=== PATIENT | male | born 1935 | race Caucasian/White ===

== ENCOUNTER 2020-10-03 19:34 | Inpatient (IN) | payer MEDICARE, SELFPAY ==
[2020-10-03 23:25] LABS: Bedside Glucose 139 mg/dL (70-110)
[2020-10-03 23:49] VITALS: BP 97/67; PULSE 88; RESP 16; TEMP 36.5; O2SAT 95
[2020-10-04] MEDS: Jevity 1.5 1,000 ML 60 ML GT ×2 (00:53→14:11)
--- NOTE | 2020-10-04 05:40 | PCS.PANDOC ---
PANDEMIC DOCUMENTATION INITIATED: Date: 09/23/2020 Time: 220
[2020-10-04 06:17] LABS: International Normalized Ratio 1.2; Prothrombin Time (Protime)PT. 14.2 SECONDS (11.7-14.9)
[2020-10-04 06:30] LABS: Bedside Glucose 256 mg/dL (70-110)
[2020-10-04] MEDS: Furosemide 40 MG Tablet PO (09:05)
[2020-10-04] MEDS: Cyanocobalamin 500 MCG Tablet 1000 MCG PO (09:05)
[2020-10-04] MEDS: Empagliflozin 10 MG Tablet PO (09:05)
[2020-10-04 09:06] VITALS: PULSE 97
[2020-10-04] MEDS: metFORMIN HCl 500 MG Tablet PO (09:06)
[2020-10-04] MEDS: Cilostazol 50 MG Tablet 100 MG PO ×2 (09:06→16:46)
[2020-10-04] MEDS: Clopidogrel Bisulfate 75 MG Tablet PO (09:06)
[2020-10-04] MEDS: Gabapentin 300 MG Capsule PO ×3 (09:06→16:46)
[2020-10-04] MEDS: Metoprolol Tartrate 25 MG Tablet 75 MG PO ×2 (09:06→23:50)
[2020-10-04] MEDS: amLODIPine 5 MG Tablet PO ×2 (09:06→23:49)
[2020-10-04] MEDS: Enoxaparin 100 MG/ML Syringe SC (09:07)
[2020-10-04] MEDS: Lidocaine 5% Patch 1 PATCH TOPICAL (09:07)
[2020-10-04] MEDS: Allopurinol 300 MG Tablet PO (09:07)
[2020-10-04 10:00] VITALS: BP 133/74; PULSE 97; RESP 16; TEMP 36.6; O2SAT 97
--- NOTE | 2020-10-04 10:07 | CASEMGMT ---
Social Work Discussed patient's code status. Pt wishes to be full code. Nursing notified. Completed PHQ-9: score 11/13. Denies wanting meds to help with sleep. 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
[2020-10-04 11:51] LABS: Bedside Glucose 229 mg/dL (70-110)
--- NOTE | 2020-10-04 13:47 | PCM.RU.PYE ---
Admission Information Primary Diagnosis:: Physical debility due to Status Changes from Prescreening?: No changes Identified Actual Problem List:: Falls, Skin Intergrity, Alteration in Nutrition, Mobility Impaired, Self Care Deficit, Diabetes, Hyperglycemia, BP, Hypertension, Fluid Change-Dehydration, Alteration-Leisure Activ. Potential Problem List:: DVT, Bleeding, Infection, UTI, Aspiration, Falls, Skin Integrity, Depression Risk of Complications DVT: ANAIS Brennansalma, - - Lovenox 100 mg daily until INR is greater than 2 Bleeding: Monitor Lab Values, Nursing to Teach Precautions for anti-coagulation therapy., Wound, if applicable, to be assessed every shift., Stroke patients assessed for lethargy or change in status. Infection: Clinical Staff to Monitor for S/S of infection:, S/S of infection include fever, redness, warmth, etc. Urinary Tract Infection: Monitor for frequency, burning, discomfort, or incontinence., Nursing will obtain urine sample for urinalysis and C&S when ordered. Aspiration: Clinical staff will monitor for coughing, drooling, congestion., Speech will evaluate swallowing and dsyphasia., Nursing will monitor patient swallowing during meals. Falls: Patient will be evaluated for Fall Precautions, Patient will be placed on Fall Precautions as indicated per protocol. Skin Breakdown: Nursing will assess skin daily using assessment tool., Nursing will place on Skin Breakdown Precautions as indicated. Pain: Clinical staff will assess patient's pain level per protocol., Medications will be given, if needed, and the pain level reassessed., Other methods: Massage, distraction, decrease stimulus, etc. used PRN. Plan of Care Patient requires physician specializing in physical medicine and rehab oversight to provide close medical supervision of rehab issues including: Pain Management, Sleep Problems, Bowel and Bladder, Medical and co-morbidity Management, DVT prophylaxis, Rehabilitation Leadership, Coordination of treatment team Patient needs Physical Therapy: For a minimum of 1 hour, At least 5 out of 7 days Patient needs Physical Therapy to improve:: Mobility, Mobility, Mobility, Strengthening, Transfers, Stretching, ROM, Endurance, Stairs, Gait, Balance Patient needs Occupational Therapy: For a minimum of 1 hour, At least 5 out of 7 days Patient needs Occupational Therapy to improve ADL's incl.: Eating, Grooming, Bathing, Dressing, Toileting, Toilet transfers, Community Reintegration, Higher functioning activities, Household tasks, Adaptive Equipment, Splinting, Other activities as determined Patient requires speech therapy: For a minimum of 1 hour, At least 5 out of 7 days Patient requires speech therapy for: Swallowing, Cognition, Language Skills, Compensatory Strategies Patient requires 24/ Rehabilitation Nursing for: Pain Issues, Identifying and preventing risk factors, Monitoring and reporting current medical conditions, Assisting with ambulation, transfer, and all ADL's, Teaching patients about disease process and medications, Family teaching, Providing safe environment, Bowel and Bladder Issues, Skin integrity, Medication Management Patient needs Community Service Specialist/ Case Management for: Discharge Planning, Arranging Home Equipment or Services, Family Interventions Patient needs Dietary and Nutrition Services for: Adequate Nutrition, Nutritional Supplements, Nutritional Education Goals Patient will remain: free from falls, or injury at time of discharge. Patient will perform bed mobility at: MOD I level of assist. Patient will complete transfers from bed to chair at: MOD I level of assist. Patient will ambulate: with MOD I assist, with LRD, - - 300 feet Patient will complete upper body dressing at: MOD I level of assist. Patient will complete lower body dressing at: MOD I level of assist. Patient will complete toileting at: MOD I level of assist. Patient will perform bathing at: MOD I level of assist. Patient will complete grooming at: MOD I level of assist. Patient will complete home management skills at: MOD I level of assist. Patient will achieve: at MOD I assist, - - 1 curb step Patient will have pain level of: of 3 or less Patient's skin will: remain intact, free from infection. Patient will receive: adequate nutrition. Discharge Planning Pt Prognosis for Sig. Practical Improv. w/in Reasonable Time: Good Estimated Length of stay (days): 28 Anticipated D/C Destination: Home with Outpt Therapy Was Preadmission Assessment Accurate?: Yes
--- NOTE | 2020-10-04 13:57 | PCM.HP.STD ---
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...admitted to [facility] (2) Dysphagia Status: Acute Qualifiers: Dysphagia type: oropharyngeal phase Qualified Code(s): R13.12 - Dysphagia, oropharyngeal phase Comment: NPO with PEG at presentation (3) S/P percutaneous endoscopic gastrostomy (PEG) tube placement Status: Acute (4) Dysarthria Status: Acute (5) Chronic low back pain Status: Chronic (6) Atrial fibrillation Status: Chronic (7) Hypertension Status: Chronic (8) HLD (hyperlipidemia) Status: Chronic (9) CAD (coronary artery disease) Status: Chronic (10) Diabetes mellitus type 2 in nonobese Status: Chronic (11) Malnutrition Status: Acute Comment: pt reports a 20 lb weight loss since admission to [facility] on 09/27/2020 BUT he weighed 169 pounds and 12.1 ounces at presentation to [facility] and today at our institution he weighs 169 pounds and 5.04 ounces. ? Malnutrition? 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 Mr. Hassan is a 84 year old M with a past medical history of hypertension, hyperlipidemia, coronary artery disease, CABG, diabetes mellitus type 2, paroxysmal atrial fibrillation, chronic anticoagulation with warfarin, hyperuricemia and chronic low back pain who presented to [facility] ED on 09/26/2020 with slurred speech, right facial droop and dizziness for the preceding few hours. The initial CT brain without IV contrast done 09/26/2020 showed acute brain attack. He was at admitted to the hospital for acute right inferior medullary ischemic CVA. Because he had a therapeutic INR and the brain CT already showed changes consistent with ischemic CVA TPA was not ordered. CTA of the head showed no acute large vessel occlusion or hemorrhage. There was multifocal smaller vessel intracranial stenoses. Lab at admission to [facility] revealed a creatinine clearance of 34 which is consistent with stage IIIb chronic renal failure. Since I have no prior labs on this gentleman I cannot say if this is acute or chronic. He was seen at [facility] by PT/OT/ST. PEG tube was placed due to severe dysphagia and he was transferred to [facility] acute inpatient rehab on 10/04/2020 for greater than 3 hours of therapy daily to restore him at or near his prior level of function. Prior to the stroke he was independent with all ADLs and driving. All paperwork from [facility] was reviewed. He has never been a patient at [facility] in the past. Past Medical History Past Medical History (Chronic Problems): Chronic Problems Chronic low back pain (Chronic) Atrial fibrillation (Chronic) Hypertension (Chronic) HLD (hyperlipidemia) (Chronic) CAD (coronary artery disease) (Chronic) Diabetes mellitus type 2 in nonobese (Chronic) Chronic anticoagulation (Chronic) With warfarin Small vessel disease, cerebrovascular (Chronic) Age-related macular degeneration (Chronic) Allergies No Known Allergies Allergy (Verified 10/03/20 22:45) Home Medications: Ambulatory Orders Medication Instructions Recorded Allopurinol [Zyloprim] 300 mg PO Q48H 10/03/20 Amlodipine [Norvasc] 5 mg PO BID 10/03/20 Atorvastatin Calcium [Lipitor] 40 mg PO QHS 10/03/20 Cilostazol [Pletal] 100 mg PO BIDAC 10/03/20 Clopidogrel Bisulfate [Plavix] 75 mg PO DAILY 10/03/20 Cyanocobalamin [Vitamin B12] 1,000 mcg PO DAILY@0800 10/03/20 Empagliflozin [Jardiance] 10 mg PO DAILY 10/03/20 Enoxaparin Sodium [Lovenox] 100 mg SQ DAILY 10/03/20 Furosemide [Lasix] 40 mg PO DAILY 10/03/20 Gabapentin [Neurontin] 300 mg PO TIDCM 10/03/20 Glyburide,Micronized [Glyburide 6 mg PO BID 10/03/20 Micronized] Lidocaine 1 ea TP DAILY 10/03/20 Metformin HCl [Glucophage] 500 mg PO BID 10/03/20 Metoprolol Tartrate [Lopressor 25 mg PO BID 10/03/20 (Beta [place])] Warfarin [Coumadin ([facility]KC)] 4 mg PO DAILY 10/03/20 Surgical History: coronary bypass surgery Lives: Spouse/ Significant Other Smoking Status: Never smoker Tobacco Use: Non-smoker Alcohol: None Drugs: None - *Family History Paternal History Items: High Cholesterol, Heart Disease, Hypertension Review of Systems Constitutional: Denies: Chills, Fever, Malaise, Weight Change Eyes: Reports: Blurred vision - he does not have his glasses on and he has age related Macular degeneration HEENT: Reports: Difficulty Swallowing. Denies: Eye Pain, Head Aches, Nasal Congestion, Sinus Congestion, Sinus Drainage, Sore Throat Cardiovascular: Reports: Light Headedness - when he stands up. Denies: Chest Pain, Edema, Palpitations, Syncope Respiratory: Reports: Cough - occasional - he states productive but, he does not look at it. Denies: Shortness of Breath, Shortness of breath at rest, Sputum production Gastrointestinal: Denies: Abdominal Pain, Diarrhea, Nausea, Vomiting Genitourinary: Denies: Dysuria Musculoskeletal: Reports: Back Pain - low back pain - chronic since he was 19 YOA. Denies any radicular pain, Neck Pain - his neck is stiff. Denies: Joint Pain, Joint swelling, Joint Tenderness Skin: Reports: Dryness. Denies: Jaundice, Pruritis, Rash, Wounds Neurological: Reports: Balance problems, Blurred vision, Change in Speech, Slurred speech. 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 ? Malnutrition? Decubitus ulcer of coccygeal region, stage 1 (Acute) Renal failure (Acute) - Physical Exam Vitals/I&O's: Vital Signs Temp Pulse Resp BP Pulse Ox 97.8 F 97 16 133/74 H 97 10/04/20 10:00 10/04/20 10:00 10/04/20 10:00 10/04/20 10:00 10/04/20 10:00 Oxygen Delivery Method Room Air Weight: 169 lb 5.04 oz Intake and Output for Last 24 Hours 10/02/20 10/03/20 10/04/20 23:59 23:59 23:59 Intake Total 635 / 635 Output Total 950 / 950 Balance -315 / -315 General: Alert, Oriented x3, Cooperative, No apparent distress, Well developed, Well nourished HEENT: Atraumatic, EOMI, Normocephalic, - - Pupils are equal round and reactive to light. He has some ptosis in the right eye. Oral: Dry Mucosa Neck: Supple, No JVD, Negative Carotid Bruits, No Nodes, Trachea Midline, - - his neck is stiff and he has decreased ROM in all planes.....denies neck pain Lungs: Clear to auscultation, No rhonchi, No wheeze, No rales, - - Lying flat in bed with no tachypnea and no conversational dyspnea Cardiovascular: Regular rate, Regular Rhythm, Normal S1, Normal S2, No murmurs, No Ectopic Activity, No rub noted, No Gallop, - - he has distant heart sounds Abdomen: Bowel Sounds Present, Soft, Non Tender, Non-Distended, - - No guarding with palpation Extremities: No clubbing, No cyanosis, No edema, Capillary Refill Less than 3 Seconds, No Calf Tenderness, Diminished Peripheral Pulses, - - Feet are warm to touch Skin: No rashes, No breakdown, Ulcer/ Wound - reportedly with a stage I decubitus on the coccygeal area Musculoskeletal: No Tenderness to Palpation of Joints or Extremities, Arthritic Changes Neurological: Facial Droop - on the right, - - see NIH under the assessment and plan section Psych/Mental Status: Normal Affect, Appropriate, - - very pleasant Laboratory Results 10/03/20 23:21: POC Glucose 139 H 10/04/20 06:00: PT 14.2, INR 1.2 10/04/20 06:17: POC Glucose 256 H 10/04/20 11:25: POC Glucose 229 H Current Medications Allopurinol (Allopurinol 300 Mg Tablet) 300 mg PO Q48 [facility] Last Admin: 10/04/20 09:07 Dose: 300 mg Documented by: Amlodipine Besylate (Amlodipine 5 Mg Tablet) 5 mg PO BID [facility] Last Admin: 10/04/20 09:06 Dose: 5 mg Documented by: Atorvastatin Calcium (Atorvastatin Calcium 40 Mg Tablet) 40 mg PO QHS [facility] Last Admin: 10/04/20 00:54 Dose: Not Given Documented by: Bisacodyl (Bisacodyl 10 Mg Suppository) 10 mg RECTAL .PRN X 1 PRN PRN Reason: Constipation Cilostazol (Cilostazol 50 Mg Tablet) 100 mg PO BIDAC [facility] Last Admin: 10/04/20 09:06 Dose: 100 mg Documented by: Clopidogrel Bisulfate (Clopidogrel Bisulfate 75 Mg Tablet) 75 mg PO DAILY [facility] Last Admin: 10/04/20 09:06 Dose: 75 mg Documented by: Cyanocobalamin (Cyanocobalamin 500 Mcg Tablet) 1,000 mcg PO DAILY@0800 [facility] Last Admin: 10/04/20 09:05 Dose: 1,000 mcg Documented by: Empagliflozin (Empagliflozin 10 Mg Tablet) 10 mg PO DAILY [facility] Last Admin: 10/04/20 09:05 Dose: 10 mg Documented by: Enoxaparin Sodium (Enoxaparin 100 Mg/Ml Syringe) 100 mg SC DAILY [facility] Stop: 10/06/20 10:01 Last Admin: 10/04/20 09:07 Dose: 100 mg Documented by: Furosemide (Furosemide 40 Mg Tablet) 40 mg PO DAILY [facility] Last Admin: 10/04/20 09:05 Dose: 40 mg Documented by: Gabapentin (Gabapentin 300 Mg Capsule) 300 mg PO TIDCM [facility] Last Admin: 10/04/20 12:33 Dose: 300 mg Documented by: Glyburide ([facility]buride Micronized 3 Mg Tablet) [facility] Last Admin: 10/04/20 09:06 Dose: 6 mg Documented by: Enteral Nutritional Formula (Jevity 1.5) 1,000 mls @ 60 mls/hr GT .[id number] [facility] Last Admin: 10/04/20 00:53 Dose: 60 mls/hr Documented by: Lidocaine (Lidocaine 5% Patch) 1 patch TOPICAL DAILY [facility] Stop: 10/08/20 10:01 Last Admin: 10/04/20 09:07 Dose: 1 patch Documented by: Magnesium Hydroxide (Magnesium Hydroxide 30 Ml Udc) 30 ml PO .PRN X 1 PRN PRN Reason: Constipation Metformin HCl (Metformin Hcl 500 Mg Tablet) [facility] Last Admin: 10/04/20 09:06 Dose: 500 mg Documented by: Metoprolol Tartrate (Metoprolol Tartrate 25 Mg Tablet) 75 mg PO BID [facility] Last Admin: 10/04/20 09:06 Dose: 75 mg Documented by: Warfarin Sodium (Warfarin 4 Mg Tablet) 4 mg PO DAILY@1700 [facility] Assessment/Plan All Active Problems CVA (cerebral vascular accident) (Acute) Dysphagia (Acute) S/P percutaneous endoscopic gastrostomy (PEG) tube placement (Acute) Dysarthria (Acute) Malnutrition (Acute) Decubitus ulcer of coccygeal region, stage 1 (Acute) Renal failure (Acute) Impressions 1. 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 Severe dysphagia 3. Status post PEG insertion on 10/01/2020 4. Dysarthria 5. Cognitive dysfunction - resolved 6. Paroxysmal atrial fibrillation 7. Chronic anticoagulation with warfarin 8. Hypertension 9. Hyperlipidemia 10. Coronary artery disease 11. Hyperuricemia 12. Chronic renal failure stage IIIb 13. History of CABG 14. suspected PVD - denies claudication PLAN PT for gait stability OT for ADL's ST for evaluation Analgesics as needed Bowel protocol Fall precautions Assess for Anxiety/Depression GI prophylaxis with not necessary at this time. Patient denies any epigastric pain, nausea or vomiting. He denies any history of peptic ulcer disease. He is on continuous tube feed. Patient is on enoxaparin 100 mg daily to bridge with warfarin until the INR is greater than 2. Follow up with PCP and neurology following DC from Rehab AM lab including CMP, CBC, Mag, hemoglobin A1c and Phos DC Metformin-patient is now on tube feed and the combination of tube feed with Metformin generally leads to severe diarrhea/fluid loss. Patient had stage IIIb renal failure and Metformin is generally not used secondary to potential for causing lactic acidosis. Continue enoxaparin 100 mg subcu daily until the INR is greater than 2. Daily PT/INR Monitor accurate I&O If he tolerates the continuous tube feed with no residuals will discuss bolus feedings with the dietitian. Sliding scale insulin every 6 hours
--- NOTE | 2020-10-04 14:08 | PCM.NTREPORT ---
Nutrition Therapy Report - History Nutrition Services has been consulted to:: Manage enteral nutrition Current diet / nutrition support order:: NPO - Anthropometric Measurements Height:: 5 ft 9 in Weight:: 76.8 kg Body Mass Index (BMI):: 25.0 - Assessment Food / Nutrition-Related History:: Pt states Regular diet and good po intake prior to CVA. Now w/ new PEG (10/02) and receiving Jevity 1.5 at goal rate of 60 ml/hr to provide ~ 2160 dunia / 91 gm pro / 1094 ml free water/day. Pt tolerating it well per nsg w/ flat/soft/nontender abd. POC bld glu 10/04 = 256, 229 - noted pt with meds to help w/ glycemic control. Pt reports UBW: 81.8 kg indicating 6.2% wt loss x ~ 3 wks. [ End ] - Nutrition Diagnosis Problem / Etiology / Signs & Symptoms (PES):: Pt with suboptimal po intake and chewing/swallowing issues r/t CVA aeb need for PEG placement/enteral nutrition support and 6.2% wt loss x 3 wks. [ End ] Evidence of Malnutrition Exists:: No - Nutrition Intervention Nutrition Prescription:: [id number] dunia / 75-85 gm pro / day - Food / Nutrient Delivery Interventions Summary of nutrition intervention:: Will continue tf as ordered - Will add free water flush of 175 ml every 4 hours to provide total of 2144 ml/day. [ End ] Nutrition support ordered as / adjusted to:: Ordered free water flush of 175 ml every 4 hours to provide total of 2144 ml/day. Nutrition education provided?: No - MNT Monitoring Further MNT monitoring and evaluation required?: Yes MNT Follow-up in:: 3-5 days - Please call RD/LD if questions x [phone]
[2020-10-04 14:12] VITALS: BMI 25.0
[2020-10-04] MEDS: Insulin Lispro 100 UNIT/ML INSULN.PEN SC ×2 (16:57→23:48)
[2020-10-04 17:55] LABS: Bacteria 0 SEEN /hpf (None Seen); Mucous, Urine 0 SEEN /hpf (<or=2+); Red Blood Cells-Urine 0 SEEN /hpf (0-5)
[2020-10-04 18:04] LABS: Color, Urine Yellow (Yellow); Glucose, Dipstick 1000 mg/dl (Normal); Ketone-Dipstick Negative (Negative); Leukocyte Esterase-Dipstick Negative /ul (Negative); Nitrite-Dipstick Negative (Negative); Occult Blood-Urine Negative /ul (Negative); Protein-Dipstick 100 mg/dl (Negative); Urine Bilirubin Dipstick Negative (Negative); Urine Clarity Sl. Cloudy (Clear); Urine Urobilinogen 1 mg/dl (Normal)
[2020-10-04 18:10] LABS: Squamous Epithelial Cells - UA 0-5 SEEN /hpf (0-5); White Blood Cells 0-5 SEEN /hpf (0-5)
[2020-10-04 18:15] LABS: Bedside Glucose 174 mg/dL (70-110)
[2020-10-04] MEDS: Tamsulosin HCl 0.4 MG Capsule PO (18:15)
[2020-10-04 19:44] VITALS: BP 146/69; PULSE 81; RESP 18; TEMP 36.9; O2SAT 95
[2020-10-04] MEDS: Atorvastatin Calcium 40 MG Tablet PO (23:49)
[2020-10-04 23:50] VITALS: BP 146/69; PULSE 81
[2020-10-05 00:05] LABS: Bedside Glucose 250 mg/dL (70-110)
[2020-10-05] MEDS: Acetaminophen 650 MG/20 ML UDC GT ×2 (01:46→17:52)
[2020-10-05 04:32] VITALS: BP 136/64; BP 86/42; BP 98/50; PULSE 72; PULSE 77; PULSE 83
[2020-10-05] MEDS: Insulin Lispro 100 UNIT/ML INSULN.PEN SC ×5 (06:27→22:25)
[2020-10-05] MEDS: Cilostazol 50 MG Tablet 100 MG PO ×2 (06:28→17:42)
[2020-10-05 06:56] LABS: Bedside Glucose 245 mg/dL (70-110)
[2020-10-05 07:58] LABS: Hematocrit 49.2 % (40-54); Hemoglobin 15.8 g/dL (13.0-16.5); Mean Corp Hgb Conc 32.1 g/dL (32-36); Mean Corpuscular Volume 96.7 fL (80-94); Mean Platelet Vol. 11.2 fl (6.2-12.0); Platelet Count 245 K/mm3 (150-450); RBC Distribution Width CV 15.9 % (11.6-14.6); Red Blood Count 5.09 M/mm3 (4.6-6.2); White Blood Count 8.1 K/mm3 (4.4-11.0)
[2020-10-05 08:13] LABS: ALB/GLOB Ratio 0.8 RATIO (0.9-2.4); AST(SGOT) 32 U/L (15-37); Alanine Aminotransfer ALT/SGPT 49 U/L (16-61); Albumin, Serum 3.5 g/dL (3.2-5.0); Alkaline Phosphatase 202 U/L (45-117); Anion Gap 4 (5-15); BUN 34 mg/dL (7-18); Calcium,Total 9.5 mg/dL (8.5-10.1); Chloride 105 mmol/L (98-107); EST Glomerular Filtration Rate 41 mL/min (>60); Est Glom Filt Rate - Afr Amer 49 mL/min (>60); Estimated Creatinine Clearance 31.77 ml/min; Globulin 4.5 g/dL (2.2-4.2); Glucose 234 mg/dL (74-106); Magnesium 2.5 mg/dL (1.6-2.6); Phosphorus 3.5 mg/dL (2.5-4.9); Potassium 3.9 mmol/L (3.5-5.1); Sodium Level 140 mmol/L (136-145)
[2020-10-05 08:25] LABS: International Normalized Ratio 1.2; Prothrombin Time (Protime)PT. 14.3 SECONDS (11.7-14.9)
[2020-10-05 09:09] LABS: Hemoglobin A1c 6.3 % (3.8-5.6)
[2020-10-05 09:32] VITALS: BP 136/64; PULSE 77; RESP 16; TEMP 36.8; O2SAT 94
--- NOTE | 2020-10-05 10:17 | PN_ITS ---
Progress Note Afebrile Orthostatics were positive today. The blood pressure dropped from 136/64 lying down to 86/42 standing up. The heart rate did not increase with change in positions. He is on metoprolol 75 mg p.o. twice daily which likely blunts the increase in heart rate with orthostatic hypotension. Maintaining appropriate oxygen saturation on RA He is n.p.o. Discussed with nursing - no problems that need addressed Reviewed the PT/OT/ST notes Medication list reviewed. Fluid balance yesterday was +430. He had 1600 urine output. Post void residuals were 347, 465 and 545. Blood sugars are not adequately controlled. He is on continuous tube feed. Blood sugar this a.m. was 245 and at at bedtime it was 250. Nursing is checking the BS's AC and HS.....will change to Q 4H until we get the BS's controlled...... All lab was personally reviewed. The white blood cell count is 8.1 and the platelets are normal at 245,000. Hemoglobin is 15.8 the BUN is increased at 34 and the creatinine is increased at 1.7. Potassium is 3.9 and the sodium is 140. Magnesium is 2.5 and phosphorus is 3.5. The hemoglobin A1c is 6.3%. LFTs are unremarkable with the exception of a mild increase in alkaline phosphatase to 202. UA yesterday has proteinuria, 0 RBCs and 0-5 WBCs. There was no bacteria seen. It was nitrite negative. Mucous membranes are dry Lungs-clear to auscultation Heart-regular rate and rhythm with an occasional early beat, no rub, no gallop Abdomen-soft, nontender, nondistended, PEG site is clean and free of discharge or erythema. No peripheral edema No calf tenderness No large bruising and denies bleeding from his nose, gums or anus Impressions 1. Post stroke debility 2. Uncontrolled diabetes mellitus type 2 secondary to continuous tube feed 3. Chronic renal failure stage IIIb 4. Coronary artery disease with history of CABG 5. Chronic atrial fibrillation 6. Chronic anticoagulation with warfarin 7. Dysarthria 8. Dysphagia-severe requiring PEG tube placement 9. Urine retention 10. Orthostatic hypotension-suspect this has a lot to do with dehydration due to polyuria. 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 Will recheck following hydration Continue therapy. will foreign exchange position clerk to bolus feedings if there are no residuals with the continuous TF. DC AMaryl and Januvia and use Lantus Q 12H and SSI for now until BS's are controlled. The increase in the BUN and creat is likely due to dehydration due to polyuria from uncontrolled BS's. urinary tract obstruction also likely has some effect also. Because of the orthostasis can not increase Flomax and in fact we will DC and restart after he is adequately hydrated. Continue enoxaparin until the INR is greater than 2. Will likely need a Krause, can not increase the Flomax due to orthostatic hypotension. May eventually need a urology consult. STROKE Vital Signs/Narrative: Vital Signs Temp Pulse Resp BP Pulse Ox 10/05/20 09:32 98.3 F 77 16 136/64 H 94 Inpatient E&M: [id number] Subs Hosp L2
[2020-10-05] MEDS: Lidocaine 5% Patch 1 PATCH TOPICAL (10:36)
[2020-10-05 10:38] VITALS: PULSE 78
[2020-10-05] MEDS: Metoprolol Tartrate 25 MG Tablet 75 MG PO (10:38)
[2020-10-05] MEDS: Clopidogrel Bisulfate 75 MG Tablet PO (10:38)
[2020-10-05] MEDS: Gabapentin 300 MG Capsule PO ×3 (10:38→17:58)
[2020-10-05] MEDS: Furosemide 40 MG Tablet PO (10:38)
[2020-10-05] MEDS: Cyanocobalamin 500 MCG Tablet 1000 MCG PO (10:39)
[2020-10-05] MEDS: amLODIPine 5 MG Tablet PO (10:39)
[2020-10-05] MEDS: Jevity 1.5 1,000 ML 60 ML GT ×2 (10:40→22:47)
[2020-10-05] MEDS: Enoxaparin 100 MG/ML Syringe SC (10:41)
[2020-10-05 11:10] LABS: Bedside Glucose 276 mg/dL (70-110)
[2020-10-05 16:01] LABS: Bedside Glucose 265 mg/dL (70-110)
[2020-10-05 17:55] LABS: Bedside Glucose 223 mg/dL (70-110)
[2020-10-05 19:46] VITALS: BP 133/62; PULSE 80; RESP 18; TEMP 37.2; O2SAT 94
[2020-10-05 22:00] VITALS: PULSE 80; RESP 16
[2020-10-05] MEDS: Docusate Sodium 100 MG/10 ML UDC GT (22:26)
[2020-10-05 22:28] VITALS: PULSE 84
[2020-10-05] MEDS: Metoprolol Tartrate 25 MG Tablet 75 MG GT (22:28)
[2020-10-05] MEDS: Atorvastatin Calcium 40 MG Tablet GT (22:28)
[2020-10-05] MEDS: amLODIPine 5 MG Tablet GT (22:29)
[2020-10-05 22:35] LABS: Bedside Glucose 231 mg/dL (70-110)
[2020-10-06] MEDS: Insulin Lispro 100 UNIT/ML INSULN.PEN SC ×6 (02:08→22:14)
[2020-10-06] MEDS: Jevity 1.5 1,000 ML 60 ML GT (04:02)
[2020-10-06 04:32] VITALS: BP 111/53; BP 115/53; BP 81/35; PULSE 70; PULSE 75; PULSE 78
[2020-10-06 05:06] LABS: Bedside Glucose 266 mg/dL (70-110)
[2020-10-06 06:22] LABS: International Normalized Ratio 1.2; Prothrombin Time (Protime)PT. 14.9 SECONDS (11.7-14.9)
[2020-10-06 06:56] LABS: Bedside Glucose 248 mg/dL (70-110)
[2020-10-06 08:33] VITALS: BP 136/70; PULSE 78; RESP 16; TEMP 36.8; O2SAT 93
[2020-10-06] MEDS: Cyanocobalamin 500 MCG Tablet 1000 MCG GT (08:51)
[2020-10-06 08:52] VITALS: PULSE 78
[2020-10-06] MEDS: Metoprolol Tartrate 25 MG Tablet 75 MG GT ×2 (08:52→22:14)
[2020-10-06] MEDS: Cilostazol 50 MG Tablet 100 MG GT ×2 (08:52→16:37)
[2020-10-06] MEDS: amLODIPine 5 MG Tablet GT ×2 (08:52→22:14)
[2020-10-06] MEDS: Clopidogrel Bisulfate 75 MG Tablet GT (08:53)
[2020-10-06] MEDS: Docusate Sodium 100 MG/10 ML UDC GT (08:54)
[2020-10-06] MEDS: Lidocaine 5% Patch 1 PATCH TOPICAL (08:54)
[2020-10-06] MEDS: Gabapentin 300 MG Capsule GT ×3 (08:56→16:37)
[2020-10-06] MEDS: Furosemide 40 MG Tablet GT (08:57)
[2020-10-06] MEDS: Enoxaparin 100 MG/ML Syringe SC (09:00)
[2020-10-06] MEDS: Allopurinol 300 MG Tablet GT (09:01)
[2020-10-06] MEDS: Acetaminophen 650 MG/20 ML UDC GT ×2 (09:01→16:38)
[2020-10-06 09:21] LABS: Bedside Glucose 297 mg/dL (70-110)
[2020-10-06 13:46] LABS: Bedside Glucose 293 mg/dL (70-110)
[2020-10-06 17:51] LABS: Bedside Glucose 277 mg/dL (70-110)
[2020-10-06 18:58] VITALS: BP 126/70; PULSE 78; RESP 18; TEMP 36.5; O2SAT 93
[2020-10-06 22:00] VITALS: PULSE 78; RESP 16
[2020-10-06 22:14] VITALS: PULSE 72
[2020-10-06] MEDS: Atorvastatin Calcium 40 MG Tablet GT (22:16)
[2020-10-06 22:36] LABS: Bedside Glucose 224 mg/dL (70-110)
[2020-10-07] MEDS: Insulin Lispro 100 UNIT/ML INSULN.PEN SC ×6 (01:54→21:09)
[2020-10-07 02:31] LABS: Bedside Glucose 249 mg/dL (70-110)
[2020-10-07 05:54] LABS: International Normalized Ratio 1.5; Prothrombin Time (Protime)PT. 17.9 SECONDS (11.7-14.9)
[2020-10-07 06:45] LABS: Bedside Glucose 256 mg/dL (70-110)
[2020-10-07 07:48] VITALS: PULSE 84
[2020-10-07] MEDS: Metoprolol Tartrate 25 MG Tablet 75 MG GT ×2 (07:48→21:01)
[2020-10-07] MEDS: amLODIPine 5 MG Tablet GT ×2 (07:48→21:02)
[2020-10-07] MEDS: Furosemide 40 MG Tablet GT (07:48)
[2020-10-07] MEDS: Cilostazol 50 MG Tablet 100 MG GT ×2 (07:48→17:19)
[2020-10-07] MEDS: Gabapentin 300 MG Capsule GT ×3 (07:48→17:20)
[2020-10-07] MEDS: Cyanocobalamin 500 MCG Tablet 1000 MCG GT (07:48)
[2020-10-07] MEDS: Clopidogrel Bisulfate 75 MG Tablet GT (07:48)
[2020-10-07] MEDS: Lidocaine 5% Patch 1 PATCH TOPICAL (07:49)
[2020-10-07] MEDS: Acetaminophen 650 MG/20 ML UDC GT ×2 (07:50→17:29)
[2020-10-07 08:25] VITALS: BP 134/74; PULSE 84; RESP 18; TEMP 36.7; O2SAT 94
[2020-10-07 10:36] LABS: Bedside Glucose 330 mg/dL (70-110)
[2020-10-07] MEDS: Jevity 1.5 1,000 ML 60 ML GT (13:52)
[2020-10-07 14:01] LABS: Bedside Glucose 337 mg/dL (70-110)
--- NOTE | 2020-10-07 14:48 | PCM.NTREPORT ---
Nutrition Therapy Report - History Nutrition Services has been consulted to:: Manage enteral nutrition Current diet / nutrition support order:: NPO/PEG TF - Anthropometric Measurements Height:: 5 ft 9 in Weight:: 77.2 kg Body Mass Index (BMI):: 25.1 - Relevant Labs Relevant Labs:: MCV 96.7 fL (80-94) H 10/05/20 07:26 RDW Std Deviation 56.0 fl (35.1-43.9) H 10/05/20 07:26 RDW Coeff of Norman 15.9 % (11.6-14.6) H 10/05/20 07:26 PT 17.9 SECONDS (11.7-14.9) H 10/07/20 05:40 Anion Gap 4 (5-15) L 10/05/20 07:26 BUN 34 mg/dL (7-18) H 10/05/20 07:26 Creatinine 1.70 mg/dL (0.70-1.30) H 10/05/20 07:26 Est GFR (MDRD) Af Amer 49 mL/min (>60) L 10/05/20 07:26 Est GFR (MDRD) Non-Af 41 mL/min (>60) L 10/05/20 07:26 Glucose 234 mg/dL (74-106) H 10/05/20 07:26 Hemoglobin A1c 6.3 % (3.8-5.6) H 10/05/20 07:26 Alkaline Phosphatase 202 U/L (45-117) H 10/05/20 07:26 Globulin 4.5 g/dL (2.2-4.2) H 10/05/20 07:26 Albumin/Globulin Ratio 0.8 RATIO (0.9-2.4) L 10/05/20 07:26 - Assessment Food / Nutrition-Related History:: Pt with silent aspiration and NPO/PEG TF for nutrition. Pt appears to be tolerating continuous TF well with no residuals noted. Dr. Redd is requesting bolus TF support instead of continuous TF's. Blood glucose elevated but, HgbA1C 6.3% indicates overall good glycemic control. Wt overall stable since admit with ~.4 Kg wt increase noted. Re-estimated nutrition needs~0950-5485 kcal and~70-80 gm protein/day. Pt with pressure injury reddened coccyx. - Nutrition Diagnosis Problem / Etiology / Signs & Symptoms (PES):: Difficulty chewing and swallowing related to neuroligical deficit/CVA as evidenced by need for PEG TF for nutrition. Evidence of Malnutrition Exists:: No - Nutrition Intervention Nutrition Prescription:: Estimated Nutrition Needs~6182-9133 kcal and ~70-80 gm protein/day - Food / Nutrient Delivery Interventions Summary of nutrition intervention:: 1.) Will change TF order from continuous Jevity 1.5 Hernan @ 60 ml/hr to Jevity 1.5 Hernan 240 ml bolus 5 times per day with 90 ml free water flush before and after each bolus to provide 1800 kcal, 77 gm protein and 1812 ml total free water daily. 2.) Continue NPO unless pt deemed safe for PO nutrition. TF will meet~100% of pt estimated nutrition needs for maintenance. Nutrition support ordered as / adjusted to:: Jevity 1.5 Hernan 240 ml bolus 5 times per day with 90 ml free water flush before and after each bolus to provide 1800 kcal, 77 gm protein and 1812 ml total free water daily. Nutrition education provided?: No - MNT Monitoring Further MNT monitoring and evaluation required?: Yes MNT Follow-up in:: 3-5 days
[2020-10-07 14:49] VITALS: BMI 25.1
--- NOTE | 2020-10-07 14:54 | PN_ITS ---
Progress Note Afebrile VSS Maintaining appropriate oxygen saturation on RA Remains n.p.o. with continuous tube feed. Weight has increased approximately 1 pound since admission. Discussed with nursing - no problems that need addressed Reviewed the PT/OT/ST notes Medication list reviewed. He is tolerating the continuous tube feed feeding with no large residuals and no significant diarrhea. I reviewed the dietitians note and asked her to change to bolus feedings for ease of therapy. He has been changed to 240 cc of Jevity 1.55 times daily with 90 cc of free water flush before and after each bolus. Urine culture had no growth. Blood sugar record was reviewed. He got 6 of Lantus every 12 hours yesterday and had a total of 20 units of regular insulin and the blood sugars are all high. INR today is 1.5..... He had 10 mg of Coumadin yesterday. Alert, oriented x3, cooperative, positive dysarthria Lungs-clear to auscultation, not tachypneic, no conversational dyspnea Heart-regular rate and rhythm, no murmur, no gallop, distant heart sounds Abdomen-soft, nontender, PEG site is free of erythema or increased warmth. No peripheral edema No rashes and no skin breakdown Pleasant and appropriate, very upbeat, sleeping well Impressions 1. 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 2. Status post PEG insertion on 10/01/2020 3. PAF 4. Chronic anticoagulation with warfarin -INR is subtherapeutic today and he was only recently restarted on warfarin. He is also on enoxaparin 100 mg subcu once daily until the INR is therapeutic. 5. Hyperuricemia 6. Diabetes mellitus type 2-good control as an outpatient with a hemoglobin A1C of 6.3% however blood sugars on continuous tube feed are very uncontrolled. 7. dehydration due to polyuria 8. Chronic renal failure stage IIIb 9. 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 Increase Lantus to 12 units in the a.m. and 8 units at night. Continue Accu- Cheks 5 times daily prior to all tube feeds and use SSI coverage. Hold Lasix in the a.m. Due to polyuria he is getting dehydrated. BMP in the a.m. With the TF (1200 cc daily) and free water flushes he will be getting 2100 cc fluid daily and this is too much for this pt. Will limit the fluid intake to 1500 cc daily. PT/INR in the AM Inpatient E&M: 35991 Subs Hosp L2
[2020-10-07] MEDS: Jevity 1.5. 1,000 ML Bottle 240 ML GT ×2 (17:26→21:02)
[2020-10-07 18:16] LABS: Bedside Glucose 230 mg/dL (70-110)
[2020-10-07 19:55] VITALS: BP 129/80; PULSE 80; RESP 17; TEMP 36.6; O2SAT 93
[2020-10-07 21:00] VITALS: PULSE 80; RESP 17; O2SAT 93; BMI 25.1
[2020-10-07 21:01] VITALS: BP 129/80; PULSE 80
[2020-10-07] MEDS: Docusate Sodium 100 MG/10 ML UDC GT (21:01)
[2020-10-07] MEDS: Atorvastatin Calcium 40 MG Tablet GT (21:02)
[2020-10-07 21:10] LABS: Bedside Glucose 240 mg/dL (70-110)
--- NOTE | 2020-10-08 02:52 | NURSING ---
Reviewed and agreed with CLIENT PORTFOLIO MANAGER documentation and charting.
[2020-10-08] MEDS: Acetaminophen 650 MG/20 ML UDC GT ×2 (05:05→21:13)
[2020-10-08] MEDS: Insulin Lispro 100 UNIT/ML INSULN.PEN SC ×5 (05:05→21:15)
[2020-10-08 05:35] LABS: International Normalized Ratio 1.8
[2020-10-08] MEDS: Menthol/Lanolin/Calamine/Znox 113 GM Tube 1 APPLIC TOPICAL ×3 (05:39→21:16)
[2020-10-08] MEDS: Jevity 1.5. 1,000 ML Bottle 240 ML GT ×5 (05:39→21:15)
[2020-10-08 05:41] LABS: Anion Gap 7 (5-15); BUN 48 mg/dL (7-18); BUN/Creat Ratio 26.8 RATIO (10-20); Calcium,Total 8.8 mg/dL (8.5-10.1); Chloride 97 mmol/L (98-107); Creatinine, Serum 1.79 mg/dL (0.70-1.30); EST Glomerular Filtration Rate 39 mL/min (>60); Est Glom Filt Rate - Afr Amer 47 mL/min (>60); Estimated Creatinine Clearance 29.62 ml/min; Glucose 213 mg/dL (74-106); Potassium 4.5 mmol/L (3.5-5.1); Sodium Level 134 mmol/L (136-145)
[2020-10-08 06:31] LABS: Bedside Glucose 246 mg/dL (70-110)
[2020-10-08 08:16] VITALS: BP 140/62; PULSE 75; RESP 16; TEMP 36.8; O2SAT 91
[2020-10-08] MEDS: Gabapentin 300 MG Capsule GT ×3 (08:49→17:43)
[2020-10-08] MEDS: Cyanocobalamin 500 MCG Tablet 1000 MCG GT (08:49)
[2020-10-08] MEDS: Cilostazol 50 MG Tablet 100 MG GT ×2 (08:50→17:42)
[2020-10-08 10:26] VITALS: PULSE 76
[2020-10-08] MEDS: amLODIPine 5 MG Tablet GT ×2 (10:26→21:14)
[2020-10-08] MEDS: Clopidogrel Bisulfate 75 MG Tablet GT (10:26)
[2020-10-08] MEDS: Allopurinol 300 MG Tablet GT (10:26)
[2020-10-08] MEDS: Metoprolol Tartrate 25 MG Tablet 75 MG GT ×2 (10:26→21:14)
[2020-10-08] MEDS: Lidocaine 5% Patch 1 PATCH TOPICAL (10:28)
--- NOTE | 2020-10-08 10:29 | CASEMGMT ---
Social Work IDT met with patient and via conference call for Team meeting. Discussed patient's progress in therapy. Pt is min-CGA tx, 50 ft with FWW and working on mechanics and safety. Pt is modA for sponge baths, set up while seated for grooming and UE dressing, max for LE dressing. ST working on swallowing exercises, remains NPO with feeding tube but on FFWP and fluid restriction DC'd. Explained [employer] NRD 10/07 and continued stay is not guaranteed. Will ReTeam next week. Will continue to follow. Mary Hector, INTRUSION ANALYST CHILD CARE
[2020-10-08 11:16] LABS: Bedside Glucose 271 mg/dL (70-110)
[2020-10-08 11:25] LABS: Bacteria 0 SEEN /hpf (None Seen); Mucous, Urine 0 SEEN /hpf (<or=2+); Squamous Epithelial Cells - UA 0 SEEN /hpf (0-5)
[2020-10-08 11:35] LABS: Color, Urine Yellow (Yellow); Glucose, Dipstick 250 mg/dl (Normal); Ketone-Dipstick 5 mg/dl (Negative); Leukocyte Esterase-Dipstick 500 /ul (Negative); Nitrite-Dipstick Negative (Negative); Occult Blood-Urine 250 /ul (Negative); Protein-Dipstick 100 mg/dl (Negative); Specific Gravity, Urine 1.015 (1.002-1.030); Urine Bilirubin Dipstick Negative (Negative); Urine Clarity Cloudy (Clear); Urine Urobilinogen 4 mg/dl (Normal)
[2020-10-08 11:41] LABS: Red Blood Cells-Urine > 100 SEEN /hpf (0-5); White Blood Cells >100 SEEN /hpf (0-5)
[2020-10-08] MEDS: Enoxaparin 100 MG/ML Syringe SC (12:49)
[2020-10-08 13:16] VITALS: BMI 25.1
[2020-10-08 14:31] LABS: Bedside Glucose 312 mg/dL (70-110)
[2020-10-08 19:21] LABS: Bedside Glucose 317 mg/dL (70-110)
[2020-10-08 21:00] VITALS: BP 131/73; PULSE 77; RESP 17; TEMP 37.1; O2SAT 96; BMI 25.1
[2020-10-08 21:00] LABS: Bedside Glucose 316 mg/dL (70-110)
[2020-10-08 21:14] VITALS: BP 131/73; PULSE 77
[2020-10-08] MEDS: Atorvastatin Calcium 40 MG Tablet GT (21:14)
[2020-10-08] MEDS: Docusate Sodium 100 MG/10 ML UDC GT (21:14)
--- NOTE | 2020-10-09 01:50 | NURSING ---
REVIEWED AND AGREE WITH RN LABOR DELIVERY'S HANDOFF AND FUNCTIONAL ASSESSMENT CHARTING.
[2020-10-09] MEDS: Insulin Lispro 100 UNIT/ML INSULN.PEN SC ×4 (05:45→16:44)
[2020-10-09 06:00] VITALS: BP 117/64; BP 123/59; BP 99/49; PULSE 69; PULSE 72; PULSE 77
[2020-10-09 06:38] LABS: International Normalized Ratio 2.1; Prothrombin Time (Protime)PT. 22.7 SECONDS (11.7-14.9)
[2020-10-09 06:40] LABS: Bedside Glucose 198 mg/dL (70-110)
[2020-10-09 07:30] VITALS: PULSE 73; RESP 17; TEMP 37.2; O2SAT 94
[2020-10-09] MEDS: Menthol/Lanolin/Calamine/Znox 113 GM Tube 1 APPLIC TOPICAL ×3 (07:40→22:57)
[2020-10-09] MEDS: Jevity 1.5. 1,000 ML Bottle 240 ML GT ×2 (07:41→09:57)
[2020-10-09] MEDS: Docusate Sodium 100 MG/10 ML UDC GT ×2 (08:22→22:57)
[2020-10-09 08:23] VITALS: PULSE 73
[2020-10-09] MEDS: Cyanocobalamin 500 MCG Tablet 1000 MCG GT (08:23)
[2020-10-09] MEDS: Clopidogrel Bisulfate 75 MG Tablet GT (08:23)
[2020-10-09] MEDS: amLODIPine 5 MG Tablet GT (08:23)
[2020-10-09] MEDS: Metoprolol Tartrate 25 MG Tablet 75 MG GT (08:23)
[2020-10-09] MEDS: Cilostazol 50 MG Tablet 100 MG GT ×2 (08:23→16:42)
[2020-10-09] MEDS: Gabapentin 300 MG Capsule GT ×3 (08:24→16:42)
--- NOTE | 2020-10-09 10:21 | PN_ITS ---
Progress Note Afebrile VSS - he is tilt negative today with the blood pressure dropping from 117/64 lying down to 99/49 standing up. Heart rate increased from 72-77 however the chronotropic response is blunted secondary to beta-[place]. Flomax is currently on hold due to orthostatic hypotension. Maintaining appropriate oxygen saturation on RA Oral intake is limited to Arce Freewater protocol Fluid balance is positive every day. Urine output is good. His weight has increased 4-1/2 pounds since admission. Discussed with nursing - no problems that need addressed Reviewed the PT/OT/ST notes Medication list reviewed. INR is 2.1 today. UA yesterday showed greater than 100 RBCs and greater than 100 WBCs per high-power field with 0 bacteria and 0 squamous epithelial cells. Had a small amount of urine ketones and there was proteinuria present. Urine culture is pending. John denies chest pain, palpitations, nausea/vomiting/abdominal pain, li ghtheadedness. He is complaining of low back pain which is chronic. It increases with movement. Urine in the Krause bag is bloody but not grossly bloody. He did pull on the Krause catheter. He also has a urinary tract infection. Lungs-bibasilar Rales, no conversational dyspnea, no accessory muscle use, not tachypneic lying in bed. Mild JVD Mucous membranes are dry Heart-regular with ectopic beats. Heart sounds are distant. The radial pulses regular. No murmur or gallop appreciated. No peripheral edema, no edema in the flanks and no pitting edema in the posterior thighs. Denies calf pain No skin breakdown and no rashes Impressions 1. 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 Severe dysphagia-currently n.p.o. 3. Dysarthria-improving 4. Paroxysmal atrial fibrillation on chronic anticoagulation with warfarin. INR is therapeutic today so will discontinue enoxaparin 5. Orthostatic hypotension-Flomax was discontinued and metoprolol has been decreased to 50 mg twice daily. 6. Urinary tract infection 7. Urine retention 8. Hyperlipidemia 9. Diabetes mellitus type 2-uncontrolled secondary to tube feeds 10. Chronic renal failure stage IIIb 11. Rales in both bases. I observed him doing the I-S and he does it appropriately and gets the float up to 750 consistently. Fluid balance is positive and the rales could be secondary to pulmonary edema or atelectasis or pneumonia. Continue to adjust insulin keep all blood sugars less than 180. DC enoxaparin Decrease metoprolol to 50 mg twice daily. Decrease amlodipine to 2.5 mg twice daily Adjust insulin. Increase the Lantus to 20 units in the AM at 0600 and 15 units at 1800. 4 units of insulin with feeding at 0600, 1000, 1400 and 1800 and no scheduled insulin with the 2200 feeding. Continue to check accucheck BS's prior to each feeding. BMP in the AM Obtain a copy of his last ECHO Start Augmentin susp 400 mg Q8H Portable chest x-ray today STROKE Vital Signs/Narrative: Vital Signs Temp Pulse Resp Pulse Ox 10/09/20 08:23 73 10/09/20 07:30 98.9 F 73 17 94 Inpatient E&M: 12563 Subs Hosp L2
[2020-10-09 10:36] LABS: Bedside Glucose 312 mg/dL (70-110)
[2020-10-09] MEDS: Acetaminophen 650 MG/20 ML UDC GT ×2 (11:11→16:42)
[2020-10-09] MEDS: Amox/Clav 400mg/5ml Susp 400 MG PO ×2 (11:55→18:49)
--- NOTE | 2020-10-09 12:00 | PCM.NTREPORT ---
Nutrition Therapy Report - History Nutrition Services has been consulted to:: Manage enteral nutrition Current diet / nutrition support order:: NPO; Jevity 1.5 via PEG- 240mL 5x/day w/ 90mL H2O flush before and after to provide 1800 calories, 77 g protein, and 1812mL fluid/day. - Anthropometric Measurements Height:: 5 ft 9 in Weight:: 78.8 kg Body Mass Index (BMI):: 25.6 - Relevant Labs Relevant Labs:: MCV 96.7 fL (80-94) H 10/05/20 07:26 RDW Std Deviation 56.0 fl (35.1-43.9) H 10/05/20 07:26 RDW Coeff of Norman 15.9 % (11.6-14.6) H 10/05/20 07:26 PT 22.7 SECONDS (11.7-14.9) H 10/09/20 05:17 Sodium 134 mmol/L (136-145) L 10/08/20 05:15 Chloride 97 mmol/L (98-107) L 10/08/20 05:15 Anion Gap 4 (5-15) L 10/05/20 07:26 BUN 48 mg/dL (7-18) H 10/08/20 05:15 Creatinine 1.79 mg/dL (0.70-1.30) H 10/08/20 05:15 Est GFR (MDRD) Af Amer 47 mL/min (>60) L 10/08/20 05:15 Est GFR (MDRD) Non-Af 39 mL/min (>60) L 10/08/20 05:15 BUN/Creatinine Ratio 26.8 RATIO (10-20) H 10/08/20 05:15 Glucose 213 mg/dL (74-106) H 10/08/20 05:15 Hemoglobin A1c 6.3 % (3.8-5.6) H 10/05/20 07:26 Alkaline Phosphatase 202 U/L (45-117) H 10/05/20 07:26 Globulin 4.5 g/dL (2.2-4.2) H 10/05/20 07:26 Albumin/Globulin Ratio 0.8 RATIO (0.9-2.4) L 10/05/20 07:26 - Assessment Food / Nutrition-Related History:: Continues w/ significant hyperglycemia. As currently ordered, each bolus provides 51 g CHO. Noted administration times of TF yesterday was ~530, 1030, 1400, and 1945 which is not consistent w/ sliding scale insulin order. Noted wt increase of 1.6kg since last review. - Food / Nutrient Delivery Interventions Summary of nutrition intervention:: Will adjust enteral nutrition boluses to be provided at time sliding scale insulin is ordered- 0600, 1000, 1400, and 1800. See below. Nutrition support ordered as / adjusted to:: Via PEG- 300mL Jevity 1.5 4x/day (0600, 1000, 1400, and 1800) to provide 1800 calories, 77 g protein. 125mL H2O flush before and after each bolus to provide a total of 1912mL fluid/day. Each bolus provides approx 65 g CHO per bolus. - MNT Monitoring Further MNT monitoring and evaluation required?: Yes MNT Follow-up in:: 3-5 days - will monitor tolerance; may need to adjust flushes pending fluid status.
[2020-10-09 12:03] VITALS: BMI 25.6
[2020-10-09 12:56] LABS: Bedside Glucose 360 mg/dL (70-110)
[2020-10-09 13:26] VITALS: BMI 25.6
[2020-10-09] MEDS: Jevity 1.5. 1,000 ML Bottle 300 ML GT ×2 (16:36→22:58)
[2020-10-09 17:36] LABS: Bedside Glucose 219 mg/dL (70-110)
--- NOTE | 2020-10-09 18:22 | RAD_ITS ---
STUDY: X-RAY CHEST REASON FOR EXAM: Male, 85 years old. Rales in both bases. TECHNIQUE: Single frontal view of the chest. COMPARISON: None. FINDINGS: Sternotomy wires are present. Mild edema or interstitial infiltrates. There is no demonstrated pleural abnormality. Normal size heart. Normal mediastinum and jaida. Normal visualized pulmonary arteries. Normal visualized aortic arch and descending thoracic aorta. Normal visualized thoracic spine. Normal visualized ribs, clavicles, and shoulders. There is no demonstrated abnormality of the visualized soft tissue structures of the upper abdomen. Possible PEG tube. Clinical correlation required. RAD/Chest 1 View (Portable) IMPRESSION: Mild edema or pneumonitis. Electronically Signed: Jorge L Veloz MD at 23:24 EST , Service support ,
[2020-10-09 20:14] VITALS: BP 131/74; PULSE 74; RESP 18; TEMP 36.6; O2SAT 94
[2020-10-09] MEDS: amLODIPine 2.5 MG Tablet GT (22:57)
[2020-10-09] MEDS: Atorvastatin Calcium 40 MG Tablet GT (22:57)
[2020-10-09 23:01] VITALS: BP 131/74; PULSE 74
[2020-10-09] MEDS: Metoprolol Tartrate 50 MG Tablet GT (23:01)
[2020-10-09 23:26] LABS: Bedside Glucose 238 mg/dL (70-110)
[2020-10-10] MEDS: Amox/Clav 400mg/5ml Susp 400 MG PO ×3 (02:58→21:15)
[2020-10-10 05:18] LABS: Hematocrit 38.5 % (40-54); Hemoglobin 12.3 g/dL (13.0-16.5); Mean Corp Hgb Conc 31.9 g/dL (32-36); Mean Corpuscular Hgb 29.9 pg (27.0-32.0); Mean Corpuscular Volume 93.7 fL (80-94); Mean Platelet Vol. 11.3 fl (6.2-12.0); Platelet Count 184 K/mm3 (150-450); RBC Distribution Width CV 15.1 % (11.6-14.6); RBC Distribution Width SD 52.5 fl (35.1-43.9); Red Blood Count 4.11 M/mm3 (4.6-6.2); White Blood Count 6.8 K/mm3 (4.4-11.0)
[2020-10-10 05:34] LABS: Anion Gap 5 (5-15); BUN 41 mg/dL (7-18); BUN/Creat Ratio 27.2 RATIO (10-20); Calcium,Total 8.5 mg/dL (8.5-10.1); Chloride 94 mmol/L (98-107); Creatinine, Serum 1.51 mg/dL (0.70-1.30); EST Glomerular Filtration Rate 47 mL/min (>60); Est Glom Filt Rate - Afr Amer 57 mL/min (>60); Estimated Creatinine Clearance 35.12 ml/min; Glucose 261 mg/dL (74-106); Potassium 4.6 mmol/L (3.5-5.1); Sodium Level 130 mmol/L (136-145)
[2020-10-10] MEDS: Acetaminophen 650 MG/20 ML UDC GT ×2 (05:49→22:13)
[2020-10-10] MEDS: Insulin Lispro 100 UNIT/ML INSULN.PEN SC ×6 (05:53→17:14)
[2020-10-10] MEDS: Jevity 1.5. 1,000 ML Bottle 300 ML GT ×4 (05:54→22:17)
[2020-10-10] MEDS: Menthol/Lanolin/Calamine/Znox 113 GM Tube 1 APPLIC TOPICAL ×3 (05:54→22:16)
[2020-10-10 07:10] LABS: Bedside Glucose 224 mg/dL (70-110)
[2020-10-10 08:07] LABS: BNP,B-Type NATRIURETIC PEPTIDE 185.4 pg/mL (0-100)
[2020-10-10] MEDS: Cilostazol 50 MG Tablet 100 MG GT ×2 (08:44→17:16)
[2020-10-10] MEDS: Clopidogrel Bisulfate 75 MG Tablet GT (08:44)
[2020-10-10] MEDS: Allopurinol 300 MG Tablet GT (08:44)
[2020-10-10] MEDS: Cyanocobalamin 500 MCG Tablet 1000 MCG GT (08:45)
[2020-10-10] MEDS: Docusate Sodium 100 MG/10 ML UDC GT ×2 (08:45→22:12)
[2020-10-10] MEDS: Gabapentin 300 MG Capsule GT ×3 (08:45→17:16)
[2020-10-10] MEDS: amLODIPine 2.5 MG Tablet GT ×2 (08:45→22:18)
[2020-10-10] MEDS: Furosemide 40 MG Tablet GT (08:45)
[2020-10-10 08:46] VITALS: BP 135/66; PULSE 77
[2020-10-10] MEDS: Metoprolol Tartrate 50 MG Tablet GT ×2 (08:46→22:17)
[2020-10-10 08:47] VITALS: BP 135/66; PULSE 77; RESP 18; TEMP 36.8; O2SAT 92
[2020-10-10 09:32] VITALS: BMI 25.6
[2020-10-10 13:25] LABS: Bedside Glucose 250 mg/dL (70-110)
[2020-10-10] MEDS: Sodium Chloride 1 GM Tablet PO ×2 (15:04→22:19)
[2020-10-10 17:21] LABS: Bedside Glucose 263 mg/dL (70-110)
[2020-10-10 19:37] VITALS: BP 130/73; PULSE 80; RESP 16; TEMP 36.8; O2SAT 93
[2020-10-10 22:00] VITALS: PULSE 66; RESP 17
[2020-10-10 22:10] VITALS: BMI 25.6
[2020-10-10] MEDS: Atorvastatin Calcium 40 MG Tablet GT (22:15)
[2020-10-10 22:17] VITALS: PULSE 80
[2020-10-11 00:51] LABS: Bedside Glucose 331 mg/dL (70-110)
[2020-10-11] MEDS: Amox/Clav 400mg/5ml Susp 400 MG PO (03:04)
[2020-10-11 05:27] LABS: Anion Gap 4 (5-15); BUN 39 mg/dL (7-18); BUN/Creat Ratio 26.5 RATIO (10-20); Calcium,Total 8.5 mg/dL (8.5-10.1); Chloride 96 mmol/L (98-107); Creatinine, Serum 1.47 mg/dL (0.70-1.30); EST Glomerular Filtration Rate 48 mL/min (>60); Est Glom Filt Rate - Afr Amer 58 mL/min (>60); Estimated Creatinine Clearance 36.07 ml/min; Glucose 225 mg/dL (74-106); Potassium 4.4 mmol/L (3.5-5.1); Sodium Level 132 mmol/L (136-145)
[2020-10-11] MEDS: Menthol/Lanolin/Calamine/Znox 113 GM Tube 1 APPLIC TOPICAL ×3 (05:31→21:58)
[2020-10-11] MEDS: Insulin Lispro 100 UNIT/ML INSULN.PEN SC ×4 (05:34→16:59)
[2020-10-11] MEDS: Jevity 1.5. 1,000 ML Bottle 300 ML GT ×4 (05:39→21:56)
[2020-10-11 05:49] LABS: International Normalized Ratio 2.4; Prothrombin Time (Protime)PT. 26.1 SECONDS (11.7-14.9)
[2020-10-11 06:55] LABS: Bedside Glucose 210 mg/dL (70-110)
--- NOTE | 2020-10-11 08:28 | PN_ITS ---
Progress Note Afebrile VSS Maintaining appropriate oxygen saturation on RA Remains n.p.o. and on tube feedings via PEG Discussed with nursing - no problems that need addressed Reviewed the PT/OT/ST notes Medication list reviewed. Fluid balance yesterday was +625. He had 2100 cc of urine yesterday. His weight has decreased from 176 pounds and 9 ounces on 10/10/2022 124 pounds and 9 ounces today........Lasix was restarted Blood sugar record was reviewed. Blood sugars are coming down. SSI was not given per the protocol yesterday. Adjustments were made to the insulin regimen. Hemoglobin today is 11.6 and stable. He was started on salt tabs BID yesterday for a low sodium. Sodium today is up to 132 from 130 yesterday. Urine culture is growing Klebsiella pneumoniae which is resistant to ampicillin, ampicillin/sulbactam. It is intermediately sensitive to nitrofurantoin and Zosyn. He is currently on amoxicillin/clavulanic acid. Alert, no apparent distress Lying nearly flat in bed with no shortness of breath, lungs are clear anterior and lateral Heart-irregular with controlled ventricular response, no gallop Abdomen-PEG site is clean without discharge Normal bowel sounds heard No peripheral edema No calf tenderness Impressions 1. Post stroke debility 2. Urine retention 3. gross hematuria when the Chun was in since he is on anti coagulation.......as long as the PVR's are less than 400 will leave the chun out and 4. Complicated UTI - related to the Chun 5. Diabetes mellitus type 2 6. Atrial fibrillation 7. Chronic anticoagulation with warfarin DC the Augmentin and start Omnicef susp 300 mg BID per the PEG Continue therapy Inpatient E&M: [id number] Subs Hosp L2
[2020-10-11] MEDS: Cilostazol 50 MG Tablet 100 MG GT ×2 (08:41→16:57)
[2020-10-11] MEDS: Cyanocobalamin 500 MCG Tablet 1000 MCG GT (08:41)
[2020-10-11] MEDS: Clopidogrel Bisulfate 75 MG Tablet GT (08:41)
[2020-10-11] MEDS: amLODIPine 2.5 MG Tablet GT ×2 (08:41→21:46)
[2020-10-11 08:42] VITALS: PULSE 78
[2020-10-11] MEDS: Gabapentin 300 MG Capsule GT ×3 (08:42→16:57)
[2020-10-11] MEDS: Metoprolol Tartrate 50 MG Tablet GT ×2 (08:42→21:46)
[2020-10-11] MEDS: Acetaminophen 650 MG/20 ML UDC GT (08:43)
[2020-10-11] MEDS: Docusate Sodium 100 MG/10 ML UDC GT ×2 (08:45→21:42)
[2020-10-11] MEDS: Sodium Chloride 1 GM Tablet PO ×2 (08:46→21:50)
[2020-10-11] MEDS: Furosemide 40 MG Tablet GT (08:46)
[2020-10-11 09:16] VITALS: BP 137/70; PULSE 80; RESP 18; TEMP 36.6; O2SAT 93
--- NOTE | 2020-10-11 09:30 | NURSING ---
Refused to get OOB due to back pain and tylenol has been given. Will monitor. Patient has been repositioned. Currently being treated for UTI.
[2020-10-11] MEDS: Cefdinir Susp 125 MG/5 ML PO.SYRINGE 300 MG GT ×2 (11:06→21:52)
[2020-10-11] MEDS: Insulin Lispro 100 UNIT/ML INSULN.PEN 6 UNIT SC ×2 (11:13→16:59)
[2020-10-11 11:26] LABS: Bedside Glucose 285 mg/dL (70-110)
[2020-10-11 15:00] VITALS: BP 130/68
[2020-10-11 15:39] VITALS: BMI 25.6
[2020-10-11 17:26] LABS: Bedside Glucose 155 mg/dL (70-110)
[2020-10-11 21:16] LABS: Bedside Glucose 223 mg/dL (70-110)
[2020-10-11 21:46] VITALS: BP 126/62; PULSE 77
[2020-10-11] MEDS: Atorvastatin Calcium 40 MG Tablet GT (21:47)
[2020-10-11 22:00] VITALS: BP 126/62; PULSE 77; RESP 16; TEMP 36.4; O2SAT 97
[2020-10-12] MEDS: Cilostazol 50 MG Tablet 100 MG GT ×2 (06:14→16:57)
[2020-10-12 06:30] LABS: Bedside Glucose 175 mg/dL (70-110)
[2020-10-12] MEDS: Insulin Lispro 100 UNIT/ML INSULN.PEN 6 UNIT SC ×3 (06:30→16:57)
[2020-10-12] MEDS: Insulin Lispro 100 UNIT/ML INSULN.PEN SC ×3 (06:31→16:58)
[2020-10-12] MEDS: Menthol/Lanolin/Calamine/Znox 113 GM Tube 1 APPLIC TOPICAL ×3 (06:32→21:34)
[2020-10-12] MEDS: Jevity 1.5. 1,000 ML Bottle 300 ML GT ×4 (06:37→21:35)
[2020-10-12 08:49] VITALS: BP 122/60; PULSE 73; RESP 16; TEMP 37.2; O2SAT 93
[2020-10-12] MEDS: Acetaminophen 650 MG/20 ML UDC GT ×2 (09:24→15:21)
[2020-10-12 09:25] VITALS: PULSE 70
[2020-10-12] MEDS: Cyanocobalamin 500 MCG Tablet 1000 MCG GT (09:25)
[2020-10-12] MEDS: Gabapentin 300 MG Capsule GT ×3 (09:25→16:57)
[2020-10-12] MEDS: Metoprolol Tartrate 50 MG Tablet GT ×2 (09:25→21:33)
[2020-10-12] MEDS: Furosemide 40 MG Tablet GT (09:25)
[2020-10-12] MEDS: Clopidogrel Bisulfate 75 MG Tablet GT (09:25)
[2020-10-12] MEDS: amLODIPine 2.5 MG Tablet GT ×2 (09:25→21:34)
[2020-10-12] MEDS: Sodium Chloride 1 GM Tablet PO ×2 (09:26→21:33)
[2020-10-12] MEDS: Cefdinir Susp 125 MG/5 ML PO.SYRINGE 300 MG GT ×2 (09:27→21:33)
[2020-10-12] MEDS: Allopurinol 300 MG Tablet GT (09:28)
[2020-10-12 11:31] LABS: Hemoglobin 12.7 g/dL (13.0-16.5)
[2020-10-12 12:10] LABS: Bedside Glucose 313 mg/dL (70-110)
--- NOTE | 2020-10-12 12:30 | NURSING ---
Sat up in recliner after therapy session. Patient is a x1 assist with walker for nursing at min assist level.
[2020-10-12 14:16] VITALS: BMI 25.6
[2020-10-12 15:36] LABS: Bedside Glucose 204 mg/dL (70-110)
--- NOTE | 2020-10-12 18:00 | NURSING ---
Krause cath noted to have hematuria and patient reported that it had been pulled in therapy this morning. Patient denies any complaints. will monitor. Stat lock on upper thigh adjusted to different area on skin.
[2020-10-12 19:32] VITALS: BP 131/97; PULSE 85; RESP 16; TEMP 36.5; O2SAT 97
[2020-10-12 21:25] LABS: Bedside Glucose 201 mg/dL (70-110)
[2020-10-12 21:33] VITALS: PULSE 83
[2020-10-12] MEDS: Atorvastatin Calcium 40 MG Tablet GT (21:34)
[2020-10-12 22:58] VITALS: BMI 25.6
[2020-10-13] MEDS: Insulin Lispro 100 UNIT/ML INSULN.PEN 6 UNIT SC ×3 (06:23→16:15)
[2020-10-13] MEDS: Menthol/Lanolin/Calamine/Znox 113 GM Tube 1 APPLIC TOPICAL ×3 (06:23→22:05)
[2020-10-13] MEDS: Insulin Lispro 100 UNIT/ML INSULN.PEN SC ×3 (06:24→16:14)
[2020-10-13] MEDS: Jevity 1.5. 1,000 ML Bottle 300 ML GT ×4 (06:24→22:05)
[2020-10-13] MEDS: Cilostazol 50 MG Tablet 100 MG GT ×2 (06:25→16:11)
[2020-10-13 07:05] LABS: Bedside Glucose 171 mg/dL (70-110)
[2020-10-13 07:29] LABS: BUN 36 mg/dL (7-18); BUN/Creat Ratio 25.5 RATIO (10-20); Calcium,Total 8.8 mg/dL (8.5-10.1); Chloride 99 mmol/L (98-107); Creatinine, Serum 1.41 mg/dL (0.70-1.30); EST Glomerular Filtration Rate 51 mL/min (>60); Est Glom Filt Rate - Afr Amer 61 mL/min (>60); Estimated Creatinine Clearance 37.61 ml/min; Glucose 180 mg/dL (74-106); Potassium 4.2 mmol/L (3.5-5.1); Sodium Level 134 mmol/L (136-145)
[2020-10-13 07:30] LABS: Anion Gap 5 (5-15); International Normalized Ratio 2.5; Prothrombin Time (Protime)PT. 26.5 SECONDS (11.7-14.9)
[2020-10-13 07:42] VITALS: BP 116/64; PULSE 74; RESP 20; TEMP 37.1; O2SAT 93
[2020-10-13] MEDS: Acetaminophen 650 MG/20 ML UDC GT ×3 (08:24→21:56)
[2020-10-13 08:25] VITALS: PULSE 78
[2020-10-13] MEDS: Metoprolol Tartrate 50 MG Tablet GT ×2 (08:25→22:04)
[2020-10-13] MEDS: Cefdinir Susp 125 MG/5 ML PO.SYRINGE 300 MG GT ×2 (08:25→21:57)
[2020-10-13] MEDS: Sodium Chloride 1 GM Tablet PO ×2 (08:25→21:59)
[2020-10-13] MEDS: Gabapentin 300 MG Capsule GT ×3 (08:25→16:11)
[2020-10-13] MEDS: Cyanocobalamin 500 MCG Tablet 1000 MCG GT (08:25)
[2020-10-13] MEDS: amLODIPine 2.5 MG Tablet GT ×2 (08:25→21:57)
[2020-10-13] MEDS: Furosemide 40 MG Tablet GT (08:25)
--- NOTE | 2020-10-13 09:00 | NURSING ---
Dr. Redd aware that catheter had been pulled and he had hematuria that turned into gross hematuria overnight. NNO's. Patient denies any burning or discomfort at this time.
[2020-10-13] MEDS: Clopidogrel Bisulfate 75 MG Tablet GT (10:09)
[2020-10-13 10:46] LABS: Bedside Glucose 307 mg/dL (70-110)
[2020-10-13 14:16] VITALS: BMI 25.6
--- NOTE | 2020-10-13 14:35 | PCM.PN.BLA ---
Progress Note Afebrile VSS Maintaining appropriate oxygen saturation on RA TF's per PEG Discussed with nursing - no problems that need addressed Reviewed the PT/OT/ST notes Medication list reviewed. no complaints. urine is pink tinged today Lungs -clear to auscultation Heart-regular with no ectopy. He alternates between atrial fibrillation with controlled ventricular response and sinus rhythm. Abdomen-soft, nontender, nondistended, normal bowel sounds, the PEG site is clean, without discharge and without erythema. Very mild edema of the right ankle no edema on the left No rashes and no skin breakdown no change in the facial drop He is pleasant and making jokes and outgoing. Makes good eye contact Impressions 1. post stroke debility 2. dysphagia 3. Diabetes mellitus type 2 4. Chronic anticoagulation with warfarin 5. Chronic renal failure stage IIIb 6. Atrial fibrillation 7. urine retention - necessitating a Krause Continue therapy adjust insulin to keep all the blood sugars less than 180 with no hypoglycemia Keep an eye on the hematuria Inpatient E&M: 53549 Subs Hosp L2
[2020-10-13 16:26] LABS: Bedside Glucose 191 mg/dL (70-110)
--- NOTE | 2020-10-13 17:07 | NURSING ---
pt refused to get OOB despite staff encouragement. states causes more pain sitting in recliner chair, medicated with PRN Tylenol.
[2020-10-13 19:26] VITALS: BP 109/56; PULSE 75; RESP 16; TEMP 36.6; O2SAT 94
[2020-10-13 20:55] LABS: Bedside Glucose 195 mg/dL (70-110)
[2020-10-13] MEDS: Atorvastatin Calcium 40 MG Tablet GT (21:57)
[2020-10-13 22:04] VITALS: BP 127/58; PULSE 78
[2020-10-13 23:15] VITALS: BMI 25.6
[2020-10-14] MEDS: Cilostazol 50 MG Tablet 100 MG GT ×2 (05:32→17:50)
[2020-10-14] MEDS: Jevity 1.5. 1,000 ML Bottle 300 ML GT ×4 (06:15→21:15)
[2020-10-14] MEDS: Menthol/Lanolin/Calamine/Znox 113 GM Tube 1 APPLIC TOPICAL ×3 (06:16→22:16)
[2020-10-14] MEDS: Insulin Lispro 100 UNIT/ML INSULN.PEN SC ×2 (06:16→10:21)
[2020-10-14] MEDS: Insulin Lispro 100 UNIT/ML INSULN.PEN 9 UNIT SC (06:16)
[2020-10-14 07:01] LABS: Bedside Glucose 166 mg/dL (70-110)
[2020-10-14] MEDS: Gabapentin 300 MG Capsule GT ×3 (08:40→16:51)
[2020-10-14 10:00] VITALS: BP 128/57; PULSE 69; RESP 18; TEMP 36.8; O2SAT 96
[2020-10-14] MEDS: Cyanocobalamin 500 MCG Tablet 1000 MCG GT (10:17)
[2020-10-14 10:18] VITALS: BP 128/57; PULSE 69
[2020-10-14] MEDS: amLODIPine 2.5 MG Tablet GT ×2 (10:18→22:17)
[2020-10-14] MEDS: Furosemide 40 MG Tablet GT (10:18)
[2020-10-14] MEDS: Metoprolol Tartrate 50 MG Tablet GT ×2 (10:18→22:17)
[2020-10-14] MEDS: Cefdinir Susp 125 MG/5 ML PO.SYRINGE 300 MG GT ×2 (10:19→22:32)
[2020-10-14] MEDS: Allopurinol 300 MG Tablet GT (10:19)
[2020-10-14] MEDS: Sodium Chloride 1 GM Tablet PO ×2 (10:19→22:18)
[2020-10-14] MEDS: Insulin Lispro 100 UNIT/ML INSULN.PEN 6 UNIT SC ×2 (10:22→17:49)
[2020-10-14] MEDS: Acetaminophen 650 MG/20 ML UDC GT (10:25)
[2020-10-14] MEDS: Clopidogrel Bisulfate 75 MG Tablet GT (10:45)
[2020-10-14 10:46] LABS: Bedside Glucose 207 mg/dL (70-110)
--- NOTE | 2020-10-14 10:46 | PCM.PN.BLA ---
Progress Note Day #5 antibiotics for Klebsiella pneumoniae UTI Afebrile VSS-blood pressure is well controlled and the heart rate is within normal limits. Maintaining appropriate oxygen saturation on RA Remains n.p.o. He is receiving PEG tube feedings 4 times daily The last bowel movement was 10/12/2020. Fluid balance on 10/13/2020 was -110. Discussed with nursing - Urine is grossly bloody in the tubing and the Krause bag. He is on Warfarin for AF with recent embolic stroke. INR yesterday was 2.5. Reviewed the PT/OT/ST notes Medication list reviewed. Blood sugar record was reviewed. The fasting today was 166 and the 1020 blood sugar was 207 (better with adjustments to the insulin regimen yesterday). The blood sugar last night was 195. John denies abd pain, flank pain, N/V, SOB, Cough lightheadedness. He is doing well with therapy. He is tolerating the TF's without residuals. He is alert and oriented X 3. He is pleasant and appropriate and appears in NAD. MM are dry with no mucosal lesions and he denies sore mouth Lungs - CTA, diminished H - irreg with controlled VR, no MM and no gallop abd - soft and NT, the bladder is not distended. Normal BS's, no guarding with palpation no peripheral edema and no calf tenderness No rashes and no skin breakdown. Urine is wine colored Still with facial droop Impressions 1. Hematuria in a male pt with urine retention, Krause catheter and fully anticoagulated. Will hold the Warfarin but not reverse so as not to risk increased coagulability in light of recent embolic CVA. Insert a [address] catheter and irrigate. Continue the Cefdinir for UTI. Daily PT/INR.....HGB was 12.7 and stable yesterday. Will check a HGB now and repeat Q 12H x 4. 2. DM II - blood sugars are better but not good enough yet. Adjust insulin......increase the Lantus in the afternoon to 17 units BMP in the AM Continue therapy Continue clopidogrel restart Flomax and check orthostatics in the AM for the next 2 days. Voiding trial later this week. STROKE Vital Signs/Narrative: Vital Signs Pulse BP 10/14/20 10:18 69 128/57 H Inpatient E&M: [id number] Subs Hosp L2
[2020-10-14 15:40] VITALS: BMI 25.6
[2020-10-14] MEDS: Tamsulosin HCl 0.4 MG Capsule PO (16:51)
[2020-10-14 18:06] LABS: Bedside Glucose 107 mg/dL (70-110)
[2020-10-14 18:38] LABS: Hemoglobin 11.6 g/dL (13.0-16.5)
[2020-10-14 19:41] VITALS: BP 115/57; PULSE 60; RESP 18; TEMP 36.7; O2SAT 96
[2020-10-14 21:36] LABS: Bedside Glucose 168 mg/dL (70-110)
[2020-10-14 22:00] VITALS: RESP 16; BMI 25.6
[2020-10-14 22:17] VITALS: PULSE 62
[2020-10-14] MEDS: Atorvastatin Calcium 40 MG Tablet GT (22:17)
[2020-10-14] MEDS: Docusate Sodium 100 MG/10 ML UDC GT (22:17)
[2020-10-15 05:47] LABS: Hemoglobin 10.5 g/dL (13.0-16.5)
[2020-10-15 05:53] LABS: Prothrombin Time (Protime)PT. 21.9 SECONDS (11.7-14.9)
[2020-10-15 06:00] VITALS: BP 113/57; BP 114/56; BP 127/47; PULSE 57; PULSE 71; PULSE 79
[2020-10-15 06:07] LABS: Anion Gap 4 (5-15); BUN 37 mg/dL (7-18); BUN/Creat Ratio 26.6 RATIO (10-20); Calcium,Total 8.4 mg/dL (8.5-10.1); Chloride 98 mmol/L (98-107); Creatinine, Serum 1.39 mg/dL (0.70-1.30); EST Glomerular Filtration Rate 52 mL/min (>60); Est Glom Filt Rate - Afr Amer 62 mL/min (>60); Estimated Creatinine Clearance 38.15 ml/min; Glucose 178 mg/dL (74-106); Potassium 4.1 mmol/L (3.5-5.1); Sodium Level 134 mmol/L (136-145)
[2020-10-15 06:11] LABS: Bedside Glucose 166 mg/dL (70-110)
[2020-10-15] MEDS: Menthol/Lanolin/Calamine/Znox 113 GM Tube 1 APPLIC TOPICAL ×3 (06:11→21:02)
[2020-10-15] MEDS: Insulin Lispro 100 UNIT/ML INSULN.PEN SC ×2 (06:11→11:24)
[2020-10-15] MEDS: Insulin Lispro 100 UNIT/ML INSULN.PEN 9 UNIT SC (06:12)
[2020-10-15] MEDS: Cyanocobalamin 500 MCG Tablet 1000 MCG GT (07:59)
[2020-10-15] MEDS: Clopidogrel Bisulfate 75 MG Tablet GT (07:59)
[2020-10-15] MEDS: Furosemide 40 MG Tablet GT (07:59)
[2020-10-15 08:00] VITALS: BP 119/66; PULSE 60
[2020-10-15] MEDS: Cefdinir Susp 125 MG/5 ML PO.SYRINGE 300 MG GT ×2 (08:00→21:02)
[2020-10-15] MEDS: Gabapentin 300 MG Capsule GT ×3 (08:00→15:56)
[2020-10-15] MEDS: Metoprolol Tartrate 50 MG Tablet GT ×2 (08:00→21:04)
[2020-10-15] MEDS: amLODIPine 2.5 MG Tablet GT ×2 (08:00→21:04)
[2020-10-15] MEDS: Cilostazol 50 MG Tablet 100 MG GT ×2 (08:00→15:56)
[2020-10-15] MEDS: Sodium Chloride 1 GM Tablet PO ×2 (08:00→21:03)
[2020-10-15] MEDS: Jevity 1.5. 1,000 ML Bottle 300 ML GT ×3 (08:06→21:01)
[2020-10-15 08:21] VITALS: BP 119/66; PULSE 60; RESP 16; TEMP 36.7; O2SAT 93
--- NOTE | 2020-10-15 10:21 | CASEMGMT ---
Social Work IDT met with patient and dtr via conference call for Team meeting. Discussed patient's progress in therapy. Pt is SBA -CGA for tx, ambulating 80 ft with FWW at CGA, min for bathing, set up for grooming and UE ADLs, min for LE. ST working on swallowing exercises, remains NPO with peg tube, and FFWP. ST to repeat MBS. Pain varies. Pt having some light headedness, hematuria in urine cath. Explained [employer] NRD 10/21 and continued stay is not guaranteed. Will continue to follow. Mary Hector, MATERIALS ANALYST AIR DUCT MECHANIC
[2020-10-15 11:02] VITALS: BMI 25.6
[2020-10-15] MEDS: Insulin Lispro 100 UNIT/ML INSULN.PEN 6 UNIT SC ×2 (11:25→15:55)
[2020-10-15 12:51] LABS: Bedside Glucose 260 mg/dL (70-110)
[2020-10-15] MEDS: Tamsulosin HCl 0.4 MG Capsule PO (15:56)
[2020-10-15] MEDS: Acetaminophen 650 MG/20 ML UDC GT ×2 (15:58→21:04)
[2020-10-15 16:56] LABS: Bedside Glucose 145 mg/dL (70-110)
[2020-10-15 18:43] LABS: Hemoglobin 11.2 g/dL (13.0-16.5)
--- NOTE | 2020-10-15 19:12 | PN_ITS ---
Progress Note Day #6 antibiotics for Klebsiella pneumonia UTI John was seen on team rounds today and his participated by phone. Afebrile VSS Maintaining appropriate oxygen saturation on RA He is still n.p.o. and receiving feedings via PEG. [] Discussed with nursing - no problems that need addressed Reviewed the PT/OT/ST notes Medication list reviewed. Hemoglobin today is 11.2. Blood sugar record was reviewed. The fasting was 166 today and the blood sugar prior to the 11:00 feeding was 260 despite the increase in scheduled Humalog in the AM. The urine is a pale pink today, even after the irrigation was slowed. John denies chest pain, shortness of breath, calf tenderness, nausea/vomiting/abdominal pain, dysuria. Alert, oriented x3, lying in bed in no apparent distress Lungs-diminished with coarse crackles in the bases laterally, no conversational dyspnea, not tachypneic Heart-irregular irregular with controlled ventricular response, no rub, no gallop Abdomen-soft, nontender, nondistended, PEG site is free of discharge or erythema, normal bowel sounds Minimal swelling of the right ankle, no ANAIS hose and no Kevin wraps. There is no swelling of the left lower extremity. No rashes, no skin breakdown Still with facial droop and dysarthria but much improved Impressions 1. 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 Diabetes mellitus type 2 3. Urinary tract infection secondary to Klebsiella pneumoniae 4. Urine retention 5. Gross hematuria -better after bladder irrigation and discontinuation of anticoagulation. 6. Orthostatic hypotension earlier in the admission precluding use of Flomax 7. Hypertension 8. Paroxysmal atrial fibrillation -not currently on anticoagulation secondary to gross hematuria. Consider restarting when the urine is clear. Continue therapy Finish a 7-day course of antibiotics for Klebsiella pneumonia UTI Continue to monitor blood sugars and adjust insulin as needed to keep blood sugars all less than 180 with no blood sugars less than 100 and this 85-year-old patient. Inpatient E&M: [id number] [facility] Hosp L2
[2020-10-15 19:13] VITALS: BP 143/73; PULSE 66; RESP 17; TEMP 36.4; O2SAT 96
[2020-10-15 20:30] VITALS: PULSE 66; RESP 16; O2SAT 96; BMI 25.6
[2020-10-15] MEDS: Docusate Sodium 100 MG/10 ML UDC GT (21:02)
[2020-10-15] MEDS: Atorvastatin Calcium 40 MG Tablet GT (21:02)
[2020-10-15 21:04] VITALS: BP 147/73; PULSE 66
[2020-10-15 21:35] LABS: Bedside Glucose 189 mg/dL (70-110)
--- NOTE | 2020-10-16 05:02 | NURSING ---
Reviewed and agree with MILIEU THERAPIST documentation and charting.
[2020-10-16 06:00] VITALS: BP 127/62; BP 129/63; BP 82/45; PULSE 60; PULSE 71; PULSE 81
[2020-10-16 06:11] LABS: Bedside Glucose 133 mg/dL (70-110)
[2020-10-16 06:11] LABS: International Normalized Ratio 1.6; Prothrombin Time (Protime)PT. 18.2 SECONDS (11.7-14.9)
[2020-10-16] MEDS: Menthol/Lanolin/Calamine/Znox 113 GM Tube 1 APPLIC TOPICAL ×3 (06:32→20:51)
[2020-10-16] MEDS: Jevity 1.5. 1,000 ML Bottle 300 ML GT ×4 (06:33→20:52)
[2020-10-16] MEDS: Insulin Lispro 100 UNIT/ML INSULN.PEN 9 UNIT SC (06:33)
[2020-10-16] MEDS: Acetaminophen 650 MG/20 ML UDC GT ×4 (06:35→20:48)
[2020-10-16] MEDS: amLODIPine 2.5 MG Tablet GT ×2 (07:50→20:50)
[2020-10-16] MEDS: Cyanocobalamin 500 MCG Tablet 1000 MCG GT (07:50)
[2020-10-16] MEDS: Gabapentin 300 MG Capsule GT ×3 (07:50→16:15)
[2020-10-16] MEDS: Allopurinol 300 MG Tablet GT (07:50)
[2020-10-16] MEDS: Furosemide 40 MG Tablet GT (07:50)
[2020-10-16] MEDS: Cilostazol 50 MG Tablet 100 MG GT ×2 (07:50→16:14)
[2020-10-16] MEDS: Docusate Sodium 100 MG/10 ML UDC GT ×2 (07:50→20:49)
[2020-10-16 07:51] VITALS: PULSE 65
[2020-10-16] MEDS: Clopidogrel Bisulfate 75 MG Tablet GT (07:51)
[2020-10-16] MEDS: Metoprolol Tartrate 50 MG Tablet GT ×2 (07:51→20:51)
[2020-10-16] MEDS: Sodium Chloride 1 GM Tablet PO ×2 (07:51→20:50)
[2020-10-16] MEDS: Cefdinir Susp 125 MG/5 ML PO.SYRINGE 300 MG GT ×2 (07:51→20:49)
[2020-10-16 10:00] VITALS: BP 129/63; PULSE 60; RESP 18; TEMP 36.9; O2SAT 92
[2020-10-16] MEDS: Insulin Lispro 100 UNIT/ML INSULN.PEN SC ×2 (10:59→16:17)
[2020-10-16] MEDS: Insulin Lispro 100 UNIT/ML INSULN.PEN 6 UNIT SC ×2 (10:59→16:18)
[2020-10-16 11:15] LABS: Bedside Glucose 207 mg/dL (70-110)
--- NOTE | 2020-10-16 13:40 | ST.MBS ---
Modified Barium Swallow - Patient Information Study Date: 10/16/20 Study Time: 13:00 Direct Billable Minutes: 75 Total Minutes procedure & reportin Diagnosis: Dysphagia (R13.12) Referring Physician: Clair Redd Reason for Referral: The patient is an 85 year old male referred for a modified barium swallow (MBS) study to objectively assess the patients oropharyngeal swallow function under fluoroscopy status post 09/27/2020 right inferior medullary ischemic lacunar infarct. 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) with resulting debility, dysarthria, and dysphagia necessitating percutaneous endoscopic gastrostomy (PEG) tube placement; coronary artery disease, status post coronary artery bypass graft, hypertension, atrial fibrillation, small vessel disease, chronic anticoagulation (managed with Warfarin), hyperlipidemia, age related macular degeneration, type II diabetes mellitus, chronic lower back pain - Penetration-Aspiration Scale Score Thin liquid - 5 mL tsp.: Result: 8= enters airway/below vocal folds/no effort [place] thickened liquids via cup (trial- 1): Result: 5= enters airways/contacts vocal folds/not ejected [place] thickened liquids via straw (trial- 1): Result: 2= enter airway/above vocal folds/ejected [place] thickened liquids via straw (trial- 2): Result: 2= enter airway/above vocal folds/ejected [place] thickened liquids via straw (trial- 3): Result: 1= does not enter airway [place] thickened liquids via straw (trial- 4): Result: 1= does not enter airway [place] via spoon (trial -1): Result: 1= does not enter airway Solid textures Comment: unable to complete [place] via spoon (trial -2): Result: 1= does not enter airway [place] thickened liquids via straw (trial- 5): Result: 2= enter airway/above vocal folds/ejected - Oral Phase Labial Seal: Interlabial escape, no progression to anterior lip Tongue Control During Bolus Hold: Posterior escape of greater than half of bolus Bolus Preparation/Mastication: Minimal chewing/mashing with majority of bolus unchewed Bolus Transport/Lingual Motion: Repetitive/disorganized tongue motion Oral Residue: Residue collection on oral structures - Pharyngeal Phase Initiation of Pharyngeal Swallow: Bolus head at posterior laryngeal surgace of epiglottis Soft Palate Elevation: Trace column of contrast/air between soft palate and pharyngeal wall Laryngeal Elevation: Min superior movement thyroid cart/min apprx aryte cart-epig petiole Anterior Hyoid Excursion: Partial anterior movement Epiglottic Movement: Partial inversion Laryngeal Vestibule Closure at Height of Swallow: Incomplete; narrow column of air/contrast in laryngeal vestibule Pharyngeal Stripping Wave: Present - diminished Pharyngoesophageal Segment Opening: Complete distension and complete duration; no obstruction of flow Tongue Base Retraction: Narrow column of contrast between tongue base & post. pharyngeal wall Pharyngeal Residue: Collection of residue within or on pharyngeal structures - Diagnosis/Impression Diagnosis: Dysphagia (R13.12) Impression: The patient presents with moderate to severe oropharyngeal dysphagia (DSRS: 5; BRS: 2) with grade IV SILENT aspiration of thin liquids secondary to a recent right inferior medullary ischemic lacunar infarct His swallow profile was marked by premature posterior bolus loss directly contributing to pre-prandial aspiration of thin liquids. Otherwise the oral transition phase is somewhat delayed, though functional. There was no response to tracheobronchial aspiration (atussia). There is an inconsistent pharyngeal phase delay / dyssynchrony contributing to pre-prandial and prandial penetration during liquid trials with variations in bolus dwell time (1-3 seconds). He demonstrates poor hyolaryngeal excursion and duration with inconsistent laryngeal vestibule pressure generated to expel penetrated material. He demonstrates overall adequate pharyngeal motility in comparison to his more significant pharyngeal phase deficits. Trials of solid textures abandoned (unable to effectively break down bolus). He does occasionally demonstrate mild right sided anterior bolus loss. He was noted to benefit from reductions in bolus volume with thickened liquids and was able to manage this well with ingestion via straw vs. cup. His profile does not present in a similar fashion to Wallenberg syndrome (typically associated with lateral medullary infarctions). He remains at a higher risk of post stroke aspiration related pneumonia when considering his impairment of cough reflex (dystussia / atussia) with an elevated A2DS2 score (8; 23.5% risk) and given the location of infarction it will be reasonable to assume he will endure a protracted resolution to his dysphagia. I would recommend re-assessment under fluoroscopy in 4-6 weeks pending clinical appropriateness. - Recommendations Comment: DIET TEXTURE RECOMMENDATIONS: pureed textured (IDDSI: 4), nectar thickened liquid (IDDSI: 2) diet * advancement pending bedside observation of appropriate strategy execution. RECOMMENDED COMPENSATORY STRATEGIES: direct supervision, reduced bolus volume / rate of ingestion, liquid chaser at reasonable intervals, consider straws with all liquids, seated upright at 90 degrees during PO intake, remain upright for 30-60 minutes post meal (GERD precaution), medications crushed in purees; continued enteral supplementation as clinically indicated during advancement to PO diet Recommend Repeat Modified Barium Swallow: Yes Need for Skilled Speech Therapy Services: Yes Education Completed: 1. Described result of evaluation., 7. Pt requires further education on strategies & risks. - Status Active ST Patient: Active
--- NOTE | 2020-10-16 14:14 | ST ---
SAMSON completed this date, with results as follows: RESULTS OF THE EVALUATION: The patient presents with moderate to severe oropharyngeal dysphagia (DSRS: 5; BRS: 2) with grade IV SILENT aspiration of thin liquids secondary to a recent right inferior medullary ischemic lacunar infarct His swallow profile was marked by premature posterior bolus loss directly contributing to pre-prandial aspiration of thin liquids. Otherwise the oral transition phase is somewhat delayed, though functional. There was no response to tracheobronchial aspiration (atussia). There is an inconsistent pharyngeal phase delay / dyssynchrony contributing to pre-prandial and prandial penetration during liquid trials with variations in bolus dwell time (1-3 seconds). He demonstrates poor hyolaryngeal excursion and duration with inconsistent laryngeal vestibule pressure generated to expel penetrated material. He demonstrates overall adequate pharyngeal motility in comparison to his more significant pharyngeal phase deficits. Trials of solid textures abandoned (unable to effectively break down bolus). He does occasionally demonstrate mild right sided anterior bolus loss. He was noted to benefit from reductions in bolus volume with thickened liquids and was able to manage this well with ingestion via straw vs. cup. His profile does not present in a similar fashion to Wallenberg syndrome (typically associated with lateral medullary infarctions). He remains at a higher risk of post stroke aspiration related pneumonia when considering his impairment of cough reflex (dystussia / atussia) with an elevated A2DS2 score (8; 23.5% risk), and given the location of infarction it will be reasonable to assume he will endure a protracted resolution to his dysphagia. I would recommend re-assessment under fluoroscopy in 4-6 weeks pending clinical appropriateness. DIET TEXTURE RECOMMENDATIONS: pureed textured (IDDSI: 4), nectar thickened liquid (IDDSI: 2) diet * advancement pending bedside observation of appropriate strategy execution. RECOMMENDED COMPENSATORY STRATEGIES: direct supervision, reduced bolus volume / rate of ingestion, liquid chaser at reasonable intervals, consider straws with all liquids, seated upright at 90 degrees during PO intake, remain upright for 30-60 minutes post meal (GERD precaution), medications crushed in purees; continued enteral supplementation as clinically indicated during advancement to PO diet Johny Trinidad M.A., CLARA-TOWEL ROLLING MACHINE OPERATOR, CBIS MBSImP Certified, LSVT Certified [facility] Speech-Language Pathology Department Email: [email or web address]
[2020-10-16 14:28] VITALS: BMI 25.6
[2020-10-16] MEDS: Tamsulosin HCl 0.4 MG Capsule PO (16:15)
[2020-10-16 17:06] LABS: Bedside Glucose 151 mg/dL (70-110)
[2020-10-16 19:44] VITALS: BP 124/80; PULSE 89; RESP 18; TEMP 36.7; O2SAT 97
[2020-10-16 20:45] VITALS: BP 133/65; PULSE 91
[2020-10-16 20:51] VITALS: BP 133/65; PULSE 91
[2020-10-16] MEDS: Atorvastatin Calcium 40 MG Tablet GT (20:51)
[2020-10-16 21:25] LABS: Bedside Glucose 203 mg/dL (70-110)
[2020-10-17 01:33] VITALS: BMI 25.6
[2020-10-17 05:40] LABS: International Normalized Ratio 1.4; Prothrombin Time (Protime)PT. 16.3 SECONDS (11.7-14.9)
[2020-10-17] MEDS: Insulin Lispro 100 UNIT/ML INSULN.PEN 9 UNIT SC (05:55)
[2020-10-17] MEDS: Jevity 1.5. 1,000 ML Bottle 300 ML GT (05:56)
[2020-10-17] MEDS: Menthol/Lanolin/Calamine/Znox 113 GM Tube 1 APPLIC TOPICAL ×3 (05:56→22:23)
[2020-10-17] MEDS: Acetaminophen 650 MG/20 ML UDC GT ×3 (05:59→22:26)
[2020-10-17 06:33] VITALS: BP 102/48; BP 122/61; BP 135/61; PULSE 61; PULSE 62; PULSE 64
[2020-10-17 07:06] LABS: Bedside Glucose 111 mg/dL (70-110)
[2020-10-17 08:13] LABS: Hematocrit 36.9 % (40-54); Hemoglobin 11.7 g/dL (13.0-16.5)
[2020-10-17] MEDS: Gabapentin 300 MG Capsule GT ×3 (08:56→17:27)
[2020-10-17] MEDS: Sodium Chloride 1 GM Tablet PO ×2 (08:56→22:23)
[2020-10-17] MEDS: Cyanocobalamin 500 MCG Tablet 1000 MCG GT (08:56)
[2020-10-17] MEDS: Docusate Sodium 100 MG/10 ML UDC GT (08:56)
[2020-10-17] MEDS: Cilostazol 50 MG Tablet 100 MG GT ×2 (08:56→17:26)
[2020-10-17 08:57] VITALS: BP 123/58; PULSE 61
[2020-10-17] MEDS: Furosemide 40 MG Tablet GT (08:57)
[2020-10-17] MEDS: amLODIPine 2.5 MG Tablet GT ×2 (08:57→22:23)
[2020-10-17] MEDS: Clopidogrel Bisulfate 75 MG Tablet GT (08:57)
[2020-10-17] MEDS: Metoprolol Tartrate 50 MG Tablet GT ×2 (08:57→22:23)
[2020-10-17 09:34] VITALS: BP 123/58; PULSE 61; RESP 18; TEMP 36.8; O2SAT 95
[2020-10-17 10:53] VITALS: BMI 25.6
[2020-10-17 11:25] LABS: Bedside Glucose 96 mg/dL (70-110)
[2020-10-17] MEDS: Insulin Lispro 100 UNIT/ML INSULN.PEN 6 UNIT SC ×2 (12:53→17:28)
[2020-10-17 16:50] LABS: Bedside Glucose 192 mg/dL (70-110)
[2020-10-17] MEDS: Tamsulosin HCl 0.4 MG Capsule PO (17:26)
[2020-10-17] MEDS: Insulin Lispro 100 UNIT/ML INSULN.PEN SC (17:27)
[2020-10-17 19:30] VITALS: BP 140/69; PULSE 79; RESP 16; TEMP 36.6; O2SAT 95
[2020-10-17 22:20] LABS: Bedside Glucose 71 mg/dL (70-110)
[2020-10-17 22:23] VITALS: BP 140/69; PULSE 79
[2020-10-17] MEDS: Atorvastatin Calcium 40 MG Tablet GT (22:23)
[2020-10-18 02:01] LABS: Bedside Glucose 158 mg/dL (70-110)
[2020-10-18] MEDS: Menthol/Lanolin/Calamine/Znox 113 GM Tube 1 APPLIC TOPICAL ×3 (06:48→21:02)
[2020-10-18 07:01] LABS: Bedside Glucose 76 mg/dL (70-110)
[2020-10-18 07:55] VITALS: PULSE 75
[2020-10-18] MEDS: Sodium Chloride 1 GM Tablet PO ×2 (07:55→21:05)
[2020-10-18] MEDS: Metoprolol Tartrate 50 MG Tablet GT ×2 (07:55→21:08)
[2020-10-18] MEDS: Clopidogrel Bisulfate 75 MG Tablet GT (07:55)
[2020-10-18] MEDS: Cilostazol 50 MG Tablet 100 MG GT ×2 (07:55→17:19)
[2020-10-18] MEDS: Cyanocobalamin 500 MCG Tablet 1000 MCG GT (07:55)
[2020-10-18] MEDS: Gabapentin 300 MG Capsule GT ×3 (07:55→17:19)
[2020-10-18] MEDS: Furosemide 40 MG Tablet GT (07:56)
[2020-10-18] MEDS: Insulin Lispro 100 UNIT/ML INSULN.PEN 9 UNIT SC (07:57)
[2020-10-18] MEDS: amLODIPine 2.5 MG Tablet GT ×2 (07:58→21:06)
[2020-10-18] MEDS: Allopurinol 300 MG Tablet GT (07:58)
[2020-10-18] MEDS: Acetaminophen 650 MG/20 ML UDC GT (08:02)
[2020-10-18 08:03] VITALS: BP 120/63; PULSE 75; RESP 16; TEMP 37.2; O2SAT 92
[2020-10-18 08:36] LABS: International Normalized Ratio 1.5; Prothrombin Time (Protime)PT. 17.8 SECONDS (11.7-14.9)
--- NOTE | 2020-10-18 09:11 | NT.THERAPY_ITS ---
Nutrition Therapy Report - History Nutrition Services has been consulted to:: Manage nutrient details of diet order, Manage enteral nutrition Current diet / nutrition support order:: regular-puree/nectar thick; 300mL Jevity 1.5 bolus 3x/day (0700, 1200, 1600) if PO intake at meals <50% - Anthropometric Measurements Height:: 5 ft 9 in Weight:: 81.7 kg Body Mass Index (BMI):: 26.6 - Relevant Labs Relevant Labs:: RBC 4.11 M/mm3 (4.6-6.2) L 10/10/20 05:10 Hgb 11.7 g/dL (13.0-16.5) L 10/17/20 08:00 Hct 36.9 % (40-54) L 10/17/20 08:00 MCV 96.7 fL (80-94) H 10/05/20 07:26 MCHC 31.9 g/dL (32-36) L 10/10/20 05:10 RDW Std Deviation 52.5 fl (35.1-43.9) H 10/10/20 05:10 RDW Coeff of [place] 15.1 % (11.6-14.6) H 10/10/20 05:10 PT 17.8 SECONDS (11.7-14.9) H 10/18/20 07:35 Sodium 134 mmol/L (136-145) L 10/15/20 05:31 Chloride 96 mmol/L (98-107) L 10/11/20 05:03 Anion Gap 4 (5-15) L 10/15/20 05:31 BUN 37 mg/dL (7-18) H 10/15/20 05:31 Creatinine 1.39 mg/dL (0.70-1.30) H 10/15/20 05:31 Est GFR (MDRD) Af Amer 58 mL/min (>60) L 10/11/20 05:03 Est GFR (MDRD) Non-Af 52 mL/min (>60) L 10/15/20 05:31 BUN/Creatinine Ratio 26.6 RATIO (10-20) H 10/15/20 05:31 Glucose 178 mg/dL (74-106) H 10/15/20 05:31 Hemoglobin A1c 6.3 % (3.8-5.6) H 10/05/20 07:26 Calcium 8.4 mg/dL (8.5-10.1) L 10/15/20 05:31 Alkaline Phosphatase 202 U/L (45-117) H 10/05/20 07:26 B-Natriuretic Peptide 185.4 pg/mL (0-100) H 10/10/20 05:10 Globulin 4.5 g/dL (2.2-4.2) H 10/05/20 07:26 Albumin/Globulin Ratio 0.8 RATIO (0.9-2.4) L 10/05/20 07:26 - Assessment Food / Nutrition-Related History:: PO diet advanced to puree/nectar thick. Good PO intake at breakfast this AM per nursing staff. Blood glucose appears to be continuing to improve. Has been <200mg/dL over last 24 hours. Nursing staff reports diarrhea yesterday. Wt increase of 0.5 kg noted. Noted given 150mL bolus of Jevity 1.5 yesterday evening d/t blood glucose of 71. - Food / Nutrient Delivery Interventions Summary of nutrition intervention:: If able to consume >50% of meal, bolus feed via PEG not indicated. Current bolus times set as 0700, 1200, 1600, which are not meal times. Will change bolus feeds to reflect mealtimes (0800, 1300, 1800). Blood glucose will be more difficult to control if pt consuming food PO and receiving enteral nutrition via PEG. Hopefully, pt will be able to tolerate adequate PO intake and bolus feeds will not be necessary. Will adjust PO diet to consistent CHO to help w/ glycemic control. For nighttime hypoglycemia, recommend 8 oz Glucerna ONS PO (providing 26 g CHO) or 150mL bolus of Jevity 1.5 via PEG (providing 32 g CHO). Nutrition support ordered as / adjusted to:: 1) Will change diet to consistent carbohydrate- consistency per ANIMAL NUTRITION CONSULTANT. 2) If pt consumes <50% of meal, recommend bolus feed via PEG- 300mL Jevity 1.5 w/ 175mL H2O flush w/ each bolus. Each bolus will provide 450 calories, 19 g protien, and 65 g CHO. 3) For nighttime hypoglycemia, recommend 8 oz Glucerna ONS PO (providing 26 g CHO) or 150mL bolus of Jevity 1.5 w/75mL H2O flush via PEG (providing 32 g CHO). 4) Continue daily wts. - MNT Monitoring Further MNT monitoring and evaluation required?: Yes MNT Follow-up in:: 3-5 days
[2020-10-18 09:15] VITALS: BMI 26.6
[2020-10-18 11:56] LABS: Bedside Glucose 158 mg/dL (70-110)
[2020-10-18] MEDS: Insulin Lispro 100 UNIT/ML INSULN.PEN 6 UNIT SC ×2 (12:45→17:22)
[2020-10-18] MEDS: Insulin Lispro 100 UNIT/ML INSULN.PEN SC (12:45)
[2020-10-18 14:26] VITALS: BMI 26.6
[2020-10-18] MEDS: Tamsulosin HCl 0.4 MG Capsule PO (17:19)
[2020-10-18 17:21] LABS: Bedside Glucose 98 mg/dL (70-110)
[2020-10-18 20:21] VITALS: BP 129/62; PULSE 71; RESP 18; TEMP 36.5; O2SAT 94
[2020-10-18] MEDS: Atorvastatin Calcium 40 MG Tablet GT (21:04)
[2020-10-18 21:08] VITALS: BP 129/62; PULSE 71
[2020-10-18 21:11] LABS: Bedside Glucose 135 mg/dL (70-110)
--- NOTE | 2020-10-19 02:30 | NURSING ---
PT INC OF LARGE AMT OF URINE, CALLED TO SAY HE WAS, DIAPER CHANGED AND JEN CARE GIVEN, BLADDER SCANNED AFTER FOR [id number]
[2020-10-19 04:12] VITALS: BMI 26.6
[2020-10-19] MEDS: Menthol/Lanolin/Calamine/Znox 113 GM Tube 1 APPLIC TOPICAL ×3 (05:37→22:08)
[2020-10-19 07:10] LABS: Bedside Glucose 65 mg/dL (70-110)
[2020-10-19 07:45] LABS: Bedside Glucose 70 mg/dL (70-110)
[2020-10-19 08:00] VITALS: BP 136/73; PULSE 83; RESP 18; TEMP 37.1; O2SAT 94
[2020-10-19] MEDS: Cyanocobalamin 500 MCG Tablet 1000 MCG GT (08:18)
[2020-10-19] MEDS: Furosemide 40 MG Tablet GT (08:18)
[2020-10-19] MEDS: Sodium Chloride 1 GM Tablet PO ×2 (08:18→22:07)
[2020-10-19] MEDS: Cilostazol 50 MG Tablet 100 MG GT ×2 (08:18→16:54)
[2020-10-19] MEDS: Gabapentin 300 MG Capsule GT ×3 (08:18→16:54)
[2020-10-19] MEDS: Clopidogrel Bisulfate 75 MG Tablet GT (08:18)
[2020-10-19 08:19] VITALS: PULSE 83
[2020-10-19] MEDS: amLODIPine 2.5 MG Tablet GT ×2 (08:19→22:07)
[2020-10-19] MEDS: Metoprolol Tartrate 50 MG Tablet GT ×2 (08:19→22:07)
[2020-10-19] MEDS: Acetaminophen 650 MG/20 ML UDC GT (08:19)
[2020-10-19 08:20] LABS: Bedside Glucose 108 mg/dL (70-110)
[2020-10-19] MEDS: Insulin Lispro 100 UNIT/ML INSULN.PEN 9 UNIT SC (08:30)
[2020-10-19] MEDS: Insulin Lispro 100 UNIT/ML INSULN.PEN 6 UNIT SC ×2 (12:11→16:57)
[2020-10-19] MEDS: Insulin Lispro 100 UNIT/ML INSULN.PEN SC (12:11)
[2020-10-19 12:16] LABS: Bedside Glucose 169 mg/dL (70-110)
[2020-10-19 13:03] VITALS: BMI 26.6
--- NOTE | 2020-10-19 16:00 | NURSING ---
Patient gets up with staff x 1 assist. Eating well and lungs remain clear. Very pleasant and cooperative.
[2020-10-19] MEDS: Tamsulosin HCl 0.4 MG Capsule PO (16:54)
[2020-10-19 17:05] LABS: Bedside Glucose 125 mg/dL (70-110)
[2020-10-19 19:46] VITALS: BP 122/66; PULSE 62; RESP 16; TEMP 36.9; O2SAT 94
[2020-10-19 22:07] VITALS: BP 122/66; PULSE 62
[2020-10-19] MEDS: Atorvastatin Calcium 40 MG Tablet GT (22:08)
[2020-10-19 23:10] LABS: Bedside Glucose 137 mg/dL (70-110)
[2020-10-20 06:26] LABS: Bedside Glucose 58 mg/dL (70-110)
--- NOTE | 2020-10-20 06:27 | NURSING ---
PT'S BLOOD SUGAR IS 58 MG/DL. PT DENIES AKERS AND IS ALERT AND ORIENTED. SKIN IS WARM AND DRY. PT DRINKS 4 OZ THICKENED ORANGE JUICE WITH 1 SUGAR PACKET.
[2020-10-20 06:50] LABS: Bedside Glucose 75 mg/dL (70-110)
[2020-10-20] MEDS: Menthol/Lanolin/Calamine/Znox 113 GM Tube 1 APPLIC TOPICAL ×3 (06:56→21:26)
[2020-10-20] MEDS: Cilostazol 50 MG Tablet 100 MG GT (08:00)
[2020-10-20] MEDS: Furosemide 40 MG Tablet GT (08:01)
[2020-10-20] MEDS: Allopurinol 300 MG Tablet GT (08:01)
[2020-10-20] MEDS: amLODIPine 2.5 MG Tablet GT (08:01)
[2020-10-20] MEDS: Cyanocobalamin 500 MCG Tablet 1000 MCG GT (08:02)
[2020-10-20] MEDS: Sodium Chloride 1 GM Tablet PO ×2 (08:02→21:25)
[2020-10-20] MEDS: Clopidogrel Bisulfate 75 MG Tablet GT (08:02)
[2020-10-20] MEDS: Insulin Lispro 100 UNIT/ML INSULN.PEN 9 UNIT SC (08:04)
[2020-10-20 08:06] VITALS: PULSE 84
[2020-10-20] MEDS: Metoprolol Tartrate 50 MG Tablet GT (08:06)
[2020-10-20] MEDS: Gabapentin 300 MG Capsule GT ×2 (08:06→12:32)
[2020-10-20 08:16] LABS: Bedside Glucose 164 mg/dL (70-110)
[2020-10-20 08:37] VITALS: BP 116/53; PULSE 84; RESP 18; TEMP 36.6; O2SAT 93
--- NOTE | 2020-10-20 10:00 | NURSING ---
Dr. Almanza aware of blood sugar low this am and new order to change patient to regular diet and not carb control.
[2020-10-20 11:31] LABS: Bedside Glucose 108 mg/dL (70-110)
[2020-10-20] MEDS: Insulin Lispro 100 UNIT/ML INSULN.PEN 6 UNIT SC ×2 (12:15→17:20)
[2020-10-20 15:50] VITALS: BMI 26.6
[2020-10-20] MEDS: Cilostazol 50 MG Tablet 100 MG PO (16:34)
[2020-10-20] MEDS: Tamsulosin HCl 0.4 MG Capsule PO (16:34)
[2020-10-20 16:56] LABS: Bedside Glucose 113 mg/dL (70-110)
[2020-10-20] MEDS: Gabapentin 300 MG Capsule PO (17:17)
[2020-10-20 19:33] VITALS: BP 138/81; PULSE 84; RESP 18; TEMP 36.4; O2SAT 97
[2020-10-20] MEDS: Acetaminophen 650 MG/20 ML UDC PO (21:24)
[2020-10-20 21:25] VITALS: BP 138/81; PULSE 84
[2020-10-20] MEDS: amLODIPine 2.5 MG Tablet PO (21:25)
[2020-10-20] MEDS: Metoprolol Tartrate 50 MG Tablet PO (21:25)
[2020-10-20] MEDS: Atorvastatin Calcium 40 MG Tablet PO (21:26)
[2020-10-20 22:46] LABS: Bedside Glucose 203 mg/dL (70-110)
[2020-10-21] MEDS: Menthol/Lanolin/Calamine/Znox 113 GM Tube 1 APPLIC TOPICAL ×3 (07:08→21:55)
[2020-10-21 07:16] LABS: Bedside Glucose 72 mg/dL (70-110)
[2020-10-21] MEDS: Cilostazol 50 MG Tablet 100 MG PO ×2 (07:35→16:35)
[2020-10-21 07:36] VITALS: PULSE 62
[2020-10-21] MEDS: Furosemide 40 MG Tablet PO (07:36)
[2020-10-21] MEDS: Sodium Chloride 1 GM Tablet PO ×2 (07:36→21:54)
[2020-10-21] MEDS: Metoprolol Tartrate 50 MG Tablet PO ×2 (07:36→21:54)
[2020-10-21] MEDS: Cyanocobalamin 500 MCG Tablet 1000 MCG PO (07:36)
[2020-10-21] MEDS: amLODIPine 2.5 MG Tablet PO ×2 (07:36→21:54)
[2020-10-21] MEDS: Gabapentin 300 MG Capsule PO ×3 (07:36→16:36)
[2020-10-21] MEDS: Clopidogrel Bisulfate 75 MG Tablet GT (07:36)
[2020-10-21 07:50] LABS: Bedside Glucose 74 mg/dL (70-110)
[2020-10-21 08:21] LABS: Bedside Glucose 105 mg/dL (70-110)
[2020-10-21] MEDS: Insulin Lispro 100 UNIT/ML INSULN.PEN 9 UNIT SC (08:30)
[2020-10-21 08:33] VITALS: BP 136/59; PULSE 62; RESP 18; TEMP 36.6; O2SAT 93
[2020-10-21 10:36] VITALS: BMI 26.6
[2020-10-21 11:21] LABS: Bedside Glucose 109 mg/dL (70-110)
[2020-10-21] MEDS: Insulin Lispro 100 UNIT/ML INSULN.PEN 6 UNIT SC (12:27)
--- NOTE | 2020-10-21 12:46 | PCM.PN.BLA ---
Progress Note Afebrile VSS-blood pressure is controlled. Maintaining appropriate oxygen saturation on RA Oral intake is good. Intake on 10/20/2020 was 1560 mL. Still incontinent of urine and stool. He knows when he has to have a Krause was removed and the post void residuals are ranging from 364-602 over the past 4 days. Discussed with nursing - no problems that need addressed Reviewed the PT/OT/ST notes Medication list reviewed. Warfarin was just restarted on 10/20/19. Blood sugar record was reviewed and the blood sugars are on the low side with no definite hypoglycemia. The fasting blood sugar this morning was 72 and the at bedtime blood sugar was 203. He has an occasional non-productive cough. He denies shortness of breath. He denies chest pain, sore throat, nasal congestion, dysuria. Denies calf pain. He does have urinary urgency and if the nurses do not come fast enough he is incontinent. He also knows when he has to have a bowel movement, but is still sometimes incontinent. MM are moist He is oriented to person, place, month, year. He knows why he is here. Lungs-few coarse crackles in the bases with diminished air exchange but no tachypnea, no conversational dyspnea and no accessory muscle use. Heart-regular today with rare ectopic beat. Abdomen-soft, nontender, nondistended, bowel sounds present. There is redness around the PEG tube site with a small amount of purulent drainage. He denies any pain with palpation and I did not feel any significant increase in the warmth of the skin around the PEG. No rashes. He has no calf pain. there is some pitting edema of the ankle on the R LE. He tells me he had phlebitis in the past and the R ankle always swells. Impressions 1. Physical debility secondary to right medullary ischemic CVA 2. Severe dysphagia-has improved and he is currently on pur?ed foods with nectar thick liquids. 3. Urinary tract infection secondary to Klebsiella pneumoniae-treated with appropriate antibiotics. 4. Hematuria secondary to UTI, urine retention, anticoagulation, BPH. He was initially orthostatic when he came to rehab and we are only able to use 0.4 mg of Flomax to date. He seems to be tolerating this. 5. Urine retention 6. Chronic anticoagulation with warfarin for AF - May be safer with a novel anticoagulant than with Warfarin......... 7. Chronic renal failure stage IIIb 8. Paroxysmal atrial fibrillation 9. Hyperuricemia on allopurinol 10. Coronary artery disease with history of CABG 11. Hypertension 12. Hyperlipidemia 13. Suspected PVD 14. Normochromic normocytic anemia 15. Hyponatremia - he is on Lasix 40 mg daily......he tells me this is to keep the urine flowing? 16.. suspected cellulitis around the PEG Change the insulin regimen to Humalog 75/25 20 in the AM and 10 in the PM. COntinue the SSI and DC the scheduled R at mealtimes.....to simplify administration post discharge. check orthostatics and if he is not orthostatic in the AM will increase the Flomax dose Change Accu-Cheks before every meal and at bedtime. AM lab including BMP, mag, phosphorus, CBC with differential, PT/INR. DC Jevity 1.5 Will need follow-up with urology post discharge. If the PVR's continue to be Less than 400 will not reinsert the Krause due to the gross hematuria in this pt on chronic anticoagulation with Warfarin for AF. Check a UA today to make sure the Klebsiella pneumoniae UTI has resolved with antibiotics. Send a swab for a culture of the purulent DC around the PEG site.....with a MRSA discharge. Inpatient E&M: 21725 Subs Hosp L2
[2020-10-21 14:00] VITALS: BP 127/65; BP 129/68; BP 131/55; PULSE 62; PULSE 70; PULSE 75
[2020-10-21] MEDS: Insulin Human 75/25 Kwickpen 10 UNIT SC (16:34)
[2020-10-21 16:35] LABS: Bedside Glucose 141 mg/dL (70-110)
[2020-10-21] MEDS: Acetaminophen 650 MG/20 ML UDC PO (16:35)
[2020-10-21] MEDS: Tamsulosin HCl 0.4 MG Capsule PO ×2 (16:36→18:02)
[2020-10-21 18:04] LABS: M R Staph aureus DNA By PCR Negative (Negative); Probe Check PASS; Specimen Processing Control PASS; Staph aureus DNA By PCR NEGATIVE (Negative)
[2020-10-21 19:40] VITALS: BP 132/60; PULSE 70; RESP 16; TEMP 36.9; O2SAT 97
[2020-10-21 21:54] VITALS: PULSE 76
[2020-10-21] MEDS: Atorvastatin Calcium 40 MG Tablet PO (21:54)
[2020-10-21 22:00] VITALS: PULSE 70; RESP 16; O2SAT 94
[2020-10-21 22:01] VITALS: BMI 26.6
[2020-10-21 22:10] LABS: Bedside Glucose 146 mg/dL (70-110)
[2020-10-22 02:36] LABS: Bedside Glucose 113 mg/dL (70-110)
[2020-10-22] MEDS: Menthol/Lanolin/Calamine/Znox 113 GM Tube 1 APPLIC TOPICAL ×3 (05:31→21:34)
[2020-10-22 05:39] LABS: Absolute Lymphocyte Count 1.57 X10^3/uL (0.83-4.51); Absolute Neutrophil Count 3.7 X10^3/uL (2.0-7.7); Basophil# 0.02 X10^3/uL; Basophil% 0.3 % (0-1); Eosinophil# 0.17 X10^3/uL; Eosinophils% 2.8 % (0-5); Hematocrit 32.1 % (40-54); Hemoglobin 10.1 g/dL (13.0-16.5); Lymphocyte # 1.57 X10^3/ul (4.0); Mean Corp Hgb Conc 31.5 g/dL (32-36); Mean Corpuscular Volume 95.3 fL (80-94); Mean Platelet Vol. 8.9 fl (6.2-12.0); Monocyte# 0.56 X10^3/uL; Monocyte% 9.3 % (0-10); NRBC Flagged by Analyzer 0 % (0-5); Neutrophil # 3.71 X10^3/uL (2.7-7.7); Neutrophil % 61.3 % (47-70); Platelet Count 249 K/mm3 (150-450); RBC Distribution Width CV 15.2 % (11.6-14.6); RBC Distribution Width SD 52.9 fl (35.1-43.9); Red Blood Count 3.37 M/mm3 (4.6-6.2); White Blood Count 6.1 K/mm3 (4.4-11.0)
[2020-10-22 05:48] LABS: Prothrombin Time (Protime)PT. 38.9 SECONDS (11.7-14.9)
[2020-10-22 05:54] LABS: Anion Gap 5 (5-15); BUN 31 mg/dL (7-18); BUN/Creat Ratio 19.5 RATIO (10-20); Calcium,Total 8.4 mg/dL (8.5-10.1); Chloride 101 mmol/L (98-107); Creatinine, Serum 1.59 mg/dL (0.70-1.30); EST Glomerular Filtration Rate 44 mL/min (>60); Est Glom Filt Rate - Afr Amer 53 mL/min (>60); Estimated Creatinine Clearance 33.35 ml/min; Glucose 112 mg/dL (74-106); Phosphorus 3.6 mg/dL (2.5-4.9); Potassium 4.1 mmol/L (3.5-5.1); Sodium Level 135 mmol/L (136-145)
[2020-10-22 07:06] LABS: Bedside Glucose 111 mg/dL (70-110)
[2020-10-22] MEDS: Cilostazol 50 MG Tablet 100 MG PO ×2 (09:11→17:34)
[2020-10-22] MEDS: Gabapentin 300 MG Capsule PO ×3 (09:12→17:34)
[2020-10-22] MEDS: Furosemide 40 MG Tablet PO (09:12)
[2020-10-22] MEDS: Allopurinol 300 MG Tablet PO (09:12)
[2020-10-22] MEDS: Cyanocobalamin 500 MCG Tablet 1000 MCG PO (09:12)
[2020-10-22 09:13] VITALS: PULSE 85
[2020-10-22] MEDS: Insulin Human 75/25 Kwickpen 20 UNIT SC (09:13)
[2020-10-22] MEDS: Sodium Chloride 1 GM Tablet PO ×2 (09:13→21:36)
[2020-10-22] MEDS: Clopidogrel Bisulfate 75 MG Tablet GT (09:13)
[2020-10-22] MEDS: Metoprolol Tartrate 50 MG Tablet PO ×2 (09:13→21:35)
[2020-10-22] MEDS: amLODIPine 2.5 MG Tablet PO ×2 (09:13→21:35)
[2020-10-22 10:00] VITALS: BP 132/60; PULSE 85; RESP 18; TEMP 37.1; O2SAT 94
[2020-10-22 12:15] LABS: Bedside Glucose 210 mg/dL (70-110)
[2020-10-22] MEDS: Insulin Lispro 100 UNIT/ML INSULN.PEN SC ×2 (12:54→21:34)
--- NOTE | 2020-10-22 13:10 | PCM.PN.BLA ---
Progress Note Afebrile VSS Maintaining appropriate oxygen saturation on RA Oral intake is good Discussed with nursing - no problems that need addressed Reviewed the PT/OT/ST notes Medication list reviewed. Blood sugar record was reviewed All lab was personally reviewed. Hemoglobin today is 10.1 but the patient is better hydrated. BUN is down to 31 today and the creatinine is 1.59 which is within his baseline. Magnesium and phosphorus are within normal limits. INR is 4.0 today John denies chest pain, shortness of breath, cough, nausea, vomiting, abdominal pain, diarrhea, constipation, dysuria. Gram stain of the swab taken from the pus around the PEG tube yesterday is showing 2+ gram-positive cocci with no bacteria seen. Alert, pleasant, no apparent distress Mucous membranes are moist Lungs-diminished but clear to auscultation Heart-irregular irregular with controlled ventricular response Abdomen-still with some erythema around the PEG tube site but less than yesterday since it was cleaned again. Nontender to palpation and no increased warmth to touch. Could not express any pus today. Not fluctuant Impressions 1. ? cellulitis aorund the PEG site.....better today with no tx and there were no bacteria on the GM stain. The white blood cell count and differential are normal. No tx at this time. 2. DM II -blood sugars are better today with adjustments in the insulin. No hypoglycemia since 10/21/2020 fasting. 3. Hypertension-adequately controlled 4. Chronic anticoagulation with warfarin-supratherapeutic INR today Hold warfarin and recheck PT/INR daily. Either consider a novel oral anticoagulant or decrease the dose of Warfarin daily.....I am in favor of a novel anticoagulant. Will check with insurance to see how much his co-pay would be. Continue to monitor the PEG site.....no antibiotics at this time. STROKE Vital Signs/Narrative: Vital Signs Temp Pulse Resp BP Pulse Ox 10/22/20 10:00 98.8 F 85 18 132/60 H 94 10/22/20 09:13 85 Inpatient E&M: 53311 Subs Hosp L2
[2020-10-22 16:33] VITALS: BMI 26.6
[2020-10-22 17:30] LABS: Bedside Glucose 122 mg/dL (70-110)
[2020-10-22] MEDS: Tamsulosin HCl 0.4 MG Capsule 0.8 MG PO (17:34)
[2020-10-22] MEDS: Insulin Human 75/25 Kwickpen 10 UNIT SC (17:35)
[2020-10-22 20:16] VITALS: BP 139/70; PULSE 85; RESP 16; TEMP 36.9; O2SAT 93
[2020-10-22 21:10] VITALS: BMI 26.6
[2020-10-22 21:35] VITALS: PULSE 83
[2020-10-22] MEDS: Atorvastatin Calcium 40 MG Tablet PO (21:35)
[2020-10-22 22:00] VITALS: PULSE 85; RESP 16; O2SAT 93
[2020-10-22 22:00] LABS: Bedside Glucose 172 mg/dL (70-110)
[2020-10-23 02:41] LABS: Bedside Glucose 79 mg/dL (70-110)
[2020-10-23] MEDS: Menthol/Lanolin/Calamine/Znox 113 GM Tube 1 APPLIC TOPICAL ×3 (05:24→22:04)
[2020-10-23 05:44] LABS: Prothrombin Time (Protime)PT. 34.9 SECONDS (11.7-14.9)
[2020-10-23 05:48] LABS: International Normalized Ratio 3.5
[2020-10-23 06:35] LABS: Bedside Glucose 103 mg/dL (70-110)
[2020-10-23] MEDS: Cilostazol 50 MG Tablet 100 MG PO ×2 (08:03→16:24)
[2020-10-23] MEDS: Cyanocobalamin 500 MCG Tablet 1000 MCG PO (08:03)
[2020-10-23] MEDS: Gabapentin 300 MG Capsule PO ×3 (08:03→16:25)
[2020-10-23] MEDS: Insulin Human 75/25 Kwickpen 20 UNIT SC (08:03)
[2020-10-23 08:04] VITALS: PULSE 83
[2020-10-23] MEDS: Metoprolol Tartrate 50 MG Tablet PO ×2 (08:04→22:05)
[2020-10-23] MEDS: Clopidogrel Bisulfate 75 MG Tablet GT (08:04)
[2020-10-23] MEDS: Furosemide 40 MG Tablet PO (08:04)
[2020-10-23] MEDS: amLODIPine 2.5 MG Tablet PO ×2 (08:04→22:05)
[2020-10-23] MEDS: Sodium Chloride 1 GM Tablet PO ×2 (08:05→22:05)
[2020-10-23 08:09] VITALS: BP 137/68; PULSE 83; RESP 16; TEMP 36.9; O2SAT 93
[2020-10-23] MEDS: Acetaminophen 325 MG Tablet 650 MG PO (12:01)
[2020-10-23 12:10] LABS: Bedside Glucose 146 mg/dL (70-110)
[2020-10-23 13:49] VITALS: BMI 26.6
[2020-10-23] MEDS: Tamsulosin HCl 0.4 MG Capsule 0.8 MG PO (16:25)
[2020-10-23] MEDS: Insulin Lispro 100 UNIT/ML INSULN.PEN SC (16:29)
[2020-10-23] MEDS: Insulin Human 75/25 Kwickpen 10 UNIT SC (16:30)
[2020-10-23 16:55] LABS: Bedside Glucose 159 mg/dL (70-110)
[2020-10-23 21:20] LABS: Bedside Glucose 142 mg/dL (70-110)
[2020-10-23 22:00] VITALS: BP 146/70; PULSE 85; RESP 18; TEMP 36.6; O2SAT 94
[2020-10-23 22:05] VITALS: BP 146/70; PULSE 85
[2020-10-23] MEDS: Atorvastatin Calcium 40 MG Tablet PO (22:06)
[2020-10-24 04:56] VITALS: BMI 26.6
[2020-10-24] MEDS: Menthol/Lanolin/Calamine/Znox 113 GM Tube 1 APPLIC TOPICAL ×3 (05:51→21:14)
[2020-10-24 07:00] LABS: International Normalized Ratio 2.4; Prothrombin Time (Protime)PT. 25.5 SECONDS (11.7-14.9)
[2020-10-24 07:30] LABS: Bedside Glucose 119 mg/dL (70-110)
[2020-10-24] MEDS: Insulin Human 75/25 Kwickpen 20 UNIT SC (08:17)
[2020-10-24] MEDS: Cilostazol 50 MG Tablet 100 MG PO ×2 (08:17→16:01)
[2020-10-24] MEDS: Gabapentin 300 MG Capsule PO ×3 (08:17→16:02)
[2020-10-24 08:18] VITALS: PULSE 94
[2020-10-24] MEDS: Allopurinol 300 MG Tablet PO (08:18)
[2020-10-24] MEDS: Cyanocobalamin 500 MCG Tablet 1000 MCG PO (08:18)
[2020-10-24] MEDS: Furosemide 40 MG Tablet PO (08:18)
[2020-10-24] MEDS: Metoprolol Tartrate 50 MG Tablet PO ×2 (08:18→21:13)
[2020-10-24] MEDS: amLODIPine 2.5 MG Tablet PO ×2 (08:19→21:12)
[2020-10-24] MEDS: Sodium Chloride 1 GM Tablet PO ×2 (08:19→21:12)
[2020-10-24] MEDS: Clopidogrel Bisulfate 75 MG Tablet GT (08:19)
[2020-10-24 09:12] VITALS: BP 146/75; PULSE 94; RESP 18; TEMP 36.6; O2SAT 96
--- NOTE | 2020-10-24 10:43 | CASEMGMT ---
Social Work IDT met with patient and via conference call for Team meeting. Discussed patient's progress in therapy. Pt is SBA-CGA for tx, using cane and FWW but more stable with FWW, ambulating 175ft SBA, completed 5 steps with 2HR SBA. Pt is set up for dressing, SBA for toilet tasks, SBA for bathing. ST has pt on puree/mildly thick diet, FFWP, 1:1 supervised for meals, cues for bites/sips. agreeable to come in 10/28 for therapy training. Explained [employer] NRD 10/30 and requesting DC plan. IDT agreeable to pt DC home 10/30. Pt requesting [facility] - referral made for PT/OT/DT/SN. No DME needs. Plan: DC home with 10/30 with [facility] PT/OT/ST/SN Mary Hector, BI[employer] PLANT SUPERINTENDENT AUTOMATIC CORN GRINDER OPERATOR
[2020-10-24 11:56] LABS: Bedside Glucose 223 mg/dL (70-110)
[2020-10-24] MEDS: Insulin Lispro 100 UNIT/ML INSULN.PEN SC (12:04)
--- NOTE | 2020-10-24 12:46 | PCM.PN.BLA ---
Progress Note John was seen on team rounds today. His Coral participated by phone. Afebrile since admission. VSS-systolic is occasionally mildly elevated in the mid 140s but the diastolic is well within normal limits. Maintaining appropriate oxygen saturation on RA Oral intake is good Discussed with nursing - no problems that need addressed Reviewed the PT/OT/ST notes Medication list reviewed. Sugar record was reviewed All lab was personally reviewed. INR is 2.4 today so will restart for him. Prior to his stroke he was taking 4 mg of warfarin daily. John is c/o R hip pain that kept him awake last night. He denies N/V/abd pain, cough, SOB, CP, cephalgia and dysuria. Alert, appropriate, no apparent distress Lungs-diminished throughout, especially in the bases, coarse crackles in the left base posteriorly....chronic? Not tachypneic, denies shortness of breath, no conversational dyspnea, no wheezing Heart-irregular irregular with controlled ventricular response, no gallop Mild edema of the right ankle which is chronic, no edema of the left ankle No calf tenderness No rashes and no skin breakdown Impressions 1. Diabetes mellitus type 2 2. Dysphagia-improved, patient is on a diet now 3. Urine retention-as long as the retention is less than 400 cc will not reinsert Krause. He will need to follow-up with urology post discharge 4. Hypertension-controlled 5. Right hip pain secondary to osteoarthritis 6. Stage IIIb chronic renal failure Increase the a.m. 75/25 insulin to 24 units daily Discontinue sliding scale insulin Missy will be coming in Wednesday at 12:30 for family training. Will need follow up with urology. Try a Lidocaine patch over the R hip at Will need to teach Blade how to administer insulin. [facility] can continue teaching post GA. He would like to go with [facility]. Check an HH and a [facility] on Wednesday STROKE Vital Signs/Narrative: Vital Signs Temp Pulse Resp BP Pulse Ox 10/24/20 09:12 97.8 F 94 18 146/75 H 96 Inpatient E&M: [id number] Subs Hosp L2
[2020-10-24 15:43] VITALS: BMI 26.6
[2020-10-24] MEDS: Acetaminophen 325 MG Tablet 650 MG PO (16:01)
[2020-10-24] MEDS: Tamsulosin HCl 0.4 MG Capsule 0.8 MG PO (16:02)
[2020-10-24] MEDS: Insulin Human 75/25 Kwickpen 10 UNIT SC (16:06)
[2020-10-24 16:56] LABS: Bedside Glucose 193 mg/dL (70-110)
[2020-10-24 20:22] VITALS: BP 150/78; PULSE 86; RESP 16; TEMP 36.6; O2SAT 94
[2020-10-24] MEDS: Atorvastatin Calcium 40 MG Tablet PO (21:12)
[2020-10-24 21:13] VITALS: BP 121/60; PULSE 67
[2020-10-24 21:15] LABS: Bedside Glucose 88 mg/dL (70-110)
[2020-10-25] MEDS: Menthol/Lanolin/Calamine/Znox 113 GM Tube 1 APPLIC TOPICAL ×3 (05:36→20:58)
[2020-10-25 05:53] LABS: Anion Gap 4 (5-15); BUN 31 mg/dL (7-18); BUN/Creat Ratio 18.9 RATIO (10-20); Calcium,Total 8.6 mg/dL (8.5-10.1); Chloride 107 mmol/L (98-107); Creatinine, Serum 1.64 mg/dL (0.70-1.30); EST Glomerular Filtration Rate 43 mL/min (>60); Est Glom Filt Rate - Afr Amer 52 mL/min (>60); Estimated Creatinine Clearance 32.33 ml/min; Glucose 121 mg/dL (74-106); Potassium 4.2 mmol/L (3.5-5.1); Sodium Level 140 mmol/L (136-145)
[2020-10-25 06:00] LABS: International Normalized Ratio 2.1; Prothrombin Time (Protime)PT. 23.3 SECONDS (11.7-14.9)
[2020-10-25] MEDS: Acetaminophen 325 MG Tablet 650 MG PO (06:20)
[2020-10-25] MEDS: Cilostazol 50 MG Tablet 100 MG PO ×2 (06:20→16:40)
--- NOTE | 2020-10-25 06:24 | NURSING ---
pt refuses to be turned pt said the doctor told me if i am comfortable i dont have to turn. Told pt he needs to move to prevent bed sore. Pt said i already have one and it doesnt hurt. Encourage pt to move and we will pull him up in bed. Pt refused. tylenol given for hip pain. Pt pulse ox 86% on . 02 at 2lnc appilied. pt then came up to 92%. Pt agrumentive this am.
[2020-10-25 08:33] LABS: Bedside Glucose 113 mg/dL (70-110)
[2020-10-25] MEDS: Insulin Human 75/25 Kwickpen 24 UNIT SC (08:46)
[2020-10-25 08:50] VITALS: BP 119/65; PULSE 101
[2020-10-25] MEDS: Clopidogrel Bisulfate 75 MG Tablet GT (08:50)
[2020-10-25] MEDS: Cyanocobalamin 500 MCG Tablet 1000 MCG PO (08:50)
[2020-10-25] MEDS: Metoprolol Tartrate 50 MG Tablet PO ×2 (08:50→20:54)
[2020-10-25] MEDS: Sodium Chloride 1 GM Tablet PO ×2 (08:50→20:54)
[2020-10-25] MEDS: Furosemide 40 MG Tablet PO (08:51)
[2020-10-25] MEDS: Gabapentin 300 MG Capsule PO ×3 (08:51→16:40)
[2020-10-25] MEDS: amLODIPine 2.5 MG Tablet PO ×2 (08:51→20:54)
[2020-10-25 09:03] VITALS: BP 119/65; PULSE 101; RESP 18; TEMP 37.2; O2SAT 92
--- NOTE | 2020-10-25 11:14 | PCM.PN.BLA ---
Progress Note Afebrile VSS Maintaining appropriate oxygen saturation on RA Oral intake is fair to good Discussed with nursing - no problems that need addressed Reviewed the PT/OT/ST notes Medication list reviewed. John has no complaints today. Alert, oriented x3, appropriate, pleasant, no apparent distress Lungs-rhonchi in the right mid lung posteriorly that completely cleared after cough. Lungs are otherwise clear to auscultation but very diminished, especially in the bases. Heart-regular rate and rhythm today, no gallop No peripheral edema, no calf tenderness No skin breakdown Impressions 1. ? cellulitis around the PEG site.....better today with no tx and there were no bacteria on the GM stain. The white blood cell count and differential are normal. No tx at this time. 2. DM II -blood sugars are better today with adjustments in the insulin. No hypoglycemia since 10/21/2020 fasting. 3. Hypertension-adequately controlled 4. Chronic anticoagulation with warfarin-Warfarin was on hold due to increased INR of 3.5.....INR today in 2.1 and the Warfarin has been restarted. Continue therapy Possible DC next Wed. Missy is coming in on Wednesday for family training STROKE Vital Signs/Narrative: Vital Signs Temp Pulse Resp BP Pulse Ox 10/25/20 09:03 98.9 F 101 H 18 119/65 92 10/25/20 08:50 101 H 119/65 Inpatient E&M: [id number] Subs Hosp L1
[2020-10-25 11:50] LABS: Bedside Glucose 229 mg/dL (70-110)
[2020-10-25 14:57] VITALS: BMI 26.6
[2020-10-25 16:25] LABS: Bedside Glucose 198 mg/dL (70-110)
[2020-10-25] MEDS: Tamsulosin HCl 0.4 MG Capsule 0.8 MG PO (16:39)
[2020-10-25] MEDS: Insulin Human 75/25 Kwickpen 10 UNIT SC (16:42)
[2020-10-25 19:34] VITALS: BP 139/67; PULSE 88; RESP 18; TEMP 36.3; O2SAT 91
[2020-10-25 20:54] VITALS: BP 139/67; PULSE 88
[2020-10-25] MEDS: Lidocaine 5% Patch 1 PATCH TOPICAL (20:55)
[2020-10-25] MEDS: Docusate Sodium 100 MG/10 ML UDC PO (20:55)
[2020-10-25] MEDS: Atorvastatin Calcium 40 MG Tablet PO (21:10)
[2020-10-25 22:01] LABS: Bedside Glucose 139 mg/dL (70-110)
[2020-10-26] VITALS (8 sets, daily range): BP systolic 125–135; BP diastolic 68; PULSE 68–86; RESP 16–18; TEMP 36.7–38.1; O2SAT 80–94; BMI 26.6
[2020-10-26 06:30] LABS: Bedside Glucose 101 mg/dL (70-110)
[2020-10-26 07:20] LABS: International Normalized Ratio 2.2; Prothrombin Time (Protime)PT. 24.3 SECONDS (11.7-14.9)
[2020-10-26] MEDS: Allopurinol 300 MG Tablet PO (08:23)
[2020-10-26] MEDS: Sodium Chloride 1 GM Tablet PO ×2 (08:23→20:29)
[2020-10-26] MEDS: amLODIPine 2.5 MG Tablet PO ×2 (08:23→20:31)
[2020-10-26] MEDS: Cyanocobalamin 500 MCG Tablet 1000 MCG PO (08:23)
[2020-10-26] MEDS: Furosemide 40 MG Tablet PO (08:23)
[2020-10-26] MEDS: Metoprolol Tartrate 50 MG Tablet PO ×2 (08:23→20:30)
[2020-10-26] MEDS: Cilostazol 50 MG Tablet 100 MG PO ×2 (08:23→17:39)
[2020-10-26] MEDS: Clopidogrel Bisulfate 75 MG Tablet GT (08:23)
[2020-10-26] MEDS: Docusate Sodium 100 MG/10 ML UDC PO (08:24)
[2020-10-26] MEDS: Gabapentin 300 MG Capsule PO ×3 (08:24→17:41)
[2020-10-26] MEDS: Insulin Human 75/25 Kwickpen 24 UNIT SC (08:30)
--- NOTE | 2020-10-26 09:30 | RAD_ITS ---
STUDY: X-RAY CHEST REASON FOR EXAM: Male, 85 years old. sob TECHNIQUE: PA and lateral views of the chest. COMPARISON: 10/09/2020 FINDINGS: Status post median sternotomy. The lungs are clear and expanded. Moderate bilateral pleural effusions with bibasilar atelectasis. There is moderate cardiac enlargement. Normal mediastinum and jaida. There is prominence of the pulmonary hilar arteries and peripheral pulmonary arteries, consistent with congestive heart failure (CHF). Normal visualized aortic arch and descending thoracic aorta. Normal visualized thoracic spine. Normal visualized ribs, clavicles, and shoulders. There is no demonstrated abnormality of the visualized soft tissue structures of the upper abdomen. RAD/Chest PA and Lateral IMPRESSION: Mild congestive heart failure with moderate bilateral pleural effusions with bibasilar atelectasis. Electronically Signed: Jesus Brar MD at 12:51 EST Tel , Service support ,
--- NOTE | 2020-10-26 09:30 | NURSING ---
Dr. Redd aware of patients pulse ox dropping into the 80's early this morning and is currently on 4 L oxygen. SOB with speech and coarse crackles to posterior gray.
[2020-10-26 10:57] LABS: Absolute Neutrophil Count 4.5 X10^3/uL (2.0-7.7); Basophil# 0.03 X10^3/uL; Basophil% 0.5 % (0-1); Eosinophil# 0.06 X10^3/uL; Hematocrit 32.8 % (40-54); Hemoglobin 10.1 g/dL (13.0-16.5); Lymphocyte % 17.7 % (19-41); Mean Corp Hgb Conc 30.8 g/dL (32-36); Mean Corpuscular Hgb 30.2 pg (27.0-32.0); Mean Corpuscular Volume 98.2 fL (80-94); Mean Platelet Vol. 8.9 fl (6.2-12.0); Monocyte# 0.52 X10^3/uL; Monocyte% 8.4 % (0-10); NRBC Flagged by Analyzer 0 % (0-5); Neutrophil % 72.2 % (47-70); Platelet Count 227 K/mm3 (150-450); RBC Distribution Width CV 15.1 % (11.6-14.6); RBC Distribution Width SD 55.3 fl (35.1-43.9); Red Blood Count 3.34 M/mm3 (4.6-6.2); White Blood Count 6.2 K/mm3 (4.4-11.0)
[2020-10-26 11:08] LABS: ALB/GLOB Ratio 0.7 RATIO (0.9-2.4); AST(SGOT) 17 U/L (15-37); Alanine Aminotransfer ALT/SGPT 23 U/L (16-61); Albumin, Serum 2.8 g/dL (3.2-5.0); Alkaline Phosphatase 148 U/L (45-117); Anion Gap 0 (5-15); BUN 30 mg/dL (7-18); BUN/Creat Ratio 17.6 RATIO (10-20); Calcium,Total 8.9 mg/dL (8.5-10.1); Chloride 105 mmol/L (98-107); EST Glomerular Filtration Rate 41 mL/min (>60); Est Glom Filt Rate - Afr Amer 49 mL/min (>60); Estimated Creatinine Clearance 31.19 ml/min; Globulin 3.9 g/dL (2.2-4.2); Glucose 171 mg/dL (74-106); Potassium 4.5 mmol/L (3.5-5.1); Protein, Total 6.7 g/dL (6.4-8.2); Sodium Level 138 mmol/L (136-145)
[2020-10-26 12:00] LABS: Bedside Glucose 163 mg/dL (70-110)
[2020-10-26] MEDS: 0.9% Saline Lock 10 ML Syringe IV ×3 (13:27→18:43)
[2020-10-26] MEDS: Menthol/Lanolin/Calamine/Znox 113 GM Tube 1 APPLIC TOPICAL ×2 (13:29→20:28)
--- NOTE | 2020-10-26 13:38 | PCM.PN.BLA ---
Progress Note Called by nursing to say Pt is hypoxic this AM and has crackles. He is afebrile. He had no cough yesterday and he had no rales but had diminished BS's throughout........donya in the bases. Poor urine OP yesterday. No CP, no palpitations I reviewed the Xray and the findings are consistent with CHF with BL pleural effusions. All lab was personally reviewed. The WBC is normal and the diff is unremarkable. Serum bicarb is up and a little and he is likely retaining some CO2. K is 4.5. CREAT is stable at 1.7. Impressions 1. acute respiratory failure with hypoxia - due to CHF with BL pleural effusions 2. CHF - acute 3. CRF stage 3 4. metabolic alkalosis -likely due to CO2 retention 5. COPD exacerbation doubtful - Nursing states he is not wheezing. DC the Zosyn hold the PO Lasix and start Lasix 60 mg IV BID. Daily weights DC the duoneb and use Albuterol Q 2H PRN wheezing recheck a BMP and a PT/INR in the AM Inpatient E&M: 34747 Subs Hosp L2
--- NOTE | 2020-10-26 14:00 | NURSING ---
given update on patient's condition.
[2020-10-26] MEDS: Furosemide 100 MG/10 ML Vial 60 MG IV ×2 (14:19→18:43)
[2020-10-26 16:11] LABS: Bedside Glucose 150 mg/dL (70-110)
[2020-10-26] MEDS: Acetaminophen 325 MG Tablet 650 MG PO (17:39)
[2020-10-26] MEDS: Insulin Human 75/25 Kwickpen 10 UNIT SC (17:40)
[2020-10-26] MEDS: Tamsulosin HCl 0.4 MG Capsule 0.8 MG PO (17:43)
[2020-10-26] MEDS: Lidocaine 5% Patch 1 PATCH TOPICAL (20:23)
[2020-10-26 20:26] LABS: Bedside Glucose 173 mg/dL (70-110)
[2020-10-26] MEDS: Atorvastatin Calcium 40 MG Tablet PO (20:30)
[2020-10-27 02:16] LABS: Bedside Glucose 111 mg/dL (70-110)
[2020-10-27] MEDS: Menthol/Lanolin/Calamine/Znox 113 GM Tube 1 APPLIC TOPICAL ×3 (05:03→20:16)
[2020-10-27 06:40] LABS: Bedside Glucose 140 mg/dL (70-110)
[2020-10-27 07:15] LABS: International Normalized Ratio 2.4; Prothrombin Time (Protime)PT. 25.5 SECONDS (11.7-14.9)
[2020-10-27 07:31] LABS: Anion Gap 6 (5-15); BUN 30 mg/dL (7-18); BUN/Creat Ratio 16.7 RATIO (10-20); Calcium,Total 8.6 mg/dL (8.5-10.1); Chloride 101 mmol/L (98-107); EST Glomerular Filtration Rate 38 mL/min (>60); Est Glom Filt Rate - Afr Amer 46 mL/min (>60); Estimated Creatinine Clearance 29.46 ml/min; Glucose 127 mg/dL (74-106); Potassium 4.1 mmol/L (3.5-5.1); Sodium Level 138 mmol/L (136-145)
[2020-10-27 07:45] VITALS: BP 135/68; PULSE 100; RESP 18; TEMP 36.4; O2SAT 93
[2020-10-27 08:18] VITALS: PULSE 74
[2020-10-27] MEDS: Metoprolol Tartrate 50 MG Tablet PO ×2 (08:18→20:17)
[2020-10-27] MEDS: Acetaminophen 325 MG Tablet 650 MG PO (08:18)
[2020-10-27] MEDS: Cilostazol 50 MG Tablet 100 MG PO ×2 (08:19→17:25)
[2020-10-27] MEDS: Cyanocobalamin 500 MCG Tablet 1000 MCG PO (08:19)
[2020-10-27] MEDS: amLODIPine 2.5 MG Tablet PO ×2 (08:19→20:18)
[2020-10-27] MEDS: Gabapentin 300 MG Capsule PO ×3 (08:20→17:25)
[2020-10-27] MEDS: Sodium Chloride 1 GM Tablet PO ×2 (08:20→20:17)
[2020-10-27] MEDS: Clopidogrel Bisulfate 75 MG Tablet GT (08:22)
[2020-10-27] MEDS: Insulin Human 75/25 Kwickpen 24 UNIT SC (08:29)
[2020-10-27] MEDS: 0.9% Saline Lock 10 ML Syringe IV ×2 (08:30→17:27)
[2020-10-27] MEDS: Furosemide 100 MG/10 ML Vial 60 MG IV (08:32)
--- NOTE | 2020-10-27 09:30 | NURSING ---
updated on patients condition. Patient currently sitting up in recliner. Forgetful and needs cues at times. x2 assist used for transfer due to weakness and is sob with exertion and on 4 L oxygen and oxygen sats are 93%. Denies CP or sob at rest.
[2020-10-27 12:11] LABS: Bedside Glucose 235 mg/dL (70-110)
[2020-10-27 14:26] VITALS: BMI 26.6
[2020-10-27 16:40] LABS: Bedside Glucose 176 mg/dL (70-110)
[2020-10-27] MEDS: Tamsulosin HCl 0.4 MG Capsule 0.8 MG PO (17:25)
[2020-10-27] MEDS: Insulin Human 75/25 Kwickpen 10 UNIT SC (17:26)
[2020-10-27] MEDS: Furosemide 100 MG/10 ML Vial 80 MG IV (17:27)
[2020-10-27 19:21] VITALS: BP 133/78; PULSE 78; RESP 18; TEMP 36.8; O2SAT 92
[2020-10-27 19:49] VITALS: BMI 26.6
[2020-10-27] MEDS: Lidocaine 5% Patch 1 PATCH TOPICAL (20:12)
[2020-10-27 20:17] VITALS: PULSE 76
[2020-10-27] MEDS: Atorvastatin Calcium 40 MG Tablet PO (20:18)
[2020-10-27 21:11] LABS: Bedside Glucose 144 mg/dL (70-110)
[2020-10-27 22:00] VITALS: PULSE 78; RESP 17
[2020-10-28 02:06] LABS: Bedside Glucose 147 mg/dL (70-110)
[2020-10-28] MEDS: Menthol/Lanolin/Calamine/Znox 113 GM Tube 1 APPLIC TOPICAL (05:18)
[2020-10-28] MEDS: 0.9% Saline Lock 10 ML Syringe IV ×2 (05:19→12:28)
[2020-10-28 05:52] LABS: Hemoglobin 9.9 g/dL (13.0-16.5)
[2020-10-28 06:45] LABS: Bedside Glucose 181 mg/dL (70-110)
[2020-10-28 06:56] VITALS: O2SAT 92
--- NOTE | 2020-10-28 07:35 | NURSING ---
Pt lethargic this a.m. and low O2 as pt is a mouth breather. O2 levels raised to 94% with staff and pt talking, but weakly. Therapy attempted ADLs but pt very fatigued. Pt answers appropriately and states he guesses he should eat some breakfast, his is coming today.
[2020-10-28] MEDS: Cilostazol 50 MG Tablet 100 MG PO (08:25)
[2020-10-28] MEDS: Insulin Human 75/25 Kwickpen 24 UNIT SC (08:25)
[2020-10-28] MEDS: Gabapentin 300 MG Capsule PO ×2 (08:26→12:00)
[2020-10-28 08:27] VITALS: PULSE 96
[2020-10-28] MEDS: Allopurinol 300 MG Tablet PO (08:27)
[2020-10-28] MEDS: Metoprolol Tartrate 50 MG Tablet PO (08:27)
[2020-10-28] MEDS: Cyanocobalamin 500 MCG Tablet 1000 MCG PO (08:27)
[2020-10-28] MEDS: Clopidogrel Bisulfate 75 MG Tablet GT (08:28)
[2020-10-28] MEDS: amLODIPine 2.5 MG Tablet PO (08:28)
[2020-10-28] MEDS: Sodium Chloride 1 GM Tablet PO (08:28)
[2020-10-28 09:16] VITALS: BP 115/57; PULSE 97; RESP 20; TEMP 36.2; O2SAT 94
--- NOTE | 2020-10-28 10:32 | CASEMGMT ---
Social Work Patient had decline over the weekend. Pt is now x2 assist, on 4L of O2, on IV lasix, had chun placed. running tests and will determine treatment plan. Spoke with and cancelled therapy training this date. Explained will update insurance with new information and postponing discharge date. Will continue to follow. Will Team . ROSE DrakeW
--- NOTE | 2020-10-28 11:10 | PCM.PROGNOTE ---
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 ? Malnutrition? Decubitus ulcer of coccygeal region, stage 1 (Acute) Renal failure (Acute) Subjective: He spiked a temp to 100.5 on 10/26/20 but is currently afebrile. VSS - pulse rate has picked up a little and is in the 90's at rest. He is now requiring 4 LPM of nasal O2 to keep him saturated > 90%. Oral intake is fair Urine output has been good with IV Lasix - started for BL pleural effusions and hypoxemia. WBC and diff were normal and he was afebrile. Chest x-ray done on 10/26/2020 was reported as congestive heart failure with moderate bilateral pleural effusions and bibasilar atelectasis. Discussed with nursing - He is less interactive and they say his speech is different. He is coughing. He denies SOB. Krause was reinserted for retention > 400 cc's after urination. Reviewed the PT/OT/ST notes Medication list reviewed. BS record was reviewed and there was only 1 BS > 200 yesterday and no hypoglycemia All lab was personally reviewed. Hemoglobin is 9.9 today. INR was 2.4 yesterday. CREAT yesterday was up to 1.8. BUN was 30. The sputum culture from 10/26 is growing Kleibsiella Pneumoniae He denies SOB,CP,palpitations, lightheadedness, N/V. He does have a cough.......the PT stated it was juicy this morning but, he swallowed it and could not expectorate. - Physical Exam Vitals/I&O's: Vital Signs Temp Pulse Resp BP Pulse Ox 97.1 F L 97 20 H 115/57 L 94 10/28/20 09:16 10/28/20 09:16 10/28/20 09:16 10/28/20 09:16 10/28/20 09:16 Oxygen Flow Rate (L/min) 4 Oxygen Delivery Method Nasal Cannula Weight: 185 lb 10.067 oz Body Mass Index (BMI) 26.6 Orthostatic Vital Signs Start: 10/05/20 04:32 Freq: Status: Active Protocol: Activity Type Activity Date Activity User E-Sign Co-Sign Detail Recorded Client Recorded Date Recorded By Document 10/21/20 14:00 BL [id number] 10/21/20 15:50 BL 10/21/20 14:00 Orthostatic Vitals Standing -Blood Pressure (90/60-120/80 mm Hg) 129/68 H -Extremity Use Right Arm -Pulse Rate (60-100 beats/min) 75 Sitting -Blood Pressure (90/60-120/80 mm Hg) 127/65 H -Extremity Use Right Arm -Pulse Rate (60-100 beats/min) 70 Lying -Blood Pressure (90/60-120/80 mm Hg) 131/55 H -Extremity Use Right Arm -Pulse Rate (60-100 beats/min) 62 Intake and Output for Last 24 Hours 10/26/20 10/27/20 10/28/20 23:59 23:59 23:59 Intake Total 1401.38 / 1501.38 1540 / 1925 843.12 / 843.12 Output Total 1900 / 2200 2200 / 2700 1600 / 1600 Balance -498.62 / -698.62 -660 / -775 -756.88 / -756.88 General: Alert, Cooperative, - - He is more pale today and he is less jovial and interactive. He is staring. He is also coughing but not expectoraiting. He is able to follow commands. HEENT: Atraumatic, PERRLA, EOMI, - - no change in the facial droop. Oral: No Gingival or Mucosal Lesions/ Ulcerations, Dry Mucosa Neck: Trachea Midline Lungs: Diminished - Diminished throughout. Rhonchi in the R base. I did not appreciate any crackles today. He does not have conversational dyspnea. He has no accessory muscle use. He is not tachypneic at rest with the O2 on. Cardiovascular: Normal S1, Normal S2, Irregular Rate, No rub noted, No Gallop, Tachycardic Abdomen: Bowel Sounds Present, Soft, Non Tender, Non-Distended Extremities: Edema - He has chronic edema of the R ankle and this may be a little worse. He has no edema on the left. Neurological: Facial Droop - unchanged, Muscle tone normal, - - he has good strength on both sides in the extremities........mildy decreased in the LUE but no significant drift. Able to follow commands. No neglect, intact sensation. Essentially no change in the neuro exam. Psych/Mental Status: Flat Affect Microbiology Past 72 Hours 10/26/20 13:00 Sputum, Expectorated/Coughed Gram Stain - Final 10/26/20 13:00 Sputum, Expectorated/Coughed Respiratory Culture - Final Klebsiella pneumoniae sp pneum Laboratory Results 10/27/20 12:01: POC Glucose 235 H 10/27/20 16:29: POC Glucose 176 H 10/27/20 21:08: POC Glucose 144 H 10/28/20 02:02: POC Glucose 147 H 10/28/20 05:45: Hgb 9.9 L, Hct 33.0 L 10/28/20 06:43: POC Glucose 181 H Current Medications Acetaminophen (Acetaminophen 325 Mg Tablet) 650 mg PO Q4H PRN PRN PRN Reason: Pain Score 1-10 Last Admin: 10/27/20 08:18 Dose: 650 mg Documented by: Albuterol/Ipratropium (Ipratropium/Albuterol Sulfate 3 Ml Ampul.Neb) 3 ml INHALATION Q4HWA.RT PRN PRN Reason: WHEEZING Allopurinol (Allopurinol 300 Mg Tablet) 300 mg PO Q48@0800 [facility] Last Admin: 10/28/20 08:27 Dose: 300 mg Documented by: Amlodipine Besylate (Amlodipine 2.5 Mg Tablet) 2.5 mg PO BID [facility] Last Admin: 10/28/20 08:28 Dose: 2.5 mg Documented by: Atorvastatin Calcium (Atorvastatin Calcium 40 Mg Tablet) 40 mg PO QHS [facility] Last Admin: 10/27/20 20:18 Dose: 40 mg Documented by: Bisacodyl (Bisacodyl 10 Mg Suppository) 10 mg RECTAL .PRN X 1 PRN PRN Reason: Constipation Calamine/Phenol (Menthol/Lanolin/Calamine/Znox 113 Gm Tube) 1 applic TOPICAL TID [facility]; Protocol Last Admin: 10/28/20 05:18 Dose: 1 applicatio Documented by: Cilostazol (Cilostazol 50 Mg Tablet) 100 mg PO BIDAC [facility] Last Admin: 10/28/20 08:25 Dose: 100 mg Documented by: Clopidogrel Bisulfate (Clopidogrel Bisulfate 75 Mg Tablet) 75 mg GT DAILY [facility] Last Admin: 10/28/20 08:28 Dose: 75 mg Documented by: Cyanocobalamin (Cyanocobalamin 500 Mcg Tablet) 1,000 mcg PO DAILY@0800 [facility] Last Admin: 10/28/20 08:27 Dose: 1,000 mcg Documented by: Dextrose (Dextrose 50%-Water 25 Gm/50 Ml Disp.Syrin) 0 gm IV X1 PRN; Protocol PRN Reason: Hypoglycemia Docusate Sodium (Docusate Sodium 100 Mg/10 Ml Udc) 100 mg PO BID [facility] Last Admin: 10/28/20 08:17 Dose: Not Given Documented by: Emollient Ointment (Emollient Combination No.72 500 Ml Lotion) 1 applic TOPICAL 4X/DAY PRN PRN; Protocol PRN Reason: DRY SKIN Furosemide (Furosemide 100 Mg/10 Ml Vial) 80 mg IV BID@1000,1800 [facility] Last Admin: 10/27/20 17:27 Dose: 80 mg Documented by: Gabapentin (Gabapentin 300 Mg Capsule) 300 mg PO TIDCM [facility] Last Admin: 10/28/20 08:26 Dose: 300 mg Documented by: Glucagon (Glucagon 1 Mg/Ml Syringe) 1 mg IM .X1 PRN PRN Reason: Hypoglycemia Sodium Chloride () 250 mls @ 15 mls/hr IV .[id number] PRN PRN Reason: Saline Flush Last Infusion: 10/26/20 14:25 Dose: 0 mls/hr Documented by: Sodium Chloride () 250 mls @ 15 mls/hr IV .[id number] PRN PRN Reason: Additional IVPB Infusion Insulin Lispro Protam/Lispro Human (Insulin Human 75/25 [place]) 10 unit SC DINNER [facility] Last Admin: 10/27/20 17:26 Dose: 10 u Documented by: Insulin Lispro Protam/Lispro Human (Insulin Human 75/25 [place]) 24 unit SC BREAKFAST [facility] Last Admin: 10/28/20 08:25 Dose: 24 u Documented by: Lidocaine (Lidocaine 5% Patch) 1 patch TOPICAL DAILY@1999 [facility]; Protocol Last Admin: 10/27/20 20:12 Dose: 1 patch Documented by: Magnesium Hydroxide (Magnesium Hydroxide 30 Ml Udc) 30 ml PO .PRN X 1 PRN PRN Reason: Constipation Metoprolol Tartrate (Metoprolol Tartrate 50 Mg Tablet) 50 mg PO BID [facility] Last Admin: 10/28/20 08:27 Dose: 50 mg Documented by: Sodium Chloride (Sodium Chloride 1 Gm Tablet) 1 gm PO BID [facility] Last Admin: 10/28/20 08:28 Dose: 1 gm Documented by: Sodium Chloride (0.9% Saline Lock 10 Ml Syringe) 10 - 40 ml IV UD PRN PRN Reason: SALINE FLUSH Last Admin: 10/28/20 05:19 Dose: 10 ml Documented by: Tamsulosin HCl (Tamsulosin Hcl 0.4 Mg Capsule) 0.8 mg PO DAILY@1730 [facility] Last Admin: 10/27/20 17:25 Dose: 0.8 mg Documented by: Warfarin Sodium (Warfarin 3 Mg Tablet) 3 mg PO DAILY@1700 [facility] Last Admin: 10/27/20 17:25 Dose: 3 mg Documented by: Medical Necessity - Tobacco Use Smoking Status: Never smoker Tobacco Use: Non-smoker Assessment/Plan All Active Problems CVA (cerebral vascular accident) (Acute) Dysphagia (Acute) S/P percutaneous endoscopic gastrostomy (PEG) tube placement (Acute) Dysarthria (Acute) Malnutrition (Acute) Decubitus ulcer of coccygeal region, stage 1 (Acute) Renal failure (Acute) Impressions 1. 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 Severe dysphagia 3. Status post PEG insertion on 10/01/2020 - no longer being used 4. Dysarthria 5. Cognitive dysfunction - resolved 6. Paroxysmal atrial fibrillation 7. Chronic anticoagulation with warfarin 8. Hypertension 9. Hyperlipidemia 10. Coronary artery disease 11. Hyperuricemia 12. Chronic renal failure stage IIIb 13. History of CABG 14. suspected PVD - denies claudication 15. PNA - more likely than not due to aspiration with K. Pneumoniae. He grew K pneumoniae from the urine on 10/08/20......he may have gotten bacteremic. 16. BL pleural effusions - parapneumonic? or co-exist volume overload. 17. urine retention 18. macrocytic anemia 19. DM II PA and LAT CXR today CBC with diff, CMP, mag, PT/INR, lactic acid DC the Lasix for now. Continue the duoneb Q4H while awake. Albuterol Q2H PRN wheezing Continue IS and add PEP Rocephin 2 GM IV now and then 1 GM IV daily He is not wheezing today so will hold off on steroids. Keep the Krause in for accurate I&O's and for urine retention in excess of 400 cc's. F/U with urology as OP Orthostatics today. Will call his and update her on John's condition. 47 minutes spent caring for this patient today and revieweing lab and Xrays and updating the family Inpatient E&M: [id number] Subs Hosp L3
[2020-10-28 12:10] LABS: Bedside Glucose 215 mg/dL (70-110)
[2020-10-28 12:34] LABS: ALB/GLOB Ratio 0.7 RATIO (0.9-2.4); AST(SGOT) 17 U/L (15-37); Alanine Aminotransfer ALT/SGPT 18 U/L (16-61); Albumin, Serum 2.8 g/dL (3.2-5.0); Alkaline Phosphatase 142 U/L (45-117); Anion Gap 5 (5-15); BUN 34 mg/dL (7-18); BUN/Creat Ratio 16.3 RATIO (10-20); Calcium,Total 8.6 mg/dL (8.5-10.1); Chloride 100 mmol/L (98-107); Creatinine, Serum 2.09 mg/dL (0.70-1.30); EST Glomerular Filtration Rate 32 mL/min (>60); Est Glom Filt Rate - Afr Amer 39 mL/min (>60); Estimated Creatinine Clearance 25.37 ml/min; Glucose 181 mg/dL (74-106); Potassium 4.5 mmol/L (3.5-5.1); Protein, Total 6.8 g/dL (6.4-8.2); Sodium Level 136 mmol/L (136-145)
[2020-10-28 12:38] LABS: Absolute Lymphocyte Count 0.63 X10^3/uL (0.83-4.51); Absolute Neutrophil Count 4.2 X10^3/uL (2.0-7.7); Basophil# 0.01 X10^3/uL; Basophil% 0.2 % (0-1); Hematocrit 33.3 % (40-54); Lymphocyte # 0.63 X10^3/ul (4.0); Lymphocyte % 11.8 % (19-41); Mean Corpuscular Hgb 29.9 pg (27.0-32.0); Mean Corpuscular Volume 99.4 fL (80-94); Mean Platelet Vol. 9.4 fl (6.2-12.0); Monocyte# 0.46 X10^3/uL; Monocyte% 8.6 % (0-10); NRBC Flagged by Analyzer 0 % (0-5); Neutrophil # 4.22 X10^3/uL (2.7-7.7); Platelet Count 210 K/mm3 (150-450); RBC Distribution Width CV 14.9 % (11.6-14.6); RBC Distribution Width SD 54.4 fl (35.1-43.9); Red Blood Count 3.35 M/mm3 (4.6-6.2); White Blood Count 5.3 K/mm3 (4.4-11.0)
[2020-10-28 12:46] LABS: International Normalized Ratio 2.6; Prothrombin Time (Protime)PT. 27.6 SECONDS (11.7-14.9)
[2020-10-28 12:59] LABS: Lactic Acid 2.7 mmol/L (0.4-1.9)
[2020-10-28 13:53] LABS: Mucous, Urine 0 SEEN /hpf (<or=2+)
--- NOTE | 2020-10-28 13:55 | RAD_ITS ---
STUDY: X-RAY CHEST REASON FOR EXAM: Male, 85 years old. Hypoxemia, cough TECHNIQUE: AP and lateral views of the chest. COMPARISON: Comparison is made with prior study dated 10/26/2020. FINDINGS: Since prior study, there has been progressive increase in size of the bilateral pleural effusions with bibasilar atelectasis and/or infiltration. Vascular congestion and mild degree of CHF. Sternal cerclage wires and vascular clips are present from a prior sternotomy and coronary artery bypass graft procedure (CABG). Normal mediastinum and jaida. Normal visualized pulmonary arteries. Normal visualized aortic arch and descending thoracic aorta. There are diffuse degenerative changes of the visualized thoracic spine. Normal visualized ribs, clavicles, and shoulders. A gastrostomy tube is seen within the stomach. RAD/Chest PA and Lateral IMPRESSION: Increasing bilateral pleural effusions with bibasilar atelectasis and/or infiltrates superimposed on CHF. Electronically Signed: Sony Figueroa, at 14:06 EST , Service support ,
[2020-10-28 14:04] LABS: Color, Urine Yellow (Yellow); Glucose, Dipstick Normal (Normal); Ketone-Dipstick Negative (Negative); Leukocyte Esterase-Dipstick 500 /ul (Negative); Nitrite-Dipstick Negative (Negative); Occult Blood-Urine 150 /ul (Negative); Protein-Dipstick 100 mg/dl (Negative); Specific Gravity, Urine 1.025 (1.002-1.030); Urine Bilirubin Dipstick Negative (Negative); Urine Clarity Sl. Cloudy (Clear); Urine Urobilinogen 1 mg/dl (Normal)
[2020-10-28 14:09] LABS: BNP,B-Type NATRIURETIC PEPTIDE 279.3 pg/mL (0-100)
[2020-10-28 14:32] LABS: Bacteria 1+ /hpf (None Seen); Red Blood Cells-Urine 0-5 SEEN /hpf (0-5); Squamous Epithelial Cells - UA 0-5 SEEN /hpf (0-5); White Blood Cells 25-50 SEEN /hpf (0-5)
--- NOTE | 2020-10-28 14:51 | PCM.DC.SUM ---
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 ? Malnutrition? 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...admitted to [facility] Dysphagia (Acute) advanced to pureed and nectar thick liquids after admission to Rehab S/P percutaneous endoscopic gastrostomy (PEG) tube placement (Acute) Dysarthria (Acute) Malnutrition (Acute) - ruled out by the silo tender Decubitus ulcer of coccygeal region, stage 1 (Acute) Macrocytic anemia Urinary tract infection secondary to Klebsiella pneumonia Bilateral pleural effusions Supratherapeutic INR-resolved Orthostatic hypotension due to IV volume depletion -resolved Urine retention Gross hematuria - resolved - Secondary Discharge Diagnosis Chronic Problems: Chronic Problems Chronic low back pain (Chronic) Paroxysmal Atrial fibrillation (Chronic) Hypertension (Chronic) HLD (hyperlipidemia) (Chronic) CAD (coronary artery disease) (Chronic)-with history of CABG 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 John Hassan is a 85 year old M with a past medical history of hypertension, hyperlipidemia, coronary artery disease, CABG, diabetes mellitus type 2, paroxysmal atrial fibrillation, chronic anticoagulation with warfarin, hyperuricemia and chronic low back pain who presented to [facility] ED on 09/26/2020 with slurred speech, right facial droop and dizziness for the preceding few hours. The initial CT brain without IV contrast done 09/26/2020 showed acute brain attack. He was at admitted to the hospital for acute right inferior medullary ischemic CVA. Because he had a therapeutic INR and the brain CT already showed changes consistent with ischemic CVA TPA was not ordered. CTA of the head showed no acute large vessel occlusion or hemorrhage. There was multifocal smaller vessel intracranial stenoses. Lab at admission to [facility] revealed a creatinine clearance of 34 which is consistent with stage IIIb chronic renal failure. Since I have no prior labs on this gentleman I cannot say if this is acute or chronic. He was seen at [facility] by PT/OT/ST. PEG tube was placed due to severe dysphagia and he was transferred to [facility] acute inpatient rehab on 10/04/2020 for greater than 3 hours of therapy daily to restore him at or near his prior level of function. Prior to the stroke he was independent with all ADLs and driving. John had significant urine retention at admission to the rehab unit and we could not increase Flomax due to orthostatic hypotension. A UA on 03/08/2020 showed greater than 100 RBCs and greater than 100 WBCs per high-power field. Urine culture grew Klebsiella pneumoniae and he was treated with 7 days of appropriate antibiotics. He was on Lovenox and Warfarin at admission to the rehab unit and with Krause insertion and UTI he developed gross hematuria. Warfarin was held and he was started on CBI. Hematuria resolved and he was restarted on Warfarin. Initially the post void residuals post Krause removal ranged from 364-602. Flomax was restarted since orthostatic hypotension had resolved with hydration and the post void residuals improved to less than 400 cc. He denied dysuria. John did very well with therapy and he was started on a pureed, nectar thick liquid diet on 10/16/20. On 10/25/2020 he had walked 175 to 330 feet with a wheeled walker at standby assist. He is also walk with a straight cane but his gait is less stable. He had a ascended and descended 5 steps with 2 rails at standby assist in a reciprocal pattern. He was able to dress his upper body and lower body with supervising or touching assistance. He was able to do toilet transfers at minimal assistance at contact-guard assist for balance. On Wednesday10/26/19 he became acutely hypoxic and was requiring 4 L of nasal O2 to maintain an oxygen saturation greater than 90%. A PA and lateral chest x-ray showed congestive heart failure with moderate bilateral pleural effusions and basilar atelectasis. He was afebrile. The white blood cell count was 6.2 with 72.2% neutrophils. I&O had not been accurate due to incontinence at times but, he had decreased urine OP on 10/25/20. The BUN was stable at 30 and the creatinine was 1.7. Serum bicarb was mildly increased at 33 and we suspected this may have been due to mild carbon dioxide retention. A sputum was ordered for GM stain and C&S. He was started on Lasix BID. On 10/27/20 he was still requiring 4 LPM and he was coughing. When I examined him on 10/28/20 he was oriented and appropriate but, he was not himself. He is usually quite gregarious and interacts with the staff but, he is quiet and looks pale. Auscultation of his lungs revealed diminished breath sounds throughout with coarse rhonchi. I did not appreciate any coarse crackles. The heart was irregular with an increased resting heart rate in the high 90s. Chest x-ray showed increasing bilateral pleural effusions with bibasilar atelectasis and/or infiltrate superimposed on CHF. White blood cell count was 5.3 with 79% neutrophils. Hemoglobin is stable at 10 and platelets are within normal limits. Chemistry showed the creatinine had increased to 2.09 with a BUN of 34. Metabolic alkalosis had resolved. Lactic acid was elevated at 2.7 and the BNP was elevated at 279.3 which is not impressive given the fact that his creatinine is 2.09. INR was therapeutic at 2.6. With Acute on CRF, lactic acidosis, acute hypoxemic respiratory insufficiency, BL pleural effusions and PNA with K. Pneumoniae in the sputum I thought it best to transfer him to the acute hospital. He was given 2 GM of IV Rocephin in the morning prior to transfer. I contacted Dr. Pabon for admission and he was transferred to PCU. I called his but she did not answer and there was no VM option. We have no other contact information and I will attempt to reach her again later to inform her of John's transfer. She was informed earlier today of the PNA and the increased weakness. General: Alert, Cooperative, - - He is more pale today and he is less jovial and interactive. He is staring. He is also coughing but not expectoraiting. He is able to follow commands. HEENT: Atraumatic, PERRLA, EOMI, - - no change in the facial droop. Oral: No Gingival or Mucosal Lesions/ Ulcerations, Dry Mucosa Neck: Trachea Midline Lungs: Diminished - Diminished throughout. Rhonchi in the R base. I did not appreciate any crackles today. He does not have conversational dyspnea. He has no accessory muscle use. He is not tachypneic at rest with the O2 on. Cardiovascular: Normal S1, Normal S2, Irregular Rate, No rub noted, No Gallop, Tachycardic Abdomen: Bowel Sounds Present, Soft, Non Tender, Non-Distended Extremities: Edema - He has chronic edema of the R ankle and this may be a little worse. He has no edema on the left. Neurological: Facial Droop - unchanged, Muscle tone normal, - - he has good strength on both sides in the extremities........mildy decreased in the LUE but no significant drift. Able to follow commands. No neglect, intact sensation. Essentially no change in the neuro exam. Psych/Mental Status: Flat Affect This note was generated with [employer] dictation software. It may contain incorrect words, spelling, and punctuation that were not noted in checking the note before signing. 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 ? Malnutrition? Decubitus ulcer of coccygeal region, stage 1 (Acute) Renal failure (Acute) - Physical Exam Vitals/I&O's: Vital Signs Temp Pulse Resp BP Pulse Ox 97.1 F L 97 20 H 115/57 L 94 10/28/20 09:16 10/28/20 09:16 10/28/20 09:16 10/28/20 09:16 10/28/20 09:16 Oxygen Flow Rate (L/min) 4 Oxygen Delivery Method Nasal Cannula Weight: 185 lb 10.067 oz Body Mass Index (BMI) 26.6 Orthostatic Vital Signs Start: 10/05/20 04:32 Freq: Status: Active Protocol: Activity Type Activity Date Activity User E-Sign Co-Sign Detail Recorded Client Recorded Date Recorded By Document 10/21/20 14:00 BL [id number] 10/21/20 15:50 BL 10/21/20 14:00 Orthostatic Vitals Standing -Blood Pressure (90/60-120/80 mm Hg) 129/68 H -Extremity Use Right Arm -Pulse Rate (60-100 beats/min) 75 Sitting -Blood Pressure (90/60-120/80 mm Hg) 127/65 H -Extremity Use Right Arm -Pulse Rate (60-100 beats/min) 70 Lying -Blood Pressure (90/60-120/80 mm Hg) 131/55 H -Extremity Use Right Arm -Pulse Rate (60-100 beats/min) 62 Intake and Output for Last 24 Hours 10/26/20 10/27/20 10/28/20 23:59 23:59 23:59 Intake Total 1401.38 / 1501.38 1540 / 1925 1036.12 / 1036.12 Output Total 1900 / 2200 2200 / 2700 1800 / 1800 Balance -498.62 / -698.62 -660 / -775 -763.88 / -763.88 Microbiology Past 72 Hours 10/26/20 13:00 Sputum, Expectorated/Coughed Gram Stain - Final 10/26/20 13:00 Sputum, Expectorated/Coughed Respiratory Culture - Final Klebsiella pneumoniae sp pneum Laboratory Results 10/27/20 16:29: POC Glucose 176 H 10/27/20 21:08: POC Glucose 144 H 10/28/20 02:02: POC Glucose 147 H 10/28/20 05:45: Hgb 9.9 L, Hct 33.0 L 10/28/20 05:45: Sodium 136, Potassium 4.5, Chloride 100, Carbon Dioxide 31.0, Anion Gap 5, BUN 34 H, Creatinine 2.09 H, Estim Creat Clear Calc 25.37, Est GFR (MDRD) Af Amer 39 L, Est GFR (MDRD) Non-Af 32 L, BUN/Creatinine Ratio 16.3, Glucose 181 H, Calcium 8.6, Magnesium 2.0, Total Bilirubin 0.40, AST 17, ALT 18, Alkaline Phosphatase 142 H, Total Protein 6.8, Albumin 2.8 L, Globulin 4.0, Albumin/Globulin Ratio 0.7 L 10/28/20 06:43: POC Glucose 181 H 10/28/20 11:54: POC Glucose 215 H 10/28/20 12:10: WBC 5.3, RBC 3.35 L, Hgb 10.0 L, Hct 33.3 L, MCV 99.4 H, MCH 29.9, MCHC 30.0 L, RDW Std Deviation 54.4 H, RDW Coeff of Norman 14.9 H, Plt Count 210, MPV 9.4, Immature Gran % (Auto) 0.400, Neut % (Auto) 79.0 H, Lymph % (Auto) 11.8 L, Jenkins % (Auto) 8.6, Eos % (Auto) 0.0, Baso % (Auto) 0.2, Absolute Neuts (auto) 4.2, Absolute Lymphs (auto) 0.63 L, Nucleated RBC % 0 10/28/20 12:10: B-Natriuretic Peptide 279.3 H 10/28/20 12:10: Lactic Acid 2.7 H* 10/28/20 12:10: PT 27.6 H, INR 2.6 10/28/20 13:42: Urine Color Yellow, Urine Clarity Sl. Cloudy, Urine pH 5.0, Ur Specific Ava 1.025, Urine Protein 100 H, Urine Glucose (UA) Normal, Urine Ketones Negative, Urine Occult Blood 150 H, Urine Nitrite Negative, Urine Bilirubin Negative, Urine Urobilinogen 1 H, Ur Leukocyte Esterase 500 H, Urine RBC 0-5 SEEN, Urine WBC 25-50 SEEN, Ur Squamous Epith Cells 0-5 SEEN, Urine Bacteria 1+, Urine Mucus 0 SEEN Current Medications Acetaminophen (Acetaminophen 325 Mg Tablet) 650 mg PO Q4H PRN PRN PRN Reason: Pain Score 1-10 Last Admin: 10/27/20 08:18 Dose: 650 mg Documented by: Albuterol Sulfate (Albuterol 2.5 Mg/3 Ml Vial.Neb.) 2.5 mg INHALATION Q2H PRN PRN PRN Reason: WHEEZING Albuterol/Ipratropium (Ipratropium/Albuterol Sulfate 3 Ml Ampul.Neb) 3 ml INHALATION Q6H.RT [facility] Allopurinol (Allopurinol 300 Mg Tablet) 300 mg PO Q48@0800 [facility] Last Admin: 10/28/20 08:27 Dose: 300 mg Documented by: Amlodipine Besylate (Amlodipine 2.5 Mg Tablet) 2.5 mg PO BID [facility] Last Admin: 10/28/20 08:28 Dose: 2.5 mg Documented by: Atorvastatin Calcium (Atorvastatin Calcium 40 Mg Tablet) 40 mg PO QHS [facility] Last Admin: 10/27/20 20:18 Dose: 40 mg Documented by: Bisacodyl (Bisacodyl 10 Mg Suppository) 10 mg RECTAL .PRN X 1 PRN PRN Reason: Constipation Calamine/Phenol (Menthol/Lanolin/Calamine/Znox 113 Gm Tube) 1 applic TOPICAL TID [facility]; Protocol Last Admin: 10/28/20 05:18 Dose: 1 applicatio Documented by: Cilostazol (Cilostazol 50 Mg Tablet) 100 mg PO BIDAC [facility] Last Admin: 10/28/20 08:25 Dose: 100 mg Documented by: Clopidogrel Bisulfate (Clopidogrel Bisulfate 75 Mg Tablet) 75 mg GT DAILY [facility] Last Admin: 10/28/20 08:28 Dose: 75 mg Documented by: Cyanocobalamin (Cyanocobalamin 500 Mcg Tablet) 1,000 mcg PO DAILY@0800 [facility] Last Admin: 10/28/20 08:27 Dose: 1,000 mcg Documented by: Dextrose (Dextrose 50%-Water 25 Gm/50 Ml Disp.Syrin) 0 gm IV X1 PRN; Protocol PRN Reason: Hypoglycemia Docusate Sodium (Docusate Sodium 100 Mg/10 Ml Udc) 100 mg PO BID [facility] Last Admin: 10/28/20 08:17 Dose: Not Given Documented by: Emollient Ointment (Emollient Combination No.72 500 Ml Lotion) 1 applic TOPICAL 4X/DAY PRN PRN; Protocol PRN Reason: DRY SKIN Gabapentin (Gabapentin 300 Mg Capsule) 300 mg PO TIDCM [facility] Last Admin: 10/28/20 12:00 Dose: 300 mg Documented by: Glucagon (Glucagon 1 Mg/Ml Syringe) 1 mg IM .X1 PRN PRN Reason: Hypoglycemia Sodium Chloride () 250 mls @ 15 mls/hr IV .[id number] PRN PRN Reason: Saline Flush Last Infusion: 10/28/20 13:59 Dose: 0 mls/hr Documented by: Sodium Chloride () 250 mls @ 15 mls/hr IV .[id number] PRN PRN Reason: Additional IVPB Infusion Ceftriaxone Sodium (Rocephin) 1 gm in 50 mls @ 100 mls/hr IV Q24 [facility] Insulin Lispro Protam/Lispro Human (Insulin Human 75/25 [place]) 10 unit SC DINNER [facility] Last Admin: 10/27/20 17:26 Dose: 10 u Documented by: Insulin Lispro Protam/Lispro Human (Insulin Human 75/25 [place]) 24 unit SC BREAKFAST [facility] Last Admin: 10/28/20 08:25 Dose: 24 u Documented by: Lidocaine (Lidocaine 5% Patch) 1 patch TOPICAL DAILY@1999 [facility]; Protocol Last Admin: 10/27/20 20:12 Dose: 1 patch Documented by: Magnesium Hydroxide (Magnesium Hydroxide 30 Ml Udc) 30 ml PO .PRN X 1 PRN PRN Reason: Constipation Metoprolol Tartrate (Metoprolol Tartrate 50 Mg Tablet) 50 mg PO BID [facility] Last Admin: 10/28/20 08:27 Dose: 50 mg Documented by: Sodium Chloride (Sodium Chloride 1 Gm Tablet) 1 gm PO BID [facility] Last Admin: 10/28/20 08:28 Dose: 1 gm Documented by: Sodium Chloride (0.9% Saline Lock 10 Ml Syringe) 10 - 40 ml IV UD PRN PRN Reason: SALINE FLUSH Last Admin: 10/28/20 12:28 Dose: 10 ml Documented by: Tamsulosin HCl (Tamsulosin Hcl 0.4 Mg Capsule) 0.8 mg PO DAILY@1730 [facility] Last Admin: 10/27/20 17:25 Dose: 0.8 mg Documented by: Warfarin Sodium (Warfarin 3 Mg Tablet) 3 mg PO DAILY@1700 [facility] Last Admin: 10/27/20 17:25 Dose: 3 mg Documented by: Home Medications: Medications to take at Discharge Allopurinol [Zyloprim] 300 mg PO Q48H 10/03/20 Amlodipine [Norvasc] 5 mg PO BID 10/03/20 Atorvastatin Calcium [Lipitor] 40 mg PO QHS 10/03/20 Cilostazol [Pletal] 100 mg PO BIDAC 10/03/20 Clopidogrel Bisulfate [Plavix] 75 mg PO DAILY 10/03/20 Cyanocobalamin [Vitamin B12] 1,000 mcg PO DAILY@0800 10/03/20 Empagliflozin [Jardiance] 10 mg PO DAILY 10/03/20 Enoxaparin Sodium [Lovenox] 100 mg SQ DAILY 10/03/20 Furosemide [Lasix] 40 mg PO DAILY 10/03/20 Gabapentin [Neurontin] 300 mg PO TIDCM 10/03/20 Glyburide,Micronized [Glyburide Micronized] 6 mg PO BID 10/03/20 Lidocaine 1 ea TP DAILY 10/03/20 Metformin HCl [Glucophage] 500 mg PO BID 10/03/20 Metoprolol Tartrate [Lopressor (Beta [place])] 25 mg PO BID 10/03/20 Warfarin [Coumadin (PBKC)] 4 mg PO DAILY 10/03/20 Disposition: Acute care Hospital Minutes spent on discharge:: 45 Patient Condition:: Guarded Medical Necessity - Tobacco Use Smoking Status: Never smoker Tobacco Use: Non-smoker Meaningful Use Info Meaningful Use Diagnoses (Choose all that apply): Ischemic CVA - CVA Therapy Assessed for PT,OT and/or ST?: Yes - Ischemic Stroke Antithrombotic order at d/c?: Yes Dx of Atrial fib/flutter?: Yes Anticoagulant at discharge?: Yes Statins at discharge?: Yes Primary Dx Acute Ischemic CVA?: Yes IV tPA ordered during stay?: No Reason IV t-PA not ordered: Treatment not Indicated - we are a rehab unit and TPA was not given for the acute event because he was already therapeutic on Warfarin Inpatient E&M: [id number] Disch Hosp
[2020-10-28 15:25] VITALS: BMI 26.6
[2020-10-28 15:52] LABS: Probe Check PASS; Specimen Processing Control PASS
--- NOTE | 2020-10-28 15:54 | NURSING ---
discharged to PCU. Report called to [facility]
[2020-10-28 15:55] VITALS: BP 115/57; PULSE 90; RESP 20; TEMP 36.5; O2SAT 94
[2020-10-28 16:17] LABS: Reflex Lactate? Y
[2020-10-28 18:10] LABS: Lactic Acid 1.6 mmol/L (0.4-1.9)
== END 2020-10-28 16:01 | disposition short-term general hospital (02) | DRG 57 ==
PROVIDERS: Family Medicine; Admitting Provider Internal Medicine; Visit Provider Internal Medicine
DX: I69.322 Dysarthria following cerebral infarction (principal); I13.0 Hypertensive heart and chronic kidney disease with heart failure and stage 1 through stage 4 chronic kidney disease, or unspecified chronic kidney disease; Z16.11 Resistance to penicillins; N39.0 Urinary tract infection, site not specified; E87.4 Mixed disorder of acid-base balance; N17.9 Acute kidney failure, unspecified; I69.391 Dysphagia following cerebral infarction; I69.392 Facial weakness following cerebral infarction; R13.12 Dysphagia, oropharyngeal phase; Z93.1 Gastrostomy status; I25.10 Atherosclerotic heart disease of native coronary artery without angina pectoris; L89.151 Pressure ulcer of sacral region, stage 1; E78.5 Hyperlipidemia, unspecified; G89.29 Other chronic pain; N18.32 Chronic kidney disease, stage 3b; I50.9 Heart failure, unspecified; I48.0 Paroxysmal atrial fibrillation; E11.22 Type 2 diabetes mellitus with diabetic chronic kidney disease; I69.319 Unspecified symptoms and signs involving cognitive functions following cerebral infarction; Z95.1 Presence of aortocoronary bypass graft; E86.0 Dehydration; I95.1 Orthostatic hypotension; B96.1 Klebsiella pneumoniae [K. pneumoniae] as the cause of diseases classified elsewhere; Z79.01 Long term (current) use of anticoagulants; R31.0 Gross hematuria; M16.11 Unilateral primary osteoarthritis, right hip; D53.9 Nutritional anemia, unspecified
CPT/HCPCS: 36415; 71045; 71046; 74230; 80048; 80053; 81001; 82962; 83036; 83605; 83735; 83880; 84100; 85014; 85018; 85025; 85027; 85610; 87070; 87077; 87086; 87088; 87186; 87205; 87635; 87640; 92507; 92523; 92526; 92610; 92611; 97110; 97112; 97116; 97162; 97166; 97530; 97535; 97802; 97803; 99251; J7050; A4216; G0463; J0696; J1940; U0002

== ENCOUNTER 2020-10-28 16:28 | Inpatient (IN) | payer MEDICARE, SELFPAY ==
[2020-10-28] VITALS (17 sets, daily range): BP systolic 110–161; BP diastolic 43–101; PULSE 85–105; RESP 12–32; TEMP 36.6–37.4; O2SAT 81–98; BMI 26.6; BMI 27.9
--- NOTE | 2020-10-28 16:22 | PCM.HP.STD ---
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...admitted to [facility] (7) Dysphagia Status: Chronic Qualifiers: Dysphagia type: oropharyngeal phase Qualified Code(s): R13.12 - Dysphagia, oropharyngeal phase Comment: NPO with PEG at presentation (8) Dysarthria Status: Chronic (9) Atrial fibrillation Status: Chronic Qualifiers: Atrial fibrillation type: unspecified Qualified Code(s): I48.91 - Unspecified atrial fibrillation (10) Hypertension Status: Chronic Qualifiers: Hypertension type: unspecified Qualified Code(s): I10 - Essential (primary) hypertension (11) HLD (hyperlipidemia) Status: Chronic Qualifiers: Hyperlipidemia type: unspecified Qualified Code(s): E78.5 - Hyperlipidemia, unspecified (12) CAD (coronary artery disease) Status: Chronic Qualifiers: Coronary Disease-Associated Artery/Lesion type: unspecified vessel or lesion type [place] vs. transplanted heart: unspecified whether [place] or transplanted heart Associated angina: angina presence unspecified Qualified Code(s): I25.10 - Atherosclerotic heart disease of [place] coronary artery without angina pectoris (13) Diabetes mellitus type 2 in nonobese Status: Chronic (14) Decubitus ulcer of coccygeal region, stage 1 Status: Chronic (15) Age-related macular degeneration Status: Chronic History of Present Illness Date of Admission: 10/28/20 Chief Complaint: Dyspnea, cough The patient is an 85 y/o M w/ PMHx: Chronic Atrial Fibrillation, HTN, HLD, CAD s/p CABG, Diabetes mellitus type II, Coccygeal stage 1 decub, CKD stage III, Macular degeneration, EtOH Abuse who was recently admitted to the acute rehab facility on 09/24/2020 with hx slurred speech, right facial droop and dizziness on 09/26/20 with evaluation 09/27/2020 with noted right inferior medullary ischemic lacunar infarct with treatment at [facility] with associated oropharyngeal dysphagia with PEG tube at presentation initially with dysarthria who has had a complicated course with recently worsening respiratory status with diagnosis Klebsiella PNA placed on rocephin therapy with remote Klebsiella UTI 10/08/20 with treatment completion at that time with initially urinary retention with chun with d/c chun but now replaced with noted recurrent retention with some concern for volume overload with diuresis attempts starting 10/26/20 given worsened pulmonary status/appearance with increased work of breathing, ongoing 4L NC usage without improvement with worsening renal function concurrently and worsening repeat CXR. He does not increased fatigue and weakness since Wednesday. He reports shortness of breath worse with any exertion. He was noted to be COVID negative upon admission to Acute rehab. He has remained afebrile, denies chills, nausea, emesis, abdominal pain, chest pain. Recent work-up in the Acute Rehab Facility included T 97.1, heart rate 97, BP 115/57, respiratory rate 20, and 4% on 4 L nasal cannula, CBC with WBC 5.3, hemoglobin 10, platelet 210 without significant left shift with noted concurrent mild lymphopenia, coags with PT 27.6, INR 2.6, CMP with BUN/10 and 34/2.09, glucose 181, lactic acid 2.7, magnesium 2.0, alk phos 142, BNP 279.3 (10/10/20 BNP 185.4), urinalysis pending, staph aureus PCR and MRSA negative, 10/21/2020 aerobic and anaerobic swabs from irritation around PEG tube with Enterobacter as well as Staph epidermidis, 10/08/2028 urine culture with Klebsiella pneumonia at that time and recent 10/26/2020 sputum culture with Klebsiella only noted to be insensitive to Zosyn and resistant to ampicillin and Unasyn. Patient currently has 10/28/2020 Chun urine sample repeat with significant findings concerning for recurrent UTI, 10/28/2020 chest x-ray with increasing bilateral pleural effusions with bibasilar atelectasis and/or infiltrate superimposed on CHF. Patient currently being treated with Rocephin therapy. 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...admitted to [facility] Dysphagia (Chronic) NPO with PEG at presentation Dysarthria (Chronic) Chronic low back pain (Chronic) Atrial fibrillation (Chronic) Hypertension (Chronic) HLD (hyperlipidemia) (Chronic) CAD (coronary artery disease) (Chronic) Diabetes mellitus type 2 in nonobese (Chronic) Decubitus ulcer of coccygeal region, stage 1 (Chronic) Chronic anticoagulation (Chronic) With warfarin Small vessel disease, cerebrovascular (Chronic) Age-related macular degeneration (Chronic) Allergies No Known Allergies Allergy (Verified 10/03/20 22:45) Home Medications: Ambulatory Orders Medication Instructions Recorded Allopurinol [Zyloprim] 300 mg PO Q48H 10/03/20 Atorvastatin Calcium [Lipitor] 40 mg PO QHS 10/03/20 Cilostazol [Pletal] 100 mg PO BIDAC 10/03/20 Clopidogrel Bisulfate [Plavix] 75 mg PO DAILY 10/03/20 Cyanocobalamin [Vitamin B12] 1,000 mcg PO DAILY@0800 10/03/20 Gabapentin [Neurontin] 300 mg PO TIDCM 10/03/20 0.9% Normal Saline 500 ml IV X1 10/28/20 Acetaminophen [Tylenol] 650 mg PO Q4H PRN 10/28/20 Albuterol Aerosols [Ventolin 2.5 mg INHALATION Q2H PRN PRN 10/28/20 Aerosols] Amlodipine [Norvasc] 2.5 mg PO BID 10/28/20 Bisacodyl 10 mg RC X1 PRN 10/28/20 Ceftriaxone [Rocephin] 2 gm IV X1 10/28/20 Docusate Sodium [Colace Clear] 100 mg PO BID 10/28/20 Emollient Combination No.72 1 applic TOPICAL 4X/DAY PRN 10/28/20 [Eucerin Intensive Repair] Furosemide 80 mg PO 1000,1800 10/28/20 Glucagon 1 mg IM X1 PRN 10/28/20 Insulin Human 75/25 [Humalog Mix 10 unit SQ DINNER 10/28/20 75-25 Kwikpen (BKC)] Insulin Human 75/25 [Humalog Mix 24 unit SQ BREAKFAST 10/28/20 75-25 Kwikpen (BKC)] Ipratropium/Albuterol Sulfate 3 ml INHALATION Q4H PRN 10/28/20 [Duoneb] Ipratropium/Albuterol Sulfate 3 ml INHALATION Q6H.RT 10/28/20 [Duoneb] Lidocaine [Lidoderm] 1 ea TP 199910/28/20 Magnesium Hydroxide [Milk Of 30 ml PO X1 PRN 10/28/20 Magnesia] Menthol/Lanolin/Calamine/Znox 1 applic TP TID 10/28/20 [Calmoseptine Ointment] Metoprolol Tartrate [Lopressor 50 mg PO BID 10/28/20 (Beta [place])] Sodium Chloride 1 gm PO BID 10/28/20 Tamsulosin HCl [Flomax] 0[place] [address]/28/20 Warfarin Sodium [Jantoven] 3 mg PO 169910/28/20 Surgical History: cholecystectomy, coronary bypass surgery - CABG x 1., - - CABG x1, PEG tube placement, cholecystectomy. Psychiatric History: No pertinent psych hx Lives: - - Previously living with his spouse, recently in acute rehab. Smoking Status: Former smoker - Quit cigarette tobacco usage in 1978 with prior to this 2 pack/day since he been a teenager. Tobacco Use: Non-smoker Alcohol: Heavy - Patient reportedly prior to admission at outside tertiary facility and ongoing through his most recent acute rehab stay 4-6 beers each evening per his report. Drugs: None - *Family History Paternal History Items: High Cholesterol, Heart Disease, Hypertension Maternal History Items: Diabetes Review of Systems Constitutional: Reports: Anorexia, Malaise, Weakness, Fatigue. Denies: Chills, Fever, Weight Change HEENT: Reports: Difficulty Swallowing, - - Increased oral secretions.. Denies: Head Aches, Sinus Congestion, Sinus Drainage Cardiovascular: Denies: Chest Pain, Palpitations Respiratory: Reports: Cough, Shortness of Breath, Shortness of breath at rest, Shortness of breath upon exertion, Sputum production Gastrointestinal: Denies: Abdominal Pain, Nausea, Vomiting Genitourinary: Reports: Retention. Denies: Dysuria Musculoskeletal: Reports: Back Pain, Joint Pain. Denies: Joint Tenderness Skin: Denies: Rash, Wounds Neurological: Denies: Numbness, Tingling, Focal weakness Psychiatric: Denies: Anxiety, Depression, Homicidal Ideations, Suicidal Ideations Hematologic/ Lymphatic: Reports: Anemia, Easy Bruising, Easy Bleeding VTE Information - Inpt Only VTE Present on Admission: No VTE Mechan Device Prophylaxis: SCD's VTE Pharm Prophylaxis ordered?: Yes Patient Problems: Active and Suspected Problems Acute kidney injury superimposed on CKD (Acute) Klebsiella pneumonia (Acute) UTI (urinary tract infection) (Acute) Urinary retention (Acute) Lactic acidosis (Acute) Subjective: Patient seated upright in the rehab facility, fatigued, some difficulty noted with ability for deep coughing, notes feeling tired otherwise no acute complaints. Objective: Physical Examination: General: awake, alert, oriented x [address], year, month and recent events, remains cooperative, seated upright in the acute rehab bed in no apparent distress. Skin: normal color, turgor, no icterus, cyanosis except noted stage I decub and some mild yonny-PEG tube irritation but no significant discharge or significant erythema. HEENT: AT/NC, EOMI, PERRLA, mildly dry MM, mild ongoing residual right facial droop, correct some with smiling, no carotid bruits or JVD noted. Lungs: Diminished, greater bases, mildly decreased effort, some difficulty with upper secretions audibly, despite chest x-ray as noted no obvious rales, ronchi or wheezing. Heart: Irregular, rate controlled; no gallop, rub audible. Abdomen: soft, PEG tube in place, see skin, NTTP, ND, normal BS, no HSM. Extremities: no cyanosis or clubbing, mild chronic bilateral lower extremity right greater than left nonpitting ankle edema. Neurological: patient awake, alert, oriented as noted; cognitive function appears stable intact; pupils equally reactive to light and accomodation; cranial nerves II-XII grossly normal except noted mild residual right-sided facial droop with some correction with smiling, dysarthria present, moving all 4 extremities, strength appropriate in extremities, generally moderately to severely globally decreased secondary to acute recent presentation and acute recent illnesses. Psychiatric: affect appears mildly flat, no acute evidence of depressive or anxiety feelings. - Physical Exam Vitals/I&O's: Body Mass Index (BMI) 26.6 Assessment/Plan All Active Problems S/P percutaneous endoscopic gastrostomy (PEG) tube placement (Acute) Malnutrition (Acute) Renal failure (Acute) Acute kidney injury superimposed on CKD (Acute) Klebsiella pneumonia (Acute) UTI (urinary tract infection) (Acute) Urinary retention (Acute) Lactic acidosis (Acute) The patient is an 85 y/o M w/ PMHx: Chronic Atrial Fibrillation, HTN, HLD, CAD s/p CABG, Diabetes mellitus type II, Coccygeal stage 1 decub, CKD stage III, Macular degeneration, EtOH Abuse who was recently admitted to the acute rehab facility on 09/24/2020 with recent 09/26/20 Acute CVA with 09/27/20 transition/treatment at [facility] w/ complicated course of urinary retention with Klebsiella UTI, completed treatment who now transitions to the [facility] as direct admission on 10/28/20 secondary to worsened pulmonary status with Sputum w/ Klebsiella and likely recurrent UTI, worsening CXR. 1. Klebsiella Pneumonia with Respiratory Insufficiency with developing BL Effusions and concurrent Acute Recurrent Complicated UTI, ? Acute Unclear Type CHF (Lower suspicion, no improvement with diuresis, low BNP) with Lactic Acidosis (possible secondary to #2): Will admit to PCU, maintain on oxygen with wean as tolerated to room air, continue ATC duonebs, PRN albuterol, maintained on IV Rocephin given recent susceptible cultures but may alter pending repeat UCx concurrently, HOB, IS parameters w/ pending sputum cultures, respiratory viral panel and urine antigens, continue Chun catheter with pending repeat U CX as noted. Will obtain Bld Cx to be cautious. Will obtain CT chest without contrast given renal function worsening to futher assess possible thoracentesis needs given BL effusions. Given recurrent infections will also request Infectious disease involvement and if needed may consider pulmonary involvement if significant concerning findings on CT chest. COVID PRC requested. PT/OT/ST/CM consultations. 2. JAIME on Chronic Kidney Disease Stage III: Admission BUN/Cr 34/2.09, baseline renal function noted most recently 1.4-1.5, but increasing recently with diuresis attempts initially given concern for possible CHF for worsening chest x-ray appearance, will temporarily hold nephrotoxic regimen, avoid further aggressive diuresis pending CT chest, add back if necessary, as needed regimen in the interim. If not improving despite as noted UTI tx above and avoidance further diuresis pending CT chest may consider FeNa and renal US/Nephrology involvement. 3. Recent Acute CVA with associated oropharyngeal dysphagia: We will continue aspiration and fall precautions, continue current altered diet purreed diet and nectar thickened liquids (ADA), continue Plavix, Pletal, statin, hypertensive regimen with hold parameters as needed, hold oral diabetic medicine, transition insulin sliding scale with Accu-Cheks in case of further imaging with contrast needs, continue therapy PT/OT/ST evaluations and case management involvement. 4. Diabetes mellitus type II: Hold oral home regimen, allow altered ADA diet with ongoing speech therapy evaluations and changes as needed, accu checks w/ ISS. 5. Hypertension: Continue home regimen including Norvasc, metoprolol, holding Lasix given presentation as noted, add back once appropriate, PRN hydralazine. 6. Hyperlipidemia: Continue home statin regimen. 7. CAD: Status post CABG x1, continue Plavix, metoprolol, statin therapy, not on ALEA inhibitor or ARB. 8. Chronic macrocytic anemia: Admission hemoglobin 10, prior baseline noted 9-11 range, has been stable however noted 10/05/2020 hemoglobin 15.8, continued on supplemental vitamin B12. 9. Chronic AF: Noted intermittent, will continue metoprolol, plavix, coumadin with INR trending 10. BPH with urinary retention likely associate with #1: Continue flomax regimen, recently replaced Chun catheter given urinary retention likely associate with recurrent UTI as noted. 11. Coccygeal stage 1 decub: Ongoing positional changes, barrier cream as needed. 12. Alcohol abuse: Patient with likely history of alcohol abuse per discussion with him noting at least 3-6 beers daily prior to his [facility] admission. Discussed that this was consistent with alcohol abuse. Case management consulted and following but will be high risk for upon return home. 13. Former tobacco use: Encourage continued tobacco cessation. 14. DVT Prophylaxis: SCDs, coumadin with INR trending. 15. CODE status: Patient HCPOA and living will is not set up per his report. His is living and prior to this incident he was living at home with her. Discussed CODE status at length including difference between FULL code, DNR-CCA and DNR-CC status. Following discussions about the differences in these status, requested Full Code status. Advanced Care Planning Face to Face Time: 16 minutes. Inpatient E&M: 72197 Init Hosp L3 Procedures: 17312 Advncd Care Plan 30 Min
--- NOTE | 2020-10-28 16:29 | CT_ITS ---
STUDY: CT CHEST WITHOUT CONTRAST REASON FOR EXAM: Male, 85 years old. HYPOXIA -- SURG-CABG -- HX-CVA,AFIB,CAD,DIAB,HTN,CKD STAGE 3, ETOH ABUSE RADIATION DOSAGE (If Supplied By Facility): CTDIvol = ( 16.85 ) mGy, DLP = ( 1285.58 ) mGycm TECHNIQUE: Transaxial imaging was performed without the administration of intravenous contrast material. Individualized dose optimization techniques were used for this CT. COMPARISON: Chest radiograph 10/28/2020 FINDINGS: There is diffuse interstitial thickening and mild diffuse groundglass opacity consistent with pulmonary edema. There are large bilateral effusions and dense consolidation of the lower lobes with air bronchograms.. Heart is enlarged and is multivessel coronary artery calcification Multiple subcentimeter hilar and mediastinal nodes likely benign. Normal unenhanced pulmonary arteries. Atherosclerotic changes of the aorta without evidence for aneurysm. Status post median sternotomy and CABG. Dorsal spine demonstrates advanced arthritic change PEG tube is noted within the distal stomach. CT/Chest without Contrast IMPRESSION: Mild pulmonary interstitial edema with large bilateral effusions and consolidation of the lower lobes. Cannot exclude coexisting pneumonia Electronically Signed: Hernandez Wesley MD at 17:13 EST , Service support ,
--- NOTE | 2020-10-28 16:59 | PCS.PANDOC ---
Addendum entered by Scot Mora 10/28/20 17:02: Ammend time of Pandemic Documentation to 1623 Original Note: PANDEMIC DOCUMENTATION INITIATED: Date: 10/28/2020 Time: 1610
[2020-10-28 17:04] LABS: Procalcitonin 0.15 ng/mL (0.00-0.09)
--- NOTE | 2020-10-28 17:49 | NURSING ---
Pt only O2 sat 81% on 6L of O2, resp therapy to come and evaluate and give treatment. Pt's primary nurse Fartun notified.
[2020-10-28] MEDS: Ipratropium/Albuterol Sulfate 3 ML AMPUL.NEB INHALATION (17:54)
--- NOTE | 2020-10-28 18:06 | CPS ---
changed pt to HFNC. increased to 10L.
[2020-10-28] MEDS: Furosemide 40 MG/4 ML Vial IV ×2 (18:21→21:02)
[2020-10-28 18:42] LABS: ALB/GLOB Ratio 0.7 RATIO (0.9-2.4); Globulin 4.1 g/dL (2.2-4.2); LDH 177 U/L (87-241); Protein, Total 6.9 g/dL (6.4-8.2)
--- NOTE | 2020-10-28 19:00 | NURSING ---
Pt received from PCU, transferred into ICU bed 3.
[2020-10-28 19:01] LABS: Blood Gas Specimen Type VEN; O2 Delivery Device Cannula; SITE R Radial; VBG BASE EXCESS 6 mmol/L (-1.0-3.5); VBG Bicarbonate 32 mmol/L (22-26); VBG PO2 28 mmHg (25-40); VBG SO2 45 % (50-70); VBG TCO2 34 mmol/L (23-33); VBG pCO2 62.9 mmHg (41-51); VBG pH 7.32 (7.32-7.42)
[2020-10-28 19:05] LABS: Partial Thromboplast Time 37.9 Seconds (24.1-36.2)
--- NOTE | 2020-10-28 19:07 | EKG12_ITS ---
Test Reason : DYSRHYTHMIA Blood Pressure : / mmHG Vent. Rate : 091 BPM Atrial Rate : 197 BPM P-R Int : 000 ms QRS Dur : 094 ms QT Int : 358 ms P-R-T Axes : 000 040 246 degrees QTc Int : 440 ms Somatic / Motion Artifact Atrial Fibrillation ST & T wave abnormality, consider inferolateral ischemia Abnormal ECG Confirmed by TIMOTHY FUENTES, REJI ([id number]), fan mail editor INDY GILBERT ([id number]) on 10/31/2020 11:35:56 AM Referred By: BRENDAN Confirmed By:REJI AGUIRRE MD
[2020-10-28 20:10] LABS: Bedside Glucose 177 mg/dL (70-110)
[2020-10-28] MEDS: 0.9% Saline Lock 10 ML Syringe IV (20:46)
[2020-10-28] MEDS: Atorvastatin Calcium 40 MG Tablet PO (21:02)
[2020-10-28] MEDS: Metoprolol Tartrate 25 MG Tablet PO (21:03)
[2020-10-28] MEDS: Gabapentin 300 MG Capsule PO (21:03)
[2020-10-28] MEDS: amLODIPine 5 MG Tablet PO (21:05)
[2020-10-28 21:31] LABS: Bedside Glucose 122 mg/dL (70-110)
[2020-10-29] VITALS (29 sets, daily range): BP systolic 99–164; BP diastolic 44–88; PULSE 89–133; RESP 12–28; TEMP 36.8–37; O2SAT 84–98
[2020-10-29 03:35] LABS: Absolute Lymphocyte Count 1.07 X10^3/uL (0.83-4.51); Absolute Neutrophil Count 5.5 X10^3/uL (2.0-7.7); Basophil# 0.02 X10^3/uL; Basophil% 0.3 % (0-1); Eosinophil# 0.01 X10^3/uL; Eosinophils% 0.1 % (0-5); Hematocrit 31.3 % (40-54); Hemoglobin 9.8 g/dL (13.0-16.5); Lymphocyte # 1.07 X10^3/ul (4.0); Lymphocyte % 14.9 % (19-41); Mean Corp Hgb Conc 31.3 g/dL (32-36); Mean Corpuscular Hgb 30.4 pg (27.0-32.0); Mean Corpuscular Volume 97.2 fL (80-94); Mean Platelet Vol. 9.1 fl (6.2-12.0); Monocyte# 0.59 X10^3/uL; Monocyte% 8.2 % (0-10); NRBC Flagged by Analyzer 0 % (0-5); Neutrophil # 5.46 X10^3/uL (2.7-7.7); Neutrophil % 75.9 % (47-70); Platelet Count 224 K/mm3 (150-450); RBC Distribution Width CV 14.8 % (11.6-14.6); RBC Distribution Width SD 53.1 fl (35.1-43.9); Red Blood Count 3.22 M/mm3 (4.6-6.2); White Blood Count 7.2 K/mm3 (4.4-11.0)
[2020-10-29 03:44] LABS: International Normalized Ratio 2.2; Prothrombin Time (Protime)PT. 23.9 SECONDS (11.7-14.9)
[2020-10-29 04:22] LABS: ALB/GLOB Ratio 0.7 RATIO (0.9-2.4); AST(SGOT) 15 U/L (15-37); Alanine Aminotransfer ALT/SGPT 16 U/L (16-61); Albumin, Serum 2.7 g/dL (3.2-5.0); Alkaline Phosphatase 135 U/L (45-117); Anion Gap 3 (5-15); BUN 42 mg/dL (7-18); BUN/Creat Ratio 21.3 RATIO (10-20); Calcium,Total 8.6 mg/dL (8.5-10.1); Chloride 101 mmol/L (98-107); Creatinine, Serum 1.97 mg/dL (0.70-1.30); EST Glomerular Filtration Rate 34 mL/min (>60); Est Glom Filt Rate - Afr Amer 42 mL/min (>60); Estimated Creatinine Clearance 26.92 ml/min; Globulin 3.8 g/dL (2.2-4.2); Glucose 113 mg/dL (74-106); Phosphorus 3.2 mg/dL (2.5-4.9); Potassium 4.5 mmol/L (3.5-5.1); Protein, Total 6.5 g/dL (6.4-8.2); Sodium Level 139 mmol/L (136-145)
[2020-10-29] MEDS: Acetaminophen 325 MG Tablet 650 MG PO ×2 (04:52→13:55)
[2020-10-29] MEDS: 0.9% Saline Lock 10 ML Syringe IV ×2 (04:53→13:12)
[2020-10-29] MEDS: guaiFENesin 10 ML UDC (200MG/10ML) 20 ML PO (04:53)
[2020-10-29] MEDS: Furosemide 40 MG/4 ML Vial IV ×2 (05:02→13:07)
--- NOTE | 2020-10-29 05:55 | ECHOCS_ITS ---
Reason For Study: BL Pleural Effusion Procedure This was a 2D Doppler, Color Flow transthoracic echocardiogram. The study was technically difficult. Contrast injection was performed. Exam performed portable in ICU/CCU. Left Ventricle Normal LV size. Based upon the 2D echocardiographic and contrast enhanced images obtained there appears to be grossly normal left ventricular size, wall motion, and systolic function. The estimated ejection fraction is 65 %. Right Ventricle Normal RV size. Normal systolic function. Atria The left atrium is moderately enlarged. The right atrium is mildly enlarged. No doppler evidence for ASD. Mitral Valve There is mild mitral annular calcification. Extension of the mitral annular calcification onto the base of the posterior mitral valve leaflet. The mitral valve chordae are thickened and/or calcified. Mild-Moderate (1-2+) eccentric mitral valve insufficiency. Tricuspid Valve Normal tricuspid valve. Mild (1+) eccentric tricuspid valve insufficiency. Unable to estimate RV systolic pressure/pulmonary artery pressure due to technically difficult study. Aortic Valve Trisinus/trileaflet aortic valve. Mild focal aortic valve calcification. Pulmonic Valve The pulmonic valve is not well visualized. Trivial pulmonic valve insufficiency. Great Vessels The aortic root is not well visualized. Pericardium/Pleural No pericardial effusion. Medication Diluted definity 3ml given slow IV push to enhance endocardial definition. MMode/2D Measurements & Calculations LVIDd: 5.2 cm IVSd: 1.0 cm LA dimension: 4.6 cm LVIDs: 4.0 cm LVPWd: 1.2 cm RVDd: 3.7 cm FS: 21.7 % LAV(MOD-bp): 80.3 ml LA A4 area: 25.5 cm2 RA A4 area: 20.6 cm2 LAV(MOD-bp) Indexed: 39.8 ml/m2 LAV(MOD-sp2): 73.7 ml LAV(MOD-sp4): 84.1 ml Time Measurements MV dec time: 0.17 sec Doppler Measurements & Calculations MV E max juan: 119.9 cm/sec Med Peak E' Juan: 7.4 cm/sec Ao V2 max: 152.1 cm/sec MV A max juan: 41.4 cm/sec E/E' med: 16.3 Ao max P.3 mmHg MV E/A: 2.9 LV V1 max: 113.7 cm/sec PA V2 max: 104.8 cm/sec LV V1 max P.2 mmHg Interpretation Summary The study was technically difficult. Contrast injection was performed. Based upon the 2D echocardiographic and contrast enhanced images obtained there appears to be grossly normal left ventricular size, wall motion, and systolic function. The estimated ejection fraction is 65 %. The left atrium is moderately enlarged. The right atrium is mildly enlarged. There is mild mitral annular calcification. Extension of the mitral annular calcification onto the base of the posterior mitral valve leaflet. The mitral valve chordae are thickened and/or calcified. Mild-Moderate (1-2+) eccentric mitral valve insufficiency. Mild (1+) eccentric tricuspid valve insufficiency. Mild focal aortic valve calcification. Trivial pulmonic valve insufficiency. Unable to estimate RV systolic pressure/pulmonary artery pressure due to technically difficult study. Transmitral diastolic flow velocities suggest diastolic dysfunction (pseudonormal pattern). Ordering Physician: Clair Redd Performed By: Chris Ellison RCS
--- NOTE | 2020-10-29 05:55 | RAD_ITS ---
STUDY: X-RAY CHEST REASON FOR EXAM: Male, 85 years old. SOB TECHNIQUE: Single AP portable view of the chest. COMPARISON: Comparison is made with prior study dated 10/28/2020. FINDINGS: EKG electrodes are seen. Once again, there is evidence of a bibasilar infiltrates and/or atelectasis with small bilateral pleural effusions. This is superimposed on mild degree of CHF. There has been mild degree of progression as compared to prior study. Sternal cerclage wires and vascular clips are present from a prior sternotomy and coronary artery bypass graft procedure (CABG). Normal mediastinum and jaida. Normal visualized pulmonary arteries. There is atherosclerotic calcification of the aortic arch with tortuosity. There are diffuse degenerative changes of the visualized thoracic spine. There is degenerative osteoarthritis of the bilateral shoulders. There is no demonstrated abnormality of the visualized soft tissue structures of the upper abdomen. RAD/Chest 1 View (Portable) IMPRESSION: Mild degree of progression of the CHF with persistent bibasilar atelectasis and/or infiltrates and small bilateral pleural effusions. Electronically Signed: Sony Figueroa, at 9:16 EST , Service support ,
[2020-10-29 05:56] LABS: M R Staph aureus DNA By PCR Negative (Negative); Probe Check PASS; Specimen Processing Control PASS
[2020-10-29] MEDS: Ipratropium/Albuterol Sulfate 3 ML AMPUL.NEB INHALATION ×2 (06:30→18:35)
--- NOTE | 2020-10-29 06:33 | PCM.CON.CC ---
Reason for Consult Date of Consultation: 10/29/20 Reason for Consultation: Acute hypoxemic respiratory failure History of Present Illness: The patient is an 85-year-old male, with a history as outlined below, who presented to to the hospital from the rehab unit with acute hypoxemic respiratory failure. 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 The patient does have a medical history significant for coronary artery disease status post CABG, paroxysmal atrial fibrillation, hypertension and hyperlipidemia. The patient apparently was doing quite well in rehab until October 26 when he became acutely hypoxic and was requiring supplemental oxygen. Chest imaging initially revealed findings concerning for decompensated heart failure. A sputum culture collected on October 26 was positive for Klebsiella pneumonia. Given the patient's tenuous respiratory status, the decision was made to admit him to the hospital for further management. The patient was initially admitted to the progressive care unit, only to later decompensate with further escalation in his supplemental oxygen flow rate. Therefore, the decision was made at that time to transfer the patient to the medical intensive care unit. The patient was initially being maintained on BiPAP to maintain appropriate oxygen saturations. In light of treatment with antibiotics and ongoing diuresis with IV Lasix, the patient was able to be weaned to supplemental oxygen via nasal cannula this morning. He is currently maintaining appropriate oxygen saturations on 10 to 12 L/min high flow. 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) Decubitus ulcer of coccygeal region, stage 1 (Chronic) Chronic anticoagulation (Chronic) With warfarin Small vessel disease, cerebrovascular (Chronic) Age-related macular degeneration (Chronic) Allergies No Known Allergies Allergy (Verified 10/03/20 22:45) Home Medications: Ambulatory Orders Medication Instructions Recorded Allopurinol [Zyloprim] 300 mg PO Q48H 10/03/20 Atorvastatin Calcium [Lipitor] 40 mg PO QHS 10/03/20 Cilostazol [Pletal] 100 mg PO BIDAC 10/03/20 Clopidogrel Bisulfate [Plavix] 75 mg GT DAILY 10/03/20 Cyanocobalamin [Vitamin B12] 1,000 mcg PO DAILY@0800 10/03/20 Gabapentin [Neurontin] 300 mg PO TIDCM 10/03/20 Acetaminophen [Tylenol] 650 mg PO Q4H PRN 10/28/20 Albuterol Aerosols [Ventolin 2.5 mg INHALATION Q2H PRN PRN 10/28/20 Aerosols] Amlodipine [Norvasc] 2.5 mg PO BID 10/28/20 Bisacodyl 10 mg RC X1 PRN 10/28/20 Ceftriaxone [Rocephin] 2 gm IV X1 10/28/20 Docusate Sodium [Colace Clear] 100 mg PO BID 10/28/20 Emollient Combination No.72 1 applic TOPICAL 4X/DAY PRN 10/28/20 [Eucerin Intensive Repair] Furosemide 80 mg IV 1000,1800 10/28/20 Glucagon 1 mg IM X1 PRN 10/28/20 Insulin Human 75/25 [Humalog Mix 10 unit SQ DINNER 10/28/20 75-25 Kwikpen ([facility])] Insulin Human 75/25 [Humalog Mix 24 unit SQ BREAKFAST 10/28/20 75-25 Kwikpen ([facility])] Ipratropium/Albuterol Sulfate 3 ml INHALATION Q4H PRN 10/28/20 [Duoneb] Ipratropium/Albuterol Sulfate 3 ml INHALATION Q6H.RT 10/28/20 [Duoneb] Lidocaine [Lidoderm] 1 ea TP 199910/28/20 Magnesium Hydroxide [Milk Of 30 ml PO X1 PRN 10/28/20 Magnesia] Menthol/Lanolin/Calamine/Znox 1 applic TP TID 10/28/20 [Calmoseptine Ointment] Metoprolol Tartrate [Lopressor 50 mg PO BID 10/28/20 (Beta [place])] Sodium Chloride 1 gm PO BID 10/28/20 Tamsulosin HCl [Flomax] 0.8 mg PO 1730 10/28/20 Warfarin Sodium [Jantoven] 3 mg PO 1700 10/28/20 Surgical History: cholecystectomy, coronary bypass surgery - CABG x 1., - - CABG x1, PEG tube placement, cholecystectomy. Psychiatric History: No pertinent psych hx Lives: - - Previously living with his spouse, recently in acute rehab. Smoking Status: Former smoker - Quit cigarette tobacco usage in 1978 with prior to this 2 pack/day since he been a teenager. Tobacco Use: Non-smoker Alcohol: Heavy - Patient reportedly prior to admission at outside tertiary facility and ongoing through his most recent acute rehab stay 4-6 beers each evening per his report. Drugs: None - *Family History Paternal History Items: High Cholesterol, Heart Disease, Hypertension Maternal History Items: Diabetes Review of Systems Constitutional: Reports: Malaise, Weakness, Fatigue HEENT: Reports: Difficulty Swallowing Cardiovascular: Denies: Chest Pain, Palpitations Respiratory: Reports: Shortness of Breath Gastrointestinal: Denies: Abdominal Pain, Nausea, Vomiting Genitourinary: Reports: Retention Musculoskeletal: Reports: Back Pain Skin: Denies: Rash, Wounds Neurological: Denies: Numbness, Tingling, Focal weakness Psychiatric: Denies: Anxiety, Depression, Homicidal Ideations, Suicidal Ideations Hematologic/ Lymphatic: Reports: Anemia Patient Problems: Active and Suspected Problems Acute kidney injury superimposed on CKD (Acute) Klebsiella pneumonia (Acute) UTI (urinary tract infection) (Acute) Urinary retention (Acute) Lactic acidosis (Acute) Objective: The patient's most recent lab work, culture data and imaging studies have all been personally reviewed. - Physical Exam Vitals/I&O's: Vital Signs Temp Pulse Resp BP Pulse Ox 98.5 F 113 H 24 H 126/76 H 94 10/29/20 04:00 10/29/20 06:00 10/29/20 06:00 10/29/20 06:00 10/29/20 06:00 Oxygen Flow Rate (L/min) 10 Oxygen Delivery Method Nasal Cannula Weight: 187 lb 6.287 oz Body Mass Index (BMI) 27.9 Intake and Output for Last 24 Hours 10/27/20 10/28/20 10/29/20 23:59 23:59 23:59 Intake Total 110.5 / 160.5 150 / 150 Output Total 1000 / 1000 Balance 110.5 / -389.5 -850 / -850 General: Alert, Cooperative, No apparent distress HEENT: Atraumatic, Normocephalic Oral: No Gingival or Mucosal Lesions/ Ulcerations Neck: Supple, No Nodes, Trachea Midline Lungs: No rhonchi, No wheeze, No rales, Diminished Cardiovascular: Normal S1, Normal S2, Irregular Rate Abdomen: Bowel Sounds Present, Soft, Non Tender, - - +PEG Extremities: No clubbing, No cyanosis Skin: No breakdown Musculoskeletal: No Tenderness to Palpation of Joints or Extremities Lymphatic: No Cervical, Supraclavicular, or Inguinal Adenopathy Neurological: Cranial nerves II-XII grossly intact Psych/Mental Status: Normal Affect Labs (Last 48 Hours) 10/28/20 10/28/20 10/28/20 05:45 05:45 12:10 WBC RBC Hgb Hct MCV MCH MCHC RDW Std Deviation RDW Coeff of Norman Plt Count MPV Immature Gran % (Auto) Neut % (Auto) Lymph % (Auto) [place] % (Auto) Eos % (Auto) Baso % (Auto) Absolute Neuts (auto) Absolute Lymphs (auto) Nucleated RBC % PT INR APTT Specimen Type Sample Site VBG pH VBG pO2 VBG HCO3 VBG Total CO2 VBG O2 Sat (Calc) VBG Base Excess POC Mix VBG pCO2 Pt Tmp O2 Delivery Device Liter Flow Sodium Potassium Chloride Carbon Dioxide Anion Gap BUN Creatinine Estim Creat Clear Calc Est GFR (MDRD) Af Amer Est GFR (MDRD) Non-Af BUN/Creatinine Ratio Glucose Calcium Phosphorus Magnesium 2.0 Total Bilirubin AST ALT Alkaline Phosphatase Lactate Dehydrogenase 177 Troponin I Total Protein 6.9 Albumin Globulin 4.1 Albumin/Globulin Ratio 0.7 L Procalcitonin 0.15 H MRSA (PCR) POC Glucose 10/28/20 10/28/20 10/28/20 18:43 18:44 18:52 WBC RBC Hgb Hct MCV MCH MCHC RDW Std Deviation RDW Coeff of Norman Plt Count MPV Immature Gran % (Auto) Neut % (Auto) Lymph % (Auto) [place] % (Auto) Eos % (Auto) Baso % (Auto) Absolute Neuts (auto) Absolute Lymphs (auto) Nucleated RBC % PT INR APTT 37.9 H Specimen Type KAITY Sample Site R Radial VBG pH 7.32 VBG pO2 28 VBG HCO3 32 H VBG Total CO2 34 H VBG O2 Sat (Calc) 45 L VBG Base Excess 6 H POC Mix VBG pCO2 Pt Tmp 62.9 H O2 Delivery Device Cannula Liter Flow 14.0 Sodium Potassium Chloride Carbon Dioxide Anion Gap BUN Creatinine Estim Creat Clear Calc Est GFR (MDRD) Af Amer Est GFR (MDRD) Non-Af BUN/Creatinine Ratio Glucose Calcium Phosphorus Magnesium Total Bilirubin AST ALT Alkaline Phosphatase Lactate Dehydrogenase Troponin I Total Protein Albumin Globulin Albumin/Globulin Ratio Procalcitonin MRSA (PCR) POC Glucose 177 H 10/28/20 10/29/20 10/29/20 21:01 00:00 03:20 WBC 7.2 RBC 3.22 L Hgb 9.8 L Hct 31.3 L MCV 97.2 H MCH 30.4 MCHC 31.3 L RDW Std Deviation 53.1 H RDW Coeff of Norman 14.8 H Plt Count 224 MPV 9.1 Immature Gran % (Auto) 0.600 Neut % (Auto) 75.9 H Lymph % (Auto) 14.9 L [place] % (Auto) 8.2 Eos % (Auto) 0.1 Baso % (Auto) 0.3 Absolute Neuts (auto) 5.5 Absolute Lymphs (auto) 1.07 Nucleated RBC % 0 PT INR APTT Specimen Type Sample Site VBG pH VBG pO2 VBG HCO3 VBG Total CO2 VBG O2 Sat (Calc) VBG Base Excess POC Mix VBG pCO2 Pt Tmp O2 Delivery Device Liter Flow Sodium Potassium Chloride Carbon Dioxide Anion Gap BUN Creatinine Estim Creat Clear Calc Est GFR (MDRD) Af Amer Est GFR (MDRD) Non-Af BUN/Creatinine Ratio Glucose Calcium Phosphorus Magnesium Total Bilirubin AST ALT Alkaline Phosphatase Lactate Dehydrogenase Troponin I 0.177 H Total Protein Albumin Globulin Albumin/Globulin Ratio Procalcitonin MRSA (PCR) POC Glucose 122 H 10/29/20 10/29/20 10/29/20 03:20 03:20 03:20 WBC RBC Hgb Hct MCV MCH MCHC RDW Std Deviation RDW Coeff of Norman Plt Count MPV Immature Gran % (Auto) Neut % (Auto) Lymph % (Auto) [place] % (Auto) Eos % (Auto) Baso % (Auto) Absolute Neuts (auto) Absolute Lymphs (auto) Nucleated RBC % PT 23.9 H INR 2.2 APTT Specimen Type Sample Site VBG pH VBG pO2 VBG HCO3 VBG Total CO2 VBG O2 Sat (Calc) VBG Base Excess POC Mix VBG pCO2 Pt Tmp O2 Delivery Device Liter Flow Sodium 139 Potassium 4.5 Chloride 101 Carbon Dioxide 35.0 H Anion Gap 3 L BUN 42 H Creatinine 1.97 H Estim Creat Clear Calc 26.92 Est GFR (MDRD) Af Amer 42 L Est GFR (MDRD) Non-Af 34 L BUN/Creatinine Ratio 21.3 H Glucose 113 H Calcium 8.6 Phosphorus 3.2 Magnesium Total Bilirubin 0.40 AST 15 ALT 16 Alkaline Phosphatase 135 H Lactate Dehydrogenase Troponin I 0.199 H Total Protein 6.5 Albumin 2.7 L Globulin 3.8 Albumin/Globulin Ratio 0.7 L Procalcitonin MRSA (PCR) POC Glucose 10/29/20 10/29/20 03:20 06:10 WBC RBC Hgb Hct MCV MCH MCHC RDW Std Deviation RDW Coeff of Norman Plt Count MPV Immature Gran % (Auto) Neut % (Auto) Lymph % (Auto) [place] % (Auto) Eos % (Auto) Baso % (Auto) Absolute Neuts (auto) Absolute Lymphs (auto) Nucleated RBC % PT INR APTT Specimen Type Sample Site VBG pH VBG pO2 VBG HCO3 VBG Total CO2 VBG O2 Sat (Calc) VBG Base Excess POC Mix VBG pCO2 Pt Tmp O2 Delivery Device Liter Flow Sodium Potassium Chloride Carbon Dioxide Anion Gap BUN Creatinine Estim Creat Clear Calc Est GFR (MDRD) Af Amer Est GFR (MDRD) Non-Af BUN/Creatinine Ratio Glucose Calcium Phosphorus Magnesium Total Bilirubin AST ALT Alkaline Phosphatase Lactate Dehydrogenase Troponin I 0.181 H Total Protein Albumin Globulin Albumin/Globulin Ratio Procalcitonin MRSA (PCR) Negative POC Glucose Microbiology 10/28/20 17:11 Mucosa - Nasopharyngeal Respiratory Panel (PCR) - Final 10/28/20 Unknown Urine Catheter - Krause Legionella Antigen - Final 10/28/20 Unknown Urine Catheter - Krause Streptococcus pneumoniae Antigen (M - Final Clinical Impression(s) from Imaging Studies Chest CT 10/28/20 16:29 IMPRESSION: Mild pulmonary interstitial edema with large bilateral effusions and consolidation of the lower lobes. Cannot exclude coexisting pneumonia Electronically Signed: Hernandez Wesley MD at 17:13 EST , Service support , Current Medications Acetaminophen (Acetaminophen 325 Mg Tablet) 650 mg PO Q6H PRN PRN PRN Reason: Pain Score 1-10/Temp > 100.7 F Last Admin: 10/29/20 04:52 Dose: 650 mg Documented by: Albuterol Sulfate (Albuterol 2.5 Mg/3 Ml Vial.Neb.) 2.5 mg INHALATION Q2H PRN PRN PRN Reason: Dyspnea, wheezing Albuterol/Ipratropium (Ipratropium/Albuterol Sulfate 3 Ml Ampul.Neb) 3 ml INHALATION Q6HWA.RT [facility] Last Admin: 10/29/20 06:30 Dose: 3 ml Documented by: Allopurinol (Allopurinol 300 Mg Tablet) 300 mg PO Q48@0800 [facility] Amlodipine Besylate (Amlodipine 5 Mg Tablet) 5 mg PO BID [facility] Last Admin: 10/28/20 21:05 Dose: 5 mg Documented by: Atorvastatin Calcium (Atorvastatin Calcium 40 Mg Tablet) 40 mg PO QHS [facility] Last Admin: 10/28/20 21:02 Dose: 40 mg Documented by: Cyanocobalamin (Cyanocobalamin 500 Mcg Tablet) 1,000 mcg PO DAILY@0800 [facility] Furosemide (Furosemide 40 Mg/4 Ml Vial) 40 mg IV Q8 [facility] Last Admin: 10/29/20 05:02 Dose: 40 mg Documented by: Gabapentin (Gabapentin 300 Mg Capsule) 300 mg PO TIDCM [facility] Last Admin: 10/28/20 21:03 Dose: 300 mg Documented by: Guaifenesin (Guaifenesin 10 Ml Udc (200mg/10ml)) 20 ml PO Q4H PRN PRN PRN Reason: COUGH Last Admin: 10/29/20 04:53 Dose: 20 ml Documented by: Hydralazine HCl (Hydralazine 20 Mg/Ml Vial) 10 mg IV Q4H PRN PRN PRN Reason: SBP > 160 Ceftriaxone Sodium 2 gm/ (Sodium Chloride) 50 mls @ 100 mls/hr IV Q24 [facility] Last Infusion: 10/28/20 21:35 Dose: Infused Documented by: Insulin Human Lispro (Insulin Lispro 100 Unit/Ml Insuln.Pen) 0 unit [facility]; Protocol Last Admin: 10/29/20 05:07 Dose: Not Given Documented by: Magnesium Hydroxide (Magnesium Hydroxide 30 Ml Udc) 30 ml PO DAILY PRN PRN PRN Reason: Constipation Metoprolol Tartrate (Metoprolol Tartrate 25 Mg Tablet) 25 mg PO BID [facility] Last Admin: 10/28/20 21:03 Dose: 25 mg Documented by: Nitroglycerin (Nitroglycerin (Inpatient Use) 0.4 Mg Tab.Subl) 0.4 mg SUBLINGUAL Q5M PRN PRN Reason: CARDIAC/CHEST PAIN Ondansetron HCl (Ondansetron 4 Mg/2 Ml Vial) 4 mg IV Q8H PRN PRN PRN Reason: NAUSEA/VOMITING Prochlorperazine Edisylate (Prochlorperazine 10 Mg/2 Ml Vial) 5 mg IV Q4H PRN PRN PRN Reason: Breakthrough Nausea/Vomiting Psyllium Hydrophilic Mucilloid (Psyllium 1 Packet) 1 packet PO DAILY PRN PRN PRN Reason: Constipation Senna/Docusate Sodium (Senna/Docusate Sodium 1 Tablet) 2 tablet PO BID PRN PRN PRN Reason: Constipation Sodium Chloride (0.9% Saline Lock 10 Ml Syringe) 10 - 40 ml IV UD PRN PRN Reason: SALINE FLUSH Last Admin: 10/29/20 04:53 Dose: 10 ml Documented by: Throat Lozenges (Benzocaine/Menthol 1 Lozenge) 1 lozenge MUCOUS MEM Q2H PRN PRN PRN Reason: SORE THROAT Assessment/Plan Active and Suspected Problems Acute kidney injury superimposed on CKD (Acute) Klebsiella pneumonia (Acute) UTI (urinary tract infection) (Acute) Urinary retention (Acute) Lactic acidosis (Acute) RECOMMENDATIONS: 1. Continue antimicrobials per ID recommendations 2. Continue IV diuretic therapy as tolerated by hemodynamics and renal function. 3. Wean supplemental oxygen to maintain saturations at or above 90%. 4. Encourage incentive spirometer use and mobilize patient as tolerated. 5. Given improvement in respiratory status, I do not see an indication for thoracentesis at this time. 6. Okay to resume Plavix from my perspective. 7. The patient is medically stable for transfer out of the intensive care unit. IMPRESSIONS: 1. Acute hypoxemic respiratory failure Likely multifactorial in etiology with underlying heart failure and pneumonia contributing. The patient was previously identified as having Klebsiella on sputum culture from October 26. Therefore, the patient will be continued on antimicrobials. He will be continued on scheduled IV diuretic therapy as tolerated by hemodynamics and renal function. Although the patient did at 1 point require noninvasive positive pressure ventilatory support, he has been weaned to supplemental oxygen via nasal cannula this morning. I do suspect that given his rapid turnaround in clinical state with BiPAP and diuretic therapy, that a large component of his respiratory decompensation was secondary to volume status. At this time, given his improvement in respiratory status, I do not think it is imperative that a thoracentesis be completed. 2. Recent CVA with dysphagia and dysarthria Recommend formal speech therapy evaluation prior to advancing diet. 3. Diabetes mellitus/hypertension/hyperlipidemia/coronary artery disease/chronic atrial fibrillation/BPH Complicates care, management, recovery and prognosis. Continue home medications as indicated. Continue sliding scale insulin coverage. This note was generated with [employer] dictation software. It may contain incorrect words, spelling, and punctuation that were not noted in checking the note before signing. Inpatient E&M: 13582 Init Hosp L3
[2020-10-29] MEDS: Metoprolol Tartrate 25 MG Tablet PO ×3 (09:06→22:45)
[2020-10-29] MEDS: Gabapentin 300 MG Capsule PO ×3 (09:06→17:20)
[2020-10-29] MEDS: Cyanocobalamin 500 MCG Tablet 1000 MCG PO (09:06)
[2020-10-29] MEDS: amLODIPine 5 MG Tablet PO ×2 (09:07→22:44)
--- NOTE | 2020-10-29 10:45 | PCM.HP.ID ---
Problem List (1) Klebsiella pneumonia Status: Acute Qualifiers: Laterality: unspecified laterality Lung location: unspecified part of lung Qualified Code(s): J15.0 - Pneumonia due to Klebsiella pneumoniae Reason for Consult: pneumonia Consulted by: Dr. Pabon History of Present Illness: The patient is a 85 year old M was in rehab unit for past 4 weeks after stroke, developed hypoxia 10/26, cx sent, found to have klebs in sputum, transferred to icu yesterday, on ceftriaxone. CT chest done. Feeling better this AM, no fever, some dyspnea and sputum. No aches, no n/v/d. Full ROS performed and neg except as noted above. 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...ad[facility] Dysphagia (Chronic) NPO with PEG at presentation Dysarthria (Chronic) Chronic low back pain (Chronic) Atrial fibrillation (Chronic) Hypertension (Chronic) HLD (hyperlipidemia) (Chronic) CAD (coronary artery disease) (Chronic) Diabetes mellitus type 2 in nonobese (Chronic) Decubitus ulcer of coccygeal region, stage 1 (Chronic) Chronic anticoagulation (Chronic) With warfarin Small vessel disease, cerebrovascular (Chronic) Age-related macular degeneration (Chronic) Allergies/Adverse Reactions: Allergies No Known Allergies Allergy (Verified 10/03/20 22:45) Home Medications: Ambulatory Orders Medication Instructions Recorded Allopurinol [Zyloprim] 300 mg PO Q48H 10/03/20 Atorvastatin Calcium [Lipitor] 40 mg PO QHS 10/03/20 Cilostazol [Pletal] 100 mg PO BIDAC 10/03/20 Clopidogrel Bisulfate [Plavix] 75 mg GT DAILY 10/03/20 Cyanocobalamin [Vitamin B12] 1,000 mcg PO DAILY@0800 10/03/20 Gabapentin [Neurontin] 300 mg PO TIDCM 10/03/20 Acetaminophen [Tylenol] 650 mg PO Q4H PRN 10/28/20 Albuterol Aerosols [Ventolin 2.5 mg INHALATION Q2H PRN PRN 10/28/20 Aerosols] Amlodipine [Norvasc] 2.5 mg PO BID 10/28/20 Bisacodyl 10 mg RC X1 PRN 10/28/20 Ceftriaxone [Rocephin] 2 gm IV X1 10/28/20 Docusate Sodium [Colace Clear] 100 mg PO BID 10/28/20 Emollient Combination No.72 1 applic TOPICAL 4X/DAY PRN 10/28/20 [Eucerin Intensive Repair] Furosemide 80 mg IV 1000,1800 10/28/20 Glucagon 1 mg IM X1 PRN 10/28/20 Insulin Human 75/25 [Humalog Mix 10 unit SQ DINNER 10/28/20 75-25 Kwikpen ([facility])] Insulin Human 75/25 [Humalog Mix 24 unit SQ BREAKFAST 10/28/20 75-25 Kwikpen ([facility])] Ipratropium/Albuterol Sulfate 3 ml INHALATION Q4H PRN 10/28/20 [Duoneb] Ipratropium/Albuterol Sulfate 3 ml INHALATION Q6H.RT 10/28/20 [Duoneb] Lidocaine [Lidoderm] 1 ea TP 2000 10/28/20 Magnesium Hydroxide [Milk Of 30 ml PO X1 PRN 10/28/20 Magnesia] Menthol/Lanolin/Calamine/Znox 1 applic TP TID 10/28/20 [Calmoseptine Ointment] Metoprolol Tartrate [Lopressor 50 mg PO BID 10/28/20 (Beta [place])] Sodium Chloride 1 gm PO BID 10/28/20 Tamsulosin HCl [Flomax] 0.8 mg PO 1730 10/28/20 Warfarin Sodium [Jantoven] 3 mg PO 1700 10/28/20 - Social History SMOKING STATUS:: Former smoker Vital Signs Temp Pulse Resp BP Pulse Ox 98.2 F 133 H 22 H 156/84 H 97 10/29/20 08:00 10/29/20 09:06 10/29/20 09:00 10/29/20 09:06 10/29/20 09:00 Oxygen Flow Rate (L/min) 8 Oxygen Delivery Method Nasal Cannula Weight: 85 kg Body Mass Index (BMI) 27.9 Microbiology Past 72 Hours 10/28/20 19:08 Gram Stain - Final Sputum, Induced/Lukens 10/28/20 17:11 Respiratory Panel (PCR) - Final Mucosa - Nasopharyngeal 10/28/20 Unknown Legionella Antigen - Final Urine Catheter - Krause Streptococcus pneumoniae Antigen (M - Final Laboratory Tests Past 24 Hrs 01/09/0710/28/20 10/28/20 05:45 05:45 12:10 WBC RBC Hgb Hct MCV MCH MCHC RDW Std Deviation RDW Coeff of Norman Plt Count MPV Immature Gran % (Auto) Neut % (Auto) Lymph % (Auto) [place] % (Auto) Eos % (Auto) Baso % (Auto) Absolute Neuts (auto) Absolute Lymphs (auto) Nucleated RBC % PT INR APTT Specimen Type Sample Site VBG pH VBG pO2 VBG HCO3 VBG Total CO2 VBG O2 Sat (Calc) VBG Base Excess POC Mix VBG pCO2 Pt Tmp O2 Delivery Device Liter Flow Sodium Potassium Chloride Carbon Dioxide Anion Gap BUN Creatinine Estim Creat Clear Calc Est GFR (MDRD) Af Amer Est GFR (MDRD) Non-Af BUN/Creatinine Ratio Glucose Calcium Phosphorus Magnesium 2.0 Total Bilirubin AST ALT Alkaline Phosphatase Lactate Dehydrogenase 177 Troponin I Total Protein 6.9 Albumin Globulin 4.1 Albumin/Globulin Ratio 0.7 L Procalcitonin 0.15 H MRSA (PCR) 10/28/20 10/28/20 10/29/20 18:44 18:52 00:00 WBC RBC Hgb Hct MCV MCH MCHC RDW Std Deviation RDW Coeff of Norman Plt Count MPV Immature Gran % (Auto) Neut % (Auto) Lymph % (Auto) [place] % (Auto) Eos % (Auto) Baso % (Auto) Absolute Neuts (auto) Absolute Lymphs (auto) Nucleated RBC % PT INR APTT 37.9 H Specimen Type KAITY Sample Site R Radial VBG pH 7.32 VBG pO2 28 VBG HCO3 32 H VBG Total CO2 34 H VBG O2 Sat (Calc) 45 L VBG Base Excess 6 H POC Mix VBG pCO2 Pt Tmp 62.9 H O2 Delivery Device Cannula Liter Flow 14.0 Sodium Potassium Chloride Carbon Dioxide Anion Gap BUN Creatinine Estim Creat Clear Calc Est GFR (MDRD) Af Amer Est GFR (MDRD) Non-Af BUN/Creatinine Ratio Glucose Calcium Phosphorus Magnesium Total Bilirubin AST ALT Alkaline Phosphatase Lactate Dehydrogenase Troponin I 0.177 H Total Protein Albumin Globulin Albumin/Globulin Ratio Procalcitonin MRSA (PCR) 10/29/20 10/29/20 10/29/20 03:20 03:20 03:20 WBC 7.2 RBC 3.22 L Hgb 9.8 L Hct 31.3 L MCV 97.2 H MCH 30.4 MCHC 31.3 L RDW Std Deviation 53.1 H RDW Coeff of Norman 14.8 H Plt Count 224 MPV 9.1 Immature Gran % (Auto) 0.600 Neut % (Auto) 75.9 H Lymph % (Auto) 14.9 L [place] % (Auto) 8.2 Eos % (Auto) 0.1 Baso % (Auto) 0.3 Absolute Neuts (auto) 5.5 Absolute Lymphs (auto) 1.07 Nucleated RBC % 0 PT 23.9 H INR 2.2 APTT Specimen Type Sample Site VBG pH VBG pO2 VBG HCO3 VBG Total CO2 VBG O2 Sat (Calc) VBG Base Excess POC Mix VBG pCO2 Pt Tmp O2 Delivery Device Liter Flow Sodium 139 Potassium 4.5 Chloride 101 Carbon Dioxide 35.0 H Anion Gap 3 L BUN 42 H Creatinine 1.97 H Estim Creat Clear Calc 26.92 Est GFR (MDRD) Af Amer 42 L Est GFR (MDRD) Non-Af 34 L BUN/Creatinine Ratio 21.3 H Glucose 113 H Calcium 8.6 Phosphorus 3.2 Magnesium Total Bilirubin 0.40 AST 15 ALT 16 Alkaline Phosphatase 135 H Lactate Dehydrogenase Troponin I Total Protein 6.5 Albumin 2.7 L Globulin 3.8 Albumin/Globulin Ratio 0.7 L Procalcitonin MRSA (PCR) 10/29/20 10/29/20 10/29/20 03:20 03:20 06:10 WBC RBC Hgb Hct MCV MCH MCHC RDW Std Deviation RDW Coeff of Norman Plt Count MPV Immature Gran % (Auto) Neut % (Auto) Lymph % (Auto) [place] % (Auto) Eos % (Auto) Baso % (Auto) Absolute Neuts (auto) Absolute Lymphs (auto) Nucleated RBC % PT INR APTT Specimen Type Sample Site VBG pH VBG pO2 VBG HCO3 VBG Total CO2 VBG O2 Sat (Calc) VBG Base Excess POC Mix VBG pCO2 Pt Tmp O2 Delivery Device Liter Flow Sodium Potassium Chloride Carbon Dioxide Anion Gap BUN Creatinine Estim Creat Clear Calc Est GFR (MDRD) Af Amer Est GFR (MDRD) Non-Af BUN/Creatinine Ratio Glucose Calcium Phosphorus Magnesium Total Bilirubin AST ALT Alkaline Phosphatase Lactate Dehydrogenase Troponin I 0.199 H 0.181 H Total Protein Albumin Globulin Albumin/Globulin Ratio Procalcitonin MRSA (PCR) Negative - Other Studies Radiology: [] reviewed Other Studies: [] Route of nutrition/ use of supplements: [] Nutritional Intake: [] IV Site: [] Krause Catheter: [] - Physical Exam General: Alert, Cooperative, No apparent distress HEENT: Atraumatic, PERRLA, EOMI Neck: Supple, No Nodes Lungs: Diminished Cardiovascular: Regular rate, Regular Rhythm Abdomen: Soft, Non Tender, Non-Distended Extremities: No edema Skin: No rashes IV Site: Peripheral, without redness Musculoskeletal: No Tenderness to Palpation of Joints or Extremities Neurological: Cranial nerves II-XII grossly intact - Assessment/Plan Antibiotics: [] Assessment/Plan: [] Active and Suspected Problems Acute kidney injury superimposed on CKD (Acute) Klebsiella pneumonia (Acute) UTI (urinary tract infection) (Acute) Urinary retention (Acute) Lactic acidosis (Acute) klebsiella pneumonia - on ceftriaxone, improving. PCT normal. BNP mildly elevated. CT showed bilateral effusions. Pulm following. Thank you, will follow
--- NOTE | 2020-10-29 11:27 | CASEMGMT ---
SW spoke w/pt in room, confirmed he would like to return to rehab for a short time prior to returning home. Dr. Redd has already confirmed will also take pt back into rehab when pt is ready. He will need a new precert, as he was set to leave rehab on 10/30/20 with [facility]. MAGGY spoke w/Blanche on referral line for rehab, she was aware plan will be for pt to return when ready to rehab, and will start precert when appropriate. MAGGY will continue to follow for return to rehab. ELLI Adams
[2020-10-29] MEDS: Clopidogrel Bisulfate 75 MG Tablet PO (13:08)
[2020-10-29] MEDS: Insulin Lispro 100 UNIT/ML INSULN.PEN SC ×3 (13:12→22:44)
[2020-10-29 13:20] LABS: Bedside Glucose 190 mg/dL (70-110)
--- NOTE | 2020-10-29 13:23 | CHAPLAIN ---
Type of Pastoral Visit _x__ Initial Visit ___ Follow-up Visit ___ On-call Visit ___ General Patient Visit ___ Spiritual Assessment ___ Family Conference ___ Bereavement ___ Rapid Response ___ Code Blue ___ Other (describe below) Pastoral Care Referral From _x__ Patient ___ Family ___ Nurse ___ Physician ___ Head Of Biology ___ Residential Roofer ___ Other (describe below) Sacrament/Intervention _x__ Active listening ___ Anointing ___ Buddhism ___ Bereavement ___ Communion ___ Anahy exploration ___ ___ Life review _x__ Prayer ___ Reconciliation ___ Sacrament of Sick _x__ Supportive presence ___ Wedding ___ Other (describe below) Pastoral Comments
[2020-10-29] MEDS: Glucerna Shake 120 ML LIQUID PO ×3 (13:43→22:45)
--- NOTE | 2020-10-29 14:24 | CASEMGMT ---
BARRETT CM Readmission Note Index Admission: dc'd from [facility] Diagnosis: CVA DC Disposition: [facility] Inpt Rehab current Admission: pneumonia Patient presented to ICU from Inpt Rehab with hypoxia, increased oxygen use and CXR showing increasing bilateral infiltrates superimposed on CHF. Required Bipap on admission to ICU. IV antibiotics, duonebs, Lasix 40 mg IV Q 8 hrs. DC PLAN: to return to Inpt Rehab on discharge. Kirk ROBERTSON RN ACM
--- NOTE | 2020-10-29 15:44 | PN_ITS ---
Patient Problems: Active and Suspected Problems Acute kidney injury superimposed on CKD (Acute) Klebsiella pneumonia (Acute) UTI (urinary tract infection) (Acute) Urinary retention (Acute) Lactic acidosis (Acute) Reason for Visit: Patient is lying in bed appears comfortable oxygen is being weaned. Per discussion with nursing he is yelling to go back to [place] all morning. Agitated on and off. Vitals/I&O's: Vital Signs Temp Pulse Resp BP Pulse Ox 98.3 F 102 H 17 138/73 H 90 10/29/20 12:00 10/29/20 15:00 10/29/20 12:00 10/29/20 12:00 10/29/20 12:37 Oxygen Flow Rate (L/min) 2 Oxygen Delivery Method Nasal Cannula Weight: 85 kg Body Mass Index (BMI) 27.9 Intake and Output for Last 24 Hours 10/27/20 10/28/20 10/29/20 23:59 23:59 23:59 Intake Total 110.5 / 160.5 750 / 750 Output Total 1999 Balance 110.5 / -389.5 -1250 / -1250 General: Alert, Cooperative, No apparent distress, Well developed, Well nourished, - - Elderly white male lying in bed on supplemental O2, no respiratory distress, appears comfortable, nontoxic HEENT: Atraumatic, PERRLA, EOMI, Normocephalic, EAC Clear Oral: Moist Mucosa, Ulcerations Present - Left lateral tongue appears to be healing, - - Dentulous Neck: Supple, Trachea Midline, Thyroid Normal Size and Texture Lungs: No rhonchi, No wheeze, No rales, Diminished - ASIS bilaterally Cardiovascular: Regular rate, Normal S1, Normal S2, Murmur, No rub noted, No Gallop, - - Irregularly irregular rhythm Abdomen: Bowel Sounds Present, Soft, Non Tender, Non-Distended, No hernias noted, - - PEG tube left upper quadrant, no drainage no significant erythema or signs of cellulitis at insertion site Extremities: No clubbing, No cyanosis, No edema, Capillary Refill Less than 3 Seconds, Peripheral Pulses Normal Skin: No rashes, No breakdown Musculoskeletal: Arthritic Changes, Muscle Wasting Lymphatic: No Cervical, Supraclavicular, or Inguinal Adenopathy Neurological: - - Right facial droop, moves all 6 extremities symmetrically except for his right lower extremity which she complains of hip pain Psych/Mental Status: - - Confused, intermittent agitation Microbiology Past 72 Hours 10/28/20 19:08 Sputum, Induced/Lukens Gram Stain - Final 10/28/20 19:08 Sputum, Induced/Lukens Respiratory Culture - Preliminary Appears to be normal respiratory vale. Further studies to follow. 10/28/20 17:11 Mucosa - Nasopharyngeal Respiratory Panel (PCR) - Final 10/28/20 Unknown Urine Catheter - Krause Legionella Antigen - Final 10/28/20 Unknown Urine Catheter - Krause Streptococcus pneumoniae Antigen (M - Final Laboratory Results 10/28/20 05:45: Magnesium 2.0 10/28/20 05:45: Lactate Dehydrogenase 177, Total Protein 6.9, Globulin 4.1, Albumin/Globulin Ratio 0.7 L 10/28/20 12:10: Procalcitonin 0.15 H 10/28/20 18:43: POC Glucose 177 H 10/28/20 18:44: APTT 37.9 H 10/28/20 18:52: Specimen Type KAITY, Sample Site R Radial, VBG pH 7.32, VBG pO2 28, VBG HCO3 32 H, VBG Total CO2 34 H, VBG O2 Sat (Calc) 45 L, VBG Base Excess 6 H, POC Mix VBG pCO2 Pt Tmp 62.9 H, O2 Delivery Device Cannula, Liter Flow 14.0 10/28/20 21:01: POC Glucose 122 H 10/29/20 00:00: Troponin I 0.177 H 10/29/20 03:20: WBC 7.2, RBC 3.22 L, Hgb 9.8 L, Hct 31.3 L, MCV 97.2 H, MCH 30.4, MCHC 31.3 L, RDW Std Deviation 53.1 H, RDW Coeff of Norman 14.8 H, Plt Count 224, MPV 9.1, Immature Gran % (Auto) 0.600, Neut % (Auto) 75.9 H, Lymph % (Auto) 14.9 L, [place] % (Auto) 8.2, Eos % (Auto) 0.1, Baso % (Auto) 0.3, Absolute Neuts (auto) 5.5, Absolute Lymphs (auto) 1.07, Nucleated RBC % 0 10/29/20 03:20: PT 23.9 H, INR 2.2 10/29/20 03:20: Sodium 139, Potassium 4.5, Chloride 101, Carbon Dioxide 35.0 H, Anion Gap 3 L, BUN 42 H, Creatinine 1.97 H, Estim Creat Clear Calc 26.92, Est GFR (MDRD) Af Amer 42 L, Est GFR (MDRD) Non-Af 34 L, BUN/Creatinine Ratio 21.3 H , Glucose 113 H, Calcium 8.6, Phosphorus 3.2, Total Bilirubin 0.40, AST 15, ALT 16, Alkaline Phosphatase 135 H, Total Protein 6.5, Albumin 2.7 L, Globulin 3.8, Albumin/Globulin Ratio 0.7 L 10/29/20 03:20: Troponin I 0.199 H 10/29/20 03:20: MRSA (PCR) Negative 10/29/20 06:10: Troponin I 0.181 H 10/29/20 13:04: POC Glucose 190 H Current Medications Acetaminophen (Acetaminophen 325 Mg Tablet) 650 mg PO Q6H PRN PRN PRN Reason: Pain Score 1-10/Temp > 100.7 F Last Admin: 10/29/20 13:55 Dose: 650 mg Documented by: Albuterol Sulfate (Albuterol 2.5 Mg/3 Ml Vial.Neb.) 2.5 mg INHALATION Q2H PRN PRN PRN Reason: Dyspnea, wheezing Albuterol/Ipratropium (Ipratropium/Albuterol Sulfate 3 Ml Ampul.Neb) 3 ml INHALATION Q6HWA.RT [facility] Last Admin: 10/29/20 06:30 Dose: 3 ml Documented by: Allopurinol (Allopurinol 300 Mg Tablet) 300 mg PO Q48@0800 [facility] Amlodipine Besylate (Amlodipine 5 Mg Tablet) 5 mg PO BID [facility] Last Admin: 10/29/20 09:07 Dose: 5 mg Documented by: Atorvastatin Calcium (Atorvastatin Calcium 40 Mg Tablet) 40 mg PO QHS [facility] Last Admin: 10/28/20 21:02 Dose: 40 mg Documented by: Clopidogrel Bisulfate (Clopidogrel Bisulfate 75 Mg Tablet) 75 mg PO DAILY [facility] Last Admin: 10/29/20 13:08 Dose: 75 mg Documented by: Cyanocobalamin (Cyanocobalamin 500 Mcg Tablet) 1,000 mcg PO DAILY@0800 [facility] Last Admin: 10/29/20 09:06 Dose: 1,000 mcg Documented by: Gabapentin (Gabapentin 300 Mg Capsule) 300 mg PO TIDCM [facility] Last Admin: 10/29/20 13:07 Dose: 300 mg Documented by: Guaifenesin (Guaifenesin 10 Ml Udc (200mg/10ml)) 20 ml PO Q4H PRN PRN PRN Reason: COUGH Last Admin: 10/29/20 04:53 Dose: 20 ml Documented by: Hydralazine HCl (Hydralazine 20 Mg/Ml Vial) 10 mg IV Q4H PRN PRN PRN Reason: SBP > 160 Piperacillin Sod/Tazobactam (Sod 3.375 gm/ Sodium Chloride) 50 mls @ 12.5 mls/hr IV Q8 [facility] Last Admin: 10/29/20 13:07 Dose: 12.5 mls/hr Documented by: Insulin Human Lispro (Insulin Lispro 100 Unit/Ml Insuln.Pen) 0 unit SC [facility]; Protocol Last Admin: 10/29/20 13:12 Dose: 2 unit Documented by: Magnesium Hydroxide (Magnesium Hydroxide 30 Ml Udc) 30 ml PO DAILY PRN PRN PRN Reason: Constipation Metoprolol Tartrate (Metoprolol Tartrate 25 Mg Tablet) 25 mg PO BID [facility] Last Admin: 10/29/20 09:06 Dose: 25 mg Documented by: Nitroglycerin (Nitroglycerin (Inpatient Use) 0.4 Mg Tab.Subl) 0.4 mg SUBLINGUAL Q5M PRN PRN Reason: CARDIAC/CHEST PAIN Nutritional Formula (Lactose Free) (Glucerna Shake 120 Ml Liquid) 120 ml PO 4X/DAY [facility] Last Admin: 10/29/20 13:43 Dose: 120 ml Documented by: Ondansetron HCl (Ondansetron 4 Mg/2 Ml Vial) 4 mg IV Q8H PRN PRN PRN Reason: NAUSEA/VOMITING Prochlorperazine Edisylate (Prochlorperazine 10 Mg/2 Ml Vial) 5 mg IV Q4H PRN PRN PRN Reason: Breakthrough Nausea/Vomiting Psyllium Hydrophilic Mucilloid (Psyllium 1 Packet) 1 packet PO DAILY PRN PRN PRN Reason: Constipation Senna/Docusate Sodium (Senna/Docusate Sodium 1 Tablet) 2 tablet PO BID PRN PRN PRN Reason: Constipation Sodium Chloride (0.9% Saline Lock 10 Ml Syringe) 10 - 40 ml IV UD PRN PRN Reason: SALINE FLUSH Last Admin: 10/29/20 13:12 Dose: 10 ml Documented by: Throat Lozenges (Benzocaine/Menthol 1 Lozenge) 1 lozenge MUCOUS MEM Q2H PRN PRN PRN Reason: SORE THROAT STROKE Vital Signs/Narrative: Vital Signs Temp Pulse Resp BP Pulse Ox 10/29/20 15:00 102 H 10/29/20 12:37 90 10/29/20 12:00 98.3 F 92 17 138/73 H 95 Medical Necessity - Tobacco Use Smoking Status: Former smoker - Quit cigarette tobacco usage in 1978 with prior to this 2 pack/day since he been a teenager. Tobacco Use: Non-smoker Assessment/Plan All Active Problems S/P percutaneous endoscopic gastrostomy (PEG) tube placement (Acute) Malnutrition (Acute) Renal failure (Acute) Acute kidney injury superimposed on CKD (Acute) Klebsiella pneumonia (Acute) UTI (urinary tract infection) (Acute) Urinary retention (Acute) Lactic acidosis (Acute) Acute respiratory failure secondary to Klebsiella pneumonia/bilateral pleural effusions-multifactorial -Continue antimicrobials with recent positive sputum culture -Continue IV Lasix -Continue pulmonary toilet -Patient is now on nasal cannula at 2 L with sats 90 to 95% -To new to monitor and wean as able -A.m. chest x-ray -Appreciate critical care medicine\pulmonary input Troponin elevation -Slight troponin elevation -Echocardiogram done on 10/29/2020 EF is 65%, moderate LA enlargement, mild RA enlargement, mild to moderate eccentric mitral valve insufficiency -With no wall motion abnormality we will not pursue cardiac work-up any further at this time -He is chest pain-free at this time Large bilateral pleural effusions -Per discussion with pulmonology thoracentesis canceled improvement in respiratory status -We will continue diuresis with p.o. Lasix 40 mg p.o. twice daily -Repeat chest x-ray in a.m. -Hold on restarting Coumadin until chest x-ray reviewed JAIME on CKD stage III -JAIME resolved -Creatinine back to baseline -Continue to monitor Recent acute stroke -Continue aspiration and fall precautions -Continue Plavix, Pletal, statin -Continue PT/OT/'MINER PICK Dysphagia -Continue modified diet-pur?e nectar thick liquids diabetic diet -P.o. intake not adequate patient has PEG for tube feed -Monitor p.o. intake DM-2 -Patient on oral regimen at baseline -Continue SSI -Continue BGT assessment Hypertension -Continue Norvasc, metoprolol Hyperlipidemia -Continue statin CAD -Remote history of CABG x1 -Continue medical therapy Chronic macrocytic anemia -Hemoglobin is overall stable -Continue to follow Paroxysmal atrial fibrillation -Continue beta-[place] -Restart Coumadin if no plans for thoracentesis after reviewing chest x-ray tomorrow -Daily INRs BPH with urinary retention -Continue Krause secondary to urinary retention -Continue Flomax Coccygeal stage I pressure ulcer -Wound care -Barrier cream as needed History of alcohol abuse -Per documentation drank 3-6 beers prior to admission [facility] for stroke -No intervention needed History of tobacco abuse -Patient has quit -Courage to continued cessation DVT prophylaxis -Continue oral anticoagulation -These CODE STATUS -Full Inpatient E&M: 90320 Subs Hosp L3
[2020-10-29] MEDS: Furosemide 40 MG Tablet PO (17:20)
[2020-10-29 17:31] LABS: Bedside Glucose 224 mg/dL (70-110)
[2020-10-29] MEDS: Atorvastatin Calcium 40 MG Tablet PO (22:44)
[2020-10-29 23:41] LABS: Bedside Glucose 289 mg/dL (70-110)
[2020-10-30] VITALS (17 sets, daily range): BP systolic 130–151; BP diastolic 58–74; PULSE 88–131; RESP 16–26; TEMP 36.4–37.3; O2SAT 91–96
[2020-10-30 05:22] LABS: Absolute Lymphocyte Count 1.11 X10^3/uL (0.83-4.51); Absolute Neutrophil Count 4.1 X10^3/uL (2.0-7.7); Basophil# 0.03 X10^3/uL; Basophil% 0.5 % (0-1); Eosinophil# 0.09 X10^3/uL; Eosinophils% 1.5 % (0-5); Hematocrit 31.8 % (40-54); Hemoglobin 10.2 g/dL (13.0-16.5); Lymphocyte # 1.11 X10^3/ul (4.0); Mean Corp Hgb Conc 32.1 g/dL (32-36); Mean Corpuscular Hgb 30.6 pg (27.0-32.0); Mean Corpuscular Volume 95.5 fL (80-94); Mean Platelet Vol. 9.6 fl (6.2-12.0); Monocyte# 0.53 X10^3/uL; Monocyte% 9.1 % (0-10); NRBC Flagged by Analyzer 0 % (0-5); Neutrophil # 4.06 X10^3/uL (2.7-7.7); Neutrophil % 69.6 % (47-70); Platelet Count 208 K/mm3 (150-450); RBC Distribution Width SD 52.6 fl (35.1-43.9); Red Blood Count 3.33 M/mm3 (4.6-6.2); White Blood Count 5.8 K/mm3 (4.4-11.0)
[2020-10-30 05:37] LABS: International Normalized Ratio 1.5; Prothrombin Time (Protime)PT. 17.2 SECONDS (11.7-14.9)
[2020-10-30 05:38] LABS: Anion Gap 4 (5-15); BUN 43 mg/dL (7-18); BUN/Creat Ratio 24.7 RATIO (10-20); Calcium,Total 8.6 mg/dL (8.5-10.1); Chloride 103 mmol/L (98-107); Creatinine, Serum 1.74 mg/dL (0.70-1.30); EST Glomerular Filtration Rate 40 mL/min (>60); Est Glom Filt Rate - Afr Amer 48 mL/min (>60); Estimated Creatinine Clearance 30.47 ml/min; Glucose 152 mg/dL (74-106); Potassium 3.2 mmol/L (3.5-5.1); Sodium Level 141 mmol/L (136-145)
--- NOTE | 2020-10-30 06:00 | RAD_ITS ---
STUDY: X-RAY CHEST REASON FOR EXAM: Male, 85 years old. Sob TECHNIQUE: Single AP portable view of the chest. COMPARISON: Comparison is made with prior examination dated 10/29/2020. FINDINGS: EKG electrodes are seen. Since prior study, there has been improvement in aeration of both lungs. Residual changes persist worse in the left lower lobe with blunting of the left costophrenic angle. Sternal cerclage wires and vascular clips are present from a prior sternotomy and coronary artery bypass graft procedure (CABG). Normal mediastinum and jaida. Normal visualized pulmonary arteries. Normal visualized aortic arch and descending thoracic aorta. There are diffuse degenerative changes of the visualized thoracic spine. There is degenerative osteoarthritis of the bilateral shoulders. There is no demonstrated abnormality of the visualized soft tissue structures of the upper abdomen. RAD/Chest 1 View (Portable) IMPRESSION: Since prior study, there has been improved aeration of both lungs although residual changes persist. Further follow-up recommended. Electronically Signed: Sony Figueroa, at 9:51 EST , Service support ,
[2020-10-30] MEDS: Metoprolol Tartrate 25 MG Tablet PO ×2 (06:04→13:49)
[2020-10-30] MEDS: Insulin Lispro 100 UNIT/ML INSULN.PEN SC ×4 (06:14→21:51)
[2020-10-30] MEDS: Ipratropium/Albuterol Sulfate 3 ML AMPUL.NEB INHALATION ×3 (06:48→18:50)
[2020-10-30 07:26] LABS: Bedside Glucose 155 mg/dL (70-110)
[2020-10-30] MEDS: Heparin Injection (Vial) 5,000 UNIT/ML VIAL 5000 UNIT SC ×2 (09:02→21:52)
[2020-10-30] MEDS: Glucerna Shake 120 ML LIQUID PO ×4 (09:02→21:52)
[2020-10-30] MEDS: Clopidogrel Bisulfate 75 MG Tablet PO (09:02)
[2020-10-30] MEDS: Acetaminophen 325 MG Tablet 650 MG PO (09:02)
[2020-10-30] MEDS: amLODIPine 5 MG Tablet PO ×2 (09:03→21:54)
[2020-10-30] MEDS: Cyanocobalamin 500 MCG Tablet 1000 MCG PO (09:03)
[2020-10-30] MEDS: Gabapentin 300 MG Capsule PO ×3 (09:03→17:32)
[2020-10-30] MEDS: Allopurinol 300 MG Tablet PO (09:03)
--- NOTE | 2020-10-30 10:36 | CASEMGMT ---
Patient is ready for discharge today. MAGGY called Blanche on [facility] post acute referral line and asked her to star the pre-cert. She did start the pre-cert, but insurance did relay to her that they are experiencing delays due to a computer system change first of the year. Plan: d/c back to [facility] 4th floor Rehab Unit pending insurance approval. Karla MCCAIN MSW
[2020-10-30 11:56] LABS: Bedside Glucose 251 mg/dL (70-110)
--- NOTE | 2020-10-30 13:40 | PCM.PN.PUL ---
Patient Problems: Active and Suspected Problems Acute kidney injury superimposed on CKD (Acute) Klebsiella pneumonia (Acute) UTI (urinary tract infection) (Acute) Urinary retention (Acute) Lactic acidosis (Acute) Subjective: The patient was seen and examined at the bedside this morning. Events from the last 24 hours have been reviewed. The patient is currently afebrile, hemodynamically stable and maintaining appropriate oxygen saturations on 2 L/min via nasal cannula. Creatinine has improved this morning to 1.74. Potassium is low at 3.2. Improvement was noted this morning on the patient's chest x-ray. Objective: The patient's most recent lab work, culture data and imaging studies have all been personally reviewed. - Physical Exam Vitals/I&O's: Vital Signs Temp Pulse Resp BP Pulse Ox 97.8 F 88 16 139/58 H 94 10/30/20 09:01 10/30/20 12:53 10/30/20 12:53 10/30/20 09:01 10/30/20 09:01 Oxygen Flow Rate (L/min) 2 Oxygen Delivery Method Nasal Cannula Weight: 182 lb 4.8 oz Body Mass Index (BMI) 27.9 Intake and Output for Last 24 Hours 10/28/20 10/29/20 10/30/20 23:59 23:59 23:59 Intake Total 110.5 / 160.5 1040 / 1040 748.75 / 748.75 Output Total 2500 / 2925 1075 / 1075 Balance 110.5 / -389.5 -1460 / -1885 -326.25 / -326.25 General: Alert, Cooperative, No apparent distress HEENT: Atraumatic, Normocephalic Oral: No Gingival or Mucosal Lesions/ Ulcerations Neck: Supple, No Nodes, Trachea Midline Lungs: Diminished Cardiovascular: Normal S1, Normal S2, Irregular Rate, Murmur Abdomen: Bowel Sounds Present, Soft, Non Tender Extremities: No clubbing, No cyanosis, No edema Skin: No breakdown Musculoskeletal: Arthritic Changes Lymphatic: No Cervical, Supraclavicular, or Inguinal Adenopathy Neurological: Cranial nerves II-XII grossly intact, - - Residual facial droop Psych/Mental Status: Restless Labs (Last 48 Hours) 10/28/20 10/28/20 10/28/20 05:45 05:45 12:10 WBC RBC Hgb Hct MCV MCH MCHC RDW Std Deviation RDW Coeff of Norman Plt Count MPV Immature Gran % (Auto) Neut % (Auto) Lymph % (Auto) [place] % (Auto) Eos % (Auto) Baso % (Auto) Absolute Neuts (auto) Absolute Lymphs (auto) Nucleated RBC % PT INR APTT Specimen Type Sample Site VBG pH VBG pO2 VBG HCO3 VBG Total CO2 VBG O2 Sat (Calc) VBG Base Excess POC Mix VBG pCO2 Pt Tmp O2 Delivery Device Liter Flow Sodium Potassium Chloride Carbon Dioxide Anion Gap BUN Creatinine Estim Creat Clear Calc Est GFR (MDRD) Af Amer Est GFR (MDRD) Non-Af BUN/Creatinine Ratio Glucose Calcium Phosphorus Magnesium 2.0 Total Bilirubin AST ALT Alkaline Phosphatase Lactate Dehydrogenase 177 Troponin I Total Protein 6.9 Albumin Globulin 4.1 Albumin/Globulin Ratio 0.7 L Procalcitonin 0.15 H MRSA (PCR) POC Glucose 10/28/20 10/28/20 10/28/20 18:43 18:44 18:52 WBC RBC Hgb Hct MCV MCH MCHC RDW Std Deviation RDW Coeff of Norman Plt Count MPV Immature Gran % (Auto) Neut % (Auto) Lymph % (Auto) [place] % (Auto) Eos % (Auto) Baso % (Auto) Absolute Neuts (auto) Absolute Lymphs (auto) Nucleated RBC % PT INR APTT 37.9 H Specimen Type KAITY Sample Site R Radial VBG pH 7.32 VBG pO2 28 VBG HCO3 32 H VBG Total CO2 34 H VBG O2 Sat (Calc) 45 L VBG Base Excess 6 H POC Mix VBG pCO2 Pt Tmp 62.9 H O2 Delivery Device Cannula Liter Flow 14.0 Sodium Potassium Chloride Carbon Dioxide Anion Gap BUN Creatinine Estim Creat Clear Calc Est GFR (MDRD) Af Amer Est GFR (MDRD) Non-Af BUN/Creatinine Ratio Glucose Calcium Phosphorus Magnesium Total Bilirubin AST ALT Alkaline Phosphatase Lactate Dehydrogenase Troponin I Total Protein Albumin Globulin Albumin/Globulin Ratio Procalcitonin MRSA (PCR) POC Glucose 177 H 10/28/20 10/29/20 10/29/20 21:01 00:00 03:20 WBC 7.2 RBC 3.22 L Hgb 9.8 L Hct 31.3 L MCV 97.2 H MCH 30.4 MCHC 31.3 L RDW Std Deviation 53.1 H RDW Coeff of Norman 14.8 H Plt Count 224 MPV 9.1 Immature Gran % (Auto) 0.600 Neut % (Auto) 75.9 H Lymph % (Auto) 14.9 L [place] % (Auto) 8.2 Eos % (Auto) 0.1 Baso % (Auto) 0.3 Absolute Neuts (auto) 5.5 Absolute Lymphs (auto) 1.07 Nucleated RBC % 0 PT INR APTT Specimen Type Sample Site VBG pH VBG pO2 VBG HCO3 VBG Total CO2 VBG O2 Sat (Calc) VBG Base Excess POC Mix VBG pCO2 Pt Tmp O2 Delivery Device Liter Flow Sodium Potassium Chloride Carbon Dioxide Anion Gap BUN Creatinine Estim Creat Clear Calc Est GFR (MDRD) Af Amer Est GFR (MDRD) Non-Af BUN/Creatinine Ratio Glucose Calcium Phosphorus Magnesium Total Bilirubin AST ALT Alkaline Phosphatase Lactate Dehydrogenase Troponin I 0.177 H Total Protein Albumin Globulin Albumin/Globulin Ratio Procalcitonin MRSA (PCR) POC Glucose 122 H 10/29/20 10/29/20 10/29/20 03:20 03:20 03:20 WBC RBC Hgb Hct MCV MCH MCHC RDW Std Deviation RDW Coeff of Norman Plt Count MPV Immature Gran % (Auto) Neut % (Auto) Lymph % (Auto) [place] % (Auto) Eos % (Auto) Baso % (Auto) Absolute Neuts (auto) Absolute Lymphs (auto) Nucleated RBC % PT 23.9 H INR 2.2 APTT Specimen Type Sample Site VBG pH VBG pO2 VBG HCO3 VBG Total CO2 VBG O2 Sat (Calc) VBG Base Excess POC Mix VBG pCO2 Pt Tmp O2 Delivery Device Liter Flow Sodium 139 Potassium 4.5 Chloride 101 Carbon Dioxide 35.0 H Anion Gap 3 L BUN 42 H Creatinine 1.97 H Estim Creat Clear Calc 26.92 Est GFR (MDRD) Af Amer 42 L Est GFR (MDRD) Non-Af 34 L BUN/Creatinine Ratio 21.3 H Glucose 113 H Calcium 8.6 Phosphorus 3.2 Magnesium Total Bilirubin 0.40 AST 15 ALT 16 Alkaline Phosphatase 135 H Lactate Dehydrogenase Troponin I 0.199 H Total Protein 6.5 Albumin 2.7 L Globulin 3.8 Albumin/Globulin Ratio 0.7 L Procalcitonin MRSA (PCR) POC Glucose 10/29/20 10/29/20 10/29/20 03:20 06:10 13:04 WBC RBC Hgb Hct MCV MCH MCHC RDW Std Deviation RDW Coeff of Norman Plt Count MPV Immature Gran % (Auto) Neut % (Auto) Lymph % (Auto) [place] % (Auto) Eos % (Auto) Baso % (Auto) Absolute Neuts (auto) Absolute Lymphs (auto) Nucleated RBC % PT INR APTT Specimen Type Sample Site VBG pH VBG pO2 VBG HCO3 VBG Total CO2 VBG O2 Sat (Calc) VBG Base Excess POC Mix VBG pCO2 Pt Tmp O2 Delivery Device Liter Flow Sodium Potassium Chloride Carbon Dioxide Anion Gap BUN Creatinine Estim Creat Clear Calc Est GFR (MDRD) Af Amer Est GFR (MDRD) Non-Af BUN/Creatinine Ratio Glucose Calcium Phosphorus Magnesium Total Bilirubin AST ALT Alkaline Phosphatase Lactate Dehydrogenase Troponin I 0.181 H Total Protein Albumin Globulin Albumin/Globulin Ratio Procalcitonin MRSA (PCR) Negative POC Glucose 190 H 10/29/20 10/29/20 10/30/20 17:15 22:43 04:50 WBC 5.8 RBC 3.33 L Hgb 10.2 L Hct 31.8 L MCV 95.5 H MCH 30.6 MCHC 32.1 RDW Std Deviation 52.6 H RDW Coeff of Norman 15.0 H Plt Count 208 MPV 9.6 Immature Gran % (Auto) 0.300 Neut % (Auto) 69.6 Lymph % (Auto) 19.0 [place] % (Auto) 9.1 Eos % (Auto) 1.5 Baso % (Auto) 0.5 Absolute Neuts (auto) 4.1 Absolute Lymphs (auto) 1.11 Nucleated RBC % 0 PT INR APTT Specimen Type Sample Site VBG pH VBG pO2 VBG HCO3 VBG Total CO2 VBG O2 Sat (Calc) VBG Base Excess POC Mix VBG pCO2 Pt Tmp O2 Delivery Device Liter Flow Sodium Potassium Chloride Carbon Dioxide Anion Gap BUN Creatinine Estim Creat Clear Calc Est GFR (MDRD) Af Amer Est GFR (MDRD) Non-Af BUN/Creatinine Ratio Glucose Calcium Phosphorus Magnesium Total Bilirubin AST ALT Alkaline Phosphatase Lactate Dehydrogenase Troponin I Total Protein Albumin Globulin Albumin/Globulin Ratio Procalcitonin MRSA (PCR) POC Glucose 224 H 289 H 10/30/20 10/30/20 10/30/20 04:50 04:50 06:00 WBC RBC Hgb Hct MCV MCH MCHC RDW Std Deviation RDW Coeff of Norman Plt Count MPV Immature Gran % (Auto) Neut % (Auto) Lymph % (Auto) [place] % (Auto) Eos % (Auto) Baso % (Auto) Absolute Neuts (auto) Absolute Lymphs (auto) Nucleated RBC % PT 17.2 H INR 1.5 APTT Specimen Type Sample Site VBG pH VBG pO2 VBG HCO3 VBG Total CO2 VBG O2 Sat (Calc) VBG Base Excess POC Mix VBG pCO2 Pt Tmp O2 Delivery Device Liter Flow Sodium 141 Potassium 3.2 L Chloride 103 Carbon Dioxide 34.0 H Anion Gap 4 L BUN 43 H Creatinine 1.74 H Estim Creat Clear Calc 30.47 Est GFR (MDRD) Af Amer 48 L Est GFR (MDRD) Non-Af 40 L BUN/Creatinine Ratio 24.7 H Glucose 152 H Calcium 8.6 Phosphorus Magnesium Total Bilirubin AST ALT Alkaline Phosphatase Lactate Dehydrogenase Troponin I Total Protein Albumin Globulin Albumin/Globulin Ratio Procalcitonin MRSA (PCR) POC Glucose 155 H 10/30/20 11:34 WBC RBC Hgb Hct MCV MCH MCHC RDW Std Deviation RDW Coeff of Norman Plt Count MPV Immature Gran % (Auto) Neut % (Auto) Lymph % (Auto) [place] % (Auto) Eos % (Auto) Baso % (Auto) Absolute Neuts (auto) Absolute Lymphs (auto) Nucleated RBC % PT INR APTT Specimen Type Sample Site VBG pH VBG pO2 VBG HCO3 VBG Total CO2 VBG O2 Sat (Calc) VBG Base Excess POC Mix VBG pCO2 Pt Tmp O2 Delivery Device Liter Flow Sodium Potassium Chloride Carbon Dioxide Anion Gap BUN Creatinine Estim Creat Clear Calc Est GFR (MDRD) Af Amer Est GFR (MDRD) Non-Af BUN/Creatinine Ratio Glucose Calcium Phosphorus Magnesium Total Bilirubin AST ALT Alkaline Phosphatase Lactate Dehydrogenase Troponin I Total Protein Albumin Globulin Albumin/Globulin Ratio Procalcitonin MRSA (PCR) POC Glucose 251 H Microbiology 10/28/20 19:08 Sputum, Induced/Lukens Gram Stain - Final 10/28/20 19:08 Sputum, Induced/Lukens Respiratory Culture - Preliminary GNR lactose chemical dependency counselor 10/28/20 17:11 Mucosa - Nasopharyngeal Respiratory Panel (PCR) - Final 10/28/20 Unknown Urine Catheter - Krause Legionella Antigen - Final 10/28/20 Unknown Urine Catheter - Krause Streptococcus pneumoniae Antigen (M - Final Clinical Impression(s) from Imaging Studies Chest CT 10/28/20 16:29 IMPRESSION: Mild pulmonary interstitial edema with large bilateral effusions and consolidation of the lower lobes. Cannot exclude coexisting pneumonia Electronically Signed: Hernandez Wesley MD at 17:13 EST , Service support , Chest X-Ray 10/29/20 05:55 IMPRESSION: Mild degree of progression of the CHF with persistent bibasilar atelectasis and/or infiltrates and small bilateral pleural effusions. Electronically Signed: Sony Figueroa, at 9:16 EST , Service support , Chest X-Ray 10/30/20 06:00 IMPRESSION: Since prior study, there has been improved aeration of both lungs although residual changes persist. Further follow-up recommended. Electronically Signed: Sony Figueroa, at 9:51 EST , Service support , Current Medications Acetaminophen (Acetaminophen 325 Mg Tablet) 650 mg PO Q6H PRN PRN PRN Reason: Pain Score 1-10/Temp > 100.7 F Last Admin: 10/30/20 09:02 Dose: 650 mg Documented by: Albuterol Sulfate (Albuterol 2.5 Mg/3 Ml Vial.Neb.) 2.5 mg INHALATION Q2H PRN PRN PRN Reason: Dyspnea, wheezing Albuterol/Ipratropium (Ipratropium/Albuterol Sulfate 3 Ml Ampul.Neb) 3 ml INHALATION Q6HWA.RT [facility] Last Admin: 10/30/20 12:53 Dose: 3 ml Documented by: Allopurinol (Allopurinol 300 Mg Tablet) 300 mg PO Q48@0800 [facility] Last Admin: 10/30/20 09:03 Dose: 300 mg Documented by: Amlodipine Besylate (Amlodipine 5 Mg Tablet) 5 mg PO BID [facility] Last Admin: 10/30/20 09:03 Dose: 5 mg Documented by: Atorvastatin Calcium (Atorvastatin Calcium 40 Mg Tablet) 40 mg PO QHS [facility] Last Admin: 10/29/20 22:44 Dose: 40 mg Documented by: Clopidogrel Bisulfate (Clopidogrel Bisulfate 75 Mg Tablet) 75 mg PO DAILY [facility] Last Admin: 10/30/20 09:02 Dose: 75 mg Documented by: Cyanocobalamin (Cyanocobalamin 500 Mcg Tablet) 1,000 mcg PO DAILY@0800 [facility] Last Admin: 10/30/20 09:03 Dose: 1,000 mcg Documented by: Furosemide (Furosemide 40 Mg Tablet) 40 mg PO TID [facility] Gabapentin (Gabapentin 300 Mg Capsule) 300 mg PO TIDCM [facility] Last Admin: 10/30/20 11:37 Dose: 300 mg Documented by: Guaifenesin (Guaifenesin 10 Ml Udc (200mg/10ml)) 20 ml PO Q4H PRN PRN PRN Reason: COUGH Last Admin: 10/29/20 04:53 Dose: 20 ml Documented by: Heparin Sodium (Porcine) (Heparin Injection (Vial) 5,000 Unit/Ml Vial) 5,000 unit SC Q12 [facility] Last Admin: 10/30/20 09:02 Dose: 5,000 unit Documented by: Hydralazine HCl (Hydralazine 20 Mg/Ml Vial) 10 mg IV Q4H PRN PRN PRN Reason: SBP > 160 Piperacillin Sod/Tazobactam (Sod 3.375 gm/ Sodium Chloride) 50 mls @ 12.5 mls/hr IV Q8 [facility] Last Infusion: 10/30/20 10:30 Dose: Infused Documented by: Sodium Chloride () 250 mls @ 15 mls/hr IV .[id number] PRN PRN Reason: Saline Flush Sodium Chloride () 250 mls @ 15 mls/hr IV .[id number] PRN PRN Reason: Additional IVPB Infusion Last Infusion: 10/30/20 06:05 Dose: 0 mls/hr Documented by: Insulin Human Lispro (Insulin Lispro 100 Unit/Ml Insuln.Pen) 0 unit SC ACHS [facility]; Protocol Last Admin: 10/30/20 11:37 Dose: 3 unit Documented by: Magnesium Hydroxide (Magnesium Hydroxide 30 Ml Udc) 30 ml PO DAILY PRN PRN PRN Reason: Constipation Metoprolol Tartrate (Metoprolol Tartrate 25 Mg Tablet) 25 mg PO TID [facility] Last Admin: 10/30/20 06:04 Dose: 25 mg Documented by: Nitroglycerin (Nitroglycerin (Inpatient Use) 0.4 Mg Tab.Subl) 0.4 mg SUBLINGUAL Q5M PRN PRN Reason: CARDIAC/CHEST PAIN Nutritional Formula (Lactose Free) (Glucerna Shake 120 Ml Liquid) 120 ml PO 4X/DAY [facility] Last Admin: 10/30/20 09:02 Dose: 120 ml Documented by: Ondansetron HCl (Ondansetron 4 Mg/2 Ml Vial) 4 mg IV Q8H PRN PRN PRN Reason: NAUSEA/VOMITING Prochlorperazine Edisylate (Prochlorperazine 10 Mg/2 Ml Vial) 5 mg IV Q4H PRN PRN PRN Reason: Breakthrough Nausea/Vomiting Psyllium Hydrophilic Mucilloid (Psyllium 1 Packet) 1 packet PO DAILY PRN PRN PRN Reason: Constipation Senna/Docusate Sodium (Senna/Docusate Sodium 1 Tablet) 2 tablet PO BID PRN PRN PRN Reason: Constipation Sodium Chloride (0.9% Saline Lock 10 Ml Syringe) 10 - 40 ml IV UD PRN PRN Reason: SALINE FLUSH Last Admin: 10/29/20 13:12 Dose: 10 ml Documented by: Throat Lozenges (Benzocaine/Menthol 1 Lozenge) 1 lozenge MUCOUS MEM Q2H PRN PRN PRN Reason: SORE THROAT Warfarin Sodium (Warfarin 3 Mg Tablet) 3 mg PO DAILY@1700 [facility] Medical Necessity - Tobacco Use Smoking Status: Former smoker - Quit cigarette tobacco usage in 1978 with prior to this 2 pack/day since he been a teenager. Tobacco Use: Non-smoker Assessment/Plan All Active Problems S/P percutaneous endoscopic gastrostomy (PEG) tube placement (Acute) Malnutrition (Acute) Renal failure (Acute) Acute kidney injury superimposed on CKD (Acute) Klebsiella pneumonia (Acute) UTI (urinary tract infection) (Acute) Urinary retention (Acute) Lactic acidosis (Acute) RECOMMENDATIONS: 1. Continue antimicrobials per ID recommendations 2. Continue diuretic therapy as tolerated by hemodynamics and renal function. 3. Wean supplemental oxygen to maintain saturations at or above 90%. 4. Encourage incentive spirometer use and mobilize patient as tolerated. 5. Will sign off from a critical care perspective. Please call with any additional questions. IMPRESSIONS: 1. Acute hypoxemic respiratory failure Likely multifactorial in etiology with underlying heart failure and pneumonia contributing. The patient was previously identified as having Klebsiella on sputum culture from October 26. Therefore, the patient will be continued on antimicrobials. He will be continued on scheduled diuretic therapy as tolerated by hemodynamics and renal function. Although the patient did at one point require noninvasive positive pressure ventilatory support, he has been weaned to supplemental oxygen via nasal cannula. I do suspect that given his rapid turnaround in clinical state with BiPAP and diuretic therapy, that a large component of his respiratory decompensation was secondary to volume status. At this time, given his improvement in respiratory status, I do not think it is imperative that a thoracentesis be completed. Plan to complete an antibiotic treatment course and continue diuretic therapy. 2. Recent CVA with dysphagia and dysarthria Continue dietary modification per speech therapy recommendations. 3. Diabetes mellitus/hypertension/hyperlipidemia/coronary artery disease/chronic atrial fibrillation/BPH Complicates care, management, recovery and prognosis. Continue home medications as indicated. Continue sliding scale insulin coverage. This note was generated with [employer]) dictation software. It may contain incorrect words, spelling, and punctuation that were not noted in checking the note before signing. Inpatient E&M: 52625 Subs Hosp L2
[2020-10-30] MEDS: Furosemide 40 MG Tablet PO ×2 (13:50→21:54)
--- NOTE | 2020-10-30 14:16 | PN_ITS ---
Patient Problems: Active and Suspected Problems Acute kidney injury superimposed on CKD (Acute) Klebsiella pneumonia (Acute) UTI (urinary tract infection) (Acute) Urinary retention (Acute) Lactic acidosis (Acute) Subjective: Patient states he is feeling okay. Excited as his is coming to visit today and he has not seen her since prior to his stroke. Anxious to go back to rehab so he can move towards getting home again. Denies shortness of breath. Vitals/I&O's: Vital Signs Temp Pulse Resp BP Pulse Ox 97.6 F L 110 H 18 144/74 H 95 10/30/20 13:47 10/30/20 13:49 10/30/20 13:47 10/30/20 13:47 10/30/20 13:47 Oxygen Flow Rate (L/min) 2 Oxygen Delivery Method Nasal Cannula Weight: 82.69 kg Body Mass Index (BMI) 27.9 Intake and Output for Last 24 Hours 10/28/20 10/29/20 10/30/20 23:59 23:59 23:59 Intake Total 110.5 / 160.5 1040 / 1040 748.75 / 748.75 Output Total 2500 / 2925 1075 / 1075 Balance 110.5 / -389.5 -1460 / -1885 -326.25 / -326.25 General: Alert, Oriented x3, Cooperative, No apparent distress, Well developed, Well nourished, - - Old really white male sitting up in chair next to bedside, appears well, jovial HEENT: Atraumatic, PERRLA, EOMI, Normocephalic, EAC Clear Oral: Moist Mucosa, No Gingival or Mucosal Lesions/ Ulcerations, - - Poor dentition Neck: Supple, Trachea Midline Lungs: No rhonchi, No wheeze, Diminished - Mildly at bilateral bases, Rales - Few at bases bilaterally Cardiovascular: Regular rate, Normal S1, Normal S2, No Ectopic Activity, Murmur, No rub noted, No Gallop, - - Irregularly irregular rhythm Abdomen: Bowel Sounds Present, Soft, Non Tender, Non-Distended, - - PEG tube in place Extremities: No clubbing, No cyanosis, No edema, Capillary Refill Less than 3 Seconds, Peripheral Pulses Normal Skin: No rashes, No breakdown Musculoskeletal: No Tenderness to Palpation of Joints or Extremities, No Muscle Wasting, Arthritic Changes Lymphatic: No Cervical, Supraclavicular, or Inguinal Adenopathy Neurological: - - Right facial droop, moves all extremities symmetrically, generalized weakness noted Psych/Mental Status: Normal Affect, Appropriate, - - Very pleasant Microbiology Past 72 Hours 10/28/20 19:08 Sputum, Induced/Lukens Gram Stain - Final 10/28/20 19:08 Sputum, Induced/Lukens Respiratory Culture - Preliminary GNR lactose pugger helper 10/28/20 17:11 Mucosa - Nasopharyngeal Respiratory Panel (PCR) - Final 10/28/20 Unknown Urine Catheter - Krause Legionella Antigen - Final 10/28/20 Unknown Urine Catheter - Krause Streptococcus pneumoniae Antigen (M - Final Laboratory Results 10/29/20 17:15: POC Glucose 224 H 10/29/20 22:43: POC Glucose 289 H 10/30/20 04:50: WBC 5.8, RBC 3.33 L, Hgb 10.2 L, Hct 31.8 L, MCV 95.5 H, MCH 30.6, MCHC 32.1, RDW Std Deviation 52.6 H, RDW Coeff of Norman 15.0 H, Plt Count 208, MPV 9.6, Immature Gran % (Auto) 0.300, Neut % (Auto) 69.6, Lymph % (Auto) 19.0, Pershing % (Auto) 9.1, Eos % (Auto) 1.5, Baso % (Auto) 0.5, Absolute Neuts (auto) 4.1, Absolute Lymphs (auto) 1.11, Nucleated RBC % 0 10/30/20 04:50: PT 17.2 H, INR 1.5 10/30/20 04:50: Sodium 141, Potassium 3.2 L, Chloride 103, Carbon Dioxide 34.0 H , Anion Gap 4 L, BUN 43 H, Creatinine 1.74 H, Estim Creat Clear Calc 30.47, Est GFR (MDRD) Af Amer 48 L, Est GFR (MDRD) Non-Af 40 L, BUN/Creatinine Ratio 24.7 H , Glucose 152 H, Calcium 8.6 10/30/20 06:00: POC Glucose 155 H 10/30/20 11:34: POC Glucose 251 H Current Medications Acetaminophen (Acetaminophen 325 Mg Tablet) 650 mg PO Q6H PRN PRN PRN Reason: Pain Score 1-10/Temp > 100.7 F Last Admin: 10/30/20 09:02 Dose: 650 mg Documented by: Albuterol Sulfate (Albuterol 2.5 Mg/3 Ml Vial.Neb.) 2.5 mg INHALATION Q2H PRN PRN PRN Reason: Dyspnea, wheezing Albuterol/Ipratropium (Ipratropium/Albuterol Sulfate 3 Ml Ampul.Neb) 3 ml INHALATION Q6HWA.RT [facility] Last Admin: 10/30/20 12:53 Dose: 3 ml Documented by: Allopurinol (Allopurinol 300 Mg Tablet) 300 mg PO Q48@0800 [facility] Last Admin: 10/30/20 09:03 Dose: 300 mg Documented by: Amlodipine Besylate (Amlodipine 5 Mg Tablet) 5 mg PO BID [facility] Last Admin: 10/30/20 09:03 Dose: 5 mg Documented by: Atorvastatin Calcium (Atorvastatin Calcium 40 Mg Tablet) 40 mg PO QHS [facility] Last Admin: 10/29/20 22:44 Dose: 40 mg Documented by: Clopidogrel Bisulfate (Clopidogrel Bisulfate 75 Mg Tablet) 75 mg PO DAILY [facility] Last Admin: 10/30/20 09:02 Dose: 75 mg Documented by: Cyanocobalamin (Cyanocobalamin 500 Mcg Tablet) 1,000 mcg PO DAILY@0800 [facility] Last Admin: 10/30/20 09:03 Dose: 1,000 mcg Documented by: Furosemide (Furosemide 40 Mg Tablet) 40 mg PO TID [facility] Last Admin: 10/30/20 13:50 Dose: 40 mg Documented by: Gabapentin (Gabapentin 300 Mg Capsule) 300 mg PO TIDCM [facility] Last Admin: 10/30/20 11:37 Dose: 300 mg Documented by: Guaifenesin (Guaifenesin 10 Ml Udc (200mg/10ml)) 20 ml PO Q4H PRN PRN PRN Reason: COUGH Last Admin: 10/29/20 04:53 Dose: 20 ml Documented by: Heparin Sodium (Porcine) (Heparin Injection (Vial) 5,000 Unit/Ml Vial) 5,000 unit SC Q12 [facility] Last Admin: 10/30/20 09:02 Dose: 5,000 unit Documented by: Hydralazine HCl (Hydralazine 20 Mg/Ml Vial) 10 mg IV Q4H PRN PRN PRN Reason: SBP > 160 Piperacillin Sod/Tazobactam (Sod 3.375 gm/ Sodium Chloride) 50 mls @ 12.5 mls/hr IV Q8 [facility] Last Admin: 10/30/20 13:50 Dose: 12.5 mls/hr Documented by: Sodium Chloride () 250 mls @ 15 mls/hr IV .[id number] PRN PRN Reason: Saline Flush Sodium Chloride () 250 mls @ 15 mls/hr IV .[id number] PRN PRN Reason: Additional IVPB Infusion Last Infusion: 10/30/20 06:05 Dose: 0 mls/hr Documented by: Insulin Human Lispro (Insulin Lispro 100 Unit/Ml Insuln.Pen) 0 unit SC [facility]; Protocol Last Admin: 10/30/20 11:37 Dose: 3 unit Documented by: Magnesium Hydroxide (Magnesium Hydroxide 30 Ml Udc) 30 ml PO DAILY PRN PRN PRN Reason: Constipation Metoprolol Tartrate (Metoprolol Tartrate 25 Mg Tablet) 25 mg PO TID [facility] Last Admin: 10/30/20 13:49 Dose: 25 mg Documented by: Nitroglycerin (Nitroglycerin (Inpatient Use) 0.4 Mg Tab.Subl) 0.4 mg SUBLINGUAL Q5M PRN PRN Reason: CARDIAC/CHEST PAIN Nutritional Formula (Lactose Free) (Glucerna Shake 120 Ml Liquid) 120 ml PO 4X/DAY [facility] Last Admin: 10/30/20 13:49 Dose: 120 ml Documented by: Ondansetron HCl (Ondansetron 4 Mg/2 Ml Vial) 4 mg IV Q8H PRN PRN PRN Reason: NAUSEA/VOMITING Prochlorperazine Edisylate (Prochlorperazine 10 Mg/2 Ml Vial) 5 mg IV Q4H PRN PRN PRN Reason: Breakthrough Nausea/Vomiting Psyllium Hydrophilic Mucilloid (Psyllium 1 Packet) 1 packet PO DAILY PRN PRN PRN Reason: Constipation Senna/Docusate Sodium (Senna/Docusate Sodium 1 Tablet) 2 tablet PO BID PRN PRN PRN Reason: Constipation Sodium Chloride (0.9% Saline Lock 10 Ml Syringe) 10 - 40 ml IV UD PRN PRN Reason: SALINE FLUSH Last Admin: 10/29/20 13:12 Dose: 10 ml Documented by: Throat Lozenges (Benzocaine/Menthol 1 Lozenge) 1 lozenge MUCOUS MEM Q2H PRN PRN PRN Reason: SORE THROAT Warfarin Sodium (Warfarin 3 Mg Tablet) 3 mg PO DAILY@1700 [facility] STROKE Vital Signs/Narrative: Vital Signs Temp Pulse Resp BP Pulse Ox 10/30/20 13:49 110 H 10/30/20 13:47 97.6 F L 110 H 18 144/74 H 95 10/30/20 12:53 88 16 Medical Necessity - Tobacco Use Smoking Status: Former smoker - Quit cigarette tobacco usage in 1978 with prior to this 2 pack/day since he been a teenager. Tobacco Use: Non-smoker Assessment/Plan All Active Problems S/P percutaneous endoscopic gastrostomy (PEG) tube placement (Acute) Malnutrition (Acute) Renal failure (Acute) Acute kidney injury superimposed on CKD (Acute) Klebsiella pneumonia (Acute) UTI (urinary tract infection) (Acute) Urinary retention (Acute) Lactic acidosis (Acute) Acute respiratory failure secondary to Klebsiella pneumonia/bilateral pleural effusions/question aspiration-multifactorial -Continue antimicrobials with recent positive sputum culture -Continue p.o. Lasix 40 mg 3 times daily and monitor creatinine -Continue pulmonary toilet -Patient ladarius on nasal cannula at 2 L with sats 94-95 % -To new to monitor and wean as able -A.m. chest x-ray from today with no further noted effusions and improved vascular congestion -Continue ceftriaxone and treat for total of 7 days -Need to reconsider repeat instrumental swallow eval at rehab -Appreciate critical care medicine\pulmonary input Troponin elevation -Slight troponin elevation -Echocardiogram done on 10/29/2020 EF is 65%, moderate LA enlargement, mild RA enlargement, mild to moderate eccentric mitral valve insufficiency -With no wall motion abnormality we will not pursue cardiac work-up any further at this time -He is chest pain-free at this time Large bilateral pleural effusions -Resolved with diuresis -Need for thoracentesis -Restart Coumadin today Hypokalemia -40 mEq of p.o. K -Repeat BMP in a.m. -Mag level in a.m. 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 intake not adequate patient has PEG for tube feed -Monitor p.o. intake -Reconsider repeat instrumental swallow eval once transferred to rehab DM-2 -Patient on oral regimen at baseline -Continue SSI -Continue BGT assessment Hypertension -Continue Norvasc, metoprolol Hyperlipidemia -Continue statin CAD -Remote history of CABG x1 -Continue medical therapy Chronic macrocytic anemia -Hemoglobin is overall stable -Continue to follow Paroxysmal atrial fibrillation -Patient having intermittent tachycardia with rates 100 to 110 -Metoprolol is currently 25 mg 3 times daily--> increased to 50 mg twice daily -Restart Coumadin 2-day -INR 1.5 today -Continue Daily INRs -No need for bridging BPH with urinary retention -Continue Krause secondary to urinary retention -Continue Flomax Coccygeal stage I pressure ulcer -Wound care -Barrier cream as needed History of alcohol abuse -Per documentation drank 3-6 beers prior to admission [facility] for stroke -No intervention needed History of tobacco abuse -Patient has quit -Courage to continued cessation DVT prophylaxis -INR subtherapeutic--> restarting Coumadin today -Start heparin subcu twice daily for DVT prophylaxis till INR therapeutic CODE STATUS -Full
[2020-10-30] MEDS: Albuterol 2.5 MG/3 ML VIAL.NEB. INHALATION (15:00)
[2020-10-30 16:41] LABS: Bedside Glucose 239 mg/dL (70-110)
[2020-10-30 21:46] LABS: Bedside Glucose 198 mg/dL (70-110)
[2020-10-30] MEDS: 0.9% Saline Lock 10 ML Syringe IV (21:51)
[2020-10-30] MEDS: Atorvastatin Calcium 40 MG Tablet PO (21:53)
[2020-10-30] MEDS: Metoprolol Tartrate 50 MG Tablet PO (21:53)
[2020-10-31] VITALS (8 sets, daily range): BP systolic 131–143; BP diastolic 65–66; PULSE 91–110; RESP 16–20; TEMP 36.9–37; O2SAT 94–96
[2020-10-31 06:33] LABS: Absolute Lymphocyte Count 0.98 X10^3/uL (0.83-4.51); Absolute Neutrophil Count 4.2 X10^3/uL (2.0-7.7); Basophil# 0.03 X10^3/uL; Basophil% 0.5 % (0-1); Eosinophil# 0.17 X10^3/uL; Eosinophils% 2.9 % (0-5); Hematocrit 32.3 % (40-54); Hemoglobin 9.7 g/dL (13.0-16.5); Lymphocyte # 0.98 X10^3/ul (4.0); Lymphocyte % 16.6 % (19-41); Mean Corpuscular Hgb 29.4 pg (27.0-32.0); Mean Corpuscular Volume 97.9 fL (80-94); Mean Platelet Vol. 9.3 fl (6.2-12.0); Monocyte# 0.52 X10^3/uL; Monocyte% 8.8 % (0-10); NRBC Flagged by Analyzer 0 % (0-5); Neutrophil # 4.19 X10^3/uL (2.7-7.7); Platelet Count 203 K/mm3 (150-450); RBC Distribution Width CV 15.3 % (11.6-14.6); RBC Distribution Width SD 55.6 fl (35.1-43.9); White Blood Count 5.9 K/mm3 (4.4-11.0)
[2020-10-31] MEDS: Furosemide 40 MG Tablet PO (06:35)
[2020-10-31 06:41] LABS: International Normalized Ratio 1.4; Prothrombin Time (Protime)PT. 16.3 SECONDS (11.7-14.9)
[2020-10-31] MEDS: Ipratropium/Albuterol Sulfate 3 ML AMPUL.NEB INHALATION (06:53)
[2020-10-31 07:06] LABS: Anion Gap 2 (5-15); BUN 36 mg/dL (7-18); Calcium,Total 8.9 mg/dL (8.5-10.1); Chloride 107 mmol/L (98-107); Creatinine, Serum 1.64 mg/dL (0.70-1.30); EST Glomerular Filtration Rate 43 mL/min (>60); Est Glom Filt Rate - Afr Amer 52 mL/min (>60); Estimated Creatinine Clearance 32.33 ml/min; Glucose 154 mg/dL (74-106); Potassium 3.5 mmol/L (3.5-5.1); Sodium Level 144 mmol/L (136-145)
[2020-10-31] MEDS: Insulin Lispro 100 UNIT/ML INSULN.PEN SC (07:54)
[2020-10-31 08:01] LABS: Bedside Glucose 161 mg/dL (70-110)
--- NOTE | 2020-10-31 09:20 | CASEMGMT ---
MAGGY received a call from Blanche and she received insurance authorization. MAGGY notified physician. Plan: patient d/c to [facility] 4th floor Rehab. Karla ROSE
--- NOTE | 2020-10-31 09:45 | CASEMGMT ---
MAGGY notified patient and his that patient was approved to return to 4th floor rehab today. Karla MCCAIN MSW
--- NOTE | 2020-10-31 09:47 | DCINST_ITS ---
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...admitted to [facility] Dysphagia (Chronic) NPO with PEG at presentation Dysarthria (Chronic) Atrial fibrillation (Chronic) Hypertension (Chronic) HLD (hyperlipidemia) (Chronic) CAD (coronary artery disease) (Chronic) Diabetes mellitus type 2 in nonobese (Chronic) Decubitus ulcer of coccygeal region, stage 1 (Chronic) Age-related macular degeneration (Chronic) Acute kidney injury superimposed on CKD (Acute) Klebsiella pneumonia (Acute) UTI (urinary tract infection) (Acute) Urinary retention (Acute) Lactic acidosis (Acute) You will use the following diet at home:: Calorie/Carbohydrate Controlled (specify 1200, 1400, etc), Cardiac Your food should be the consistency of: Puree Your liquids should be the consistency of: [place] Thick Allergies/Adverse Reactions: Allergies No Known Allergies Allergy (Verified 10/03/20 22:45) Medications to take at Discharge Allopurinol [Zyloprim] 300 mg PO Q48H 10/03/20 Atorvastatin Calcium [Lipitor] 40 mg PO QHS 10/03/20 Cilostazol [Pletal] 100 mg PO BIDAC 10/03/20 Clopidogrel Bisulfate [Plavix] 75 mg GT DAILY 10/03/20 Cyanocobalamin [Vitamin B12] 1,000 mcg PO DAILY@0800 10/03/20 Gabapentin [Neurontin] 300 mg PO TIDCM 10/03/20 Acetaminophen [Tylenol] 650 mg PO Q4H PRN 10/28/20 Albuterol Aerosols [Ventolin Aerosols] 2.5 mg INHALATION Q2H PRN PRN 10/28/20 Amlodipine [Norvasc] 2.5 mg PO BID 10/28/20 Bisacodyl 10 mg RC X1 PRN 10/28/20 Ceftriaxone [Rocephin] 2 gm IV X1 10/28/20 Docusate Sodium [Colace Clear] 100 mg PO BID 10/28/20 Emollient Combination No.72 [Eucerin Intensive Repair] 1 applic TOPICAL 4X/DAY PRN 10/28/20 Furosemide 80 mg IV 1000,1800 10/28/20 Glucagon 1 mg IM X1 PRN 10/28/20 Insulin Human 75/25 [Humalog Mix 75-25 Kwikpen ([facility])] 10 unit SQ DINNER 10/28/20 Insulin Human 75/25 [Humalog Mix 75-25 Kwikpen ([facility])] 24 unit SQ BREAKFAST 10/28/20 Ipratropium/Albuterol Sulfate [Duoneb] 3 ml INHALATION Q4H PRN 10/28/20 Ipratropium/Albuterol Sulfate [Duoneb] 3 ml INHALATION Q6H.RT 10/28/20 Lidocaine [Lidoderm] 1 ea TP 199910/28/20 Magnesium Hydroxide [Milk Of Magnesia] 30 ml PO X1 PRN 10/28/20 Menthol/Lanolin/Calamine/Znox [Calmoseptine Ointment] 1 applic TP TID 10/28/20 Metoprolol Tartrate [Lopressor (beta [place])] 50 mg PO BID 10/28/20 Sodium Chloride 1 gm PO BID 10/28/20 Tamsulosin HCl [Flomax] 0.8 mg PO 1730 10/28/20 Warfarin Sodium [Jantoven] 3 mg PO 1700 10/28/20 Ceftriaxone 2 gm IV Q24 7 Days vial 10/31/20 Heparin Injection (Vial) [Heparin Na] 5,000 unit SC Q12 vial 10/31/20 Test Results: Test results from this visit will be discussed in further detail at your follow- up appointment, if applicable.
--- NOTE | 2020-10-31 09:50 | DS.PCM_ITS ---
Discharge Date and Diagnosis - Problem List Patient Problems: Active and Suspected Problems Acute kidney injury superimposed on CKD (Acute) Klebsiella pneumonia (Acute) UTI (urinary tract infection) (Acute) Urinary retention (Acute) Lactic acidosis (Acute) Date of Admission: 10/28/20 Date of Discharge: 10/31/20 - Primary Discharge Diagnosis Acute Problems: Active Problems Acute kidney injury superimposed on CKD (Acute) Klebsiella pneumonia (Acute) UTI (urinary tract infection) (Acute) Urinary retention (Acute) Lactic acidosis (Acute) - Secondary Discharge Diagnosis Chronic Problems: Chronic Problems CVA (cerebral vascular accident) (Chronic) 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...admitted to [facility] Dysphagia (Chronic) NPO with PEG at presentation Dysarthria (Chronic) Chronic low back pain (Chronic) Atrial fibrillation (Chronic) Hypertension (Chronic) HLD (hyperlipidemia) (Chronic) CAD (coronary artery disease) (Chronic) 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 HYPOXIA -- SURG-CABG -- HX-CVA,AFIB,CAD,DIAB,HTN,CKD STAGE 3, ETOH ABUSE RADIATION DOSAGE (If Supplied By Facility): CTDIvol = ( 16.85 ) mGy, DLP = ( 1285.58 ) mGycm TECHNIQUE: Transaxial imaging was performed without the administration of intravenous contrast material. Individualized dose optimization techniques were used for this CT. COMPARISON: Chest radiograph 10/28/2020 FINDINGS: There is diffuse interstitial thickening and mild diffuse groundglass opacity consistent with pulmonary edema. There are large bilateral effusions and dense consolidation of the lower lobes with air bronchograms.. Heart is enlarged and is multivessel coronary artery calcification Multiple subcentimeter hilar and mediastinal nodes likely benign. Normal unenhanced pulmonary arteries. Atherosclerotic changes of the aorta without evidence for aneurysm. Status post median sternotomy and CABG. Dorsal spine demonstrates advanced arthritic change PEG tube is noted within the distal stomach. CT/Chest without Contrast IMPRESSION: Mild pulmonary interstitial edema with large bilateral effusions and consolidation of the lower lobes. Cannot exclude coexisting pneumonia TUDY: X-RAY CHEST REASON FOR EXAM: Male, 85 years old. Sob TECHNIQUE: Single AP portable view of the chest. COMPARISON: Comparison is made with prior examination dated 10/29/2020. FINDINGS: EKG electrodes are seen. Since prior study, there has been improvement in aeration of both lungs. Residual changes persist worse in the left lower lobe with blunting of the left costophrenic angle. Sternal cerclage wires and vascular clips are present from a prior sternotomy and coronary artery bypass graft procedure (CABG). Normal mediastinum and jaida. Normal visualized pulmonary arteries. Normal visualized aortic arch and descending thoracic aorta. There are diffuse degenerative changes of the visualized thoracic spine. There is degenerative osteoarthritis of the bilateral shoulders. There is no demonstrated abnormality of the visualized soft tissue structures of the upper abdomen. RAD/Chest 1 View (Portable) IMPRESSION: Since prior study, there has been improved aeration of both lungs although residual changes persist. Further follow-up recommended. Pulmonary/critical care medicine Infectious disease Operations: None Summary of Care Provided: Mr. Hassan is a 85 year old elderly WM with a PMH of persistent atrial fibr illation, HTN, HPL, CAD status post CABG, DM-2, coccygeal stage I pressure ulcer, CKD stage III, macular degeneration, and history of alcohol abuse who was admitted on 10/28/2020 for dyspnea and cough from the acute rehab center here at [facility]. He had a recent admission on 09/24/2020 for slurred speech, right facial droop, and dizziness and was found to have a medullary ischemic lacunar infarct and was treated at [facility]. A PEG was placed at that time secondary to dysphagia. Sputum culture that was collected on October 26, 2019 for acute hypoxemia demonstrated a bacterial pneumonia with Klebsiella pneumoniae. Given his worsening respiratory status the decision to admit him to the acute care hospital for further management was made and he was presented as a direct admit. He was transferred to the medical intensive care unit after worsening oxygenation and escalation of his supplemental oxygen flow rate. He was maintained on BiPAP and given antibiotics and IV diuresis with Lasix. On the morning of the he was able to be weaned from high flow nasal cannula to regular nasal cannula at 6 L and since has been weaned and is on 2 to 3 L of nasal cannula oxygen. Overall he is doing much better. He was converted to Zosyn by pulmonary critical care but sensitivities have resulted and there is intermediate resistant to Zosyn so his antibiotics were switched to ceftriaxone to which the Klebsiella is sensitive to with an acceptable LIZANDRO. He will need to complete 7 days of ceftriaxone 2 g daily with today being day 1. He is currently on Lasix 40 mg 3 times daily. He will need continued monitoring of his urine output and renal function with his diuresis. There was concern on admission based on a CT scan that was done on 10/29/2020 that he would need a thoracentesis and his anticoagulation was held (he is on Coumadin) but the flirt pleural effusions that were noted on his initial CT resolved with diuresis alone. His Coumadin was reinitiated on 10/30/2019 at 3 mg daily. INR at that time was 1.5. His INR on day of discharge was 1.4 mg but that was after vitamin K was given on admission for INR reversal and only 1 dose of his 3 mg of Coumadin. He was placed on heparin 5000 units twice daily for DVT prophylaxis until his INR is therapeutic and then this may be discontinued. His renal function had improved from 2.09 on admission to 1.64 on discharge and that was with continued Lasix 40 mg 3 times daily. I do wonder if he is having some intermittent aspiration and that potentially we should reconsider repeating an instrumental swallow eval at rehab after discharge if speech therapy thinks that this would be beneficial. If patient remains stable recommend repeat chest x- ray in 4 to 6 weeks. He has had some intermittent tachycardia with heart rates from 100-110 and his metoprolol dose was increased on 10/30/2020 from 25 mg p.o. twice daily to 50 mg p.o. twice daily I would recommend he continue this at discharge and titrate up as blood pressure allows and his heart rate needs. He was discharged back to acute rehab in stable condition. Discharge diagnoses Acute respiratory failure secondary to Klebsiella pneumonia front/bilateral pleural effusions front/question aspiration Indeterminate troponin-demand ischemia Large bilateral pleural effusions-resolved Hypokalemia-resolved JAIME on CKD stage III-JAIME resolved Recent acute stroke Dysphagia DM-2 Hypertension Hyperlipidemia CAD Chronic macrocytic anemia Paroxysmal atrial fibrillation BPH with urinary retention Coccygeal stage wound pressure ulcer History of alcohol abuse History of tobacco abuse Discharge time greater than 35 minutes Patient Problems: Active and Suspected Problems Acute kidney injury superimposed on CKD (Acute) Klebsiella pneumonia (Acute) UTI (urinary tract infection) (Acute) Urinary retention (Acute) Lactic acidosis (Acute) Subjective: Patient states that he is feeling fine. Admits that he is a little tired today. Reports that he had a nice visit with his yesterday. - Physical Exam Vitals/I&O's: Vital Signs Temp Pulse Resp BP Pulse Ox 98.6 F 109 H 20 H 143/65 H 96 10/31/20 07:40 10/31/20 08:00 10/31/20 07:40 10/31/20 07:40 10/31/20 07:40 Oxygen Flow Rate (L/min) 3.5 Oxygen Delivery Method Nasal Cannula Weight: 82 kg Body Mass Index (BMI) 27.9 Intake and Output for Last 24 Hours 10/29/20 10/30/20 10/31/20 23:59 23:59 23:59 Intake Total 1040 / 1040 1138.75 / 1138.75 350 / 350 Output Total 2500 / 2925 1625 / 1625 Balance -1460 / -1885 -486.25 / -486.25 350 / 350 General: Alert, Oriented x3, Cooperative, No apparent distress, Well developed, Well nourished, - - Elderly white male lying in bed, appears comfortable, appears tired, very pleasant HEENT: Atraumatic, Normocephalic Oral: Moist Mucosa, Ulcerations Present - Healing ulceration left lateral tongue, - - Poor dentition Neck: Supple, No JVD, Trachea Midline, Thyroid Normal Size and Texture Lungs: No rhonchi, No wheeze, Diminished - Mildly bilateral bases, Rales - Few at bases Cardiovascular: Regular rate, Normal S1, Normal S2, No Ectopic Activity, Murmur - 2-3/6 systolic murmur, No rub noted, No Gallop, - - The rhythm Abdomen: Bowel Sounds Present, Soft, Non Tender, Non-Distended, No hernias noted, - - PEG in place Extremities: No clubbing, No cyanosis, No edema, Capillary Refill Less than 3 Seconds, Peripheral Pulses Normal Skin: No rashes, - - L skin Musculoskeletal: No Tenderness to Palpation of Joints or Extremities, Arthritic Changes Neurological: Tongue Deviation - Very pleasant, - - Mild right facial droop with tongue deviation on exam, moves bilateral extremities symmetrically, speech slightly slurred but understandable Psych/Mental Status: Normal Affect, Appropriate, -, Alert and oriented to time, place, person, mood and affect Microbiology Past 72 Hours 10/28/20 19:08 Sputum, Induced/Lukens Gram Stain - Final 10/28/20 19:08 Sputum, Induced/Lukens Respiratory Culture - Final Klebsiella pneumoniae sp pneum 10/28/20 17:11 Mucosa - Nasopharyngeal Respiratory Panel (PCR) - Final 10/28/20 Unknown Urine Catheter - Krause Legionella Antigen - Final 10/28/20 Unknown Urine Catheter - Krause Streptococcus pneumoniae Antigen (M - Final Laboratory Results 10/30/20 11:34: POC Glucose 251 H 10/30/20 16:35: POC Glucose 239 H 10/30/20 21:40: POC Glucose 198 H 10/31/20 06:10: PT 16.3 H, INR 1.4 10/31/20 06:10: WBC 5.9, RBC 3.30 L, Hgb 9.7 L, Hct 32.3 L, MCV 97.9 H, MCH 29.4, MCHC 30.0 L D, RDW Std Deviation 55.6 H, RDW Coeff of Norman 15.3 H, Plt Count 203, MPV 9.3, Immature Gran % (Auto) 0.200, Neut % (Auto) 71.0 H, Lymph % (Auto) 16.6 L, Stephens % (Auto) 8.8, Eos % (Auto) 2.9, Baso % (Auto) 0.5, Absolute Neuts (auto) 4.2, Absolute Lymphs (auto) 0.98, Nucleated RBC % 0 10/31/20 06:10: Sodium 144, Potassium 3.5, Chloride 107, Carbon Dioxide 35.0 H, Anion Gap 2 L, BUN 36 H, Creatinine 1.64 H, Estim Creat Clear Calc 32.33, Est GFR (MDRD) Af Amer 52 L, Est GFR (MDRD) Non-Af 43 L, BUN/Creatinine Ratio 22.0 H , Glucose 154 H, Calcium 8.9 10/31/20 07:38: POC Glucose 161 H Current Medications Acetaminophen (Acetaminophen 325 Mg Tablet) 650 mg PO Q6H PRN PRN PRN Reason: Pain Score 1-10/Temp > 100.7 F Last Admin: 10/30/20 09:02 Dose: 650 mg Documented by: Albuterol Sulfate (Albuterol 2.5 Mg/3 Ml Vial.Neb.) 2.5 mg INHALATION Q2H PRN PRN PRN Reason: Dyspnea, wheezing Last Admin: 10/30/20 15:00 Dose: 2.5 mg Documented by: Albuterol/Ipratropium (Ipratropium/Albuterol Sulfate 3 Ml Ampul.Neb) 3 ml INHALATION Q6HWA.RT [facility] Last Admin: 10/31/20 06:53 Dose: 3 ml Documented by: Allopurinol (Allopurinol 300 Mg Tablet) 300 mg PO Q48@0800 [facility] Last Admin: 10/30/20 09:03 Dose: 300 mg Documented by: Amlodipine Besylate (Amlodipine 5 Mg Tablet) 5 mg PO BID [facility] Last Admin: 10/30/20 21:54 Dose: 5 mg Documented by: Atorvastatin Calcium (Atorvastatin Calcium 40 Mg Tablet) 40 mg PO QHS [facility] Last Admin: 10/30/20 21:53 Dose: 40 mg Documented by: Clopidogrel Bisulfate (Clopidogrel Bisulfate 75 Mg Tablet) 75 mg PO DAILY [facility] Last Admin: 10/30/20 09:02 Dose: 75 mg Documented by: Cyanocobalamin (Cyanocobalamin 500 Mcg Tablet) 1,000 mcg PO DAILY@0800 [facility] Last Admin: 10/30/20 09:03 Dose: 1,000 mcg Documented by: Furosemide (Furosemide 40 Mg Tablet) 40 mg PO TID [facility] Last Admin: 10/31/20 06:35 Dose: 40 mg Documented by: Gabapentin (Gabapentin 300 Mg Capsule) 300 mg PO TIDCM [facility] Last Admin: 10/30/20 17:32 Dose: 300 mg Documented by: Guaifenesin (Guaifenesin 10 Ml Udc (200mg/10ml)) 20 ml PO Q4H PRN PRN PRN Reason: COUGH Last Admin: 10/29/20 04:53 Dose: 20 ml Documented by: Heparin Sodium (Porcine) (Heparin Injection (Vial) 5,000 Unit/Ml Vial) 5,000 unit SC Q12 [facility] Last Admin: 10/30/20 21:52 Dose: 5,000 unit Documented by: Hydralazine HCl (Hydralazine 20 Mg/Ml Vial) 10 mg IV Q4H PRN PRN PRN Reason: SBP > 160 Sodium Chloride () 250 mls @ 15 mls/hr IV .[id number] PRN PRN Reason: Saline Flush Sodium Chloride () 250 mls @ 15 mls/hr IV .[id number] PRN PRN Reason: Additional IVPB Infusion Last Infusion: 10/30/20 06:05 Dose: 0 mls/hr Documented by: Ceftriaxone Sodium 2 gm/ (Sodium Chloride) 50 mls @ 100 mls/hr IV Q24 [facility] Insulin Human Lispro (Insulin Lispro 100 Unit/Ml Insuln.Pen) 0 unit SC ACHS [facility]; Protocol Last Admin: 10/31/20 07:54 Dose: 1 unit Documented by: Magnesium Hydroxide (Magnesium Hydroxide 30 Ml Udc) 30 ml PO DAILY PRN PRN PRN Reason: Constipation Metoprolol Tartrate (Metoprolol Tartrate 50 Mg Tablet) 50 mg PO BID [facility] Last Admin: 10/30/20 21:53 Dose: 50 mg Documented by: Nitroglycerin (Nitroglycerin (Inpatient Use) 0.4 Mg Tab.Subl) 0.4 mg SUBLINGUAL Q5M PRN PRN Reason: CARDIAC/CHEST PAIN Nutritional Formula (Lactose Free) (Glucerna Shake 120 Ml Liquid) 120 ml PO 4X/DAY [facility] Last Admin: 10/30/20 21:52 Dose: 120 ml Documented by: Ondansetron HCl (Ondansetron 4 Mg/2 Ml Vial) 4 mg IV Q8H PRN PRN PRN Reason: NAUSEA/VOMITING Prochlorperazine Edisylate (Prochlorperazine 10 Mg/2 Ml Vial) 5 mg IV Q4H PRN PRN PRN Reason: Breakthrough Nausea/Vomiting Psyllium Hydrophilic Mucilloid (Psyllium 1 Packet) 1 packet PO DAILY PRN PRN PRN Reason: Constipation Senna/Docusate Sodium (Senna/Docusate Sodium 1 Tablet) 2 tablet PO BID PRN PRN PRN Reason: Constipation Sodium Chloride (0.9% Saline Lock 10 Ml Syringe) 10 - 40 ml IV UD PRN PRN Reason: SALINE FLUSH Last Admin: 10/30/20 21:51 Dose: 10 ml Documented by: Throat Lozenges (Benzocaine/Menthol 1 Lozenge) 1 lozenge MUCOUS MEM Q2H PRN PRN PRN Reason: SORE THROAT Warfarin Sodium (Warfarin 3 Mg Tablet) 3 mg PO DAILY@1700 [facility] Last Admin: 10/30/20 17:32 Dose: 3 mg Documented by: Home Medications: Medications to take at Discharge Allopurinol [Zyloprim] 300 mg PO Q48H 10/03/20 Atorvastatin Calcium [Lipitor] 40 mg PO QHS 10/03/20 Cilostazol [Pletal] 100 mg PO BIDAC 10/03/20 Clopidogrel Bisulfate [Plavix] 75 mg GT DAILY 10/03/20 Cyanocobalamin [Vitamin B12] 1,000 mcg PO DAILY@0800 10/03/20 Gabapentin [Neurontin] 300 mg PO TIDCM 10/03/20 Acetaminophen [Tylenol] 650 mg PO Q4H PRN 10/28/20 Albuterol Aerosols [Ventolin Aerosols] 2.5 mg INHALATION Q2H PRN PRN 10/28/20 Amlodipine [Norvasc] 2.5 mg PO BID 10/28/20 Bisacodyl 10 mg RC X1 PRN 10/28/20 Ceftriaxone [Rocephin] 2 gm IV X1 10/28/20 Docusate Sodium [Colace Clear] 100 mg PO BID 10/28/20 Emollient Combination No.72 [Eucerin Intensive Repair] 1 applic TOPICAL 4X/DAY PRN 10/28/20 Furosemide 80 mg IV 1000,1800 10/28/20 Glucagon 1 mg IM X1 PRN 10/28/20 Insulin Human 75/25 [Humalog Mix 75-25 Kwikpen (BKC)] 10 unit SQ DINNER 10/28/20 Insulin Human 75/25 [Humalog Mix 75-25 Kwikpen (BKC)] 24 unit SQ BREAKFAST 10/28/20 Ipratropium/Albuterol Sulfate [Duoneb] 3 ml INHALATION Q4H PRN 10/28/20 Ipratropium/Albuterol Sulfate [Duoneb] 3 ml INHALATION Q6H.RT 10/28/20 Lidocaine [Lidoderm] 1 ea TP 199910/28/20 Magnesium Hydroxide [Milk Of Magnesia] 30 ml PO X1 PRN 10/28/20 Menthol/Lanolin/Calamine/Znox [Calmoseptine Ointment] 1 applic TP TID 10/28/20 Metoprolol Tartrate [Lopressor (beta dallas)] 50 mg PO BID 10/28/20 Sodium Chloride 1 gm PO BID 10/28/20 Tamsulosin HCl [Flomax] 0.8 mg PO 1730 10/28/20 Warfarin Sodium [Jantoven] 3 mg PO 1700 10/28/20 Ceftriaxone 2 gm IV Q24 7 Days vial 10/31/20 Heparin Injection (Vial) [Heparin Na] 5,000 unit SC Q12 vial 10/31/20 Medical Necessity - Tobacco Use Smoking Status: Former smoker - Quit cigarette tobacco usage in 1978 with prior to this 2 pack/day since he been a teenager. Tobacco Use: Non-smoker Meaningful Use Info Meaningful Use Diagnoses (Choose all that apply): None applicable Inpatient E&M: 32966 Disch Hosp
[2020-10-31] MEDS: Gabapentin 300 MG Capsule PO (10:07)
[2020-10-31] MEDS: Cyanocobalamin 500 MCG Tablet 1000 MCG PO (10:07)
--- NOTE | 2020-10-31 10:07 | PHA.DC.MR ---
Pharmacy Service has performed discharge medication reconciliation for this patient. The patient's discharge medication list was reviewed for discrepancies and discrepancies were resolved. Home Medications Allopurinol [Zyloprim] 300 mg PO Q48H 10/03/20 Atorvastatin Calcium [Lipitor] 40 mg PO QHS 10/03/20 Cilostazol [Pletal] 100 mg PO BIDAC 10/03/20 Clopidogrel Bisulfate [Plavix] 75 mg GT DAILY 10/03/20 Cyanocobalamin [Vitamin B12] 1,000 mcg PO DAILY@0800 10/03/20 Gabapentin [Neurontin] 300 mg PO TIDCM 10/03/20 Acetaminophen [Tylenol] 650 mg PO Q4H PRN 10/28/20 Albuterol Aerosols [Ventolin Aerosols] 2.5 mg INHALATION Q2H PRN PRN 10/28/20 Amlodipine [Norvasc] 2.5 mg PO BID 10/28/20 Bisacodyl 10 mg RC X1 PRN 10/28/20 Docusate Sodium [Colace Clear] 100 mg PO BID 10/28/20 Emollient Combination No.72 [Eucerin Intensive Repair] 1 applic TOPICAL 4X/DAY PRN 10/28/20 Furosemide 80 mg IV 1000,1800 10/28/20 Glucagon 1 mg IM X1 PRN 10/28/20 Insulin Human 75/25 [Humalog Mix 75-25 Kwikpen (BKC)] 10 unit SQ DINNER 10/28/20 Insulin Human 75/25 [Humalog Mix 75-25 Kwikpen (BKC)] 24 unit SQ BREAKFAST 10/28/20 Ipratropium/Albuterol Sulfate [Duoneb] 3 ml INHALATION Q4H PRN 10/28/20 Ipratropium/Albuterol Sulfate [Duoneb] 3 ml INHALATION Q6H.RT 10/28/20 Lidocaine [Lidoderm] 1 ea TP 199910/28/20 Magnesium Hydroxide [Milk Of Magnesia] 30 ml PO X1 PRN 10/28/20 Menthol/Lanolin/Calamine/Znox [Calmoseptine Ointment] 1 applic TP TID 10/28/20 Metoprolol Tartrate [Lopressor (beta dallas)] 50 mg PO BID 10/28/20 Sodium Chloride 1 gm PO BID 10/28/20 Tamsulosin HCl [Flomax] 0.8 mg PO 1730 10/28/20 Warfarin Sodium [Jantoven] 3 mg PO 1700 10/28/20 Ceftriaxone 2 gm IV Q24 7 Days vial 10/31/20 Heparin Injection (Vial) [Heparin Na] 5,000 unit SC Q12 vial 10/31/20
[2020-10-31] MEDS: Heparin Injection (Vial) 5,000 UNIT/ML VIAL 5000 UNIT SC (10:08)
[2020-10-31] MEDS: amLODIPine 5 MG Tablet PO (10:08)
[2020-10-31] MEDS: Metoprolol Tartrate 50 MG Tablet PO (10:08)
[2020-10-31] MEDS: Clopidogrel Bisulfate 75 MG Tablet PO (10:08)
--- NOTE | 2020-10-31 10:53 | NURSING ---
Attempted to call report for pt transfer to Rehab. Phone rang and rang w/ no answer. Waited several minutes and requested to give report. Nurse asked for a number to call back. Unable to take report at this time.
--- NOTE | 2020-10-31 11:22 | NURSING ---
Report given to nurse Alonso on rehab for pt transfer.
--- NOTE | 2020-10-31 11:28 | PCM.PN.ID ---
Patient Problems: Active and Suspected Problems Acute kidney injury superimposed on CKD (Acute) Klebsiella pneumonia (Acute) UTI (urinary tract infection) (Acute) Urinary retention (Acute) Lactic acidosis (Acute) Subjective: Feeling better, no fever, breathing better - Physical Exam Vitals/I&O's: Vital Signs Temp Pulse Resp BP Pulse Ox 98.6 F 109 H 18 143/65 H 94 10/31/20 10:32 10/31/20 10:32 10/31/20 10:32 10/31/20 10:32 10/31/20 10:32 Oxygen Flow Rate (L/min) 3.5 Oxygen Delivery Method Nasal Cannula Weight: 82 kg Body Mass Index (BMI) 27.9 Intake and Output for Last 24 Hours 10/29/20 10/30/20 10/31/20 23:59 23:59 23:59 Intake Total 1040 / 1040 1138.75 / 1138.75 450 / 450 Output Total 2500 / 2925 1625 / 1625 Balance -1460 / -1885 -486.25 / -486.25 450 / 450 General: Alert, Cooperative, No apparent distress Lungs: Clear to auscultation, Diminished Cardiovascular: Regular rate, Regular Rhythm Abdomen: Soft, Non Tender, Non-Distended Skin: No rashes Microbiology Past 72 Hours 10/28/20 19:08 Sputum, Induced/Lukens Gram Stain - Final 10/28/20 19:08 Sputum, Induced/Lukens Respiratory Culture - Final Klebsiella pneumoniae sp pneum 10/28/20 17:11 Mucosa - Nasopharyngeal Respiratory Panel (PCR) - Final 10/28/20 Unknown Urine Catheter - Krause Legionella Antigen - Final 10/28/20 Unknown Urine Catheter - Krause Streptococcus pneumoniae Antigen (M - Final Laboratory Results 10/30/20 11:34: POC Glucose 251 H 10/30/20 16:35: POC Glucose 239 H 10/30/20 21:40: POC Glucose 198 H 10/31/20 06:10: PT 16.3 H, INR 1.4 10/31/20 06:10: WBC 5.9, RBC 3.30 L, Hgb 9.7 L, Hct 32.3 L, MCV 97.9 H, MCH 29.4, MCHC 30.0 L D, RDW Std Deviation 55.6 H, RDW Coeff of Norman 15.3 H, Plt Count 203, MPV 9.3, Immature Gran % (Auto) 0.200, Neut % (Auto) 71.0 H, Lymph % (Auto) 16.6 L, Rabun % (Auto) 8.8, Eos % (Auto) 2.9, Baso % (Auto) 0.5, Absolute Neuts (auto) 4.2, Absolute Lymphs (auto) 0.98, Nucleated RBC % 0 10/31/20 06:10: Sodium 144, Potassium 3.5, Chloride 107, Carbon Dioxide 35.0 H, Anion Gap 2 L, BUN 36 H, Creatinine 1.64 H, Estim Creat Clear Calc 32.33, Est GFR (MDRD) Af Amer 52 L, Est GFR (MDRD) Non-Af 43 L, BUN/Creatinine Ratio 22.0 H, Glucose 154 H, Calcium 8.9 10/31/20 07:38: POC Glucose 161 H Current Medications Acetaminophen (Acetaminophen 325 Mg Tablet) 650 mg PO Q6H PRN PRN PRN Reason: Pain Score 1-10/Temp > 100.7 F Last Admin: 10/30/20 09:02 Dose: 650 mg Documented by: Albuterol Sulfate (Albuterol 2.5 Mg/3 Ml Vial.Neb.) 2.5 mg INHALATION Q2H PRN PRN PRN Reason: Dyspnea, wheezing Last Admin: 10/30/20 15:00 Dose: 2.5 mg Documented by: Albuterol/Ipratropium (Ipratropium/Albuterol Sulfate 3 Ml Ampul.Neb) 3 ml INHALATION Q6HWA.RT [facility] Last Admin: 10/31/20 06:53 Dose: 3 ml Documented by: Allopurinol (Allopurinol 300 Mg Tablet) 300 mg PO Q48@0800 [facility] Last Admin: 10/30/20 09:03 Dose: 300 mg Documented by: Amlodipine Besylate (Amlodipine 5 Mg Tablet) 5 mg PO BID [facility] Last Admin: 10/31/20 10:08 Dose: 5 mg Documented by: Atorvastatin Calcium (Atorvastatin Calcium 40 Mg Tablet) 40 mg PO QHS [facility] Last Admin: 10/30/20 21:53 Dose: 40 mg Documented by: Clopidogrel Bisulfate (Clopidogrel Bisulfate 75 Mg Tablet) 75 mg PO DAILY [facility] Last Admin: 10/31/20 10:08 Dose: 75 mg Documented by: Cyanocobalamin (Cyanocobalamin 500 Mcg Tablet) 1,000 mcg PO DAILY@0800 [facility] Last Admin: 10/31/20 10:07 Dose: 1,000 mcg Documented by: Furosemide (Furosemide 40 Mg Tablet) 40 mg PO TID [facility] Last Admin: 10/31/20 06:35 Dose: 40 mg Documented by: Gabapentin (Gabapentin 300 Mg Capsule) 300 mg PO TIDCM [facility] Last Admin: 10/31/20 10:07 Dose: 300 mg Documented by: Guaifenesin (Guaifenesin 10 Ml Udc (200mg/10ml)) 20 ml PO Q4H PRN PRN PRN Reason: COUGH Last Admin: 10/29/20 04:53 Dose: 20 ml Documented by: Heparin Sodium (Porcine) (Heparin Injection (Vial) 5,000 Unit/Ml Vial) 5,000 unit SC Q12 [facility] Last Admin: 10/31/20 10:08 Dose: 5,000 unit Documented by: Hydralazine HCl (Hydralazine 20 Mg/Ml Vial) 10 mg IV Q4H PRN PRN PRN Reason: SBP > 160 Sodium Chloride () 250 mls @ 15 mls/hr IV .[id number] PRN PRN Reason: Saline Flush Sodium Chloride () 250 mls @ 15 mls/hr IV .[id number] PRN PRN Reason: Additional IVPB Infusion Last Infusion: 10/30/20 06:05 Dose: 0 mls/hr Documented by: Ceftriaxone Sodium 2 gm/ (Sodium Chloride) 50 mls @ 100 mls/hr IV Q24 [facility] Last Infusion: 10/31/20 10:50 Dose: Infused Documented by: Insulin Human Lispro (Insulin Lispro 100 Unit/Ml Insuln.Pen) 0 unit SC ACHS [facility]; Protocol Last Admin: 10/31/20 07:54 Dose: 1 unit Documented by: Magnesium Hydroxide (Magnesium Hydroxide 30 Ml Udc) 30 ml PO DAILY PRN PRN PRN Reason: Constipation Metoprolol Tartrate (Metoprolol Tartrate 50 Mg Tablet) 50 mg PO BID [facility] Last Admin: 10/31/20 10:08 Dose: 50 mg Documented by: Nitroglycerin (Nitroglycerin (Inpatient Use) 0.4 Mg Tab.Subl) 0.4 mg SUBLINGUAL Q5M PRN PRN Reason: CARDIAC/CHEST PAIN Nutritional Formula (Lactose Free) (Glucerna Shake 120 Ml Liquid) 120 ml PO 4X/DAY [facility] Last Admin: 10/31/20 10:09 Dose: Not Given Documented by: Ondansetron HCl (Ondansetron 4 Mg/2 Ml Vial) 4 mg IV Q8H PRN PRN PRN Reason: NAUSEA/VOMITING Prochlorperazine Edisylate (Prochlorperazine 10 Mg/2 Ml Vial) 5 mg IV Q4H PRN PRN PRN Reason: Breakthrough Nausea/Vomiting Psyllium Hydrophilic Mucilloid (Psyllium 1 Packet) 1 packet PO DAILY PRN PRN PRN Reason: Constipation Senna/Docusate Sodium (Senna/Docusate Sodium 1 Tablet) 2 tablet PO BID PRN PRN PRN Reason: Constipation Sodium Chloride (0.9% Saline Lock 10 Ml Syringe) 10 - 40 ml IV UD PRN PRN Reason: SALINE FLUSH Last Admin: 10/30/20 21:51 Dose: 10 ml Documented by: Throat Lozenges (Benzocaine/Menthol 1 Lozenge) 1 lozenge MUCOUS MEM Q2H PRN PRN PRN Reason: SORE THROAT Warfarin Sodium (Warfarin 3 Mg Tablet) 3 mg PO DAILY@1700 [facility] Last Admin: 10/30/20 17:32 Dose: 3 mg Documented by: Medical Necessity - Tobacco Use Smoking Status: Former smoker - Quit cigarette tobacco usage in 1978 with prior to this 2 pack/day since he been a teenager. Tobacco Use: Non-smoker Route of nutrition/ use of supplements: [] Nutritional Intake: [] IV Site: [] Krause Catheter: [] - Assessment/Plan Antibiotics: [] Assessment/Plan: [] Active and Suspected Problems Acute kidney injury superimposed on CKD (Acute) Klebsiella pneumonia (Acute) UTI (urinary tract infection) (Acute) Urinary retention (Acute) Lactic acidosis (Acute) klebsiella pneumonia - on ceftriaxone, improving. PCT normal. BNP mildly elevated. CT showed bilateral effusions. Pulm following. Plan on stop date of ceftriaxone 11/04. will follow as needed
[2020-10-31 12:00] LABS: Bedside Glucose 229 mg/dL (70-110)
== END 2020-10-31 11:56 | DRG 177 ==
LOC: PCU 16:58 → ICU 18:52 → PCU 10-29 16:51
PROVIDERS: Internal Medicine; Admitting Provider Family Medicine; Visit Provider Internal Medicine
DX: J15.0 Pneumonia due to Klebsiella pneumoniae (principal); J96.01 Acute respiratory failure with hypoxia; N39.0 Urinary tract infection, site not specified; N17.9 Acute kidney failure, unspecified; I48.19 Other persistent atrial fibrillation; I13.0 Hypertensive heart and chronic kidney disease with heart failure and stage 1 through stage 4 chronic kidney disease, or unspecified chronic kidney disease; N18.30 Chronic kidney disease, stage 3 unspecified; E78.5 Hyperlipidemia, unspecified; R13.12 Dysphagia, oropharyngeal phase; E11.22 Type 2 diabetes mellitus with diabetic chronic kidney disease; I50.9 Heart failure, unspecified; I25.10 Atherosclerotic heart disease of native coronary artery without angina pectoris; L89.151 Pressure ulcer of sacral region, stage 1; H35.30 Unspecified macular degeneration; I69.391 Dysphagia following cerebral infarction; I69.322 Dysarthria following cerebral infarction; G89.29 Other chronic pain; D53.9 Nutritional anemia, unspecified; N40.1 Benign prostatic hyperplasia with lower urinary tract symptoms; R33.8 Other retention of urine; F10.10 Alcohol abuse, uncomplicated; Z95.1 Presence of aortocoronary bypass graft; Z87.891 Personal history of nicotine dependence; E87.6 Hypokalemia
CPT/HCPCS: 31720; 36415; 36600; 71045; 71250; 80048; 80053; 82803; 82962; 83615; 83735; 84100; 84145; 84156; 84484; 85025; 85610; 85730; 87070; 87077; 87186; 87205; 87449; 87633; 87641; 92526; 92610; 93005; 93306; 94002; 94003; 94640; 97116; 97162; 97166; 97530; 97535; 97802; J7050; Q9957; A4216; C8929; J0696; J1940; J3490

== ENCOUNTER 2020-10-31 12:12 | Inpatient (IN) | payer MEDICARE, SELFPAY ==
[2020-10-28 17:35] VITALS: BMI 27.9
[2020-10-31] VITALS (7 sets, daily range): BP systolic 134–137; BP diastolic 74–78; PULSE 83–108; RESP 17–18; TEMP 36.7; O2SAT 88–93; BMI 26.6; BMI 26.7
[2020-10-31 13:41] LABS: Bedside Glucose 237 mg/dL (70-110)
[2020-10-31] MEDS: Menthol/Lanolin/Calamine/Znox 113 GM Tube 1 APPLIC TOPICAL ×2 (14:46→21:28)
[2020-10-31 17:45] LABS: Bedside Glucose 256 mg/dL (70-110)
[2020-10-31] MEDS: Tamsulosin HCl 0.4 MG Capsule 0.8 MG PO (18:01)
[2020-10-31] MEDS: Gabapentin 300 MG Capsule PO (18:02)
[2020-10-31] MEDS: Cilostazol 50 MG Tablet 100 MG PO (18:02)
[2020-10-31] MEDS: Furosemide 80 MG Tablet PO (18:03)
[2020-10-31] MEDS: Insulin Human 75/25 Kwickpen 10 UNIT SC (18:15)
[2020-10-31] MEDS: Lidocaine 5% Patch 1 PATCH TOPICAL (21:21)
[2020-10-31] MEDS: Docusate Sodium 100 MG Capsule PO (21:22)
[2020-10-31] MEDS: Heparin Injection (Vial) 5,000 UNIT/ML VIAL 5000 UNIT SC (21:22)
[2020-10-31] MEDS: Atorvastatin Calcium 40 MG Tablet PO (21:23)
[2020-10-31] MEDS: amLODIPine 2.5 MG Tablet PO (21:23)
[2020-10-31] MEDS: Sodium Chloride 1 GM Tablet PO (21:23)
[2020-10-31 21:26] LABS: Bedside Glucose 243 mg/dL (70-110)
[2020-10-31] MEDS: Metoprolol Tartrate 50 MG Tablet PO (21:29)
[2020-11-01] VITALS (9 sets, daily range): BP systolic 143–144; BP diastolic 64–76; PULSE 88–104; RESP 18–20; TEMP 36.5–36.6; O2SAT 85–93; BMI 26.6
[2020-11-01 06:10] LABS: International Normalized Ratio 1.7; Prothrombin Time (Protime)PT. 19.8 SECONDS (11.7-14.9)
[2020-11-01] MEDS: Menthol/Lanolin/Calamine/Znox 113 GM Tube 1 APPLIC TOPICAL ×3 (06:23→20:44)
[2020-11-01 06:45] LABS: Bedside Glucose 149 mg/dL (70-110)
[2020-11-01] MEDS: Ipratropium/Albuterol Sulfate 3 ML AMPUL.NEB INHALATION ×3 (07:30→20:53)
--- NOTE | 2020-11-01 07:30 | CPS ---
High flow nasal cannula increased to 10lpm to get sats into 90's. RN aware. Humidifier added.
[2020-11-01] MEDS: Cilostazol 50 MG Tablet 100 MG PO ×3 (08:42→20:47)
[2020-11-01] MEDS: Insulin Human 75/25 Kwickpen 24 UNIT SC (08:42)
[2020-11-01] MEDS: Docusate Sodium 100 MG Capsule PO ×2 (08:43→20:45)
[2020-11-01] MEDS: Cyanocobalamin 500 MCG Tablet 1000 MCG PO (08:43)
[2020-11-01] MEDS: Furosemide 80 MG Tablet PO ×2 (08:43→16:40)
[2020-11-01] MEDS: Heparin Injection (Vial) 5,000 UNIT/ML VIAL 5000 UNIT SC ×2 (08:43→20:45)
[2020-11-01] MEDS: Gabapentin 300 MG Capsule PO ×3 (08:43→16:40)
[2020-11-01] MEDS: Metoprolol Tartrate 50 MG Tablet PO ×2 (08:44→20:48)
[2020-11-01] MEDS: Allopurinol 300 MG Tablet PO (08:44)
[2020-11-01] MEDS: amLODIPine 2.5 MG Tablet PO ×2 (08:44→20:48)
[2020-11-01] MEDS: Sodium Chloride 1 GM Tablet PO ×2 (08:44→20:47)
[2020-11-01] MEDS: Clopidogrel Bisulfate 75 MG Tablet PO (08:44)
--- NOTE | 2020-11-01 08:53 | PCM.HP.STD ---
Problem List (1) Acute kidney injury superimposed on CKD Status: Acute (2) Klebsiella pneumonia Status: Acute Qualifiers: (3) Lactic acidosis Status: Acute (4) Malnutrition Status: Acute Comment: pt reports a 20 lb weight loss since admission to [facility] on 09/27/2020 BUT he weighed 169 pounds and 12.1 ounces at presentation to [facility] and today at our institution he weighs 169 pounds and 5.04 ounces. ? Malnutrition? 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...admitted to [facility] (13) Chronic anticoagulation Status: Chronic Comment: With warfarin (14) Chronic low back pain Status: Chronic (15) Decubitus ulcer of coccygeal region, stage 1 Status: Chronic (16) Diabetes mellitus type 2 in nonobese Status: Chronic (17) Dysarthria Status: Chronic (18) Dysphagia Status: Chronic Qualifiers: Comment: NPO with PEG at presentation (19) HLD (hyperlipidemia) Status: Chronic Qualifiers: (20) Hypertension Status: Chronic Qualifiers: (21) Small vessel disease, cerebrovascular Status: Chronic History of Present Illness Date of Admission: 10/31/20 Chief Complaint: Physical debility due to CVA and to recent admission to the hospital for sepsis, acute hypoxic/hypercarbic respiratory failure on chronic hypoxic respiratory failure to due Pneumonia due to Kleibsiella Pneumoniae. The patient is a 85 year old M [] Mr. John Hassan is a 85 year old M with a past medical history of hypertension, hyperlipidemia, coronary artery disease, CABG, diabetes mellitus type 2, paroxysmal atrial fibrillation, chronic anticoagulation with warfarin, hyperuricemia and chronic low back pain who presented to [facility] ED on 09/26/2020 with slurred speech, right facial droop and dizziness for the preceding few hours. The initial CT brain without IV contrast done 09/26/2020 showed acute brain attack. He was at admitted to the hospital for acute right inferior medullary ischemic CVA. Because he had a therapeutic INR and the brain CT already showed changes consistent with ischemic CVA TPA was not ordered. CTA of the head showed no acute large vessel occlusion or hemorrhage. There was multifocal smaller vessel intracranial stenoses. Lab at admission to [facility] revealed a creatinine clearance of 34 which is consistent with stage IIIb chronic renal failure. Since I have no prior labs on this gentleman I cannot say if this is acute or chronic. He was seen at [facility] by PT/OT/ST. PEG tube was placed due to severe dysphagia and he was transferred to [facility] acute inpatient rehab on 10/04/2020 for greater than 3 hours of therapy daily to restore him at or near his prior level of function. Prior to the stroke he was independent with all ADLs and driving. John did well in therapy and was scheduled to be discharged on 10/30/2020. On 10/26/2020 he suddenly developed hypoxemia and was requiring high flow oxygen. Chest x-ray was obtained and showed bilateral pleural effusions plus infiltrates. IV diuretics were started. He did not improve and continued to be hypoxic and now had altered mental status. A sputum culture done on 10/26/2020 grew Klebsiella pneumonia and he was started on Rocephin. I suspect the PNA was due to aspiration. He was transferred to the acute side of [facility] for progressive dyspnea with hypoxia and CO2 retention. He required BiPAP but did not require intubation. He was transferred back to inpt rehab on 10/31/20 for > 3 hours of therapy daily to restore him to the level of function he had prior to acute aspiration PNA. 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 Dysphagia (Chronic) NPO with PEG at presentation Dysarthria (Chronic) Chronic low back pain (Chronic) Atrial fibrillation (Chronic) Hypertension (Chronic) HLD (hyperlipidemia) (Chronic) CAD (coronary artery disease) (Chronic) Diabetes mellitus type 2 in nonobese (Chronic) Decubitus ulcer of coccygeal region, stage 1 (Chronic) Chronic anticoagulation (Chronic) With warfarin Small vessel disease, cerebrovascular (Chronic) Age-related macular degeneration (Chronic) Allergies No Known Allergies Allergy (Verified 10/03/20 22:45) Home Medications: Ambulatory Orders Medication Instructions Recorded Allopurinol [Zyloprim] 300 mg PO Q48H 10/03/20 Atorvastatin Calcium [Lipitor] 40 mg PO QHS 10/03/20 Cilostazol [Pletal] 100 mg PO BIDAC 10/03/20 Clopidogrel Bisulfate [Plavix] 75 mg GT DAILY 10/03/20 Cyanocobalamin [Vitamin B12] 1,000 mcg PO DAILY@0800 10/03/20 Gabapentin [Neurontin] 300 mg PO TIDCM 10/03/20 Acetaminophen [Tylenol] 650 mg PO Q4H PRN 10/28/20 Albuterol Aerosols [Ventolin 2.5 mg INHALATION Q2H PRN PRN 10/28/20 Aerosols] Amlodipine [Norvasc] 2.5 mg PO BID 10/28/20 Bisacodyl 10 mg RC X1 PRN 10/28/20 Docusate Sodium [Colace Clear] 100 mg PO BID 10/28/20 Emollient Combination No.72 1 applic TOPICAL 4X/DAY PRN 10/28/20 [Eucerin Intensive Repair] Glucagon 1 mg IM X1 PRN 10/28/20 Insulin Human 75/25 [Humalog Mix 10 unit SQ DINNER 10/28/20 75-25 Kwikpen ([facility])] Insulin Human 75/25 [Humalog Mix 24 unit SQ BREAKFAST 10/28/20 75-25 Kwikpen ([facility])] Ipratropium/Albuterol Sulfate 3 ml INHALATION Q4H PRN 10/28/20 [Duoneb] Ipratropium/Albuterol Sulfate 3 ml INHALATION Q6H.RT 10/28/20 [Duoneb] Lidocaine [Lidoderm] 1 ea TP 2000 10/28/20 Magnesium Hydroxide [Milk Of 30 ml PO X1 PRN 10/28/20 Magnesia] Menthol/Lanolin/Calamine/Znox 1 applic TP TID 10/28/20 [Calmoseptine Ointment] Metoprolol Tartrate [Lopressor 50 mg PO BID 10/28/20 (beta dallas)] Sodium Chloride 1 gm PO BID 10/28/20 Tamsulosin HCl [Flomax] 0.8 mg PO 1730 10/28/20 Warfarin Sodium [Jantoven] 3 mg PO 1700 10/28/20 Ceftriaxone 2 gm IV Q24 10/31/20 Heparin Injection (Vial) [Heparin 5,000 unit SC Q12 10/31/20 Na] Surgical History: cholecystectomy, coronary bypass surgery - CABG x 1., - - CABG x1, PEG tube placement, cholecystectomy. Psychiatric History: No pertinent psych hx Lives: Spouse/ Significant Other Smoking Status: Former smoker Tobacco Use: Cigarettes Alcohol: Heavy - he drinks 4-6 beers a day on a regular basis. Drugs: None - *Family History Maternal History Items: Diabetes Paternal History Items: High Cholesterol, Heart Disease, Hypertension Review of Systems Constitutional: Reports: Weakness. Denies: Anorexia, Chills, Fever, Weight Change Eyes: Denies: Vision Change HEENT: Denies: Head Aches, Nasal Congestion, Sinus Congestion, Sinus Drainage, Sore Throat Cardiovascular: Reports: Edema - of the RLE chronically due to remote vein harvest for CABG. Denies: Chest Pain, Palpitations Respiratory: Reports: Cough, Shortness of breath upon exertion, Sputum production. Denies: Shortness of breath at rest, Wheezing Gastrointestinal: Denies: Abdominal Pain, Constipation, Diarrhea, Nausea, Vomiting Genitourinary: Denies: Dysuria Musculoskeletal: Denies: Joint Pain, Joint Tenderness Skin: Denies: Jaundice, Rash, Wounds Neurological: Reports: Balance problems, Slurred speech. Denies: Focal weakness, Headaches, Numbness, Tingling, Tremor, Seizures Psychiatric: Denies: Anxiety, Depression, Homicidal Ideations, Suicidal Ideations Hematologic/ Lymphatic: Denies: Easy Bruising, Easy Bleeding, Hx of blood clot VTE Information - Inpt Only VTE Present on Admission: No VTE Mechan Device Prophylaxis: Knee High ANAIS Hose VTE Pharm Prophylaxis ordered?: Yes Reason prophylaxis not ordered:: Treatment Not Indicated - he is on SQ heparin for DVT prophylaxis and was just restarted on Warfarin. Patient Problems: Active and Suspected Problems S/P percutaneous endoscopic gastrostomy (PEG) tube placement (Acute) Malnutrition (Acute) pt reports a 20 lb weight loss since admission to [facility] on 09/27/2020 BUT he weighed 169 pounds and 12.1 ounces at presentation to [facility] and today at our institution he weighs 169 pounds and 5.04 ounces. ? Malnutrition? Renal failure (Acute) Acute kidney injury superimposed on CKD (Acute) Klebsiella pneumonia (Acute) UTI (urinary tract infection) (Acute) Urinary retention (Acute) Lactic acidosis (Acute) - Physical Exam Vitals/I&O's: Vital Signs Temp Pulse Resp BP Pulse Ox 97.7 F L 90 20 H 144/76 H 85 11/01/20 07:10 11/01/20 08:44 11/01/20 07:30 11/01/20 07:10 11/01/20 07:30 Oxygen Flow Rate (L/min) 8 Oxygen Delivery Method Nasal Cannula Weight: 180 lb 12.465 oz Body Mass Index (BMI) 26.6 Intake and Output for Last 24 Hours 10/30/20 10/31/20 11/01/20 23:59 23:59 23:59 Intake Total 1025 / 1145 180 / 180 Output Total 550 / 850 550 / 550 Balance 475 / 295 -370 / -370 General: Alert, Oriented x3, Cooperative, No apparent distress, Well developed, Well nourished, Confused - at night primarily HEENT: Atraumatic, Normocephalic Oral: Dry Mucosa Neck: Supple, No Nodes, No Nuchal Rigidity, Trachea Midline Lungs: Diminished, Rales - few coarse crackles in the bases.....better air exchange than prior to transfer to ICU Cardiovascular: Irregular Rate - with controlled VR, Murmur, No rub noted, No Gallop Abdomen: Bowel Sounds Present, Soft, Non Tender, Non-Distended Extremities: No clubbing, No cyanosis, Edema - of the R ankle - mild and this is chronic Skin: No rashes, No breakdown Musculoskeletal: - - he has R hip pain Neurological: - - R facial droop, mild slurring of speech. Psych/Mental Status: Normal Affect, Appropriate Laboratory Results 10/31/20 13:32: POC Glucose 237 H 10/31/20 17:41: POC Glucose 256 H 10/31/20 21:20: POC Glucose 243 H 11/01/20 05:50: PT 19.8 H, INR 1.7 11/01/20 06:38: POC Glucose 149 H Current Medications Acetaminophen (Acetaminophen 325 Mg Tablet) 650 mg PO Q4H PRN PRN Reason: Pain Score 1-10 Albuterol/Ipratropium (Ipratropium/Albuterol Sulfate 3 Ml Ampul.Neb) 3 ml INHALATION Q6H.RT [facility] Last Admin: 11/01/20 07:30 Dose: 3 ml Documented by: Allopurinol (Allopurinol 300 Mg Tablet) 300 mg PO Q48H [facility] Last Admin: 11/01/20 08:44 Dose: 300 mg Documented by: Amlodipine Besylate (Amlodipine 2.5 Mg Tablet) 2.5 mg PO BID [facility] Last Admin: 11/01/20 08:44 Dose: 2.5 mg Documented by: Atorvastatin Calcium (Atorvastatin Calcium 40 Mg Tablet) 40 mg PO QHS [facility] Last Admin: 10/31/20 21:23 Dose: 40 mg Documented by: Bisacodyl (Bisacodyl 10 Mg Suppository) 10 mg RECTAL X1 PRN PRN Reason: Constipation Calamine/Phenol (Menthol/Lanolin/Calamine/Znox 113 Gm Tube) 1 applic TOPICAL TID [facility]; Protocol Last Admin: 11/01/20 06:23 Dose: 1 applicatio Documented by: Cilostazol (Cilostazol 50 Mg Tablet) 100 mg PO BIDAC [facility] Last Admin: 11/01/20 08:42 Dose: 100 mg Documented by: Clopidogrel Bisulfate (Clopidogrel Bisulfate 75 Mg Tablet) 75 mg PO DAILY [facility] Last Admin: 11/01/20 08:44 Dose: 75 mg Documented by: Cyanocobalamin (Cyanocobalamin 500 Mcg Tablet) 1,000 mcg PO DAILY@0800 [facility] Last Admin: 11/01/20 08:43 Dose: 1,000 mcg Documented by: Docusate Sodium (Docusate Sodium 100 Mg Capsule) 100 mg PO BID [facility] Last Admin: 11/01/20 08:43 Dose: 100 mg Documented by: Emollient Ointment (Emollient Combination No.72 500 Ml Lotion) 1 applic TOPICAL 4X/DAY PRN; Protocol PRN Reason: DRY SKIN Furosemide (Furosemide 80 Mg Tablet) 80 mg PO BID@1000,1800 [facility] Last Admin: 11/01/20 08:43 Dose: 80 mg Documented by: Gabapentin (Gabapentin 300 Mg Capsule) 300 mg PO TIDCM [facility] Last Admin: 11/01/20 08:43 Dose: 300 mg Documented by: Glucagon (Glucagon 1 Mg/Ml Syringe) 1 mg IM X1 PRN PRN Reason: HYPOGLYCEMIA Heparin Sodium (Porcine) (Heparin Injection (Vial) 5,000 Unit/Ml Vial) 5,000 unit SC Q12 [facility] Last Admin: 11/01/20 08:43 Dose: 5,000 unit Documented by: Ceftriaxone Sodium 2 gm/ (Sodium Chloride) 50 mls @ 100 mls/hr IV Q24 [facility] Stop: 11/07/20 10:29 Insulin Lispro Protam/Lispro Human (Insulin Human 75/25 Kwickpen) 24 unit SC BREAKFAST [facility] Last Admin: 11/01/20 08:42 Dose: 24 u Documented by: Insulin Lispro Protam/Lispro Human (Insulin Human 75/25 Kwickpen) 10 unit SC DINNER [facility] Last Admin: 10/31/20 18:15 Dose: 10 u Documented by: Lidocaine (Lidocaine 5% Patch) 1 patch TOPICAL 1999 [facility]; Protocol Last Admin: 10/31/20 21:21 Dose: 1 patch Documented by: Magnesium Hydroxide (Magnesium Hydroxide 30 Ml Udc) 30 ml PO X1 PRN PRN Reason: Constipation Metoprolol Tartrate (Metoprolol Tartrate 50 Mg Tablet) 50 mg PO BID [facility] Last Admin: 11/01/20 08:44 Dose: 50 mg Documented by: Sodium Chloride (Sodium Chloride 1 Gm Tablet) 1 gm PO BID [facility] Last Admin: 11/01/20 08:44 Dose: 1 gm Documented by: Sodium Chloride (0.9% Saline Lock 10 Ml Syringe) 10 - 40 ml IV UD PRN PRN Reason: SALINE FLUSH Tamsulosin HCl (Tamsulosin Hcl 0.4 Mg Capsule) 0.8 mg PO 1730 [facility] Last Admin: 10/31/20 18:01 Dose: 0.8 mg Documented by: Warfarin Sodium (Warfarin 3 Mg Tablet) 3 mg PO DAILY@1700 [facility] Last Admin: 10/31/20 18:03 Dose: 3 mg Documented by: Assessment/Plan All Active Problems S/P percutaneous endoscopic gastrostomy (PEG) tube placement (Acute) Malnutrition (Acute) Renal failure (Acute) Acute kidney injury superimposed on CKD (Acute) Klebsiella pneumonia (Acute) UTI (urinary tract infection) (Acute) Urinary retention (Acute) Lactic acidosis (Acute) Impressions 1. Debility secondary to right inferior medullary ischemic infarct on 09/27/2020 and recent sepsis due to K. Pneumoniae. Suspected to be due to aspiration. 2. Sepsis due to Multilobar pneumonia secondary to Klebsiella pneumoniae 3. Bilateral pleural effusions/congestive heart failure secondary to volume overload 4. Acute combined respiratory failure on chronic hypoxic respiratory failure 5. Acute on chronic kidney failure stage 3B 6. Urine retention-Krause catheter in place 7. Dysphagia 8. Dysarthria 9. Diabetes mellitus type 2 10. Chronic low back pain 11. Paroxysmal atrial fibrillation 12. Chronic anticoagulation with warfarin 13. Coronary artery disease with history of CABG 14. History of heavy alcohol use 15. Age-related macular degeneration 16. Hypertension 17. Hyperlipidemia 18. Hyperuricemia PLAN PT for gait stability OT for ADL's ST for evaluation Analgesics as needed Bowel protocol Fall precautions Assess for Anxiety/Depression DVT prophylaxis with subcutaneous heparin while awaiting INR to become therapeutic on warfarin Follow up with PCP, neurology, cardiology following DC from IP Rehab AM lab including CMP, CBC, Mag and Phos Continue the Rocephin for 7 days......he was placed on Zosyn in the hospital and the culture from 10/26/2020 showed the Klebsiella to be only intermediately sensitive to Zosyn. DC the heparin when the INR is > 1.7 Inpatient E&M: 12845 Init Hosp L3
--- NOTE | 2020-11-01 09:00 | PCM.RU.PYE ---
Admission Information Primary Diagnosis:: Physical debility secondary to CVA and recent admission to [facility] for sepsis secondary to Klebsiella pneumoniae pneumonia with acute on chronic renal failure, acute combined respiratory failure on chronic hypoxic respiratory failure and encephalopathy. Status Changes from Prescreening?: No changes Identified Actual Problem List:: Infection, Aspiration, Cognitve Impr/Memory Loss, Alteration in Nutrition, Mobility Impaired, Self Care Deficit, Diabetes, Hyperglycemia, BP, Hypertension, Alteration/ Air Exchange, Fluid Overload r/t CHF, Alteration-Leisure Activ. Potential Problem List:: DVT, Bleeding, Infection, UTI, Aspiration, Falls, Skin Integrity, Depression Risk of Complications DVT: LMWH, ANAIS Hose Bleeding: Monitor Lab Values, Nursing to Teach Precautions for anti-coagulation therapy., Wound, if applicable, to be assessed every shift., Stroke patients assessed for lethargy or change in status. Infection: Clinical Staff to Monitor for S/S of infection:, S/S of infection include fever, redness, warmth, etc. Urinary Tract Infection: Monitor for frequency, burning, discomfort, or incontinence., Nursing will obtain urine sample for urinalysis and C&S when ordered. Aspiration: Clinical staff will monitor for coughing, drooling, congestion., Speech will evaluate swallowing and dsyphasia., Nursing will monitor patient swallowing during meals. Falls: Patient will be evaluated for Fall Precautions, Patient will be placed on Fall Precautions as indicated per protocol. Skin Breakdown: Nursing will assess skin daily using assessment tool., Nursing will place on Skin Breakdown Precautions as indicated. Pain: Clinical staff will assess patient's pain level per protocol., Medications will be given, if needed, and the pain level reassessed., Other methods: Massage, distraction, decrease stimulus, etc. used PRN. Plan of Care Patient requires physician specializing in physical medicine and rehab oversight to provide close medical supervision of rehab issues including: Pain Management, Sleep Problems, Bowel and Bladder, Medical and co-morbidity Management, DVT prophylaxis, Rehabilitation Leadership, Coordination of treatment team Patient needs Physical Therapy: For a minimum of 1 hour, At least 5 out of 7 days Patient needs Physical Therapy to improve:: Mobility, Mobility, Mobility, Strengthening, Transfers, Stretching, ROM, Endurance, Stairs, Gait, Balance Patient needs Occupational Therapy: For a minimum of 1 hour, At least 5 out of 7 days Patient needs Occupational Therapy to improve ADL's incl.: Eating, Grooming, Bathing, Dressing, Toileting, Toilet transfers, Community Reintegration, Higher functioning activities, Household tasks, Adaptive Equipment, Splinting, Other activities as determined Patient requires speech therapy: For a minimum of 1 hour, At least 5 out of 7 days Patient requires speech therapy for: Swallowing, Cognition, Language Skills, Compensatory Strategies Patient requires 24/7 Rehabilitation Nursing for: Pain Issues, Identifying and preventing risk factors, Monitoring and reporting current medical conditions, Assisting with ambulation, transfer, and all ADL's, Teaching patients about disease process and medications, Family teaching, Providing safe environment, Bowel and Bladder Issues, Skin integrity, Medication Management Patient needs Certified Corporate Travel Executive/ Case Management for: Discharge Planning, Arranging Home Equipment or Services, Family Interventions Patient needs Dietary and Nutrition Services for: Adequate Nutrition, Nutritional Supplements, Nutritional Education Goals Patient will remain: free from falls, or injury at time of discharge. Patient will perform bed mobility at: MOD I level of assist. Patient will complete transfers from bed to chair at: MOD I level of assist. Patient will ambulate: 100 feet, with MOD I assist, with LRD Patient will complete upper body dressing at: MOD I level of assist. Patient will complete lower body dressing at: MOD I level of assist. Patient will complete toileting at: MOD I level of assist. Patient will perform bathing at: MOD I level of assist. Patient will complete grooming at: MOD I level of assist. Patient will complete home management skills at: MOD I level of assist. Patient will achieve: at MOD I assist, - - 5 stairs with rails Patient will have pain level of: of 3 or less Patient's skin will: remain intact, free from infection. Patient will receive: adequate nutrition. Discharge Planning Pt Prognosis for Sig. Practical Improv. w/in Reasonable Time: Good Estimated Length of stay (days): 14 Anticipated D/C Destination: Home with Home Health Was Preadmission Assessment Accurate?: Yes
[2020-11-01] MEDS: 0.9% Normal Saline 1,000 ML 15 ML IV (11:29)
[2020-11-01 13:05] LABS: Bedside Glucose 140 mg/dL (70-110)
--- NOTE | 2020-11-01 14:51 | PCM.PN.BLA ---
Progress Note AF VSS requiring increased O2 today....8-10 LPM....he was on 3 when he arrived from PCU poor oral intake Med list was reviewed. He choked while drinking nectar thick liquids this AM and he is now requiring high flow oxygen. He denies CP, SOB at rest, AKERS, N/V/D/abd pain. He feels weak. alert, appears pale and fatigued. MM are dry Lungs - decreased throughout with no wheezing. He coughs when taking a deep breath. He is not tachypneic. He has no conversational dyspnea. H- irreg with controlled VR no peripheral edema abd - soft and NT. Impressions 1. HAP due to Klebsiella Pneumoniae - suspect due to aspiration. I suspect he aspirated again today. 2. debility due to recent CVA and to sepsis due to HAP. 3. encephalopathy due to sepsis and hypoxemia 4. acute combined respiratory failure 5. Paroxysmal atrial fibrillation on chronic anticoagulation with warfarin Get a CXR in the AM and a BMP and INR DC the heparin continue the Rocephin change the fluids to honey thick no FFW STROKE Vital Signs/Narrative: Vital Signs Pulse Resp 11/01/20 13:55 88 18 Inpatient E&M: 20752 Subs Hosp L2
[2020-11-01] MEDS: Tamsulosin HCl 0.4 MG Capsule 0.8 MG PO (16:40)
[2020-11-01 16:55] LABS: Bedside Glucose 95 mg/dL (70-110)
[2020-11-01] MEDS: Insulin Human 75/25 Kwickpen 10 UNIT SC (18:34)
[2020-11-01] MEDS: Lidocaine 5% Patch 1 PATCH TOPICAL (20:43)
[2020-11-01] MEDS: Atorvastatin Calcium 40 MG Tablet PO (20:48)
[2020-11-01 20:55] LABS: Bedside Glucose 199 mg/dL (70-110)
[2020-11-02] VITALS (9 sets, daily range): BP systolic 132–139; BP diastolic 73–79; PULSE 77–109; RESP 18–22; TEMP 36.7–37; O2SAT 92–98; BMI 26.6
[2020-11-02] MEDS: Menthol/Lanolin/Calamine/Znox 113 GM Tube 1 APPLIC TOPICAL ×3 (06:08→19:27)
[2020-11-02] MEDS: Ipratropium/Albuterol Sulfate 3 ML AMPUL.NEB INHALATION ×3 (06:41→21:11)
[2020-11-02 06:45] LABS: Bedside Glucose 144 mg/dL (70-110)
[2020-11-02] MEDS: Docusate Sodium 100 MG Capsule PO ×2 (08:01→19:28)
[2020-11-02] MEDS: Cyanocobalamin 500 MCG Tablet 1000 MCG PO (08:01)
[2020-11-02] MEDS: Insulin Human 75/25 Kwickpen 24 UNIT SC (08:01)
[2020-11-02] MEDS: Metoprolol Tartrate 50 MG Tablet PO ×2 (08:02→19:31)
[2020-11-02] MEDS: Furosemide 80 MG Tablet PO ×2 (08:03→17:05)
[2020-11-02] MEDS: Sodium Chloride 1 GM Tablet PO ×2 (08:03→19:35)
[2020-11-02] MEDS: Clopidogrel Bisulfate 75 MG Tablet PO (08:03)
[2020-11-02] MEDS: Gabapentin 300 MG Capsule PO ×3 (08:03→17:05)
[2020-11-02] MEDS: amLODIPine 2.5 MG Tablet PO ×2 (08:04→19:34)
[2020-11-02 08:05] LABS: Anion Gap 1 (5-15); BUN 28 mg/dL (7-18); BUN/Creat Ratio 18.1 RATIO (10-20); Chloride 103 mmol/L (98-107); Creatinine, Serum 1.55 mg/dL (0.70-1.30); EST Glomerular Filtration Rate 45 mL/min (>60); Est Glom Filt Rate - Afr Amer 55 mL/min (>60); Estimated Creatinine Clearance 34.21 ml/min; Glucose 137 mg/dL (74-106); Magnesium 2.1 mg/dL (1.6-2.6); Potassium 3.6 mmol/L (3.5-5.1); Sodium Level 144 mmol/L (136-145)
[2020-11-02] MEDS: Heparin Injection (Vial) 5,000 UNIT/ML VIAL 5000 UNIT SC ×2 (08:05→19:28)
[2020-11-02 08:12] LABS: International Normalized Ratio 2.4; Prothrombin Time (Protime)PT. 25.9 SECONDS (11.7-14.9)
[2020-11-02] MEDS: 0.9% Saline Lock 10 ML Syringe IV (10:12)
--- NOTE | 2020-11-02 10:44 | PCM.PN.BLA ---
Progress Note Afebrile VSS Maintaining appropriate oxygen saturation on high flow oxygen at 10 Liters following probable aspiration at breakfast yesterday. He is afebrile. Oral intake is fair/adequate. fluid balance is positive. Discussed with nursing - no problems that need addressed Reviewed the PT/OT/ST notes Medication list reviewed. INR is 2.4 today. Renal function is stable. The HCO3 is 40 today. K is 3.6. alert and mentation is improving. NAD. Not tachypneic and no conversational dyspnea. Lungs - decreased throughout with bibasilar crackles.....mild......donya diminished in the bases H- irreg with controlled VR, no gallop abd - soft and NT no edema no rashes and no skin breakdown Impressions 1. sepsis due to HAP due to Klebsiella Pneumoniae likely due to aspiration 2. dysphagia - has been placed on Honey thick liquids now for another episode of aspiration after transfer back to rehab. 3. acute pulmonary edema - due to volume OL or to diastolic function secondary to hypoxemia? 4. CRF stage 3 b check a CXR today. Fluid restrict to 1500 cc's daily recheck a cbc and a BMP on Wednesday and a PT/INR STROKE Vital Signs/Narrative: Vital Signs Temp Pulse Resp BP Pulse Ox 11/02/20 08:02 101 H 11/02/20 07:00 98.1 F 101 H 20 H 132/79 H 92 Inpatient E&M: [id number] Subs Hosp L2
--- NOTE | 2020-11-02 11:31 | CPS ---
Patient was increased from 8L to 10L after finding patient at 87%. RN was notified.
--- NOTE | 2020-11-02 11:40 | RAD_ITS ---
STUDY: X-RAY CHEST REASON FOR EXAM: Male, 85 years old. Aspiration and hypoxia. TECHNIQUE: PA and lateral views of the chest. COMPARISON: 10/30/2020. FINDINGS: Patchy bilateral infiltrates slightly improved on the right side since previous examination. Small left pleural effusion. Sternal cerclage wires and vascular clips are present from a prior sternotomy and coronary artery bypass graft procedure (CABG). Normal mediastinum and jaida. Normal visualized pulmonary arteries. Normal visualized aortic arch and descending thoracic aorta. Stable osseous structures. The visualized upper abdomen demonstrate gastrostomy tube. RAD/Chest PA and Lateral IMPRESSION: Slightly improved aeration of the right midlung zone. Otherwise no significant change since previous examination. Electronically Signed: Noe Freitas MD at 15:39 EST Tel , Service support ,
[2020-11-02 12:15] LABS: Bedside Glucose 98 mg/dL (70-110)
[2020-11-02] MEDS: Glucerna Shake 120 ML LIQUID PO ×2 (13:38→19:30)
[2020-11-02] MEDS: Cilostazol 50 MG Tablet 100 MG PO (17:05)
[2020-11-02] MEDS: Tamsulosin HCl 0.4 MG Capsule 0.8 MG PO (17:06)
[2020-11-02] MEDS: Insulin Human 75/25 Kwickpen 10 UNIT SC (17:06)
[2020-11-02] MEDS: Magnesium Hydroxide 30 ML UDC PO (17:06)
[2020-11-02 17:25] LABS: Bedside Glucose 212 mg/dL (70-110)
[2020-11-02] MEDS: Lidocaine 5% Patch 1 PATCH TOPICAL (19:26)
[2020-11-02] MEDS: Atorvastatin Calcium 40 MG Tablet PO (19:31)
[2020-11-02 20:11] LABS: Bedside Glucose 241 mg/dL (70-110)
[2020-11-03] VITALS (7 sets, daily range): BP systolic 101–131; BP diastolic 57–69; PULSE 82–111; RESP 18–24; TEMP 36.2–37.1; O2SAT 92–94; BMI 26.6
[2020-11-03] MEDS: Ipratropium/Albuterol Sulfate 3 ML AMPUL.NEB INHALATION ×3 (00:34→19:28)
[2020-11-03] MEDS: 0.9% Saline Lock 10 ML Syringe IV ×2 (02:30→10:20)
[2020-11-03] MEDS: Menthol/Lanolin/Calamine/Znox 113 GM Tube 1 APPLIC TOPICAL ×3 (06:16→19:35)
[2020-11-03 06:30] LABS: Bedside Glucose 109 mg/dL (70-110)
[2020-11-03 08:04] LABS: International Normalized Ratio 2.2
[2020-11-03] MEDS: Insulin Human 75/25 Kwickpen 24 UNIT SC (08:17)
[2020-11-03] MEDS: Gabapentin 300 MG Capsule PO ×3 (08:18→17:34)
[2020-11-03] MEDS: Cyanocobalamin 500 MCG Tablet 1000 MCG PO (08:18)
[2020-11-03] MEDS: Cilostazol 50 MG Tablet 100 MG PO ×2 (08:18→17:33)
[2020-11-03] MEDS: Glucerna Shake 120 ML LIQUID PO ×2 (08:19→19:38)
[2020-11-03] MEDS: Furosemide 80 MG Tablet PO ×2 (08:19→17:35)
[2020-11-03] MEDS: Clopidogrel Bisulfate 75 MG Tablet PO (08:19)
[2020-11-03] MEDS: Sodium Chloride 1 GM Tablet PO ×2 (08:19→19:37)
[2020-11-03] MEDS: amLODIPine 2.5 MG Tablet PO ×2 (08:19→19:37)
[2020-11-03] MEDS: Heparin Injection (Vial) 5,000 UNIT/ML VIAL 5000 UNIT SC ×2 (08:19→19:36)
[2020-11-03] MEDS: Metoprolol Tartrate 50 MG Tablet PO ×2 (08:19→19:37)
[2020-11-03] MEDS: Allopurinol 300 MG Tablet PO (08:20)
[2020-11-03 11:40] LABS: Bedside Glucose 167 mg/dL (70-110)
[2020-11-03] MEDS: Tamsulosin HCl 0.4 MG Capsule 0.8 MG PO (17:34)
[2020-11-03] MEDS: Insulin Human 75/25 Kwickpen 10 UNIT SC (17:34)
[2020-11-03 17:40] LABS: Bedside Glucose 185 mg/dL (70-110)
[2020-11-03] MEDS: Lidocaine 5% Patch 1 PATCH TOPICAL (19:35)
[2020-11-03] MEDS: Atorvastatin Calcium 40 MG Tablet PO (19:36)
[2020-11-03 21:05] LABS: Bedside Glucose 192 mg/dL (70-110)
[2020-11-04] VITALS (8 sets, daily range): BP systolic 113–126; BP diastolic 74–81; PULSE 73–108; RESP 16–24; TEMP 36.6–37; O2SAT 92–93; BMI 26.6
[2020-11-04] MEDS: Menthol/Lanolin/Calamine/Znox 113 GM Tube 1 APPLIC TOPICAL ×3 (05:22→20:30)
[2020-11-04 05:44] LABS: Absolute Lymphocyte Count 1.15 X10^3/uL (0.83-4.51); Absolute Neutrophil Count 2.9 X10^3/uL (2.0-7.7); Basophil# 0.02 X10^3/uL; Basophil% 0.4 % (0-1); Eosinophil# 0.12 X10^3/uL; Eosinophils% 2.6 % (0-5); Hematocrit 32.5 % (40-54); Hemoglobin 9.7 g/dL (13.0-16.5); Lymphocyte # 1.15 X10^3/ul (4.0); Lymphocyte % 24.9 % (19-41); Mean Corp Hgb Conc 29.8 g/dL (32-36); Mean Corpuscular Hgb 29.5 pg (27.0-32.0); Mean Corpuscular Volume 98.8 fL (80-94); Mean Platelet Vol. 9.9 fl (6.2-12.0); Monocyte# 0.41 X10^3/uL; Monocyte% 8.9 % (0-10); NRBC Flagged by Analyzer 0 % (0-5); Platelet Count 165 K/mm3 (150-450); RBC Distribution Width CV 15.2 % (11.6-14.6); RBC Distribution Width SD 55.2 fl (35.1-43.9); Red Blood Count 3.29 M/mm3 (4.6-6.2); White Blood Count 4.6 K/mm3 (4.4-11.0)
[2020-11-04 05:53] LABS: International Normalized Ratio 2.2; Prothrombin Time (Protime)PT. 24.3 SECONDS (11.7-14.9)
[2020-11-04 06:01] LABS: Magnesium 2.3 mg/dL (1.6-2.6); Phosphorus 3.4 mg/dL (2.5-4.9)
[2020-11-04 06:20] LABS: Bedside Glucose 130 mg/dL (70-110)
[2020-11-04] MEDS: Ipratropium/Albuterol Sulfate 3 ML AMPUL.NEB INHALATION ×2 (06:28→19:20)
[2020-11-04] MEDS: Sodium Chloride 1 GM Tablet PO ×2 (09:44→20:35)
[2020-11-04] MEDS: Clopidogrel Bisulfate 75 MG Tablet PO (09:44)
[2020-11-04] MEDS: amLODIPine 2.5 MG Tablet PO ×2 (09:44→20:34)
[2020-11-04] MEDS: Cyanocobalamin 500 MCG Tablet 1000 MCG PO (09:44)
[2020-11-04] MEDS: Metoprolol Tartrate 50 MG Tablet PO ×2 (09:45→20:33)
[2020-11-04] MEDS: Cilostazol 50 MG Tablet 100 MG PO ×2 (09:45→17:40)
[2020-11-04] MEDS: Gabapentin 300 MG Capsule PO ×3 (09:45→17:40)
[2020-11-04] MEDS: Furosemide 80 MG Tablet PO ×2 (09:49→17:45)
--- NOTE | 2020-11-04 09:51 | RAD_ITS ---
STUDY: X-RAY CHEST REASON FOR EXAM: Male, 85 years old. COUGH, HYPOXEMIA TECHNIQUE: PA and lateral views of the chest. COMPARISON: Comparison is made with prior study dated 11/02/2020. FINDINGS: Stable small left pleural effusion with left basilar infiltrate and/or atelectasis. Mild improved aeration of the right lung base. Stable mild degree of CHF. Sternal cerclage wires and vascular clips are present from a prior sternotomy and coronary artery bypass graft procedure (CABG). Normal mediastinum and jaida. Normal visualized pulmonary arteries. Normal visualized aortic arch and descending thoracic aorta. There are diffuse degenerative changes of the visualized thoracic spine. There is degenerative osteoarthritis of the bilateral shoulders. A gastrostomy tube is seen within the stomach. RAD/Chest PA and Lateral IMPRESSION: Persistent left pleural effusion and left basilar infiltrate. Mild improved aeration of the right lung base. Mild degree of vascular congestion and CHF. Electronically Signed: Sony Figueroa MD at 15:10 EST , Service support ,
[2020-11-04] MEDS: Insulin Human 75/25 Kwickpen 24 UNIT SC (09:52)
[2020-11-04 09:55] LABS: Bedside Glucose 268 mg/dL (70-110)
[2020-11-04] MEDS: Glucerna Shake 120 ML LIQUID PO ×4 (09:55→20:33)
--- NOTE | 2020-11-04 11:41 | CASEMGMT ---
Social Work IDT met with patient and via conference call for Team meeting. Discussed patient's progress in therapy. Pt is CGA-min for tx, ambulating 175 ft CGA with FWW, set up for grooming and UE dressing, max for LE dressing. Continue to work on endurance and strength. ST has pt on puree, honey thick diet - downgrade. Will watch during lunch today. Complete new cognitive eval and pt has improved on attention and memory. Will continue to work on those strategies as well as speech clarity. Pt is on IV ATB, will get new cath, and sending a sputum sample. Explained [employer] NRD 11/01, awaiting outcome, but closed today due to holiday. Will continue to follow. Will ReTeam next week. Mary Hector, RADAR ENGINEERING TEACHER SECURITY SERVICES MANAGER
[2020-11-04 12:16] LABS: Bedside Glucose 201 mg/dL (70-110)
[2020-11-04] MEDS: NYSTATIN 500,000 UNIT/5 ML UDC 500000 UNIT PO ×3 (13:27→20:35)
--- NOTE | 2020-11-04 13:28 | PCM.PN.BLA ---
Progress Note Rocephin Afebrile VSS Maintaining an oxygen saturation of 92 to 94% on and 8 L nasal cannula today. Oral intake is improving. He tells me he ate almost 100% of his breakfast today. The chun was discontinued over the weekend. The PVR's are still high. Intake and output are not accurate since the Chun was discontinued since he is incontinent of urine. His weight has increased 3 pounds since 11/01/2020. He is currently taking 80 mg of PO Lasix BID Discussed with nursing - no problems that need addressed. Reviewed the PT/OT/ST notes He is more fatigued than when he was first admitted to the rehab unit. TUG took him nearly twice as long recently. Medication list reviewed. All lab was personally reviewed. The white blood cell count is 4.6 with an unremarkable differential. Phosphorus and magnesium are within normal limits. The serum bicarb on Wednesday was up to 40. BUN was stable at 1.55. INR is therapeutic at 2.2 today He has no complaints today. Denies CP and denies SOB at rest. Denies N/V/D. He is still coughing and it is productive. it is weiner and creamy/thick. He denies AKERS Alert and oriented X 3. He is appropriate. Lungs - decreased throughout with crackles in both bases. No wheezes. Not tachypneic and no conversational dyspnea. H- irreg with controlled VR abd - soft and NT no edema no calf tenderness Impressions 1. Hospital-acquired pneumonia secondary to Klebsiella pneumoniae 2. acute combined respiratory failure 3. CRF 4. Chronic anticoagulation with warfarin-INR stable at 2.2 5. Macrocytic anemia 6. Urine retention -chronic Reinsert the Chun Get a BMP now........if the CO2 is high will need to get an ABG Titrate the oxygen to keep the O2 sat between 89-93 and no higher. He has not been a CO2 retainer in the past and the metabolic alkalosis may be due to all the diuretics. aggressive pulmonary toilet. DAily weights CXR today shows a decrease in the R side infiltrates. The R costophrenic angle in sharp today but there is effusion in the L base and also atelectasis. there are still infiltrates BL but they are improving STROKE Vital Signs/Narrative: Vital Signs Pulse BP 11/04/20 09:45 97 113/81 H Inpatient E&M: [id number] Subs Hosp L2
[2020-11-04 14:11] LABS: Anion Gap 4 (5-15); BUN 26 mg/dL (7-18); BUN/Creat Ratio 16.6 RATIO (10-20); Calcium,Total 8.7 mg/dL (8.5-10.1); Chloride 99 mmol/L (98-107); Creatinine, Serum 1.57 mg/dL (0.70-1.30); EST Glomerular Filtration Rate 45 mL/min (>60); Est Glom Filt Rate - Afr Amer 54 mL/min (>60); Estimated Creatinine Clearance 33.77 ml/min; Glucose 110 mg/dL (74-106); Potassium 3.9 mmol/L (3.5-5.1); Sodium Level 142 mmol/L (136-145)
[2020-11-04] MEDS: Acetaminophen 325 MG Tablet 650 MG PO (14:13)
[2020-11-04 14:46] LABS: Allen Test Positive; Base Excess 15 mmol/L (-2 to +2); Bicarbonate 39.2 mmol/L (22-26); Blood Gas Specimen Type ART; O2 Delivery Device HFNC; PO2 61 mmHG (75-100); SITE L Radial; SO2 90 % (95-99); Total Carbon Dioxide 41 mmol/L; pCO2 61.4 mmHg (35-45); pH 7.41 (7.35-7.45)
[2020-11-04 16:50] LABS: Bedside Glucose 215 mg/dL (70-110)
[2020-11-04] MEDS: Tamsulosin HCl 0.4 MG Capsule 0.8 MG PO (17:40)
[2020-11-04] MEDS: Insulin Human 75/25 Kwickpen 10 UNIT SC (17:41)
[2020-11-04] MEDS: Insulin Lispro 100 UNIT/ML INSULN.PEN SC (17:42)
[2020-11-04] MEDS: AcetaZOLAMIDE 250 MG Tablet PO (20:15)
[2020-11-04] MEDS: 0.9% Saline Lock 10 ML Syringe IV (20:15)
[2020-11-04] MEDS: Lidocaine 5% Patch 1 PATCH TOPICAL (20:17)
[2020-11-04] MEDS: Atorvastatin Calcium 40 MG Tablet PO (20:33)
[2020-11-04 22:15] LABS: Bedside Glucose 220 mg/dL (70-110)
[2020-11-05] VITALS (9 sets, daily range): BP systolic 123–131; BP diastolic 68–90; PULSE 53–93; RESP 16–32; TEMP 36.5–36.7; O2SAT 92–94; BMI 26.6
[2020-11-05] MEDS: Ipratropium/Albuterol Sulfate 3 ML AMPUL.NEB INHALATION ×4 (01:04→18:40)
[2020-11-05 05:44] LABS: Phosphorus 3.4 mg/dL (2.5-4.9)
[2020-11-05 06:31] LABS: Bedside Glucose 160 mg/dL (70-110)
[2020-11-05] MEDS: Menthol/Lanolin/Calamine/Znox 113 GM Tube 1 APPLIC TOPICAL ×3 (06:40→20:47)
[2020-11-05] MEDS: Insulin Lispro 100 UNIT/ML INSULN.PEN SC ×3 (07:41→16:56)
[2020-11-05] MEDS: Insulin Human 75/25 Kwickpen 24 UNIT SC (07:41)
[2020-11-05] MEDS: Clopidogrel Bisulfate 75 MG Tablet PO (08:59)
[2020-11-05] MEDS: Sodium Chloride 1 GM Tablet PO ×2 (08:59→20:50)
[2020-11-05] MEDS: Furosemide 80 MG Tablet PO ×2 (08:59→18:08)
[2020-11-05] MEDS: Cilostazol 50 MG Tablet 100 MG PO ×2 (08:59→18:08)
[2020-11-05] MEDS: Allopurinol 300 MG Tablet PO (08:59)
[2020-11-05] MEDS: Gabapentin 300 MG Capsule PO ×3 (08:59→18:08)
[2020-11-05] MEDS: Metoprolol Tartrate 50 MG Tablet PO ×2 (08:59→20:49)
[2020-11-05] MEDS: Cyanocobalamin 500 MCG Tablet 1000 MCG PO (08:59)
[2020-11-05] MEDS: NYSTATIN 500,000 UNIT/5 ML UDC 500000 UNIT PO ×4 (09:00→20:50)
[2020-11-05] MEDS: amLODIPine 2.5 MG Tablet PO ×2 (09:00→20:49)
[2020-11-05] MEDS: Glucerna Shake 120 ML LIQUID PO ×3 (09:04→20:48)
[2020-11-05] MEDS: 0.9% Saline Lock 10 ML Syringe IV ×2 (10:11→12:46)
--- NOTE | 2020-11-05 10:15 | PCM.PN.BLA ---
Progress Note Day #5/7 [place] Afebrile VSS Maintaining an oxygen saturation of 92% on 8 LPM today. PO2 was 60 with a PCO2 of 61 on 8 LPM yesterday. Oral intake is erratic. He is currently eating 50 to 100% of his meals. I reviewed the dietitians note from yesterday. He had 1250 in urine yesterday but had 1730 in - he is on a 1500 cc fluid restriction? Discussed with nursing - His PEG tube has come loose from the anchors. There are 3 anchors and they were attached to the PEG collar and sutured to the abd wall. The tube is moving in and out. Heis having a hard time with swallowing meds and asks that we give through the PEG. Reviewed the PT/OT/ST notes. He is currently on honey thick liquids. Weight has not been done today yet. Medication list reviewed. The blood sugar record was reviewed. John is c/o his left leg having a spasm last night and today again........it starts and stops without treatment. He is not currently on an AED. He says it does not twitch or jump but the thigh anteriorly gets tight. He is also complaining of right hip again as he begins walking more. 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 Alert and appropriate Lungs - crackles in the bases L> R. BS's are diminished throughout but worse in the bases. Over all the air exchange has improved. he is not tachypneic at rest and he has no conversational dyspnea. He gets a little SOB with ambulating. H is regular today. No ecchymosis and no epistaxis or bleeding from the gums. He has a trace of edema of the R ankle which is chronic but no edema in the left Leg. no calf tenderness. no rashes. Impressions 1. debility due to stroke AND due to recent admission to the hospital for sepsis due to Klebsiella pneumonia with acute combined respiratory failure. Sepsis caused him to become weak again and he needs additional time in rehab. he is able to do 3 hours and he is progressing. 2. acute combined respiratory failure 3. persistent L pleural effusion - suspect it may be parapneumonic. the sputum from yesterday still has 4+ WBC's and is growing a GM neg lani lactose dining car conductor. Await the final result to determine appropriate antibiotic. CBC shows a normal WBC count and diff and he is AF. May need to get ID on board. 4. DM II 5. severe dysphagia continue the current medications. Adjust the insulin. Continue IS and PEP recheck a PT/INR on . STROKE Vital Signs/Narrative: Vital Signs Temp Pulse Resp BP Pulse Ox 11/05/20 09:37 98.0 F 93 16 131/90 H 92 11/05/20 08:59 93 11/05/20 06:50 53 L 28 H Inpatient E&M: [id number] Subs Hosp L2
[2020-11-05] MEDS: Acetaminophen 325 MG Tablet 650 MG PO (11:03)
[2020-11-05 11:15] LABS: Bedside Glucose 295 mg/dL (70-110)
--- NOTE | 2020-11-05 12:04 | PCM.CONS.GEN ---
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 Patient was hospitalized at [facility] for slurred speech, facial droop and weakness. Patient had a PEG tube placed due to failed cookie swallow. Interventional radiology placed an 18 indonesian kangaroo G tube on 10/01/20. Patient has been receiving at least 50% of his nutrition through the G tube. Patient is able to eat pureed textured foods and honey thickened liquids with close supervision. He denies abdominal pain at the tube site. Per nursing, patient's peg tube continues to flush well and he is able to have tube feeds successfully. Patient is also on Plavix, Pletal, and Warfarin. His recent INR is 2.2. 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) Decubitus ulcer of coccygeal region, stage 1 (Chronic) Chronic anticoagulation (Chronic) With warfarin Small vessel disease, cerebrovascular (Chronic) Age-related macular degeneration (Chronic) Allergies No Known Allergies Allergy (Verified 10/03/20 22:45) Home Medications: Ambulatory Orders Medication Instructions Recorded Allopurinol [Zyloprim] 300 mg PO Q48H 10/03/20 Atorvastatin Calcium [Lipitor] 40 mg PO QHS 10/03/20 Cilostazol [Pletal] 100 mg PO BIDAC 10/03/20 Clopidogrel Bisulfate [Plavix] 75 mg GT DAILY 10/03/20 Cyanocobalamin [Vitamin B12] 1,000 mcg PO DAILY@0800 10/03/20 Gabapentin [Neurontin] 300 mg PO TIDCM 10/03/20 Acetaminophen [Tylenol] 650 mg PO Q4H PRN 10/28/20 Albuterol Aerosols [Ventolin 2.5 mg INHALATION Q2H PRN PRN 10/28/20 Aerosols] Amlodipine [Norvasc] 2.5 mg PO BID 10/28/20 Bisacodyl 10 mg RC X1 PRN 10/28/20 Docusate Sodium [Colace Clear] 100 mg PO BID 10/28/20 Emollient Combination No.72 1 applic TOPICAL 4X/DAY PRN 10/28/20 [Eucerin Intensive Repair] Glucagon 1 mg IM X1 PRN 10/28/20 Insulin Human 75/25 [Humalog Mix 10 unit SQ DINNER 10/28/20 75-25 Kwikpen ([facility])] Insulin Human 75/25 [Humalog Mix 24 unit SQ BREAKFAST 10/28/20 75-25 Kwikpen ([facility])] Ipratropium/Albuterol Sulfate 3 ml INHALATION Q4H PRN 10/28/20 [Duoneb] Ipratropium/Albuterol Sulfate 3 ml INHALATION Q6H.RT 10/28/20 [Duoneb] Lidocaine [Lidoderm] 1 ea TP 2000 10/28/20 Magnesium Hydroxide [Milk Of 30 ml PO X1 PRN 10/28/20 Magnesia] Menthol/Lanolin/Calamine/Znox 1 applic TP TID 10/28/20 [Calmoseptine Ointment] Metoprolol Tartrate [Lopressor 50 mg PO BID 10/28/20 (beta [place])] Sodium Chloride 1 gm PO BID 10/28/20 Tamsulosin HCl [Flomax] 0.8 mg PO 1730 10/28/20 Warfarin Sodium [Jantoven] 3 mg PO 1700 10/28/20 Ceftriaxone 2 gm IV Q24 10/31/20 Heparin Injection (Vial) [Heparin 5,000 unit SC Q12 10/31/20 Na] Surgical History: cholecystectomy, coronary bypass surgery - CABG x 1., - - CABG x1, PEG tube placement, cholecystectomy. Psychiatric History: No pertinent psych hx Lives: Spouse/ Significant Other Smoking Status: Former smoker Tobacco Use: Cigarettes Alcohol: Heavy - he drinks 4-6 beers a day on a regular basis. Drugs: None - *Family History Paternal History Items: High Cholesterol, Heart Disease, Hypertension Maternal History Items: Diabetes Review of Systems Constitutional: Denies: Chills, Fever, Weight Change HEENT: Reports: Difficulty Swallowing Cardiovascular: Denies: Chest Pain, Palpitations Respiratory: Denies: Cough, Shortness of breath at rest, Sputum production Gastrointestinal: Denies: Abdominal Pain, Nausea, Vomiting Genitourinary: Denies: Dysuria Musculoskeletal: Reports: - - hip pain Skin: Denies: Rash, Wounds Neurological: Reports: Balance problems Psychiatric: Denies: Anxiety, Depression, Homicidal Ideations, Suicidal Ideations Hematologic/ Lymphatic: Reports: Anemia Patient Problems: Active and Suspected Problems S/P percutaneous endoscopic gastrostomy (PEG) tube placement (Acute) Malnutrition (Acute) pt reports a 20 lb weight loss since admission to [facility] on 09/27/2020 BUT he weighed 169 pounds and 12.1 ounces at presentation to [facility] and today at our institution he weighs 169 pounds and 5.04 ounces. ? Malnutrition? Renal failure (Acute) Acute kidney injury superimposed on CKD (Acute) Klebsiella pneumonia (Acute) UTI (urinary tract infection) (Acute) Urinary retention (Acute) Lactic acidosis (Acute) Malfunction of percutaneous endoscopic gastrostomy (PEG) tube (Acute) - Physical Exam Vitals/I&O's: Vital Signs Temp Pulse Resp BP Pulse Ox 98.0 F 93 16 131/90 H 92 11/05/20 09:37 11/05/20 09:37 11/05/20 09:37 11/05/20 09:37 11/05/20 09:37 Oxygen Flow Rate (L/min) 7 Oxygen Delivery Method Nasal Cannula Weight: 182 lb 8.684 oz Body Mass Index (BMI) 26.6 Intake and Output for Last 24 Hours 11/03/20 11/04/20 11/05/20 23:59 23:59 23:59 Intake Total 1721 / 1721 1730 / 1730 300 / 300 Output Total 1850 / 1850 1250 / 1250 1300 / 1300 Balance -129 / -129 480 / 480 -1000 / -1000 General: Alert, Cooperative HEENT: Atraumatic, PERRLA, EOMI, Normocephalic Neck: Supple, No JVD, Negative Carotid Bruits Lungs: Clear to auscultation, Normal air movement Cardiovascular: Regular rate, No murmurs Abdomen: Soft, Non Tender, - - Kangaroo G tube placed with [address] G tube not connected with any of the buttons. Tube is sliding in and out of place. Tube end remains in the tract. Opposite end is held in place by catheter holding device on the abdomen. Extremities: No edema, Capillary Refill Less than 3 Seconds Musculoskeletal: No Tenderness to Palpation of Joints or Extremities Neurological: Neuro grossly intact Psych/Mental Status: Normal Affect, Appropriate Microbiology Past 72 Hours 11/04/20 09:44 Sputum, Expectorated/Coughed Gram Stain - Final 11/04/20 09:44 Sputum, Expectorated/Coughed Respiratory Culture - Preliminary GNR lactose log roller 11/05/20 08:20 Stool Stool Occult Blood (LIZANDRO) - Final Laboratory Results 11/04/20 05:37: Sodium 142, Potassium 3.9, Chloride 99, Carbon Dioxide 39.0 H, Anion Gap 4 L, BUN 26 H, Creatinine 1.57 H, Estim Creat Clear Calc 33.77, Est GFR (MDRD) Af Amer 54 L, Est GFR (MDRD) Non-Af 45 L, BUN/Creatinine Ratio 16.6, Glucose 110 H, Calcium 8.7 11/04/20 11:54: POC Glucose 201 H 11/04/20 14:40: Specimen Type ART, Sample Site L Radial, pH 7.41, Bicarbonate Actual 39.2 H, Total CO2 41, Base Excess 15 H, O2 Saturation 90 L, ABG pCO2 61.4 H, ABG pO2 61 L, Elliott Test Positive, O2 Delivery Device HFNC, Liter Flow 8.0 11/04/20 16:35: POC Glucose 215 H 11/04/20 22:04: POC Glucose 220 H 11/05/20 05:25: Phosphorus 3.4 11/05/20 06:23: POC Glucose 160 H 11/05/20 11:13: POC Glucose 295 H Current Medications Acetaminophen (Acetaminophen 325 Mg Tablet) 650 mg PO Q4H PRN PRN Reason: Pain Score 1-10 Last Admin: 11/05/20 11:03 Dose: 650 mg Documented by: Acetazolamide (Acetazolamide 500 Mg/10 Ml Vial) 250 mg IV X1 ONE Stop: 11/05/20 10:34 Albuterol/Ipratropium (Ipratropium/Albuterol Sulfate 3 Ml Ampul.Neb) 3 ml INHALATION Q6H.RT [facility] Last Admin: 11/05/20 06:50 Dose: 3 ml Documented by: Allopurinol (Allopurinol 300 Mg Tablet) 300 mg PO Q48H [facility] Last Admin: 11/05/20 08:59 Dose: 300 mg Documented by: Amlodipine Besylate (Amlodipine 2.5 Mg Tablet) 2.5 mg PO BID [facility] Last Admin: 11/05/20 09:00 Dose: 2.5 mg Documented by: Atorvastatin Calcium (Atorvastatin Calcium 40 Mg Tablet) 40 mg PO QHS [facility] Last Admin: 11/04/20 20:33 Dose: 40 mg Documented by: Bisacodyl (Bisacodyl 10 Mg Suppository) 10 mg RECTAL X1 PRN PRN Reason: Constipation Calamine/Phenol (Menthol/Lanolin/Calamine/Znox 113 Gm Tube) 1 applic TOPICAL TID [facility]; Protocol Last Admin: 11/05/20 06:40 Dose: 1 applicatio Documented by: Cilostazol (Cilostazol 50 Mg Tablet) 100 mg PO BIDAC [facility] Last Admin: 11/05/20 08:59 Dose: 100 mg Documented by: Clopidogrel Bisulfate (Clopidogrel Bisulfate 75 Mg Tablet) 75 mg PO DAILY [facility] Last Admin: 11/05/20 08:59 Dose: 75 mg Documented by: Cyanocobalamin (Cyanocobalamin 500 Mcg Tablet) 1,000 mcg PO DAILY@0800 [facility] Last Admin: 11/05/20 08:59 Dose: 1,000 mcg Documented by: Docusate Sodium (Docusate Sodium 100 Mg Capsule) 100 mg PO BID [facility] Last Admin: 11/05/20 09:00 Dose: Not Given Documented by: Emollient Ointment (Emollient Combination No.72 500 Ml Lotion) 1 applic TOPICAL 4X/DAY PRN; Protocol PRN Reason: DRY SKIN Furosemide (Furosemide 80 Mg Tablet) 80 mg PO BID@1000,1800 [facility] Last Admin: 11/05/20 08:59 Dose: 80 mg Documented by: Gabapentin (Gabapentin 300 Mg Capsule) 300 mg PO TIDCM [facility] Last Admin: 11/05/20 08:59 Dose: 300 mg Documented by: Glucagon (Glucagon 1 Mg/Ml Syringe) 1 mg IM X1 PRN PRN Reason: HYPOGLYCEMIA Ceftriaxone Sodium 2 gm/ (Sodium Chloride) 50 mls @ 100 mls/hr IV Q24 [facility] Stop: 11/07/20 10:29 Last Admin: 11/05/20 10:11 Dose: 100 mls/hr Documented by: Sodium Chloride () 1,000 mls @ 15 mls/hr IV .Q48H [facility] Last Admin: 11/03/20 11:31 Dose: Not Given Documented by: Insulin Human Lispro (Insulin Lispro 100 Unit/Ml Insuln.Pen) 0 unit SC TIDAC [facility]; Protocol Last Admin: 11/05/20 07:41 Dose: 1 u Documented by: Insulin Lispro Protam/Lispro Human (Insulin Human 75/25 Kwickpen) 12 unit SC DINNER [facility] Insulin Lispro Protam/Lispro Human (Insulin Human 75/25 Kwickpen) 28 unit SC BREAKFAST [facility] Lidocaine (Lidocaine 5% Patch) 1 patch TOPICAL 1999 [facility]; Protocol Last Admin: 11/04/20 20:17 Dose: 1 patch Documented by: Magnesium Hydroxide (Magnesium Hydroxide 30 Ml Udc) 30 ml PO X1 PRN PRN Reason: Constipation Last Admin: 11/02/20 17:06 Dose: 30 ml Documented by: Metoprolol Tartrate (Metoprolol Tartrate 50 Mg Tablet) 50 mg PO BID [facility] Last Admin: 11/05/20 08:59 Dose: 50 mg Documented by: Nutritional Formula (Lactose Free) (Glucerna Shake 120 Ml Liquid) 120 ml PO 4X/DAY [facility] Last Admin: 11/05/20 09:04 Dose: 120 ml Documented by: Nystatin (Nystatin 500,000 Unit/5 Ml Udc) 500,000 unit PO 4X/DAY [facility] Last Admin: 11/05/20 09:00 Dose: 500,000 unit Documented by: Sodium Chloride (Sodium Chloride 1 Gm Tablet) 1 gm PO BID [facility] Last Admin: 11/05/20 08:59 Dose: 1 gm Documented by: Sodium Chloride (0.9% Saline Lock 10 Ml Syringe) 10 - 40 ml IV UD PRN PRN Reason: SALINE FLUSH Last Admin: 11/05/20 10:11 Dose: 10 ml Documented by: Tamsulosin HCl (Tamsulosin Hcl 0.4 Mg Capsule) 0.8 mg PO 1730 [facility] Last Admin: 11/04/20 17:40 Dose: 0.8 mg Documented by: Warfarin Sodium (Warfarin 3 Mg Tablet) 3 mg PO DAILY@1700 [facility] Last Admin: 11/04/20 17:40 Dose: 3 mg Documented by: Assessment/Plan All Active Problems S/P percutaneous endoscopic gastrostomy (PEG) tube placement (Acute) Malnutrition (Acute) Renal failure (Acute) Acute kidney injury superimposed on CKD (Acute) Klebsiella pneumonia (Acute) UTI (urinary tract infection) (Acute) Urinary retention (Acute) Lactic acidosis (Acute) Malfunction of percutaneous endoscopic gastrostomy (PEG) tube (Acute) I have been consulted in conjunction with Dr. Loza Impression: Malfunctioning PEG tube Plan: Patient was discussed with Dr. Loza. Will remove T fasteners and place disc of PEG tube against skin. At this time, there is no need to replace PEG tube itself. Patient has had the opportunity to ask and have questions answered. Patient verbally understands and agrees with the plan. Thank you for allowing us to participate in this patient's care. Office Visits / Consults: [id number] IP Consult L2
[2020-11-05] MEDS: Insulin Human 75/25 Kwickpen 4 UNIT SC (12:13)
[2020-11-05] MEDS: AcetaZOLAMIDE 500 MG/10 ML Vial 250 MG IV (12:46)
--- NOTE | 2020-11-05 15:22 | NURSING ---
1000-this RN in to complete AM medication pass. pt requesting medications be given peg tube. upon assessment of peg tube, found to be pushed out from initial site; not anchored to sutured in sites on abdomen. this RN notified Dr Redd who went into assess the patient. able to pull back residual from peg tube; flushes without difficulty. per Dr Redd, ok to give meds via peg or PO per patients request. Dr Redd states will consult surgery to assess tube.
[2020-11-05 16:40] LABS: Bedside Glucose 236 mg/dL (70-110)
[2020-11-05] MEDS: Insulin Human 75/25 Kwickpen 12 UNIT SC (16:57)
[2020-11-05] MEDS: Tamsulosin HCl 0.4 MG Capsule 0.8 MG PO (18:08)
[2020-11-05 20:46] LABS: Bedside Glucose 180 mg/dL (70-110)
[2020-11-05] MEDS: Lidocaine 5% Patch 1 PATCH TOPICAL (20:47)
[2020-11-05] MEDS: Atorvastatin Calcium 40 MG Tablet PO (20:49)
--- NOTE | 2020-11-06 03:57 | NURSING ---
Reviewed and agree with SURGICAL FIRST ASSISTANT documentation and charting.
[2020-11-06] MEDS: Menthol/Lanolin/Calamine/Znox 113 GM Tube 1 APPLIC TOPICAL ×2 (05:26→13:32)
[2020-11-06 05:45] LABS: International Normalized Ratio 2.3
[2020-11-06 05:51] LABS: Anion Gap 3 (5-15); BUN 28 mg/dL (7-18); BUN/Creat Ratio 15.1 RATIO (10-20); Calcium,Total 8.5 mg/dL (8.5-10.1); Chloride 97 mmol/L (98-107); Creatinine, Serum 1.85 mg/dL (0.70-1.30); EST Glomerular Filtration Rate 37 mL/min (>60); Est Glom Filt Rate - Afr Amer 45 mL/min (>60); Estimated Creatinine Clearance 28.66 ml/min; Glucose 167 mg/dL (74-106); Sodium Level 138 mmol/L (136-145)
[2020-11-06 06:55] VITALS: PULSE 124; RESP 24; O2SAT 91
[2020-11-06] MEDS: Ipratropium/Albuterol Sulfate 3 ML AMPUL.NEB INHALATION ×2 (06:55→13:15)
[2020-11-06 07:15] LABS: Bedside Glucose 179 mg/dL (70-110)
[2020-11-06] MEDS: Insulin Lispro 100 UNIT/ML INSULN.PEN SC ×3 (08:29→14:49)
[2020-11-06] MEDS: Cilostazol 50 MG Tablet 100 MG PO (08:29)
[2020-11-06] MEDS: Insulin Human 75/25 Kwickpen 28 UNIT SC (08:31)
[2020-11-06] MEDS: Gabapentin 300 MG Capsule PO ×2 (08:32→12:30)
[2020-11-06] MEDS: Docusate Sodium 100 MG Capsule PO (08:33)
[2020-11-06] MEDS: Cyanocobalamin 500 MCG Tablet 1000 MCG PO (08:33)
[2020-11-06 08:34] VITALS: PULSE 96
[2020-11-06] MEDS: Metoprolol Tartrate 50 MG Tablet PO (08:34)
[2020-11-06] MEDS: Clopidogrel Bisulfate 75 MG Tablet PO (08:34)
[2020-11-06] MEDS: NYSTATIN 500,000 UNIT/5 ML UDC 500000 UNIT PO ×2 (08:34→13:46)
[2020-11-06] MEDS: Sodium Chloride 1 GM Tablet PO (08:34)
[2020-11-06] MEDS: Furosemide 80 MG Tablet PO (08:34)
[2020-11-06] MEDS: amLODIPine 2.5 MG Tablet PO (08:34)
[2020-11-06 08:52] VITALS: BP 116/65; PULSE 96; RESP 16; TEMP 36.8; O2SAT 89
--- NOTE | 2020-11-06 10:47 | NURSING ---
dr dosrey aware of open area to patient's left buttock. per dr dorsey keep applying mepilex to the area.
--- NOTE | 2020-11-06 11:01 | PCM.PN.SRG ---
Patient Problems: Active and Suspected Problems S/P percutaneous endoscopic gastrostomy (PEG) tube placement (Acute) Malnutrition (Acute) pt reports a 20 lb weight loss since admission to [facility] on 09/27/2020 BUT he weighed 169 pounds and 12.1 ounces at presentation to [facility] and today at our institution he weighs 169 pounds and 5.04 ounces. ? Malnutrition? Renal failure (Acute) Acute kidney injury superimposed on CKD (Acute) Klebsiella pneumonia (Acute) UTI (urinary tract infection) (Acute) Urinary retention (Acute) Lactic acidosis (Acute) Malfunction of percutaneous endoscopic gastrostomy (PEG) tube (Acute) Subjective: Patient evaluated resting comfortably in bed. He denies any complaints with PEG tube. - Physical Exam Vitals/I&O's: Vital Signs Temp Pulse Resp BP Pulse Ox 98.2 F 96 16 116/65 89 11/06/20 08:52 11/06/20 08:52 11/06/20 08:52 11/06/20 08:52 11/06/20 08:52 Oxygen Flow Rate (L/min) 7 Oxygen Delivery Method Nasal Cannula Weight: 182 lb 15.739 oz Body Mass Index (BMI) 26.6 Intake and Output for Last 24 Hours 11/04/20 11/05/20 11/06/20 23:59 23:59 23:59 Intake Total 1730 / 1730 1370 / 1370 300 / 300 Output Total 1250 / 1250 2450 / 2450 900 / 900 Balance 480 / 480 -1080 / -1080 -600 / -600 General: Alert, Oriented x3, Cooperative Abdomen: Soft, Non Tender Microbiology Past 72 Hours 11/04/20 09:44 Sputum, Expectorated/Coughed Gram Stain - Final 11/04/20 09:44 Sputum, Expectorated/Coughed Respiratory Culture - Preliminary Enterobacter cloacae complex 11/05/20 08:20 Stool Stool Occult Blood (LIZANDRO) - Final Laboratory Results 11/05/20 11:13: POC Glucose 295 H 11/05/20 16:38: POC Glucose 236 H 11/05/20 20:41: POC Glucose 180 H 11/06/20 05:30: PT 25.0 H, INR 2.3 11/06/20 05:30: Sodium 138, Potassium 4.0, Chloride 97 L, Carbon Dioxide 38.0 H, Anion Gap 3 L, BUN 28 H, Creatinine 1.85 H, Estim Creat Clear Calc 28.66, Est GFR (MDRD) Af Amer 45 L, Est GFR (MDRD) Non-Af 37 L, BUN/Creatinine Ratio 15.1, Glucose 167 H, Calcium 8.5 11/06/20 07:11: POC Glucose 179 H Current Medications Acetaminophen (Acetaminophen 325 Mg Tablet) 650 mg PO Q4H PRN PRN Reason: Pain Score 1-10 Last Admin: 11/05/20 11:03 Dose: 650 mg Documented by: Albuterol/Ipratropium (Ipratropium/Albuterol Sulfate 3 Ml Ampul.Neb) 3 ml INHALATION Q6H.RT [facility] Last Admin: 11/05/20 18:40 Dose: 3 ml Documented by: Allopurinol (Allopurinol 300 Mg Tablet) 300 mg PO Q48H [facility] Last Admin: 11/05/20 08:59 Dose: 300 mg Documented by: Amlodipine Besylate (Amlodipine 2.5 Mg Tablet) 2.5 mg PO BID [facility] Last Admin: 11/06/20 08:34 Dose: 2.5 mg Documented by: Atorvastatin Calcium (Atorvastatin Calcium 40 Mg Tablet) 40 mg PO QHS [facility] Last Admin: 11/05/20 20:49 Dose: 40 mg Documented by: Bisacodyl (Bisacodyl 10 Mg Suppository) 10 mg RECTAL X1 PRN PRN Reason: Constipation Calamine/Phenol (Menthol/Lanolin/Calamine/Znox 113 Gm Tube) 1 applic TOPICAL TID [facility]; Protocol Last Admin: 11/06/20 05:26 Dose: 1 applicatio Documented by: Cilostazol (Cilostazol 50 Mg Tablet) 100 mg PO BIDAC [facility] Last Admin: 11/06/20 08:29 Dose: 100 mg Documented by: Clopidogrel Bisulfate (Clopidogrel Bisulfate 75 Mg Tablet) 75 mg PO DAILY [facility] Last Admin: 11/06/20 08:34 Dose: 75 mg Documented by: Cyanocobalamin (Cyanocobalamin 500 Mcg Tablet) 1,000 mcg PO DAILY@0800 [facility] Last Admin: 11/06/20 08:33 Dose: 1,000 mcg Documented by: Docusate Sodium (Docusate Sodium 100 Mg Capsule) 100 mg PO BID [facility] Last Admin: 11/06/20 08:33 Dose: 100 mg Documented by: Emollient Ointment (Emollient Combination No.72 500 Ml Lotion) 1 applic TOPICAL 4X/DAY PRN; Protocol PRN Reason: DRY SKIN Furosemide (Furosemide 80 Mg Tablet) 80 mg PO BID@1000,1800 [facility] Last Admin: 11/06/20 08:34 Dose: 80 mg Documented by: Gabapentin (Gabapentin 300 Mg Capsule) 300 mg PO TIDCM [facility] Last Admin: 11/06/20 08:32 Dose: 300 mg Documented by: Glucagon (Glucagon 1 Mg/Ml Syringe) 1 mg IM X1 PRN PRN Reason: HYPOGLYCEMIA Ceftriaxone Sodium 2 gm/ (Sodium Chloride) 50 mls @ 100 mls/hr IV Q24 [facility] Stop: 11/07/20 10:29 Last Admin: 11/06/20 10:43 Dose: 100 mls/hr Documented by: Insulin Human Lispro (Insulin Lispro 100 Unit/Ml Insuln.Pen) 0 unit SC TIDAC [facility]; Protocol Last Admin: 11/06/20 08:29 Dose: 2 u Documented by: Insulin Lispro Protam/Lispro Human (Insulin Human 75/25 Kwickpen) 12 unit SC DINNER [facility] Last Admin: 11/05/20 16:57 Dose: 12 units Documented by: Insulin Lispro Protam/Lispro Human (Insulin Human 75/25 Kwickpen) 28 unit SC BREAKFAST [facility] Last Admin: 11/06/20 08:31 Dose: 28 u Documented by: Lidocaine (Lidocaine 5% Patch) 1 patch TOPICAL 1999 [facility]; Protocol Last Admin: 11/05/20 20:47 Dose: 1 patch Documented by: Magnesium Hydroxide (Magnesium Hydroxide 30 Ml Udc) 30 ml PO X1 PRN PRN Reason: Constipation Last Admin: 11/02/20 17:06 Dose: 30 ml Documented by: Metoprolol Tartrate (Metoprolol Tartrate 50 Mg Tablet) 50 mg PO BID [facility] Last Admin: 11/06/20 08:34 Dose: 50 mg Documented by: Nutritional Formula (Lactose Free) (Glucerna Shake 120 Ml Liquid) 120 ml PO 4X/DAY [facility] Last Admin: 11/06/20 08:49 Dose: Not Given Documented by: Nystatin (Nystatin 500,000 Unit/5 Ml Udc) 500,000 unit PO 4X/DAY [facility] Last Admin: 11/06/20 08:34 Dose: 500,000 unit Documented by: Sodium Chloride (Sodium Chloride 1 Gm Tablet) 1 gm PO BID [facility] Last Admin: 11/06/20 08:34 Dose: 1 gm Documented by: Sodium Chloride (0.9% Saline Lock 10 Ml Syringe) 10 - 40 ml IV UD PRN PRN Reason: SALINE FLUSH Last Admin: 11/05/20 12:46 Dose: 10 ml Documented by: Tamsulosin HCl (Tamsulosin Hcl 0.4 Mg Capsule) 0.8 mg PO 1730 [facility] Last Admin: 11/05/20 18:08 Dose: 0.8 mg Documented by: Warfarin Sodium (Warfarin 3 Mg Tablet) 3 mg PO DAILY@1700 [facility] Last Admin: 11/05/20 18:09 Dose: 3 mg Documented by: Medical Necessity - Tobacco Use Smoking Status: Former smoker Tobacco Use: Cigarettes Assessment/Plan All Active Problems S/P percutaneous endoscopic gastrostomy (PEG) tube placement (Acute) Malnutrition (Acute) Renal failure (Acute) Acute kidney injury superimposed on CKD (Acute) Klebsiella pneumonia (Acute) UTI (urinary tract infection) (Acute) Urinary retention (Acute) Lactic acidosis (Acute) Malfunction of percutaneous endoscopic gastrostomy (PEG) tube (Acute) I am following this patient with Dr. Loza PEG tube functioning well We will sign off at this time Please reconsult if needed Inpatient E&M: 07387 Subs Hosp L2
[2020-11-06 11:25] LABS: Bedside Glucose 269 mg/dL (70-110)
--- NOTE | 2020-11-06 12:24 | PCM.PN.BLA ---
Progress Note Day #6 Rocephin Day #1 Cefepime Afebrile VSS Maintaining 89% on a 7 LPM NC Oral intake is erratic Urine OP yesterday was 2450 after receiving Diamox in addition to Lasix. His weight today is 182 pounds and 15 ounces, down from 183 pounds and 3 ounces on 11/04/2020. Discussed with nursing - There is a concern about a small decub stage 2 on the left buttock. It is currently being dressed with Mepilex. He has trouble lying on this R side due to right hip pain Reviewed the PT/OT/ST notes Medication list reviewed. Blood sugar record was reviewed. Blood sugars at lunch and supper are still not adequately controlled. 75/25 insulin was adjusted up yesterday. He had 11 units of R yesterday. The fasting blood sugar this morning was 179 and he got 2 units of regular insulin. The blood sugar prior to lunch is 269 and he got 6 units of regular insulin. All lab was personally reviewed. Sodium is 138 today and the potassium is 4.0. Serum bicarb is still elevated at 38. The BUN is 28 and the creatinine is 1.85, up from 1.57 on 11/04/2020 and I suspect this is secondary to the 2 doses of Diamox. INR today is stable at 2.3. He was supposed to have had a MBS yesterday BUT, I do not see the results? He continues to cough, donya when eating. the sputum from 11/04/20 still has 4+ WBC's and it is growing Enterobacter cloacae complex. It is resistant to cefazolin, ertapenem and Zosyn. It is sensitive to fluoroquinolones and cefepime. Rocephin is not listed. John denies chest pain, shortness of breath at rest, nausea, abdominal pain, suprapubic pain, lightheadedness. He has a persistent facial droop. MM are dry.....the coating on the tongue is better with the Nystatin He is alert and pleasant. NAD he is not tachypneic at rest and he has no conversational dyspnea. Lungs are diminished throughout. There are some coarse crackles in the bases but no wheezing. BS's are donya diminished in the bases. abd is soft and NT with normal BS's. Gen surgery rectified the problems with the PEG. It is now secured. no peripheral edema urine is clear. He has a stage 2 decubitus ulcer on the L buttock. there is no odor and no purulent DC. there is no redness around the wound Impressions 1. sepsis due to Klebsiella pneumoniae pneumonia last week due to aspiration. He had another aspiration event following transfer back to rehab and now the sputum is growing Enterobacter cloacae. I think he continues to aspirate and I suspect this is related not just to the CVA but also to the Laryngocele. He is retaining CO2 now and there is a persistent L side effusion which may be an empyema. 2. Post stroke debility 3. severe dysphagia 4. CRF stage 3 5. Acute combined respiratory failure. 6. chronic anticoagulation with Warfarin 7. PAF Add pulmicort to the drug regimen BIPAP at night Consult Dr. Mckeon to participate in management He may need to have a thoracentesis. If the event this is necessary will hold the Warfarin today and when the INR drops below 2 will consider starting Lovenox.....maybe just prophylactic. adjust the Humalog 75/25 doses and increase the SSI to the high scale. Consider making him NPO and restarting TF until the pneumonia clears. STROKE Vital Signs/Narrative: Vital Signs Temp Pulse Resp BP Pulse Ox 11/06/20 08:52 98.2 F 96 16 116/65 89 11/06/20 08:34 96 Inpatient E&M: 70039 Subs Hosp L3
[2020-11-06 13:15] VITALS: PULSE 121; RESP 20
[2020-11-06] MEDS: Cefepime 1 GM in 0.9% NS 50 ML Minibag Q12 IV (13:28)
[2020-11-06] MEDS: Glucerna Shake 120 ML LIQUID PO (13:46)
[2020-11-06 14:56] LABS: ALB/GLOB Ratio 0.7 RATIO (0.9-2.4); Globulin 4.1 g/dL (2.2-4.2); LDH 121 U/L (87-241); Protein, Total 6.8 g/dL (6.4-8.2)
--- NOTE | 2020-11-06 16:13 | PCM.NTREPORT ---
Nutrition Therapy Report - History Nutrition Services has been consulted to:: Manage enteral nutrition Current diet / nutrition support order:: NPO; PEG TF - Anthropometric Measurements Height:: 5 ft 9 in Weight:: 83 kg Body Mass Index (BMI):: 27.0 - Relevant Labs Relevant Labs:: RBC 3.29 M/mm3 (4.6-6.2) L 11/04/20 05:37 Hgb 9.7 g/dL (13.0-16.5) L 11/04/20 05:37 Hct 32.5 % (40-54) L 11/04/20 05:37 MCV 98.8 fL (80-94) H 11/04/20 05:37 MCHC 29.8 g/dL (32-36) L 11/04/20 05:37 RDW Std Deviation 55.2 fl (35.1-43.9) H 11/04/20 05:37 RDW Coeff of Norman 15.2 % (11.6-14.6) H 11/04/20 05:37 PT 25.0 SECONDS (11.7-14.9) H 11/06/20 05:30 Chloride 97 mmol/L (98-107) L 11/06/20 05:30 Carbon Dioxide 38.0 mmol/L (21.0-32.0) H 11/06/20 05:30 Anion Gap 3 (5-15) L 11/06/20 05:30 BUN 28 mg/dL (7-18) H 11/06/20 05:30 Creatinine 1.85 mg/dL (0.70-1.30) H 11/06/20 05:30 Est GFR (MDRD) Af Amer 45 mL/min (>60) L 11/06/20 05:30 Est GFR (MDRD) Non-Af 37 mL/min (>60) L 11/06/20 05:30 Glucose 167 mg/dL (74-106) H 11/06/20 05:30 Albumin/Globulin Ratio 0.7 RATIO (0.9-2.4) L 11/06/20 05:30 - Assessment Food / Nutrition-Related History:: Pt with hx of dysphagia and has PEG tube in place. Pt was taking PO with altered texture/consistency but, per Dr. Redd is not safe for PO at this time & pt to receive all nutrition via PEG tube. Pt has a stage 2 decubitus ulcer on the L buttock which warrants increased protein for healing and blood glucose elevated---will order Pivot 1.5 Hernan for extra protein and limited carb per L of product as compared to Jevity 1.5Cal. Wt appears to be overall stable~83 Kg. Re-estimated nutrition needs~6853-9600 kcal and ~80-90 gm protein for wound healing. - Nutrition Diagnosis Problem / Etiology / Signs & Symptoms (PES):: Difficulty swallowing related to neurological deficit/stroke as evidenced by NPO and PEG TF for nutrition. Evidence of Malnutrition Exists:: No - Nutrition Intervention Nutrition Prescription:: Estimated nutrition needs~0154-9173 kcal and ~80-90 gm protein/day. Estimated fluid needs~9277-7248 ml free water/day. - Food / Nutrient Delivery Interventions Summary of nutrition intervention:: Pt to maintain NPO and PEG TF meet~100% estimated nutrition needs. Will order Pivot 1.5 Hernan 275 ml 4 times per day (6AM, 11PM, 3PM and 7PM) with 120 ml free water flush before and after each feeding to provide 1650 kcal, 103 gm protein and 1785 ml free water per day. Monitor renal labs/blood glucose and need to adjust enteral nutrition support/water flushes. Nutrition support ordered as / adjusted to:: Will order Pivot 1.5 Hernan 275 ml 4 times per day (6AM, 11PM, 3PM and 7PM) with 120 ml free water flush before and after each feeding to provide 1650 kcal, 103 gm protein and 1785 ml free water per day. Nutrition education provided?: No - MNT Monitoring Further MNT monitoring and evaluation required?: Yes MNT Follow-up in:: 3-5 days
[2020-11-06 16:17] VITALS: BMI 27.0
[2020-11-06 16:36] LABS: Bedside Glucose 146 mg/dL (70-110)
--- NOTE | 2020-11-06 17:20 | CASEMGMT ---
Social Work Responded to code blue. Arrived to pt's room with HANDMADE TILE ARTIST active with CPR. Assisted as requested. Nurse requested SW contact Dr. Redd. Voicemail left with pertinent, active information. Team arrived. called into unit. SW spoke with . explained she was on the phone with the patient when she heard a weird noise, then pt went unresponsive and she notified nursing. Provided emotional support, answered questions as able, facilitated information between team and . Team continues to actively work on pt. Assisted Dr. Doll conversing with about pt current condition/status. Continued ongoing support with via phone, and when pt was determined to be transferred to ER, suggested for and supportive person to come visit pt. agreeable. Explained SW in ED to continue with support and collaboration when she arrives. Hand off given to ED SW. Mary Hector, DEMAND EQUIPMENT REPAIRER SPIRITUAL ADVISOR
[2020-11-06 17:36] LABS: Bedside Glucose 137 mg/dL (70-110)
--- NOTE | 2020-11-06 17:44 | PN_ITS ---
Progress Note Patient is a 5-year-old male who was in the inpatient rehab unit following a stroke and aspiration event. At 1649 today MIGUEL HOFFMAN was called. The had been talking on the phone with her when he apparently had made a funny noise and so she notified the front office help and went to check in on the patient and called for the nurse and then noticed that he had no pulse and had turned blue. CPR was started immediately and he was placed on the monitor where he was found to have PEA. He was given a dose of epinephrine and compressions resumed. Because of the concern for possible aspiration and the fact that he had had a stroke, during the pulse check a 7.5 ET tube was inserted to 23 cm at the lip, this was performed in between compressions. A second dose of epinephrine as well as a dose of bicarb was given during the code and at 1701 he regained a pulse and appeared to be in SVT. At this point he was started on IV fluids and transfered down to the ER. Family was contacted and had requested that he now be DNR CCA. In the ED he became hypotensive and was cardioverted by the ED physician and started IV pressor support. After his and son arrived a family discussion was had and they decided to terminally extubate him since he was unresponsive while not on any sedating medications and on pressor support his MAPs were in the 30's and was concomitantly receiving IVF. He was given a dose of morphine 4 mg IV and he was terminally extubated at 1826 and he on 11/06/2020 at 1835. Critical care time spent at bedside for the MIGUEL HOFFMAN, talking with family and assisting with comfort care measures 100 minutes Procedures: [id number] Critial Care 1st Hr
--- NOTE | 2020-11-11 12:07 | PCM.DEATH ---
Preliminary Cause of myocardial infarction Date of Admission: 10/31/20 Date of : 11/06/20 - 18:36 - Principle Diagnosis myocardial infarction in pt with known CAD Problem List: Active and Suspected Problems myocardial Infarction Sepsis due to aspiration pneumonia due to Klebsiella pneumoniae - resolved Acute combined respiratory failure Lactic acidosis (Acute) Acute pulmonary edema with BL pleural effusions due to volume overload - resolved Aspiration pneumonia due to Enterobacter cloacae Left pleural effusion - suspected empyema Acute kidney injury superimposed on CKD stage III(Acute) Urinary retention (Acute) Physical debility due to R medullary ischemic CVA Severe dysphagia due to CVA Urinary tract infection secondary to Klebsiella pneumonia orthostatic hypotension-resolved Gross hematuria-resolved Malfunction of percutaneous endoscopic gastrostomy (PEG) tube (Acute) Hospital Course Mr. John Hassan was a 85 year old M with a past medical history of hypertension, hyperlipidemia, coronary artery disease, CABG, diabetes mellitus type 2, paroxysmal atrial fibrillation, chronic anticoagulation with warfarin, hyperuricemia, chronic renal failure stage IIIb and chronic low back pain who presented to [facility] ED on 09/26/2020 with slurred speech, right facial droop and dizziness for the preceding few hours. The initial CT brain without IV contrast done 09/26/2020 showed acute brain attack. He was at admitted to the hospital for acute right inferior medullary ischemic CVA. Because he had a therapeutic INR and the brain CT already showed changes consistent with ischemic CVA TPA was not ordered. CTA of the head showed no acute large vessel occlusion or hemorrhage. There was multifocal smaller vessel intracranial stenoses. He was seen at [facility] by PT/OT/ST. PEG tube was placed due to severe dysphagia and he was transferred to [facility] acute inpatient rehab on 10/04/2020 for greater than 3 hours of therapy daily to restore him at or near his prior level of function. Prior to the stroke he was independent with all ADLs and driving. John did well in therapy and was scheduled to be discharged on 10/30/2020. On 10/26/2020 he suddenly developed hypoxemia and was requiring high flow oxygen. Chest x-ray was obtained and showed bilateral pleural effusions plus infiltrates. IV diuretics were started. He did not improve and continued to be hypoxic and now had altered mental status. A sputum culture done on 10/26/2020 grew Klebsiella pneumonia and he was started on Rocephin. I suspect the PNA was due to aspiration. He was transferred to the acute side of [facility] for progressive dyspnea with hypoxia and CO2 retention. He required BiPAP but did not require intubation. He was transferred back to inpt rehab on 10/31/20 for > 3 hours of therapy daily to restore him to the level of function he had prior to acute aspiration PNA. Unfortunately John continued to aspirate and his oxygen requirement increased again. CXR showed a persistent Left pleural effusion and sputum culture grew Enterobacter Cloacae. Rocephin was discontinued and he was started on Cefepime. Plans were made to do a diagnostic thoracentesis on the left. He was ordered AVAPS at night. On 11/06/20 in the late afternoon John was talking on the phone with his Missy and she heard him make a funny noise and then he no longer talked. A Code Blue was called and John was resuscitated. His family elected to make him DNR CCA after talking with Dr. Sparks on the phone. He was transferred to the ED and became hypotensive and was started on pressors. After the family arrived at the hospital they decided to terminally wean from the ventilator and pressors and he was pronounced by Dr. Christensen at 1836 on 11/06/20. His family was present. Inpatient E&M: [id number] [facility]
== END 2020-11-06 17:11 | disposition short-term general hospital (02) | DRG 981 ==
PROVIDERS: Admitting Provider Internal Medicine; Visit Provider Internal Medicine
DX: I69.391 Dysphagia following cerebral infarction (principal); J15.0 Pneumonia due to Klebsiella pneumoniae; I13.0 Hypertensive heart and chronic kidney disease with heart failure and stage 1 through stage 4 chronic kidney disease, or unspecified chronic kidney disease; J96.11 Chronic respiratory failure with hypoxia; I69.392 Facial weakness following cerebral infarction; I69.328 Other speech and language deficits following cerebral infarction; R13.10 Dysphagia, unspecified; E78.5 Hyperlipidemia, unspecified; E11.22 Type 2 diabetes mellitus with diabetic chronic kidney disease; I25.10 Atherosclerotic heart disease of native coronary artery without angina pectoris; I48.0 Paroxysmal atrial fibrillation; N18.32 Chronic kidney disease, stage 3b; L89.151 Pressure ulcer of sacral region, stage 1; G89.29 Other chronic pain; I50.9 Heart failure, unspecified; R47.1 Dysarthria and anarthria; Z87.891 Personal history of nicotine dependence; H35.30 Unspecified macular degeneration; K94.29 Other complications of gastrostomy; Y83.8 Other surgical procedures as the cause of abnormal reaction of the patient, or of later complication, without mention of misadventure at the time of the procedure; Y92.129 Unspecified place in nursing home as the place of occurrence of the external cause; L89.322 Pressure ulcer of left buttock, stage 2; Z66 Do not resuscitate
CPT/HCPCS: 31500; 36415; 36600; 71046; 80048; 82274; 82803; 82962; 83615; 83735; 84100; 84156; 85025; 85610; 87070; 87186; 87205; 92507; 92523; 92526; 92610; 92950; 94640; 94667; 94668; 97110; 97116; 97129; 97130; 97162; 97166; 97530; 97535; 97802; J7030; A4216; J0696; J3490

== ENCOUNTER 2020-11-06 17:19 | Emergency (ER) | payer MEDICARE, SELFPAY ==
[2020-11-06] VITALS (10 sets, daily range): BP systolic 43–97; BP diastolic 30–66; PULSE 97–150; RESP 12–28; TEMP 35.4; O2SAT 96–99; BMI 27.0; BMI 33.4
--- NOTE | 2020-11-06 17:27 | RAD_ITS ---
STUDY: X-RAY CHEST REASON FOR EXAM: Male, 85 years old. CARDIAC ARREST TECHNIQUE: Single AP portable view of the chest. COMPARISON: November 04, 2020 FINDINGS: Endotracheal tube, 3 cm above the robson. Feeding tube extends to the stomach in the left upper quadrant. There is percutaneous gastrostomy tube. There are monitoring and support devices. There are mid and lower lung increased opacities. There is small left pleural effusion. Sternal cerclage wires are present from a prior sternotomy. Normal mediastinum and jaida. Normal visualized pulmonary arteries. Normal visualized aortic arch and descending thoracic aorta. Normal visualized thoracic spine. Normal visualized ribs, clavicles, and shoulders. There is no demonstrated abnormality of the visualized soft tissue structures of the upper abdomen. RAD/Chest 1 View (Portable) IMPRESSION: Endotracheal tube and feeding tube placement. Bilateral edema or pneumonia. Left pleural effusion. Electronically Signed: Jaziel Tan MD at 21:17 EST , Service support ,
--- NOTE | 2020-11-06 17:28 | EKG12_ITS ---
Test Reason : Blood Pressure : / mmHG Vent. Rate : 189 BPM Atrial Rate : 208 BPM P-R Int : 000 ms QRS Dur : 098 ms QT Int : 234 ms P-R-T Axes : 000 051 231 degrees QTc Int : 414 ms Poor data quality, interpretation may be adversely affected Atrial fibrillation with premature ventricular or aberrantly conducted complexes ST & T wave abnormality, consider inferolateral ischemia Abnormal ECG Confirmed by ARMIDA FUENTES, ANIL ([id number]), editor managing newspaper INDY GILBERT ([id number]) on 11/13/2020 11:19:03 AM Referred By: Confirmed By:ANIL HUFFMAN MD
[2020-11-06] MEDS: 0.9% Normal Saline 1,000 ML 1000 ML IV (17:35)
--- NOTE | 2020-11-06 17:35 | CPS ---
Critical CO2 level verified times two.Reported results to DR. Christensen.Verified by read back.
[2020-11-06] MEDS: 0.9% Normal Saline 1,000 ML 150 ML IV (17:39)
[2020-11-06 17:41] LABS: Absolute Lymphocyte Count 1.74 X10^3/uL (0.83-4.51); Absolute Neutrophil Count 2.2 X10^3/uL (2.0-7.7); Basophil# 0.01 X10^3/uL; Basophil% 0.2 % (0-1); Eosinophil# 0.05 X10^3/uL; Eosinophils% 1.2 % (0-5); Hematocrit 23.2 % (40-54); Hemoglobin 6.7 g/dL (13.0-16.5); Lymphocyte # 1.74 X10^3/ul (4.0); Lymphocyte % 41.5 % (19-41); Mean Corp Hgb Conc 28.9 g/dL (32-36); Mean Corpuscular Hgb 29.4 pg (27.0-32.0); Mean Corpuscular Volume 101.8 fL (80-94); Mean Platelet Vol. 10.5 fl (6.2-12.0); Monocyte% 2.4 % (0-10); NRBC Flagged by Analyzer 0 % (0-5); Neutrophil # 2.21 X10^3/uL (2.7-7.7); Neutrophil % 52.8 % (47-70); Platelet Count 126 K/mm3 (150-450); RBC Distribution Width CV 15.1 % (11.6-14.6); RBC Distribution Width SD 56.8 fl (35.1-43.9); Red Blood Count 2.28 M/mm3 (4.6-6.2); White Blood Count 4.2 K/mm3 (4.4-11.0)
--- NOTE | 2020-11-06 17:53 | ED.RN ---
per dr. ramirez, maintain levophed at 5mcg/min. do not increase at this time.
[2020-11-06 17:54] LABS: International Normalized Ratio 3.1; Partial Thromboplast Time 49.9 Seconds (24.1-36.2); Prothrombin Time (Protime)PT. 31.2 SECONDS (11.7-14.9)
[2020-11-06 18:00] LABS: BNP,B-Type NATRIURETIC PEPTIDE 204.8 pg/mL (0-100)
--- NOTE | 2020-11-06 18:03 | ED.RN ---
son and at bedside. dr. kirkland at bedside speaking with family.
[2020-11-06 18:05] LABS: ALB/GLOB Ratio 0.6 RATIO (0.9-2.4); AST(SGOT) 27 U/L (15-37); Alanine Aminotransfer ALT/SGPT 19 U/L (16-61); Albumin, Serum 1.3 g/dL (3.2-5.0); Alkaline Phosphatase 69 U/L (45-117); Anion Gap 7 (5-15); BUN 20 mg/dL (7-18); Calcium,Total 5.1 mg/dL (8.5-10.1); Chloride 121 mmol/L (98-107); EST Glomerular Filtration Rate 75 mL/min (>60); Est Glom Filt Rate - Afr Amer 91 mL/min (>60); Estimated Creatinine Clearance 53.03 ml/min; Globulin 2.3 g/dL (2.2-4.2); Glucose 102 mg/dL (74-106); Lipase 108 U/L (73-393); Potassium 2.1 mmol/L (3.5-5.1); Protein, Total 3.6 g/dL (6.4-8.2); Sodium Level 151 mmol/L (136-145)
--- NOTE | 2020-11-06 18:14 | ED.RN ---
per she would like him terminally extubated, dr. kirkland aware, speaking with dr. ramirez.
--- NOTE | 2020-11-06 18:20 | ED.VIS.GEN ---
History of Present Illness Chief Complaint: Unresponsive Informant: - - Code team Narrative: 85-year-old male in rehab following a stroke. He apparently had an aspiration pneumonia that was being treated. He recently underwent PEG placement. Apparently he was on the phone with his when he began gurgling and a code was called. He was in PEA underwent about 9 minutes of CPR during which time he received sodium bicarbonate and epinephrine. The patient had ROSC and hypotensive. He was brought to the emergency department by the code team. Hospitalist at the code seen did speak with the and after intubation and ROSC was made DNR Comfort Care arrest. 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 (9) Dysphagia Status: Chronic Comment: NPO with PEG at presentation (10) HLD (hyperlipidemia) Status: Chronic (11) Hypertension Status: Chronic (12) Small vessel disease, cerebrovascular Status: Chronic Past Medical History - Allergies and Home Meds Allergies/Adverse Reactions: Allergies No Known Allergies Allergy (Verified 11/06/20 17:23) Primary Care Physician: Care Physician,No Primary [NON-STAFF] - Surgical History: cholecystectomy, coronary bypass surgery - CABG x 1., - - CABG x1, PEG tube placement, cholecystectomy. Lives: Spouse/ Significant Other Smoking Status: Former smoker Drugs: None - Family History Maternal Family History: Reports: Diabetes Paternal Family History: Reports: High Cholesterol, Heart Disease, Hypertension Review of Systems ROS: Unable to Obtain Physical Exam Vital Signs/Narrative: Vital Signs Temp Pulse Resp BP Pulse Ox 11/06/20 18:17 112 H 18 43/30 L 97 11/06/20 18:07 53/39 L 11/06/20 18:02 109 H 24 H 88/57 L 11/06/20 17:57 150 H 27 H 98 11/06/20 17:51 97 23 H 97/55 L 99 11/06/20 17:49 108 H 24 H 97/55 L 11/06/20 17:45 114 H 28 H 97/55 L 98 11/06/20 17:34 112 H 20 H 62/47 L 96 11/06/20 17:20 95.8 F L 143 H 23 H 79/66 L 99 Inital Vital Signs reviewed: Yes General: Well nourished, Well developed, Obese Head: Normocephalic, Atraumatic Eyes: - - Pupils are 3 mm bilaterally ENT: Moist mucous membranes, No rhinorrhea Neck: Supple, Nontender Cardiovascular: No murmurs, Irregular, Tachycardia Respiratory: No distress, CTA bilaterally, Chest nontender, - - Patient has breath above the vent Abdomen: Soft, Nondistended, Normal bowel sounds Skin: Pallor Neurological: Coma, - - No response to pain Diagnostic/Tx/Re-eval Laboratory Last Values WBC 4.2 K/mm3 (4.4-11.0) L 11/06/20 17: RBC 2.28 M/mm3 (4.6-6.2) L 11/06/20 17:27 Hgb 6.7 g/dL (13.0-16.5) L 11/06/20 17: Hct 23.2 % (40-54) L 11/06/20 17: MCV 101.8 fL (80-94) H 11/06/20 17:27 MCH 29.4 pg (27.0-32.0) 11/06/20 17: MCHC 28.9 g/dL (32-36) L 11/06/20 17:27 RDW Std Deviation 56.8 fl (35.1-43.9) H 11/06/20 17:27 RDW Coeff of Norman 15.1 % (11.6-14.6) H 11/06/20 17: Plt Count 126 K/mm3 (150-450) L 11/06/20 17: MPV 10.5 fl (6.2-12.0) 11/06/20 17:27 Immature Gran % (Auto) 1.900 % (0.0-0.9) H 11/06/20 17: Neut % (Auto) 52.8 % (47-70) 11/06/20 17:27 Lymph % (Auto) 41.5 % (19-41) H 11/06/20 17:27 Haralson % (Auto) 2.4 % (0-10) 11/06/20 17:27 Eos % (Auto) 1.2 % (0-5) 11/06/20 17:27 Baso % (Auto) 0.2 % (0-1) 11/06/20 17:27 Absolute Neuts (auto) 2.2 X10^3/uL (2.0-7.7) 11/06/20 17:27 Absolute Lymphs (auto) 1.74 X10^3/uL (0.83-4.51) 11/06/20 17:27 Nucleated RBC % 0 % (0-5) 11/06/20 17:27 PT 31.2 SECONDS (11.7-14.9) H 11/06/20 17:25 INR 3.1 11/06/20 17:25 APTT 49.9 Seconds (24.1-36.2) H 11/06/20 17:25 Specimen Type ART 11/06/20 17:16 Sample Site L Radial 11/06/20 17:16 pH 7.31 (7.35-7.45) L 11/06/20 17:16 Bicarbonate Actual 36.7 mmol/L (22-26) H 11/06/20 17:16 Total CO2 39 mmol/L 11/06/20 17:16 Base Excess 10 mmol/L (-2 to +2) H 11/06/20 17:16 O2 Saturation 100 % (95-99) H 11/06/20 17:16 O2 % 100 11/06/20 17:16 ABG pCO2 73.0 mmHg (35-45) H* 11/06/20 17:16 ABG pO2 193 mmHG (75-100) H 11/06/20 17:16 Elliott Test Positive 11/06/20 17:16 O2 Delivery Device Bagging 11/06/20 17:16 Sodium 151 mmol/L (136-145) H 11/06/20 17:25 Potassium 2.1 mmol/L (3.5-5.1) L* 11/06/20 17:25 Chloride 121 mmol/L (98-107) H 11/06/20 17:25 Carbon Dioxide 23.0 mmol/L (21.0-32.0) 11/06/20 17:25 Anion Gap 7 (5-15) 11/06/20 17:25 BUN 20 mg/dL (7-18) H 11/06/20 17:25 Creatinine 1.00 mg/dL (0.70-1.30) 11/06/20 17:25 Estim Creat Clear Calc 53.03 ml/min 11/06/20 17:25 Est GFR (MDRD) Af Amer 91 mL/min (>60) 11/06/20 17:25 Est GFR (MDRD) Non-Af 75 mL/min (>60) 11/06/20 17:25 BUN/Creatinine Ratio 20.0 RATIO (10-20) 11/06/20 17:25 Glucose 102 mg/dL (74-106) 11/06/20 17:25 Lactic Acid 4.9 mmol/L (0.4-1.9) H* 11/06/20 18:02 Calcium 5.1 mg/dL (8.5-10.1) L* 11/06/20 17:25 Total Bilirubin 0.10 mg/dL (0.20-1.00) L 11/06/20 17:25 AST 27 U/L (15-37) 11/06/20 17:25 ALT 19 U/L (16-61) 11/06/20 17:25 Alkaline Phosphatase 69 U/L (45-117) 11/06/20 17:25 Troponin I 0.055 ng/mL (<0.045) H 11/06/20 17:25 B-Natriuretic Peptide 204.8 pg/mL (0-100) H 11/06/20 17:27 Total Protein 3.6 g/dL (6.4-8.2) L 11/06/20 17:25 Albumin 1.3 g/dL (3.2-5.0) L 11/06/20 17:25 Globulin 2.3 g/dL (2.2-4.2) 11/06/20 17:25 Albumin/Globulin Ratio 0.6 RATIO (0.9-2.4) L 11/06/20 17:25 Lipase 108 U/L (73-393) 11/06/20 17:25 - Medical Decision Making Patient received IV fluids. Blood work was obtained. Patient's EKG from the code demonstrates A. fib with RVR. Is difficult to obtain from the documentation I have immediately available to me whether or not he has paroxysmal A. fib or chronic sustained A. fib. As he is hypotensive with a blood pressure 60/40 and a heart rate in the 170s A. fib he underwent a single synchronized cardiac shock which did not result in conversion to sinus. My impression of the single view portable chest x-ray is adequate placement of OG and endotracheal tube. Pleural effusion on right. Patient was started on low-dose Levophed. He was not requiring any sedation. Family arrived Dr. Sparks (it was part of the original code team) spoke with them and they would like to terminally extubate him. CODE STATUS was changed to DNR comfort care only. Patient received morphine and Zofran and was extubated. Patient was extubated at 1825 and was pronounced at 1836 ED Disposition - Plan for ED Patient: Disposition: Diagnosis: Cardiac arrest, Hypokalemia, Atrial fibrillation, Lactic acidosis, Elevated troponin Referrals: Care Physician,No Primary [NON-STAFF] -
[2020-11-06] MEDS: Morphine 4 MG/ML Syringe IV (18:22)
[2020-11-06] MEDS: Ondansetron 4 MG/2 ML Vial IV (18:22)
--- NOTE | 2020-11-06 18:23 | ED.RN ---
d/c levophed per dr. kirkland.
[2020-11-06 18:26] LABS: Allen Test Positive; Base Excess 10 mmol/L (-2 to +2); Bicarbonate 36.7 mmol/L (22-26); Blood Gas Specimen Type ART; FI02 100; O2 Delivery Device Bagging; PO2 193 mmHG (75-100); SITE L Radial; SO2 100 % (95-99); Total Carbon Dioxide 39 mmol/L; pH 7.31 (7.35-7.45)
--- NOTE | 2020-11-06 18:30 | ED.RN ---
family remains at bedside.
--- NOTE | 2020-11-06 18:36 | ED.RN ---
per dr. kirkland, time of 1834.
[2020-11-06 18:45] LABS: Lactic Acid 4.9 mmol/L (0.4-1.9)
--- NOTE | 2020-11-06 19:02 | CM.ED ---
Social Work Below interactions happened throughout patient time in [facility] ED. Patient Code Blue from Inpatient Rehab. This web content & social media manager meeting with patient spouse, Coral and patient step sonTaras outside patient room. This web content & social media manager notified Dr. Christensen on patient family arrival. This web content & social media manager coordinated with medical team and family on family entering patient room. Patient did pass. Family reports that [facility] in [place] as choice of home. Patient did not initially have PCP listed on patient chart per patient spouse PCP is Dr. Garcia, chart updated. Support provided throughout to patient family. Medical team updated on home. Nena Montano MSW, ADÁN
--- NOTE | 2020-11-06 19:12 | ED.RN ---
PT RC'D APPROX 2000ML OF NS IN THE LAST HOUR OF LIFE
--- NOTE | 2020-11-06 21:22 | CPS ---
Patient extubated in ER by Physician and UNDERWRITING SALES REPRESENTATIVE at 1825. Extubated to RA.
[2020-11-06 22:07] LABS: Reflex Lactate? Y
== END 2020-11-06 20:43 ==
PROVIDERS: Emergency Provider Emergency Medicine; PCP Internal Medicine
DX: I46.9 Cardiac arrest, cause unspecified (principal); E87.6 Hypokalemia; I48.91 Unspecified atrial fibrillation; E87.2 Acidosis; E66.9 Obesity, unspecified; I25.10 Atherosclerotic heart disease of native coronary artery without angina pectoris; E78.5 Hyperlipidemia, unspecified; I10 Essential (primary) hypertension; Z95.1 Presence of aortocoronary bypass graft; Z87.891 Personal history of nicotine dependence; Z86.73 Personal history of transient ischemic attack (TIA), and cerebral infarction without residual deficits; Z79.01 Long term (current) use of anticoagulants; Z79.899 Other long term (current) drug therapy
CPT/HCPCS: 31500; 36600; 51702; 71045; 80053; 82803; 83605; 83690; 83880; 84484; 85025; 85610; 85730; 92950; 92960; 93005; 94002; 96365; 96375; 99285; J7030; J7050; A4216; J0153; J2405